=== PATIENT | female | born 1945 | race Caucasian/White ===

== ENCOUNTER 2016-07-16 15:38 | Inpatient (IN) | payer MEDICARE, BC ==
[~2016-07-16] VITALS: Ht 157.5 cm; Wt 54.1 kg
--- NOTE | ~2016-07-16 | HEMODYNAMI ---
PATIENT:ROD MAK MEDICAL RECORD: [id number] : [birth year] [id number] ADMISSION DATE: 07/16/16 Generatedon:08/11/201614:59 Patient name: ROD MAK Patient #: [id number] SSN: DO B: 1945 Date of study: 08/11/2016 Page: Of Hemodynamic Procedure Report Patient Data Patient Demographics Procedure consent was obtained First Name: ROD Gender: Female Last Name: OBDULIO : 1945 Middle Initial: B Age: 71 year(s) Patient #: [id number] Race: Additional ID: [id number] Contact details Address: [facility] [address] State: [place] City: [place] Zip code: [address] Past Medical History Allergies Allergen Reaction Date Comments Reported Other allergy 05/19/2015 HYDROCODONE Admission Admission Data Admission Date: 07/16/2016 Admission Time: 18:55 Room #: D.[id number] Weight (lbs.): 118 Weight (kg.): 53.52 Procedure Procedure Types Cath Procedure Peripheral Cath Diagnostic Procedure Cath Peripheral PICC PICC Line Placement Procedure Description Procedure Date Procedure Date: 08/11/2016 Procedure Start Time: 14:52 Procedure Staff Name Function Elmo Walton MD Performing Physician Kris Banegas RT Scrub Nohemi Salinas RT Medical Biller Coder Procedure Data Cath Procedure Fluoroscopy Diagnostic fluoroscopy Total fluoroscopy Time: 0.1 time: 0.1 min min Diagnostic fluoroscopy Total fluoroscopy dose: dose: 0.55 mGy 0.55 mGy Hemodynamics Rest Pre Cath Intra NCS Post Cath Procedure Log Time Note 14:22:48 Patient Weight : 118 lbs 14:23:22 Use device set PICC 14:23:24 SorbaView Shield opened to sterile field. 14:23:25 Sterile Angiographic Pack opened to sterile field. 14:23:26 Bag Decanter opened to sterile field. 14:23:34 PowerPICC 5Fr double lumen catheter opened to sterile field. 14:23:41 PICC 14:32:16 Time tracking: Regular hours 14:44:30 Patient received from Med/Surg to IR Alert and oriented. Tansferred to table in Supine position. 14:44:33 Signed procedure consent form obtained from patient. 14:44:37 Pre-procedure instructions explained to patient. 14:44:47 Right Arm area was prepped with chlora-prep and draped in sterile fashion 14:44:52 --------ALL STOP TIME OUT------ 14:44:53 Final Timeout: patient, procedure, and site verified with staff and physician. All members of the team are in agreement. 14:45:10 Sharps counted by scrub and verified by R.N. 14:45:18 Procedure started. 14:45:18 Full Disclosure recording started 14:52:21 Local anesthetic to right arm with Lidocaine 1% by Elmo Walton MD.INITIAL ACCESS ONLY 14:52:24 Venous access obtained using ultrasound guidance. 14:56:11 PICC line was trimmed to 36cm and advanced to the superior vena cava.Position verified under fluoroscopy. 14:56:45 Procedure ended.(Physican Out) 14:57:06 Fluoroscopy time 00.10 minutes. 14:57:16 Fluoroscopy dose: 0.55 mGy 14:57:16 Flurop Dose total: 0.55 14:57:20 Sharps counted by scrub and verified by R.N. 14:57:23 Procedure and supply charges have been captured, reviewed, submitted and are correct. Device Usage Item Name Manufacture Quantity Catalog Hospital Part Current Minimal Lot# / Number Charge Number Stock Stock Serial# Code Vika Santiago 1 [id number] 5 Shield Sterile Cardinal 1 [id number] 5 Angiographic Health Pack Bag Decanter Microtek 1 [id number] 5 [employer] PowerPICC Bard 1 [id number] 5 5Fr double lumen catheter Signature Audit [place] Stage Time Signature Unsigned Intra-Procedure 08/11/2016 Nohemi Salinas 2:59:40 PM RT(R) [facility] [address] [facility] [place] [address]
[~2016-07-16 15:38] MED LIST: ASTELIN137 MCG NASAL; BIOTIN5 MG PO; CATAPRES0.1 MG PO; CETIRIZINE HCL5 MG PO; CLARITIN 10 MG10 MG PO; COZAAR50 MG PO; DEMEROL50 MG PO; DILAUDID2 MG PO; DOXYCYCLINE HY100 M2 PO; DULERA 100 MCG8.8 GM INH; FEOSOL LIQ300 MG/5 M PO; HUMALOG 30100 UNITS/ SC; HYDROCODON-ACE1 EAC6 PO; HYZAAR 50-12.51 TAB PO; INTRALIPID 20%250 ML IV; KLONOPIN0.5 MG PO; LASIX20 MG PO; LOVENOX40 MG/0.4 SC; MULTI-DAY VITAM1 TAB PO; NORVASC5 MG PO; NYSTATIN1 PWD TOPICAL; OMEPRAZOLE40 MG PO; PRILOSEC20 MG PO; PROTONIX40 MG PO; REMERON30 MG PO; RESTORIL15 MG PO; SANDOSTATI500 MCG/ML IV; SANDOSTATIN20 MG/KIT IV; TESSALON PERLE100 MG PO; XOPENEX 0.0.63 MG/3 UPD; ZOCOR40 MG PO; ZOFRAN4 MG PO; ZYZAL PO
[2016-07-16 16:26] LABS: BASOPHILS 0.2 % (0.0-2.0); EOSINOPHILS 0.4 % (0-7); HEMATOCRIT 47.5 % (36.0-48.0); HEMOGLOBIN 16.1 g/dL (12-16); IMMATURE GRANULOCYTES 0.2 % (0-5); LYMPHOCYTES 7.7 % (15-50); MCH 31.8 pg (26.0-34.0); MCHC 33.9 g/dL (31.0-37.0); MCV 93.7 fL (80.0-100.0); NEUTROPHILS 80.5 % (40-80); PLATELET COUNT 173 10x3/uL (130-400); RBC 5.07 10x6/uL (4.00-5.40); RDW 12.2 % (11.5-14.5); WBC 12.5 10x3/uL (4.8-10.8)
[2016-07-16 16:44] LABS: APPEARANCE CLEAR (CLEAR); BILIRUBIN NEGATIVE (NEGATIVE); COLOR YELLOW (YELLOW); GLUCOSE NEGATIVE (NEGATIVE); KETONE NEGATIVE (NEGATIVE); LEUKOCYTE ESTERASE TRACE (NEGATIVE); NITRITE NEGATIVE (NEGATIVE); PROTEIN TRACE mg/dL (NEGATIVE); SPECIFIC GRAVITY 1.015 (1.005-1.020); UROBILINOGEN NORMAL (NORMAL)
[2016-07-16 16:45] LABS: BACTERIA FEW /hpf (NONE SEEN); EPITHELIAL CELLS 0-5 /hpf (0-5); RED CELLS - URINE NONE SEEN /hpf (0-5); WHITE CELLS - URINE 0-5 /hpf (0-5)
[2016-07-16 16:47] LABS: ALBUMIN 4.2 g/dL (3.4-5.0); ANION GAP 9.6 mmol/L (8-16); BILIRUBIN - TOTAL 0.62 mg/dL (0.2-1.3); CALCIUM 9.5 mg/dL (8.5-10.1); CARBON DIOXIDE 33.6 mmol/L (21.0-32.0); CREATININE - SERUM 1.1 mg/dL (0.6-1.3); POTASSIUM - SERUM 4.2 mmol/L (3.5-5.1); PROTEIN - SERUM 7.1 g/dL (6.4-8.2)
--- NOTE | 2016-07-16 19:33 | NUR ---
Patient Name: ROD GARNER Admission Status: ER Accout number: [id number] Admission Date: 07-16-2016 : 1945 Admission Diagnosis: Attending: FARSHAD Current LOS: 2 Anticipated DC Date: 07/19/16 Planned Disposition: Home with Spouse Primary Insurance: MEDICARE A & B Discharge Planning Comments: Cm met with patient to complete initial discharge planning assessment. Patient gave consent to complete assessment. Patient lives in a one story home with her . She is independent in her care at home. She does not use assistive devices or have any community resources. She plans to return home with her at discharge and feels this is safe. She denied any dc needs at this time. CM will continue to follow and assist as needed with dc plans/needs. Block Paver: Avelian Carl RN, [facility] Is the patient Alert and Oriented? Yes * How many steps to enter\exit or inside your home? 1 * PCP Dr. Taylor * Pharmacy [facility] in [place] * Preadmission Environment Home with Family * ADLs Independent * Equipment None * List name and contact numbers for known caregivers / representatives who currently or will assist patient after discharge: Van Garner - spouse - [phone] * Community resources currently utilized None * Additional services required to return to the preadmission environment? No Can the patient safely return to the preadmission environment? Yes * Has this patient been hospitalized within the prior 30 days at any hospital? No
[2016-07-16 20:00] VITALS: BP 133/59
[2016-07-16] MEDS ORDERED: NORVASC5 MG PO (20:13)
[2016-07-16 20:38] VITALS: BP 133/59
[2016-07-16 23:25] VITALS: BP 133/59; BMI 22.0
[2016-07-17] VITALS: BP 152/57
[2016-07-17 04:00] VITALS: BP 105/36
--- NOTE | 2016-07-17 07:00 | NUR ---
PT REC'D FROM NIDHI FROST. RESTING IN BED WITH LIGHTS OFF. AAOX4. LUNG SOUNDS CLEAR AND EQUAL BILAT. ABD DISTENDED, BOWEL SOUNDS HYPERACTIVE X4 QUADRANTS, FIRM TO PALPATION, PAIN TO PALPATION WELL. PT STATES THAT THE PAIN "MOVES FROM MY BACK TO MY BELLY." IV TO L AC SL. 24 GUAGE IV PATENT AND INFUSING LR AND MORPHINE POKER IN. PT RATING CURRENT PAIN IN ABD 01/19. REMIND PT OF POKER IN AND HOW TO USE IT. BED LOW, CALL LIGHT IN REACH, WILL CPOC.
--- NOTE | 2016-07-17 07:46 | NUR ---
PATIENT ALERT IN HIGH HE POSITION RESTING QUIETLY. RESPIRATIONS EVEN AND UNLABORED. OSMAN CHAN AT BEDSIDE. SIDE RAILS UP X2. BED IN LOW POSITION. CALL LIGHT IN REACH.
--- NOTE | 2016-07-17 08:55 | NUR ---
MORNING IV ABX HUNG. NEW BAG OF NS HUNG AND TUBING CHANGED. BED LOW, CALL LIGHT IN REACH, DENIES NEEDS, WILL CPOC.
[2016-07-17 09:00] VITALS: BP 144/57
[2016-07-17 11:27] VITALS: Ht 157.5 cm; Wt 54.1 kg
[2016-07-17 12:45] VITALS: BP 127/58
--- NOTE | 2016-07-17 13:00 | NUR ---
MORPHINE FIRE FIGHTER DC'D AND CHANGED TUBING AND SYRINGE TO NEW DILAUDID FIRE FIGHTER PER ORDERS. PT STATES THAT WHEN SHE HAS HAD DILAUDID IN THE PAST IT HELPED MORE THAN MORPHINE DOES. CURRENT PAIN IN ABD 02/19. WILL REASSESS.
[2016-07-17 16:28] VITALS: BP 148/68
--- NOTE | 2016-07-17 18:33 | NUR ---
PT RESTING IN BED WITH CLD DINNER TRAY IN ROOM. STATED THE DILAUDID HAS HELPED MUCH MORE AND PAIN IS NOW A 7/10. BED LOW, CALL LIGHT IN REACH, WILL CPOC.
[2016-07-17 19:00] VITALS: BP 142/58
[2016-07-18] VITALS: BP 128/56
--- NOTE | 2016-07-18 02:55 | NUR ---
PT. IN BED WITH HOB UP FOR COMFORT WATCHING TV AND DRIFTING OFF TO SLEEP WHEN CHECKING IN ON HER. CALL LIGHT WITHIN REACH.
[2016-07-18 04:00] VITALS: BP 139/54
[2016-07-18 05:23] LABS: BASOPHILS 0.2 % (0.0-2.0); EOSINOPHILS 1.5 % (0-7); HEMATOCRIT 42.1 % (36.0-48.0); HEMOGLOBIN 14.1 g/dL (12-16); IMMATURE GRANULOCYTES 0.3 % (0-5); LYMPHOCYTES 9.5 % (15-50); MCH 31.5 pg (26.0-34.0); MCHC 33.5 g/dL (31.0-37.0); MEAN PLATELET VOLUME 12.5 fL (7.4-10.4); MONOCYTES 12.6 % (2-11); NEUTROPHILS 75.9 % (40-80); RBC 4.48 10x6/uL (4.00-5.40); RDW 12.2 % (11.5-14.5)
[2016-07-18 05:27] LABS: PLATELET COUNT 113 10x3/uL (130-400); WBC 9.1 10x3/uL (4.8-10.8)
--- NOTE | 2016-07-18 05:33 | NUR ---
PT. IN BED WITH HOB UP FOR COMFORT WITH EYES CLOSED AND RESP. EVEN. CALL LIGHT IS WITHIN REACH.
[2016-07-18 05:54] LABS: CALCIUM 8.5 mg/dL (8.5-10.1); CARBON DIOXIDE 26.7 mmol/L (21.0-32.0); CREATININE - SERUM 0.9 mg/dL (0.6-1.3); POTASSIUM - SERUM 3.7 mmol/L (3.5-5.1)
[2016-07-18 08:59] VITALS: BP 105/95
--- NOTE | 2016-07-18 09:00 | NUR ---
REPORT RECIEVED ASSUMED CARE. PATIENT IN BED WITH IV INTACT. NO COMPLAINTS. CALL LIGHT WITHIN REACH.
[2016-07-18 12:32] VITALS: BP 121/61
--- NOTE | 2016-07-18 12:45 | NUR ---
NUTRITION MONITORING & EVAL CHART REVIEWED, PT IN ISOLATION. CLEAR LIQUID DIET. IF UNABLE TO ADVANCE DIET, RECOMMEND DECREASING IV FLUIDS AND STARTING PROCALAMINE WITH LIPIDS. RD FOLLOWING
[2016-07-18 16:08] VITALS: BP 107/56
--- NOTE | 2016-07-18 18:50 | NUR ---
PATIENT IN BED WITH IV INTACT. NO COMPLAINTS AT THIS TIME. CALL LIGHT WITHIN REACH.
[2016-07-18 19:00] VITALS: BP 139/58
--- NOTE | 2016-07-19 03:46 | NUR ---
PT IN BED WITH NO DISTRESS NOTED. RESPIRATIONS UNLABORED. SIDE RAILS ARE UP X 2. BED IS IN LOWEST POSITION. CALL LIGHT IS WITHIN REACH.
[2016-07-19 04:00] VITALS: BP 144/54
--- NOTE | 2016-07-19 07:00 | NUR ---
REPORT RECIEVED ASSUMED CARE. PATIENT IN BED WITH IV INTACT. NO COMPLAINTS AT THIS TIME. CALL BENIW MEGHAN INTERIANO.
--- NOTE | 2016-07-19 09:00 | NUR ---
ABDOMEN CLEANED WITH WOUND SNAGGER AND DRESSING PLACED OVER TOP PART OF HEALED ABD. SCAR. SKIN OPENED AND DRAINING, PINK DRAINAGE THROUGH SMALL HOLE. NO COMPLAINTS AT THIS TIME. IV AND POLYSILICON PREPARATION WORKER INTACT. CALL LIGHT WITHIN REACH.
[2016-07-19 09:23] VITALS: BP 114/48
[2016-07-19 11:47] VITALS: BP 149/61
--- NOTE | 2016-07-19 15:28 | NUR ---
Patient Name: ROD GARNER Admission Status: ER Accout number: [id number] Admission Date: 07-16-2016 : 1945 Admission Diagnosis:SEPSIS, UNSPECIFIED ORGANISM Attending: FARSHAD Current LOS: 3 Anticipated DC Date: 07-22-2016 Planned Disposition: Home or Self Care Primary Insurance: MEDICARE A & B Discharge Planning Comments: CM MET WITH PATIENT REGARDING D/C NEEDS AND PLANS. PATIENT STATED SHE LIVES WITH HER SPOUSE (MADYSON) AND HE WILL PICK HER UP AT DISCHARGE. PATIENT STATED THERE IS ONE STEP W/O RAILS TO ENTER HOME AND NO STAIRS INSIDE. PATIENTS PCP IS DR. SORIA AND PHARMACY IS [facility] IN [place]. PATIENT IS INDEPENDENT WITH HER CARE AND HAS NO DME AT HOME. PATIENT STATED SHE HAD [facility] RECENTLY AND DOES NOT WANT HOME HEALTH AGAIN UNLESS ABSOLUTELY NECESSARY. CM WILL CONTINUE TO FOLLOW PATIENT WITH D/C NEEDS AND PLANS. PCP DR. [facility] IN [place] (PHARMACY) [phone] MADYSON (SPOUSE) [phone] Clinic Administrator: Nimo Berger Is the patient Alert and Oriented? Yes 0 * How many steps to enter\exit or inside your home? 1 0 * PCP Dr. Soria 0 * Pharmacy [facility] in [place] 0 * Preadmission Environment Home with Family 0 * ADLs Independent 0 * Equipment None 0 * List name and contact numbers for known caregivers / representatives who currently or will assist patient after discharge: Madyson Garner - spouse - [phone] 0 * Community resources currently utilized None 0 * Additional services required to return to the preadmission environment? No 0 * Can the patient safely return to the preadmission environment? Yes 0 * Has this patient been hospitalized within the prior 30 days at any hospital? No 0 Grand Total: 0
[2016-07-19 16:05] VITALS: BP 151/60
--- NOTE | 2016-07-19 18:35 | NUR ---
PATIENT SITTING UP IN BED EATING CLEAR LIQUID DIET. NO COMPLAINTS AT THIS TIME. CALL LIGHT WITHIN REACH.
[2016-07-19 19:00] VITALS: BP 141/61
--- NOTE | 2016-07-19 19:25 | NUR ---
RECIEVED SHIFT REPORT. PT IS LYING IN BED. ALERT AND ORIENTED AND ABLE TO VERBALIZE NEEDS. IV IS PATENT AND FLUIDS ARE RUNNING PER ORDER. PT IS AMBULATORY BUT WAS INSTRUCTED TO CALL FOR ANY ASSISTANCE NEEDED. DRESSING TO ABDOMEN C/D/I. JPT STATES PAIN IS 8/10. INSTRUCTED PT ON USE OF GLOBAL RISK MANAGEMENT DIRECTOR PUMP. VERBALIZED UNDERSTANDING. NO NEEDS ARE VERBALIZED AT THIS TIME. WILL CONTINUE TO MONITOR. SIDE RAILS ARE UP X 2. BED IS IN LOWEST POSITION. CALL LIGHT IS WITHIN REACH.
--- NOTE | 2016-07-19 20:41 | NUR ---
SHIFT ASSESSMENT COMPLETED. ANTIBIOTIC HUNG PER ORDER. NO NEEDS ARE VOICED. WILL MONITOR. SIDE RAILS X 2. BED LOW. CALL LIGHT IN REACH.
[2016-07-19 23:59] VITALS: BP 117/54
[2016-07-20] VITALS (9 sets, daily range): BP systolic 125–152; BP diastolic 55–77
--- NOTE | 2016-07-20 07:00 | NUR ---
REPORT RECEIVED FROM ENVIRONMENTAL ENGINEERING MANAGER NURSE. CALL LIGHT IN REACH.
--- NOTE | 2016-07-20 08:43 | NUR ---
CM REASSESSMENT NOTE: PATIENT HAS CHOSEN [facility] (ONLY IF NEEDED SHE STATED). THE SUSANA FORM WAS SIGNED BY HER SPOUSE MADYSON WITH HER PERMISSION. CM WILL CONTINUE TO FOLLOW PATIENT WITH D/C NEEDS AND PLANS.
--- NOTE | 2016-07-20 09:19 | NUR ---
ASSESSMENT COMPLETED. MERREM IVPB. CALL LIGHT IN REACH. FAMILY IN ROOM. WILL CONTINUE WITH PLAN OF CARE.
--- NOTE | 2016-07-20 10:22 | NUR ---
STATES HER PAIN IS A 10 NO MATTER WHAT. WANTS CALLED.
--- NOTE | 2016-07-20 10:23 | NUR ---
SPOKE WITH DR. JUSTICE. NEW ORDERS RECEIVED.
--- NOTE | 2016-07-20 10:41 | NUR ---
DILAUDID 1 MG AND ZOFRAN 4 MG SIVP. PEPCID SIVP. VANC IVPB.
--- NOTE | 2016-07-20 11:06 | NUR ---
PREOP MEDS ADMINISTERED. STATES PAIN HAS DECREASED TO A 4.
--- NOTE | 2016-07-20 11:45 | NUR ---
TO OR VIA BED.
--- NOTE | 2016-07-20 12:00 | NUR ---
OFF UNIT IN OR AT THIS TIME.
--- NOTE | 2016-07-20 13:54 | NUR ---
Nutrition Follow Up: Chart reviewed. Pt is s/p excisional debridement of abdominal wall. Wt stable. +BM 07/20/16 (noted pt with chronic diarrhea). Meds noted including Vanc, NS @ 100 ml/hr, Zofran, Reglan. No new labs to assess. Pt continues NPO. Rec advancing diet as soon as medically feasible. If diet unable to advance within the next 24 hours rec start nutrition support. RD will continue to monitor pt progress.
--- NOTE | 2016-07-20 18:43 | NUR ---
PATIENT ARRIVED TO THE FLOOR FROM RECOVERY ROOM VIA BED. SHE IS AWAKE AND ALERT. SETTLED INTO BED. VITALS TAKEN.
--- NOTE | 2016-07-20 19:15 | NUR ---
ASSESSMENT COMPLETE. S1S2. NSR SHOWING ON MONITOR. RR SHALLOW; CLEAR BILATERALLY IN UPPER LOBES; DIMINISHED BILATERALLY IN LOWER LOBES. PT ON PHONOGRAPH CARTRIDGE ASSEMBLER MORPHINE. PT C/O PAIN 10/10. ABD INCISION PRESENT; LIGHTLY SATURATED WITH BLOOD. MARKED SATURATION ON ABD DRESSING TO MONITOR BLEEDING. BUTTOCKS REDDENED; BLANCHABLE. PT HAD DIFFICULTY MOVING; C/O OF PAIN WITH MOVEMENT. SCD IN PLACE. PIV TO LEFT FOREARM; PATENT. SEE FLOW SHEET FOR DETAILS.
--- NOTE | 2016-07-20 21:10 | NUR ---
ORAL CARE PROVIDED. ASSISTED PT WITH CHANGE IN POSITION.
[2016-07-20 21:43] LABS: BASOPHILS 0.1 % (0.0-2.0); EOSINOPHILS 0 % (0-7); HEMATOCRIT 37.3 % (36.0-48.0); HEMOGLOBIN 12.9 g/dL (12-16); IMMATURE GRANULOCYTES 0.3 % (0-5); LYMPHOCYTES 7.3 % (15-50); MCH 31.7 pg (26.0-34.0); MCHC 34.6 g/dL (31.0-37.0); MCV 91.6 fL (80.0-100.0); MONOCYTES 9.5 % (2-11); NEUTROPHILS 82.8 % (40-80); RBC 4.07 10x6/uL (4.00-5.40); RDW 11.8 % (11.5-14.5); WBC 19.1 10x3/uL (4.8-10.8)
[2016-07-20 21:52] LABS: PLATELET COUNT 207 10x3/uL (130-400)
[2016-07-20 22:00] LABS: ALBUMIN 2.5 g/dL (3.4-5.0); ANION GAP 17.8 mmol/L (8-16); BILIRUBIN - TOTAL 0.54 mg/dL (0.2-1.3); CARBON DIOXIDE 23.3 mmol/L (21.0-32.0); CREATININE - SERUM 1.1 mg/dL (0.6-1.3); MAGNESIUM - SERUM 1.6 mg/dL (1.8-2.4); PHOSPHOROUS 4.7 mg/dL (2.5-4.9); POTASSIUM - SERUM 3.1 mmol/L (3.5-5.1); PRE-ALBUMIN 12.4 mg/dL (18.0-35.7); PROTEIN - SERUM 5.6 g/dL (6.4-8.2)
--- NOTE | 2016-07-20 23:07 | NUR ---
PT C/O NAUSEA. ZOFRAN GIVEN PER ORDERS. SEE EMAR FOR DETAILS.
--- NOTE | 2016-07-20 23:15 | NUR ---
REASSESSMENT COMPLETE. NO CHANGES FROM PREVIOUS ASSESSMENT. WILL CONTINUE TO MONITOR. SEE FLOW SHEET FOR DETAILS.
[2016-07-21] VITALS (12 sets, daily range): BP systolic 131–154; BP diastolic 52–79
--- NOTE | 2016-07-21 01:43 | NUR ---
PT RESTING; EYES CLOSED. VSS. NO DISTRESS NOTED. CALL LIGHT IN REACH. WILL CONTINUE TO MONITOR.
--- NOTE | 2016-07-21 03:00 | NUR ---
REASSESSMENT COMPLETE. NO CHANGES FROM PREVIOUS ASSESSMENT. CALL LIGHT IN REACH. WILL CONTINUE TO MONITOR.
--- NOTE | 2016-07-21 04:00 | NUR ---
I/O COLLECTED. LEWIS DRAINED. PUMPS CLEARED.
--- NOTE | 2016-07-21 05:20 | NUR ---
PT RESTING; EYES CLOSED. VSS. NO DISTRESS NOTED. CALL LIGHT IN REACH. PRESS ASSISTANT BUTTON IN REACH. WILL CONTINUE TO MONITOR.
--- NOTE | 2016-07-21 07:00 | NUR ---
Received report and assumed care of patient. Pt is currently awake, alert and oriented. Patient has Dilauid PAINT TRIMMER PIPE BOWLS in hand, states she is in pain. Midline incision with marked drainage. pennington cath draining green tinge urine. Left arm PIV in place, secured with tegaderm. See shift assessment flowsheet for all findings.
--- NOTE | 2016-07-21 09:00 | NUR ---
Patient requesting to eat and drink .Erich keating, OKAY for limited ice chips, okay to transfer to floor.
[2016-07-21 09:35] LABS: BASOPHILS 0.1 % (0.0-2.0); EOSINOPHILS 0 % (0-7); HEMOGLOBIN 12.3 g/dL (12-16); IMMATURE GRANULOCYTES 0.2 % (0-5); LYMPHOCYTES 3.8 % (15-50); MCH 31.1 pg (26.0-34.0); MCHC 34.2 g/dL (31.0-37.0); MCV 91.1 fL (80.0-100.0); MONOCYTES 15.8 % (2-11); NEUTROPHILS 80.1 % (40-80); PLATELET COUNT 210 10x3/uL (130-400); RBC 3.95 10x6/uL (4.00-5.40); RDW 12.1 % (11.5-14.5); WBC 16.3 10x3/uL (4.8-10.8)
--- NOTE | 2016-07-21 10:00 | NUR ---
through to see patient. No new orders at this time.
[2016-07-21 10:01] LABS: ALBUMIN 2.6 g/dL (3.4-5.0); ANION GAP 13.6 mmol/L (8-16); BILIRUBIN - TOTAL 0.4 mg/dL (0.2-1.3); CALCIUM 7.7 mg/dL (8.5-10.1); CARBON DIOXIDE 26.9 mmol/L (21.0-32.0); MAGNESIUM - SERUM 1.7 mg/dL (1.8-2.4); POTASSIUM - SERUM 3.5 mmol/L (3.5-5.1); PROTEIN - SERUM 5.2 g/dL (6.4-8.2)
--- NOTE | 2016-07-21 10:15 | NUR ---
New PIV started for Zofran gtt.
[2016-07-21 10:19] LABS: PHOSPHOROUS 3.4 mg/dL (2.5-4.9)
--- NOTE | 2016-07-21 10:22 | NUR ---
NUTRITION MONITORING & EVAL CHART REVIEWED. PT IN ICU S/P SURGERY. RECOMMEND NUTRITION SUPPORT IF UNABLE TO START CLEAR LIQUID DIET IN [address] FOLLOWING
--- NOTE | 2016-07-21 12:41 | NUR ---
Report called to NIDHI Vera.
--- NOTE | 2016-07-21 13:05 | NUR ---
PATIENT RECEIVED TO FLOOR FROM ICU VIA BED. PATIENT A/O X4. NO SIGNS OF DISTRESS NOTED. ORIENTED TO ROOM. AT BEDSIDE. DENIES NEEDS. SIDE RAILS UP X2. BED IN LOW POSITION. CALL LIGHT IN REACH.
--- NOTE | 2016-07-21 13:10 | NUR ---
Patient taken to room 2239. Pt self transferred to floor bed. Patients in room to meet us, he refuses to wear isolation gear. informed him it was hospital policy and he stated he would go to administration. NIDHI Vera in room to meet us. IVFs and PIV sites discussed.
--- NOTE | 2016-07-21 14:00 | NUR ---
PATIENT REFUSES SCDS
--- NOTE | 2016-07-21 17:25 | NUR ---
PATIENT IN MID HE POSITION RESTING QUIETLY. RESPIRATIONS EVEN AND UNLABORED. SCHEDULED MEDICATION ADMINISTERED. NGT CHECKED WITH AUSCULTATION, THEN FLUSHED PER ORDERS. WELL TOLERATED. DENIES NEEDS. SIDE RAILS UP X2. BED IN LOW POSITION. CALL LIGHT IN REACH. WELDING MACHINE OPERATOR HELPER GAS BUTTON IN REACH.
--- NOTE | 2016-07-22 07:27 | NUR ---
REFUSED LAB THIS AM WHEN IT WAS NOT OBTAINED ON THE FIRST STICK
--- NOTE | 2016-07-22 08:00 | NUR ---
PT ASSESSMENT COMPLETE NGT TO LIS NOTED PT WITH NO BOWEL SOUNDS IN 4 QUADS. PT HAS REFUSES TO HAVE LABS DRAWN. WILL CONTACT FOR ORDER FOR PICC LINE PER REQUEST DUE TO PIV TO RIGHT HAND INFILTRATED.
[2016-07-22 08:44] VITALS: BP 151/65
[2016-07-22 12:02] VITALS: BP 130/57
[2016-07-22 14:30] LABS: BASOPHILS 0.1 % (0.0-2.0); EOSINOPHILS 0.4 % (0-7); HEMATOCRIT 29.4 % (36.0-48.0); HEMOGLOBIN 9.9 g/dL (12-16); IMMATURE GRANULOCYTES 0.4 % (0-5); LYMPHOCYTES 5.5 % (15-50); MCHC 33.7 g/dL (31.0-37.0); MCV 92.2 fL (80.0-100.0); MEAN PLATELET VOLUME 10.7 fL (7.4-10.4); MONOCYTES 13.8 % (2-11); NEUTROPHILS 79.8 % (40-80); PLATELET COUNT 203 10x3/uL (130-400); RBC 3.19 10x6/uL (4.00-5.40); RDW 12.2 % (11.5-14.5); WBC 13.9 10x3/uL (4.8-10.8)
[2016-07-22 14:54] LABS: ALBUMIN 2.1 g/dL (3.4-5.0); ALKALINE PHOSPHATASE 69 U/L (46-116); BILIRUBIN - TOTAL 0.34 mg/dL (0.2-1.3); CALC OSMOLALITY 282 mosm/kg (275-300); CALCIUM 7.5 mg/dL (8.5-10.1); CHLORIDE - SERUM 104 mmol/L (98-107); GLUCOSE 133 mg/dL (74-106); MAGNESIUM - SERUM 1.9 mg/dL (1.8-2.4); POTASSIUM - SERUM 3.2 mmol/L (3.5-5.1); PROTEIN - SERUM 4.6 g/dL (6.4-8.2); SODIUM 141 mmol/L (136-145); TRIGLYCERIDE 152 mg/dL (30-200); UREA NITROGEN 12 mg/dL (7-18)
--- NOTE | 2016-07-22 15:00 | NUR ---
RESTING IN BED. NO C/O AT THIS TIME. DENIES NEEDS. NG TO LEFT NARE PATENT. NO C/O PAIN AT THIS TIME.
[2016-07-22 15:04] LABS: ALT (SGPT) 61 U/L (10-68); CARBON DIOXIDE 34.3 mmol/L (21.0-32.0); CREATININE - SERUM 0.7 mg/dL (0.6-1.3); eGFR NON AFRICAN AMERICAN 88 mL/min (90-120)
[2016-07-22 16:50] VITALS: BP 148/62
--- NOTE | 2016-07-22 18:57 | NUR ---
PICC LINE PLACED PER MIDLINE NURSE LABS DRAWN AFTER XRAY VERIFICATION.
[2016-07-22 21:00] VITALS: BP 132/57
[2016-07-23 01:00] VITALS: BP 140/52
[2016-07-23 05:00] VITALS: BP 123/69
[2016-07-23 06:15] LABS: BASOPHILS 0.2 % (0.0-2.0); HEMOGLOBIN 8.9 g/dL (12-16); IMMATURE GRANULOCYTES 0.2 % (0-5); LYMPHOCYTES 10.8 % (15-50); MCH 30.6 pg (26.0-34.0); MCV 92.8 fL (80.0-100.0); MONOCYTES 11.6 % (2-11); NEUTROPHILS 76.2 % (40-80); PLATELET COUNT 221 10x3/uL (130-400); RBC 2.91 10x6/uL (4.00-5.40); RDW 12.3 % (11.5-14.5); WBC 12.6 10x3/uL (4.8-10.8)
[2016-07-23 06:32] LABS: ALBUMIN 1.7 g/dL (3.4-5.0); ALKALINE PHOSPHATASE 69 U/L (46-116); ALT (SGPT) 47 U/L (10-68); CALC OSMOLALITY 282 mosm/kg (275-300); CALCIUM 7.5 mg/dL (8.5-10.1); CARBON DIOXIDE 33.5 mmol/L (21.0-32.0); CHLORIDE - SERUM 103 mmol/L (98-107); CREATININE - SERUM 0.7 mg/dL (0.6-1.3); GLUCOSE 188 mg/dL (74-106); MAGNESIUM - SERUM 1.9 mg/dL (1.8-2.4); PHOSPHOROUS 1.7 mg/dL (2.5-4.9); POTASSIUM - SERUM 3.1 mmol/L (3.5-5.1); PROTEIN - SERUM 4.9 g/dL (6.4-8.2); SODIUM 140 mmol/L (136-145); UREA NITROGEN 10 mg/dL (7-18); eGFR NON AFRICAN AMERICAN 88 mL/min (90-120)
--- NOTE | 2016-07-23 07:38 | NUR ---
PT SITTING UP IN BED ROYER NEEDS WILL CONT TO MONITOR
[2016-07-23 08:30] VITALS: BP 126/66
--- NOTE | 2016-07-23 08:54 | NUR ---
NUTRITION MONITORING & EVAL LABS REVIEWED. TPN ORDERED TO START. 20% INTRALIPIDS Q 48 HOURS. AM LABS ORDERED BY MD BRITO FOLLOWING
--- NOTE | 2016-07-23 10:15 | NUR ---
CALLED PHARM TO GET LIPIDS UP HERE
[2016-07-23 12:03] VITALS: BP 163/52
--- NOTE | 2016-07-23 12:17 | NUR ---
PT WALKED AROUND WITH THERAPY. PT DENIES NEEDS AT THIS TIME WILL CONT TO MONITOR.
[2016-07-23 16:13] VITALS: BP 151/66
--- NOTE | 2016-07-23 17:03 | NUR ---
PT SITTING UP IN BED DENIES NEEDS WILL CONT TO MONITOR.
--- NOTE | 2016-07-23 18:17 | NUR ---
PT SITTING UP IN BED RESTING QUIETLY. DENIES NEEDS.
--- NOTE | 2016-07-23 20:00 | NUR ---
REC'D IN BED AWAKE AND ALERT. RESP EVEN AND UNLABORED WITH NO DISTRESS NOTED. CAN EXPRESS NEEDS AND WANTS. NO C/O NOTED OR VOICED. NG-TUBE NOTED TO RIGHT NARE. ASSESSMENT COMPLETED. REMAIN ON CONTACT ISOLATION. NO C/O NOTED OR VOICED. WILL CONTINUE TO OBSERVE FOR NEEDS. C/L IN REACH AT BEDSIDE.
[2016-07-23 21:14] VITALS: BP 119/56
[2016-07-24 00:42] VITALS: BP 148/58
--- NOTE | 2016-07-24 01:15 | NUR ---
RESTING WITH EYES CLOSED, NO DISTRESS NOTED, CONTACT AND FALL PRECAUTIONS IN PLACE, CL IN REACH
[2016-07-24 06:08] VITALS: BP 133/61
--- NOTE | 2016-07-24 07:00 | NUR ---
REPORT RECEIVED FROM ADJUNCT PROFESSOR NURSE. CALL LIGHT IN REACH.
[2016-07-24 08:43] VITALS: BP 147/56
--- NOTE | 2016-07-24 09:19 | NUR ---
ASSESSMENT COMPLETED. AM MEDS ADMINISTERED. CALL LIGHT IN REACH. AT BEDSIDE. WILL CONTINUE WITH PLAN OF CARE.
--- NOTE | 2016-07-24 11:27 | NUR ---
VANC IVPB. ALL IV TUBING CHANGED PER HOSPITAL POLICY. NS AND ZOFRAN CHANGED OVER TO PICC LINE. LEFT FOREARM IV DC'D WITH TIP INTACT. WILL INFORM COLD ROLL PACKER SHEET IRON NURSE TO TURN OFF TPN AT LEAST 30 MINUTES TO AN HOUR BEFORE LAB IS DRAWN SO PATIENT DOESN'T HAVE TO GET STUCK WITH A NEEDLE. INCISION TO ABD CLEANED AND DRSG CHANGED.
[2016-07-24 12:30] VITALS: BP 104/45
--- NOTE | 2016-07-24 13:20 | NUR ---
DENIES NEEDS AT THIS TIME. CALL LIGHT IN REACH. IN ROOM.
--- NOTE | 2016-07-24 14:25 | NUR ---
AMBULATED 250 FEET IN HALLWAY TWICE FOR THE DAY. TOLERATED WELL.
--- NOTE | 2016-07-24 15:20 | NUR ---
PATIENT NGT PLACED TO LIWS BEFORE. PATIENT HAS NO COMPLAINTS AT THIS TIME. IV INTACT. CALL LIGHT WITHIN REACH.
[2016-07-24 16:43] VITALS: BP 116/50
--- NOTE | 2016-07-24 16:46 | NUR ---
EVENING MEDS ADMINISTERED. ALSO SPOKE WITH DR. PECK D/T PATIENT C/O PAIN OF 9 AT ALL TIMES. NEW ORDERS RECEIVED.
--- NOTE | 2016-07-24 17:00 | NUR ---
LUMENS TO NGT BOTH FLUSHED WITH 20 CC OF H20, WHICH WAS ALSO DONE @ 0800 AND 1200 TODAY PER MD ORDERS.
--- NOTE | 2016-07-24 18:08 | NUR ---
NO CHANGES IN INITIAL ASSESSMENT. CALL LIGHT IN REACH. WILL CONTINUE WITH PLAN OF CARE.
--- NOTE | 2016-07-24 19:45 | NUR ---
REC'D IN BED WITH NO DISTRESS NOTED. RESP EVEN AND UNLABORED WITH NO DISTRESS NOTED. CAN EXPRESS NEEDS AND WANTS. NO C/O NOTED OR VOICED. NG-TUBE INTACT TO LWIS. ASSESSMENT COMPLETED. C/L IN REACH AT BEDSIDE.
[2016-07-24 21:35] VITALS: BP 137/69
[2016-07-25 01:00] VITALS: BP 151/58
--- NOTE | 2016-07-25 02:00 | NUR ---
PT IN BED WITH NO NEEDS. RIGHT PICC PATENT AND FLUIDS RUNNING PER ORDER. RIGHT HAND IV PATENT AND SALINE LOC. MIDLINE INCISION C/D/I. STRAINER CLEANER IN PLACE FOR PAIN CONTROL. NGT TO LEFT NARE PATENT AND CONNECTED TO LIWS. ISOLATION PRECAUTIONS IN PLACE. SIDE RAILS ARE UP X 2. BED IS LOW. CALL LIGHT IN REACH.
[2016-07-25 04:00] VITALS: BP 143/49
--- NOTE | 2016-07-25 07:47 | NUR ---
QUIET IN ROOM ISOLATION CONT AT PRESENT DENIES ANY NEEDS RESP EVEN AND UNLABORED AT PRESENT.
--- NOTE | 2016-07-25 08:04 | NUR ---
ASSESSMENT COMPLETED. ABDOMINAL INCISION IS LEAKING BROWNISH YELLOW FLUID WHICH IS OOZING QUITE FAST. PRESSURE HELD ON INCISION AND DRSG CHANGED. LINENS ALSO CHANGED. LOVENOX SUBQ TO RLQ ABD. TPN TURNED OFF SO I CAN TRY TO DRAW AM LABS FROM PICC LINE. NEW VIAL OF DILAUDID INITIATED. DENIES OTHER NEEDS. CALL LIGHT IN REACH. WILL CONTINUE WITH PLAN OF CARE.
[2016-07-25 08:29] VITALS: BP 142/56
[2016-07-25 09:40] LABS: BASOPHILS 0.2 % (0.0-2.0); HEMATOCRIT 27.2 % (36.0-48.0); HEMOGLOBIN 8.9 g/dL (12-16); IMMATURE GRANULOCYTES 0.7 % (0-5); LYMPHOCYTES 10.3 % (15-50); MCH 30.5 pg (26.0-34.0); MCHC 32.7 g/dL (31.0-37.0); MCV 93.2 fL (80.0-100.0); MEAN PLATELET VOLUME 10.2 fL (7.4-10.4); MONOCYTES 13.4 % (2-11); NEUTROPHILS 74.4 % (40-80); PLATELET COUNT 255 10x3/uL (130-400); RBC 2.92 10x6/uL (4.00-5.40); RDW 12.2 % (11.5-14.5)
[2016-07-25 09:51] LABS: WBC 9.1 10x3/uL (4.8-10.8)
[2016-07-25 10:06] LABS: ALBUMIN 1.9 g/dL (3.4-5.0); ALKALINE PHOSPHATASE 105 U/L (46-116); ALT (SGPT) 35 U/L (10-68); CALC OSMOLALITY 283 mosm/kg (275-300); CALCIUM 8.1 mg/dL (8.5-10.1); CARBON DIOXIDE 34.5 mmol/L (21.0-32.0); CHLORIDE - SERUM 101 mmol/L (98-107); CREATININE - SERUM 0.7 mg/dL (0.6-1.3); GLUCOSE 145 mg/dL (74-106); MAGNESIUM - SERUM 1.9 mg/dL (1.8-2.4); PHOSPHOROUS 2.1 mg/dL (2.5-4.9); POTASSIUM - SERUM 3.2 mmol/L (3.5-5.1); PROTEIN - SERUM 5.9 g/dL (6.4-8.2); SODIUM 142 mmol/L (136-145); UREA NITROGEN 7 mg/dL (7-18); eGFR NON AFRICAN AMERICAN 88 mL/min (90-120)
--- NOTE | 2016-07-25 10:26 | NUR ---
NUTRITION MONITORING & EVAL CHART REVIEWED, SPOKE WITH PHARMACY, DR. JUSTICE, NURSING. PT ALLOWED LAB DRAW. ONE BAG TPN REMAINING IN FRIG. NURSING TO ADD RIDERS FOR LOW K+ AND PHOS. WILL RENEW TPN ORDERS IN AM. RD FOLLOWING
--- NOTE | 2016-07-25 10:41 | NUR ---
LIPIDS INITIATED PER ORDER. KCL 20 MEQ IV TO PICC LINE PER ELECTROLYTE PROTOCOL. WILL START IV PHOSPHORUS WHEN K+ IS COMPLETED. NS AND WORKERS' COMPENSATION CLAIMS EXAMINER NOW INFUSING TO RIGHT HAND PERIPERAL IV. VANC INITIATED. ZOFRAN 4 MG SIVP FOR BREAKTHROUGH NAUSEA. SANDOSTATIN SUBQ. CALL LIGHT IN REACH. WILL CONTINUE TO MONITOR.
[2016-07-25 12:29] VITALS: BP 130/61
--- NOTE | 2016-07-25 12:35 | NUR ---
NAYAN CHANGED PER NIDHI STEVENS. 2ND BAG OF KCL INITIATED PER HILDA.
--- NOTE | 2016-07-25 14:45 | NUR ---
TIAO4 INITIATED @ 63.75 CC/HR PER ORDER. CALL LIGHT IN REACH.
--- NOTE | 2016-07-25 16:53 | NUR ---
NGT LUMENS FLUSHED WITH H20 PER ORDER. PEPCID IVP AND SNADOSTATIN SUBQ. CALL LIGHT IN REACH.
[2016-07-25 16:57] VITALS: BP 153/61
--- NOTE | 2016-07-25 18:13 | NUR ---
NO CHANGES IN INITIAL ASSESSMENT. CALL LIGHT IN REACH. WILL CONTINUE WITH PLAN OF CARE.
[2016-07-26] VITALS: BP 146/45
[2016-07-26 04:00] VITALS: BP 166/63
[2016-07-26 07:21] LABS: BASOPHILS 0.3 % (0.0-2.0); EOSINOPHILS 2.2 % (0-7); GLUCOSE 200 mg/dL (74-106); HEMATOCRIT 29.4 % (36.0-48.0); HEMOGLOBIN 9.6 g/dL (12-16); IMMATURE GRANULOCYTES 0.9 % (0-5); LYMPHOCYTES 8.7 % (15-50); MAGNESIUM - SERUM 1.9 mg/dL (1.8-2.4); MCH 30.6 pg (26.0-34.0); MCHC 32.7 g/dL (31.0-37.0); MCV 93.6 fL (80.0-100.0); MEAN PLATELET VOLUME 10.8 fL (7.4-10.4); MONOCYTES 12.7 % (2-11); NEUTROPHILS 75.2 % (40-80); RBC 3.14 10x6/uL (4.00-5.40); RDW 12.4 % (11.5-14.5); UREA NITROGEN 7 mg/dL (7-18); WBC 9.5 10x3/uL (4.8-10.8)
[2016-07-26 07:22] LABS: BILIRUBIN - TOTAL 0.39 mg/dL (0.2-1.3); CALC OSMOLALITY 279 mosm/kg (275-300); CHLORIDE - SERUM 101 mmol/L (98-107); CREATININE - SERUM 0.8 mg/dL (0.6-1.3); POTASSIUM - SERUM 3.6 mmol/L (3.5-5.1); SODIUM 138 mmol/L (136-145); eGFR NON AFRICAN AMERICAN 75 mL/min (90-120)
[2016-07-26 07:30] LABS: PLATELET COUNT 178 10x3/uL (130-400)
[2016-07-26 07:33] LABS: ALKALINE PHOSPHATASE 108 U/L (46-116); ALT (SGPT) 36 U/L (10-68); PROTEIN - SERUM 6.2 g/dL (6.4-8.2)
[2016-07-26 08:05] VITALS: BP 160/69
--- NOTE | 2016-07-26 08:20 | NUR ---
CHANGED ABDOMINAL DRESSING X3 DURING THE NIGHT. GREEN DRAINAGE WITH SOME BROWN TINT NOTED TO BANDAGE WITH EACH CHANGE.
--- NOTE | 2016-07-26 09:00 | NUR ---
PT ASSESSMENT COMPLETE AWAKE AND ALERT ORIENTED X 3 LUNGS CLEAR DRESSING INTACT TO ABDOMEN NGT TO LIS WITH GREEN FLUID. PICC NOTED TO RIGHT AC WILL NOT DRAW REPORTED TO VASCULAR ACCESS NURSE.
--- NOTE | 2016-07-26 10:19 | NUR ---
NUTRITION MONITORING & EVAL CHART REVIEWED. PT OUT OF ISOLATION. ADJUSTED & RENEWED TPN ORDERS. ORDERED LABS X [address] FOLLOWING
--- NOTE | 2016-07-26 10:46 | NUR ---
PATIENT AWAKE, ALERT AND ORIENTED X'S 4. RESPIRATIONS ARE EVEN AND UNLABORED. NGT INTACT. PATIENT ASKING WHEN SHE IS GOING TO HAVE HER CT SCAN. CALLED RAKESH WITH CT. HE SAID "WITH HER PREVIOUS HISTORY SHE NEEDS TO HAVE THE CONTRAST IN LONGER SO PROBABLY BETWEEN [id number]. PATIENT STATED "OKAY THATS FINE."
--- NOTE | 2016-07-26 14:49 | NUR ---
Cathflo given per protocol at 220p. 250-unable to aspirate. Will reevaluate Joseline Knapp RN
[2016-07-26 15:43] VITALS: BP 153/56
--- NOTE | 2016-07-26 15:46 | NUR ---
WOUND CARE CONSULT: Pts skin is red and irritated along each side the midline abdominal incision. Recommended using Cavilon non-sting barrier film and stoma powder to the red areas. Then cover with non-adhesive gauze followed by 4x4s over incision and ABD pads - then secure with medipore tape. Due to the large amount of drainage would recommend changing dressing twice/shift and as needed if it becomes saturated. Wound care will continue to monitor.
--- NOTE | 2016-07-26 16:25 | NUR ---
Still without blood return in PICC line, flushes easily. Joseline Knapp RN
--- NOTE | 2016-07-26 19:13 | NUR ---
DRESSING WAS CHANGED AT 1500 PER THIS NURSE WOUND CARE NURSE AND SENIOR DESIGN ENGINEER DR JUSTICE ROUNDS AND PUT IN NEW ORDERS FOR TOMORROW TO INSERT PINROSE DRAIN AT BEDSIDE. MAKES ALL NEEDS KNOWN. CALL LIGHT IN REACH
--- NOTE | 2016-07-26 20:05 | NUR ---
PATIENT RESTING IN BED. PATIENT DENIES NEEDS AT THIS TIME. ABDOMINAL DRESSING IS INTACT AT THIS TIME. PATIENT BED IS IN LOWEST POSITION AND CALL LIGHT WITHIN REACH.
[2016-07-26 21:24] VITALS: BP 119/48
[2016-07-27] VITALS (7 sets, daily range): BP systolic 131–167; BP diastolic 57–66
[2016-07-27 06:12] LABS: BASOPHILS 0.4 % (0.0-2.0); EOSINOPHILS 3.2 % (0-7); HEMATOCRIT 27.5 % (36.0-48.0); HEMOGLOBIN 9.1 g/dL (12-16); LYMPHOCYTES 14.4 % (15-50); MCH 30.8 pg (26.0-34.0); MCHC 33.1 g/dL (31.0-37.0); MCV 93.2 fL (80.0-100.0); MEAN PLATELET VOLUME 10.1 fL (7.4-10.4); MONOCYTES 15.1 % (2-11); NEUTROPHILS 65.9 % (40-80); RBC 2.95 10x6/uL (4.00-5.40); RDW 12.5 % (11.5-14.5); WBC 8.1 10x3/uL (4.8-10.8)
[2016-07-27 06:15] LABS: PLATELET COUNT 324 10x3/uL (130-400)
[2016-07-27 06:37] LABS: ALBUMIN 1.9 g/dL (3.4-5.0); ALKALINE PHOSPHATASE 126 U/L (46-116); ALT (SGPT) 37 U/L (10-68); CALC OSMOLALITY 276 mosm/kg (275-300); CARBON DIOXIDE 32.2 mmol/L (21.0-32.0); CHLORIDE - SERUM 100 mmol/L (98-107); CREATININE - SERUM 0.7 mg/dL (0.6-1.3); MAGNESIUM - SERUM 1.9 mg/dL (1.8-2.4); PHOSPHOROUS 3.2 mg/dL (2.5-4.9); POTASSIUM - SERUM 3.1 mmol/L (3.5-5.1); PROTEIN - SERUM 6.3 g/dL (6.4-8.2); SODIUM 138 mmol/L (136-145); UREA NITROGEN 7 mg/dL (7-18); eGFR NON AFRICAN AMERICAN 88 mL/min (90-120)
[2016-07-27 06:38] LABS: GLUCOSE 144 mg/dL (74-106)
--- NOTE | 2016-07-27 07:00 | NUR ---
REPORT RECIEVED ASSUMED CARE. PATIENT IN BED WITH IV INTACT. NO COMPLAINTS AT THIS TIME. CALL LIGHT WITHIN REACH.
--- NOTE | 2016-07-27 18:45 | NUR ---
RAD PLACED BY DR. JUSTICE EARLIER THIS AM. COLOSTOMY BAG PLACED OVER DRAIN. INCISION TO ADMOMEN WITH SUTURES INTACT. DRAINING BROWN LIQUID. DRESSING CHANGED 4 TIMES TODAY. EMPTIED 300 OUT OF RAD. PATIENT SKIN TO ABDOMEN RED AND CHAPPED. USING PROTECTIVE BARRIER AND POWDER ORDERED/ PATIENT TOLERATED WITH SMALL AMOUNT OF PAIN. IV INTACT/ LEWIS , NGT LIUSAMA, INTACT. CALL LIGHT WITHIN REACH.
--- NOTE | 2016-07-27 20:39 | NUR ---
AWAKE,ALERT.DENIES DISCOMFORT AT PRESENT. PICC LINE TO RIGHT ARM INTACT WITHOUT REDNESS OR EDEMA. IVS INFUSING WITHOUT DIFFICULTY. ABD DRSG DRY INTACT WITHOUT DRAINAGE NOTED. PEN CATRACHO DRAIN PATENT AND DRAINING. COLOSTOMY BAG OVER DRAIN SITE INTACT. LEWIS PATENT AND DRAINING YELLOW URINE. CL IN REACH
--- NOTE | 2016-07-28 00:28 | NUR ---
RESTING WITH EYES CLOSED, RESP WITH EASE, FALL AND CONTACT PRECAUTIONS IN PLACE, CL IN REACH
[2016-07-28 01:30] VITALS: BP 133/65
--- NOTE | 2016-07-28 02:45 | NUR ---
DRSG SATURATED WITH LIGHT GREEN DRAINAGE. CHANGED. TOLERATED WELL. NO OTHER COMPLAINTS. CL IN REACH.
[2016-07-28 05:00] VITALS: BP 144/67
[2016-07-28 05:13] LABS: BASOPHILS 0.2 % (0.0-2.0); EOSINOPHILS 3.9 % (0-7); HEMATOCRIT 27.3 % (36.0-48.0); HEMOGLOBIN 8.7 g/dL (12-16); LYMPHOCYTES 9.7 % (15-50); MCH 29.9 pg (26.0-34.0); MCHC 31.9 g/dL (31.0-37.0); MCV 93.8 fL (80.0-100.0); MEAN PLATELET VOLUME 10.1 fL (7.4-10.4); NEUTROPHILS 69.2 % (40-80); PLATELET COUNT 348 10x3/uL (130-400); RBC 2.91 10x6/uL (4.00-5.40); RDW 12.5 % (11.5-14.5); WBC 8.4 10x3/uL (4.8-10.8)
[2016-07-28 05:37] LABS: ALKALINE PHOSPHATASE 162 U/L (46-116); ALT (SGPT) 41 U/L (10-68); CALCIUM 8.4 mg/dL (8.5-10.1); CARBON DIOXIDE 32.2 mmol/L (21.0-32.0); CHLORIDE - SERUM 101 mmol/L (98-107); CREATININE - SERUM 0.8 mg/dL (0.6-1.3); GLUCOSE 152 mg/dL (74-106); PHOSPHOROUS 3.7 mg/dL (2.5-4.9); PROTEIN - SERUM 6.1 g/dL (6.4-8.2); SODIUM 138 mmol/L (136-145); eGFR NON AFRICAN AMERICAN 75 mL/min (90-120)
[2016-07-28 05:38] LABS: CALC OSMOLALITY 277 mosm/kg (275-300); POTASSIUM - SERUM 3.8 mmol/L (3.5-5.1); UREA NITROGEN 9 mg/dL (7-18)
--- NOTE | 2016-07-28 06:33 | NUR ---
NO CHANGE IN ASSESSMENT
--- NOTE | 2016-07-28 07:00 | NUR ---
REPORT RECIEVED ASSUMED CARE. PATIENT IN BED WITH IV INTACT. NO COMPLAINTS. CALL LIGHT WITHIN REACH.
[2016-07-28 08:00] VITALS: BP 117/57
--- NOTE | 2016-07-28 09:03 | NUR ---
NUTRITION MONITORING & EVAL CHART, LABS REVIEWED. RENEWED TPN, ADDED AM LABS X [address] FOLLOWING
--- NOTE | 2016-07-28 10:15 | NUR ---
PATIENT DRESSING CHANGED DUE TO LEAKING AT THIS TIME. INCISION RED AND DRAIN BROWN LIQUID. DRESSING CHANGED ORDERED. COLOSTOMY REAPPLIED OVER RAD DRAIN. PATIENT TOLERATED WITH SMALL AMOUNTS OF PAIN. CALL LIGHTW ITHIN REACH.
[2016-07-28 11:35] VITALS: BP 141/81
--- NOTE | 2016-07-28 14:00 | NUR ---
PATIENT DRESSING CHANGED AGAIN. CHANGED ORDERED IN COMPUTER. NO COMPLAINTS AT THIS TIME. IV INTACT. CALL LIGHT WITHIN REACH.
[2016-07-28 15:24] VITALS: BP 125/55
--- NOTE | 2016-07-28 18:33 | NUR ---
PATIENT IN BED WITH IV INTACT. NO COMPLAINTS AT THIS TIME. FAMILY AT BEDSIDE. CALL LIGHT WITHIN REACH.
--- NOTE | 2016-07-28 18:52 | NUR ---
PATIENT SITTING UP IN BED. EMPTIED RAD DRAIN. DRESSING INTACT. FAMILY AT BEDSIDE. CALL LIGHT WITHIN REACH.
--- NOTE | 2016-07-28 20:45 | NUR ---
AWAKE WITHOUT COMPLAINTS. ABD DRESSING INTACT WITHOUT DRAINAGE AT THIS TIME. COLOSTOMY BAG OVER RAD DRAIN SITE INTACT, NG TO LOW SUCTION. IV INFUSING TO RIGHT MIDLINE WITHOUT REDNESS OR EDEMA. CL IN REACH.
[2016-07-28 21:25] VITALS: BP 144/58
[2016-07-29 01:14] VITALS: BP 144/60
--- NOTE | 2016-07-29 03:17 | NUR ---
RESTING WITH EYES CLOSED, RESP WITH EASE, FALL PRECAUTIONS IN PLACE, CL IN REACH
--- NOTE | 2016-07-29 05:21 | NUR ---
AWAKE WITH NO COMPLIANTS. CL IN REACH.
[2016-07-29 05:44] LABS: ALBUMIN 2.1 g/dL (3.4-5.0); ALKALINE PHOSPHATASE 174 U/L (46-116); ALT (SGPT) 46 U/L (10-68); BILIRUBIN - TOTAL 0.32 mg/dL (0.2-1.3); CALC OSMOLALITY 276 mosm/kg (275-300); CALCIUM 7.9 mg/dL (8.5-10.1); CARBON DIOXIDE 30.4 mmol/L (21.0-32.0); CHLORIDE - SERUM 101 mmol/L (98-107); CREATININE - SERUM 0.8 mg/dL (0.6-1.3); GLUCOSE 140 mg/dL (74-106); PHOSPHOROUS 3.6 mg/dL (2.5-4.9); PROTEIN - SERUM 5.5 g/dL (6.4-8.2); SODIUM 138 mmol/L (136-145); UREA NITROGEN 9 mg/dL (7-18); eGFR NON AFRICAN AMERICAN 75 mL/min (90-120)
[2016-07-29 06:50] VITALS: BP 136/62
--- NOTE | 2016-07-29 07:00 | NUR ---
REPORT RECIEVED ASSUMED CARE. PATIENT IN BED WITH IV INTACT. PICC LINE INTACT AND INFUSING TPN AT THIS TIME. DRESSING TO ABDOMEN REINFORCED. PATIENT LEWIS AND GROIN AREA CLEANED. BOUDREUXS APPLIED. SHEETS AND GOWN CHANGED. NO COMPLAINTS AT THIS TIME. CALL LIGHT WITHIN REACH.
[2016-07-29 08:20] VITALS: BP 141/62
--- NOTE | 2016-07-29 11:00 | NUR ---
PATIENT DRESSING TO ABDOMEN CHANGED AT THIS TIME. INCISION RED AND LEAKING BROWN DRAINAGE. CLEANED WITH WOUND APPLICATION DESIGNER, POWDER, AND CAVILON FOR SKIN PROTECTION AND NEW COLOSTOMY BAG PLACED OVER PEN CATRACHO DRAIN. DRAINAGE IS THICKER THAN YESTERDAY AND NOT DRAINING MUCH LIQUID. PATIENT TOLERATED WITH SMALL AMOUNT OF PAIN. BOUDREUXS PLACED IN GROIN AREA, AND LEWIS CARE COMPLETED AGAIN AT THIS TIME. CALL LIGHT WITHIN REACH. FAMILY AT BEDSIDE.
[2016-07-29 12:19] VITALS: BP 140/63
[2016-07-29 16:55] VITALS: BP 136/83
[2016-07-29 21:03] VITALS: BP 135/51
[2016-07-30 04:00] VITALS: BP 153/57
[2016-07-30 06:38] LABS: ALBUMIN 2.3 g/dL (3.4-5.0); ANION GAP 10.1 mmol/L (8-16); BILIRUBIN - TOTAL 0.4 mg/dL (0.2-1.3); CALCIUM 8.6 mg/dL (8.5-10.1); CARBON DIOXIDE 30.6 mmol/L (21.0-32.0); CREATININE - SERUM 0.9 mg/dL (0.6-1.3); MAGNESIUM - SERUM 1.9 mg/dL (1.8-2.4); PHOSPHOROUS 3.4 mg/dL (2.5-4.9); POTASSIUM - SERUM 3.7 mmol/L (3.5-5.1); PROTEIN - SERUM 6.6 g/dL (6.4-8.2)
--- NOTE | 2016-07-30 07:30 | NUR ---
RECIEVED PT DURING WALKING ROUNDS. PT RESTING IN BED WITH COMPLAINTS OF PAIN OF A 7 ON A SCALE OF 1-10. PT DISORIENTED AT THIS TIME, ATTEMPTED TO REORIENT. PAM ALARM ON AND FUNCTIONING PROPERLY. ASSESSMENT DONE PER FLOWSHEET. BED IN LOW POSITION AND CALL LIGHT WITHIN REACH. WILL CONTINUE TO MONITOR.
--- NOTE | 2016-07-30 08:00 | NUR ---
LYING IN BED,WITHOUT DISTRESS.CALL LIGHT IN REACH.ISOLATION MAINTAINED.
--- NOTE | 2016-07-30 10:02 | NUR ---
SPOKE WITH PTS ABOUT HER CONFUSION AND HE STATED THAT SHE WILL GET LIKE THIS WHEN SHE IS ON PAIN MEDICATION, I SPOKE WITH DR. PECK AT THIS TIME AND RECIEVED AN ORDER TO PUT A LOCKOUT ON HER TOURING PRODUCTION MANAGER SO IT COULD NOT BE USED FREQUENTLY. INFORMED PT AND OF THIS. WILL CONTINUE TO MONITOR.
[2016-07-30 12:08] VITALS: BP 131/65
--- NOTE | 2016-07-30 13:09 | NUR ---
SPOKE WITH PHARMACY AT 1235 AND AGAIN AT THIS TIME ABOUT RECIEVING MEDICATION FROM PHARM TO AFMINISTER, STILL WAITING ON MEDICATION TO ARRIVE TO THE FLOOR AT THIS TIME. WILL CONTINUE TO MAKI.
--- NOTE | 2016-07-30 16:10 | NUR ---
PT DRESSING TO ABDOMEN C/D/I. THERE IS NO LEAKING PRESENT. FLUIDS DRAINING INTO OSTOMY BAG. WILL CONTINUE TO MONTIOR.
[2016-07-30 16:23] VITALS: BP 137/66
--- NOTE | 2016-07-30 18:44 | NUR ---
PT STARTED LEAKING AROUND DRESSING, DRESSING TAKEN OFF AT THIS TIME. SKIN CLEANSED WITH WOUND CLOTH BEAMER. DRESSING APPLIED PER ORDER, USED BARRIER CREAM INSTEAD OF THE POWDER PER PREMISSION FROM DR. JUSTICE. PT WAS PULLING AT NG TUBE DURING THE DRESSING CHANGE. CHECKED NG TUBE PLACEMENT AT THIS TIME BY INSTILLING AIR. NG TUBE IN PLACE. LEFT PT IN BED WITH BED ALARM ON, CALL LIGHT WITHIN REACH. WILL CONTINUE TO MONITOR.
[2016-07-30 19:00] VITALS: BP 131/47
--- NOTE | 2016-07-30 20:45 | NUR ---
PATIENT RESTING IN BED. VERY CONFUSED TO TIME, PLACE, AND SITUATION. SON AT BEDSIDE. PULLING AT LEWIS TUBE. REDIRECTED. UNABLE TO REORIENT AT THIS TIME. SCHEDULED MEDICATION GIVEN. DRESSING TO ABD CLEAN DRY AND INTACT. NO SIGNS OF DISTRESS NOTED AT THIS TIME. BED LOW. CALL LIGHT IN REACH.
--- NOTE | 2016-07-30 22:36 | NUR ---
PT IS ASLEEP WITH EASY RESPIRATIONS AND NO DISTRESS NOTED. SHE REMAINS IN CONTACT ISLOLATION AND HAS A LEWIS CATH, NG TUBE TO LIS AND SCD'S IN PLACE. SHE HAS A PAM MAT UNDER HER, DUE TO THE CONFUSION NOTED LAST NIGHT. THE BED IS LOW, RAILS UP X'S 2 WITH THE CALL LIGHT AT HAND.
--- NOTE | 2016-07-31 01:32 | NUR ---
PATIENT CONFUSED PULLED NGT OUT. NEW NGT PUT IN PLACE. VERIFIED WITH AIR BOLUS AUSCULTATION. TOLERATED WITHOUT COMPLAINTS. ATTEMPTED TO REORIENTED AND UNSUCCESSFUL. BED ALARM ON. BED LOW. CALL LIGHT IN REACH.
[2016-07-31 04:00] VITALS: BP 151/42
[2016-07-31 07:53] LABS: ALBUMIN 2.3 g/dL (3.4-5.0); ALKALINE PHOSPHATASE 162 U/L (46-116); ALT (SGPT) 47 U/L (10-68); BILIRUBIN - TOTAL 0.35 mg/dL (0.2-1.3); CALC OSMOLALITY 276 mosm/kg (275-300); CALCIUM 8.4 mg/dL (8.5-10.1); CARBON DIOXIDE 29.8 mmol/L (21.0-32.0); CHLORIDE - SERUM 103 mmol/L (98-107); CREATININE - SERUM 0.8 mg/dL (0.6-1.3); GLUCOSE 156 mg/dL (74-106); MAGNESIUM - SERUM 2.1 mg/dL (1.8-2.4); POTASSIUM - SERUM 3.7 mmol/L (3.5-5.1); PROTEIN - SERUM 6.3 g/dL (6.4-8.2); SODIUM 138 mmol/L (136-145); UREA NITROGEN 8 mg/dL (7-18); eGFR NON AFRICAN AMERICAN 75 mL/min (90-120)
--- NOTE | 2016-07-31 08:00 | NUR ---
FAMILY AT BEDSIDE. ASSESSMENT PERFORMED PER FLOWSHEET. CALL LIGHT IN REACH, WILL CONTINUE WITH PLAN OF CARE.
[2016-07-31 08:04] VITALS: BP 143/83
[2016-07-31 12:28] VITALS: BP 152/56
--- NOTE | 2016-07-31 13:00 | NUR ---
SLEEPING AT THIS TIME. RESPIRATIONS EVEN AND NON LABORED. CALL LIGHT IN REACH, WILL CONTINUE WITH PLAN OF CARE.
[2016-07-31 16:14] VITALS: BP 147/60
--- NOTE | 2016-07-31 16:25 | NUR ---
CONSENT FORMS SIGNED AND WITNESSED AT THIS TIME. PT DENIES QUESTIONS OR CONCERNS THE SURGEON DESCRIBED THE PROCEDURE TO HER IN DETAIL ON 07/30/16.
--- NOTE | 2016-07-31 18:30 | NUR ---
FISTULA SITE DRAINING HEAVILY AND DRESSING TO ABDOMEN SATURATED. WOUND CARE PROVIDED AND FULL LINEN CHANGE. PT VOMITED 50ML OF DARK BROWN/GREEN EMESIS. NG TUBE PATENT TO RIGHT NARE AND PLACEMENT CHECKED WITH AIR BOLUS AND ASCULTATION. REGIONAL CLINICAL RESEARCH ASSOCIATE IN USE FOR PAIN. CALL LIGHT IN REACH, WILL CONTINUE WITH PLAN OF CARE.
--- NOTE | 2016-07-31 20:00 | NUR ---
ASSESSMENT PER FLOWSHEET. IV PATENT RT UPPER ARM PIC LINE OF NS AT 50CC'S/HR TPO AT 40CC'S/HR AND ZOFRAN GTT AT 4.7CC'S/HR. LEWIS TO BEDSIDE DRAINAGE WITH PAWAN COLORED URINE. NGT TO RT NARE CONNECTED TO LIWS.PALE GREEN DRAINAGE NOTED. ABDOMINAL INCISION WITH DRESSING INTACT AND OSTOMY BAG COVERING OPEN SITES. PT IS IN CONTACT ISOLATION. SCD'S OFF AT PRESENT.NEPHROLOGIST OF DILAUDID IN USE WITH SETTINGS AT 0.2MG Q10MIN W/4MG Q4H L/O.
[2016-07-31 22:00] VITALS: BP 138/69
--- NOTE | 2016-07-31 22:00 | NUR ---
IV BEEPING RT UPPER ARM PICC LINE PARTIALLY OUT ATTEMPT TO FLUSH LINES BOTH PORTS COMPLETELY OCCLUDED. WILL NOT DRAW. EFREN TERRELL TO HELP TRY TO UNSTOP IV. UNSUCCESSFULY. RESITED NEW IV X2 SITES RT FORE ARM AND RT UPPER ARM. RESUMED IV MEDS AND FLUIDS. PICC LINE WAS PULLED BY EFREN TERRELL.
[2016-08-01] VITALS (11 sets, daily range): BP systolic 122–158; BP diastolic 58–88
--- NOTE | 2016-08-01 02:19 | NUR ---
FOUND PATIENT UNDRESSED SELF AND PULLING AT IV. PT CONFUSED STATES TRYING TO FIND THE MILK. ATTEMPT TO ORIENT PATIENT TO PLACE AND SURROUNDINGS. SPONGE BATH WITH PARTIAL LINENS CHANGED. REPOSITIONED IN BED.
--- NOTE | 2016-08-01 04:45 | NUR ---
DRESSING TO ABDOMEN CHANGED PATIENT IS PICKING IN THE AIR. PT REMAINS CONFUSED.
--- NOTE | 2016-08-01 06:54 | NUR ---
NO CHANGES IN ASSESSMENT TPN CHANGED TO D10W AT 30CC'S/HR DUE TO PERIPHERAL IV UNABLE TO INFUSE TPN.
--- NOTE | 2016-08-01 08:30 | NUR ---
PATIENT IS RESTING QUIETLY WITH EYES CLOSED. ENTERED ROOM, CONTACT ISOLATION MAINTAINED. AT BEDSIDE. PATIENT AROUSED EASILY, ASKED PATIENT QUESTIONS TO ASSESS ORIENTATION STATUS, PATIENT ANSWERED ALL QUESTIONS APPROPRIATELY, PATIENT IS ORIENTED X'S 4. RESPRIATIONS ARE EVEN AND UNLABORED ON ROOM AIR. NGT TO RIGHT NARE, HOOKED TO LIWS. GREEN GASTRIC CONTENT IN CANESTER. PATIENT'S ASSESSMENT COMPLETED AT THIS TIME. FOUND PATIENT TO HAVE LEAKING IN FROM OSTOMY BAG. INFERIOR PORTION OF DRESSING HAS STOOL ON IT. AND THERE IS STOOL LEAKING FROM INFERIOR PORTION OF OSTOMY BAG, LEAKING INTO PATIENT'S VAGINAL AREA, ONTO LEWIS CATHETER TUBING AND DOWN TO RECTAL AREA, COVERING PATIENT'S PINK PAD THAT IS UNDER HER. OBTAINED SUPPLIES. CLEANED PATIENT UP. CHANGED OSTOMY BAG. CHANGED DRESSING. DID LEWIS CARE. CHANGED LINENS AND GOWN. APPLIED SCDS TO BILATERAL LEGS. PATIENT AND DENY FURTHER NEEDS. BED IN LOWEST POSITION, CALL LIGHT IN REACH. BED RAILS UP X'S 2.
--- NOTE | 2016-08-01 11:20 | NUR ---
PRE-OP MEDICATIONS GIVEN. PATIENT LEFT VIA BED WITH LEDY. CALLED CJ, ASKED HER TO NOTIFY AND THAT PATIENT DOES NOT HAVE A PICC LINE. SHE STATED "I WILL TELL THEM."
--- NOTE | 2016-08-01 13:12 | NUR ---
SEE XRAY NOTES RE: ENEMA SOLUTION USED
--- NOTE | 2016-08-01 14:20 | NUR ---
DR. PECK JOINS DR JUSTICE
--- NOTE | 2016-08-01 14:28 | NUR ---
WOUND VAC PLACED TO OPEN ABD WOUND
--- NOTE | 2016-08-01 15:28 | NUR ---
WOUND VAC IN PLACE
--- NOTE | 2016-08-01 15:45 | NUR ---
800CC OF CLEAR YELLOW URINE IN BAG ON ADMIT TO RR
--- NOTE | 2016-08-01 16:12 | NUR ---
PATIENT BACK FROM SURGERY. PATIENT IS AWAKE, ALERT AND ORIENTED X'S 4. RESPIRATIONS ARE EVEN AND UNLABORED ON ROOM AIR. PATIENT HAS NGT TO RIGHT NARE TO LIWS. GREEN GASTRIC CONTENT IN CANESTER. AT BEDSIDE. PATIENT DOES NOT APPEAR TO BE IN ANY DISTRESS AT THIS TIME. PATIENT HAS A WOUND VAC TO MIDLINE INCISION OF ABDOMEN. SCDS TO BILATERAL LEGS. CONTACT ISOLATION PRECAUTIONS MAINTAINED. PATIENT HAS A CVL TO LEFT INTERNAL JUGULAR. THERE IS AN ORDER TO OBTAIN AN X-RAY. CALLED MEDICAL IMAGING SPOKE WITH AN SHOVEL LOGGER, SHE STATED "THE X-RAY HAS BEEN DONE AND THE RADIOLOGIST SAID IT LOOKS GOOD."
--- NOTE | 2016-08-01 18:44 | NUR ---
PATIENT RESTING QUIETLY WITH EYES CLOSED. WOKE PATIENT UP TO MAKE SURE SHE IS ABLE TO AROUSE EASILY, PATIENT AROUSED ORIENTED X'S 4. PATIENT DENIES NEEDS.
--- NOTE | 2016-08-01 20:13 | NUR ---
PATIENT RESTING IN BED WITH EYES CLOSED. RESPIRATIONS EVEN AND UNLABORED. NO SIGNS OF DISTRESS NOTED. SCHEDULED MED GIVEN ORDERED. DENIES ANY NEEDS AT THIS TIME. BED LOW. CALL LIGHT IN REACH
--- NOTE | 2016-08-02 00:12 | NUR ---
PT IN BED WITH NO DISTRESS. RESPIRATIONS ARE EVEN AND UNLABORED. SIDE RAILS X 2. BED LOW. CALL LIGHT IN REACH.
[2016-08-02 01:00] VITALS: BP 142/66
[2016-08-02 04:56] LABS: BASOPHILS 0.2 % (0.0-2.0); EOSINOPHILS 0.3 % (0-7); HEMATOCRIT 24.9 % (36.0-48.0); HEMOGLOBIN 7.8 g/dL (12-16); IMMATURE GRANULOCYTES 0.3 % (0-5); LYMPHOCYTES 7.5 % (15-50); MCH 29.4 pg (26.0-34.0); MCHC 31.3 g/dL (31.0-37.0); NEUTROPHILS 77.7 % (40-80); RBC 2.65 10x6/uL (4.00-5.40); RDW 12.8 % (11.5-14.5); WBC 11.4 10x3/uL (4.8-10.8)
[2016-08-02 05:00] VITALS: BP 144/60
[2016-08-02 05:01] LABS: PLATELET COUNT 428 10x3/uL (130-400)
[2016-08-02 05:14] LABS: ALBUMIN 2.1 g/dL (3.4-5.0); ALKALINE PHOSPHATASE 132 U/L (46-116); ALT (SGPT) 41 U/L (10-68); BILIRUBIN - TOTAL 0.26 mg/dL (0.2-1.3); CALCIUM 7.8 mg/dL (8.5-10.1); CARBON DIOXIDE 30.9 mmol/L (21.0-32.0); CHLORIDE - SERUM 106 mmol/L (98-107); CREATININE - SERUM 0.8 mg/dL (0.6-1.3); GLUCOSE 167 mg/dL (74-106); MAGNESIUM - SERUM 1.9 mg/dL (1.8-2.4); POTASSIUM - SERUM 3.9 mmol/L (3.5-5.1); PROTEIN - SERUM 5.7 g/dL (6.4-8.2); SODIUM 141 mmol/L (136-145); eGFR NON AFRICAN AMERICAN 75 mL/min (90-120)
[2016-08-02 05:28] LABS: CALC OSMOLALITY 283 mosm/kg (275-300); UREA NITROGEN 11 mg/dL (7-18)
[2016-08-02 08:33] VITALS: BP 137/61
--- NOTE | 2016-08-02 11:05 | NUR ---
NUTRITION MONITORING & EVAL CHART REVIEWED. TPN ADJUSTED, RENEWED @ 50 CC/HR. AM LABS ORDERED X [address] FOLLOWING
[2016-08-02 12:08] VITALS: BP 131/62
--- NOTE | 2016-08-02 14:00 | NUR ---
D/C IV FROM RIGHT UPPER ARM WITH CATH INTACT.
[2016-08-02 15:17] VITALS: BP 166/63
--- NOTE | 2016-08-02 19:30 | NUR ---
ASSESSMENT COMPLETE. S1S2. RR SHALLOW CLEAR BILATERALLY IN UPPER LOBES; DIMINISHED BILATERALLY IN LOWER LOBES. ACCOUNT SOLUTIONS ANALYST IN PLACE FOR PAIN. AAO. SCDS IN PLACE. PT HAS MIDLINE INCISION; WOUND VAC IN PLACE; AREA REDDENED. PT C/O PAIN 2/10 IN INCISIONAL AREA. PT CALM AND APPROPRIATE BEHAVIOR. REDDENED AREA/RASH/HIVES LOCATED ON LOWER BACK/BUTTOCKS AREA. PT IN CONTACT ISOLATION; PT VERBALIZES AND UNDERSTANDING OF THE REASON BEHIND ISOLATION. NGT TO RIGHT NARE ON LOW INTERMEDIATE SUCTION. PT WEARING GLASSES; SITTING UP IN BED WATCHING TV. RADIAL AND PEDAL PULSES PALPATED +2. FULL ROM; WEAKNESS NOTED TO EXTREMITIES. NO DISTRESS NOTED. WILL CONTINUE TO MONITOR.
[2016-08-02 21:00] VITALS: BP 141/56
[2016-08-03 01:00] VITALS: BP 138/62
--- NOTE | 2016-08-03 03:19 | NUR ---
PT REFUSED ACETAMETAPHINE MEDICATION. PT STATES THAT IT MAKES SWEATY. SEE EMAR FOR DETAILS.
[2016-08-03 05:00] VITALS: BP 128/70
[2016-08-03 06:21] LABS: ALBUMIN 2.2 g/dL (3.4-5.0); ALKALINE PHOSPHATASE 133 U/L (46-116); ALT (SGPT) 44 U/L (10-68); BILIRUBIN - TOTAL 0.27 mg/dL (0.2-1.3); CALCIUM 7.7 mg/dL (8.5-10.1); CARBON DIOXIDE 30.2 mmol/L (21.0-32.0); CHLORIDE - SERUM 104 mmol/L (98-107); CREATININE - SERUM 0.8 mg/dL (0.6-1.3); MAGNESIUM - SERUM 1.8 mg/dL (1.8-2.4); PHOSPHOROUS 3.3 mg/dL (2.5-4.9); POTASSIUM - SERUM 3.7 mmol/L (3.5-5.1); PROTEIN - SERUM 5.8 g/dL (6.4-8.2); SODIUM 140 mmol/L (136-145); UREA NITROGEN 11 mg/dL (7-18); eGFR NON AFRICAN AMERICAN 75 mL/min (90-120)
[2016-08-03 06:24] LABS: CALC OSMOLALITY 278 mosm/kg (275-300); GLUCOSE 116 mg/dL (74-106)
[2016-08-03 08:09] VITALS: BP 136/68
[2016-08-03 11:56] VITALS: BP 143/57
--- NOTE | 2016-08-03 13:47 | NUR ---
PATIENT AMBULATING IN THE [facility] WITH PHYSICAL THERAPY.
--- NOTE | 2016-08-03 14:17 | NUR ---
08/03/2016 14:16 CM: Case Management 08/03 PN faxed [facility] for wound measurements. Waiting MD signature on wound vac order - once signed, will fax to [facility].
[2016-08-03 16:20] VITALS: BP 142/66
--- NOTE | 2016-08-03 18:17 | NUR ---
CHANGE DRESSING TO LEFT INTERNAL JUGARL CVL. STERILE TECHNIQUE MAINTAINED. PATIENT TOLERATED WELL. LEWIS CARE COMPLETED AT THIS TIME.
[2016-08-03 20:14] VITALS: BP 129/56
[2016-08-04 00:04] VITALS: BP 126/56
[2016-08-04 03:59] VITALS: BP 142/72
[2016-08-04 05:55] LABS: ALBUMIN 2.2 g/dL (3.4-5.0); ANION GAP 8.5 mmol/L (8-16); BILIRUBIN - TOTAL 0.3 mg/dL (0.2-1.3); CALCIUM 8.1 mg/dL (8.5-10.1); CARBON DIOXIDE 31.4 mmol/L (21.0-32.0); CREATININE - SERUM 0.9 mg/dL (0.6-1.3); MAGNESIUM - SERUM 1.9 mg/dL (1.8-2.4); PHOSPHOROUS 4.1 mg/dL (2.5-4.9); POTASSIUM - SERUM 3.9 mmol/L (3.5-5.1); PROTEIN - SERUM 5.8 g/dL (6.4-8.2)
[2016-08-04 07:33] LABS: BASOPHILS 0.7 % (0.0-2.0); EOSINOPHILS 5.4 % (0-7); HEMATOCRIT 26.3 % (36.0-48.0); HEMOGLOBIN 8.2 g/dL (12-16); IMMATURE GRANULOCYTES 0.3 % (0-5); LYMPHOCYTES 14.8 % (15-50); MCH 29.5 pg (26.0-34.0); MCHC 31.2 g/dL (31.0-37.0); MCV 94.6 fL (80.0-100.0); MEAN PLATELET VOLUME 11.6 fL (7.4-10.4); MONOCYTES 13.9 % (2-11); NEUTROPHILS 64.9 % (40-80); PLATELET COUNT 414 10x3/uL (130-400); RBC 2.78 10x6/uL (4.00-5.40); RDW 12.8 % (11.5-14.5); WBC 7.6 10x3/uL (4.8-10.8)
[2016-08-04 08:34] VITALS: BP 154/49
--- NOTE | 2016-08-04 10:14 | NUR ---
Nutrition Follow Up: Chart reviewed. Noted pt to OR tomorrow. +BM. Pt with wound vac. Labs noted. TPN renewed @ 50 ml/hr. RD will continue to monitor pt progress.
[2016-08-04 12:21] VITALS: BP 152/46
--- NOTE | 2016-08-04 14:50 | NUR ---
08/04/2016 14:48 DCP: Discharge Planning [facility] wound vac order signed by Dr. Jung and faxed to [facility]. Waiting approval. CM will follow.
[2016-08-04 15:10] VITALS: BP 150/62
--- NOTE | 2016-08-04 18:30 | NUR ---
LEWIS CARE COMPLETED AT THIS TIME
[2016-08-04 20:00] VITALS: BP 132/68
--- NOTE | 2016-08-04 23:46 | NUR ---
ASSESSED AT THE BEGINNING OF THE SHIFT. PT IS ALERT AND AND ORIENTED, ABLE TO VERBALIZE NEEDS. SHE HAS A LEFT IJ WHICH HAS TPN, NS. AMD ZPFRAM OMFISOMG/ SHE ALSO HAS A LEWIS CATH AND A RAILROAD CAR INSPECTOR FOR PAIN CONTROL. SHE DOZES OFF ALOT AND WHILE ASLEEP SHE DREAMS AND TALKS IN HER SLEEP. THE NG TUBE REMAINS INTACT WITH GREEN BILE DRAINING. WE CONTINUE TO HAVE HER IN CONTACT ISOLATION WITH AN NPO STATUS FOR SURGERY IN THE AM. THE BED IS LOW, RAILS UP X'S 2 WITH THE CALL LIGHT AT HAND.
[2016-08-05] VITALS: BP 130/60
[2016-08-05 04:00] VITALS: BP 148/68
[2016-08-05 05:59] LABS: ALBUMIN 2.3 g/dL (3.4-5.0); BILIRUBIN - TOTAL 0.3 mg/dL (0.2-1.3); CALCIUM 8.1 mg/dL (8.5-10.1); CARBON DIOXIDE 31.1 mmol/L (21.0-32.0); CREATININE - SERUM 0.9 mg/dL (0.6-1.3); MAGNESIUM - SERUM 1.7 mg/dL (1.8-2.4); POTASSIUM - SERUM 4.1 mmol/L (3.5-5.1); PROTEIN - SERUM 5.8 g/dL (6.4-8.2)
--- NOTE | 2016-08-05 07:15 | NUR ---
REPORT RECEIVED FROM BUSINESS AREA DIRECTOR NURSE. CALL LIGHT IN REACH.
[2016-08-05 08:43] VITALS: BP 145/51
--- NOTE | 2016-08-05 09:03 | NUR ---
ASSESSMENT COMPLETED. SCDs TO BLE. IN ROOM. WILL CONTINUE WITH PLAN OF CARE.
--- NOTE | 2016-08-05 10:12 | NUR ---
PREOP MEDS ADMINISTERED.
--- NOTE | 2016-08-05 11:30 | NUR ---
PATIENT OFF FLOOR TO SURGERY VIA BED
--- NOTE | 2016-08-05 11:30 | NUR ---
TO OR VIA BED.
--- NOTE | 2016-08-05 12:38 | NUR ---
STILL IN OR BUT ALL IV TUBING CHANGED PER HOSPITAL PROTOCOL. IN ROOM.
[2016-08-05 13:25] VITALS: BP 150/67
--- NOTE | 2016-08-05 13:25 | NUR ---
RECEIVED BACK TO ROOM VIA BED. VSS. BGT TO LIS. SCDs ON. WILL CONTINUE WITH PLAN OF CARE.
[2016-08-05 13:40] VITALS: BP 146/64
--- NOTE | 2016-08-05 13:41 | NUR ---
O2 DECREASED TO 89%. PLACED ON 2L PER NC. O2 SAT NOW TO 94%. WILL CONTINUE TO MONITOR.
--- NOTE | 2016-08-05 14:19 | NUR ---
ALL MEDS CAUGHT UP AT THIS TIME. MORPHINE 2 MG MASTIC MAN BOLUS PER C/O PAIN OF 10.
--- NOTE | 2016-08-05 16:20 | NUR ---
RESTING WITH EYES CLOSED. RESP EVEN AND UNLABORED. CALL LIGHT IN REACH.
--- NOTE | 2016-08-05 18:16 | NUR ---
PEPCID 40 MG SIVP. NO OTHER CHANGES IN INITIAL ASSESSMENT. REFUSING SCDs. CALL LIGHT IN REACH. WILL CONTINUE WITH PLAN OF CARE.
[2016-08-05 21:00] VITALS: BP 132/68
--- NOTE | 2016-08-06 01:58 | NUR ---
ASSESSED AT THE BEGINNING OF THE SHIFT. PT IS ALERT AND ORIENTED WITH SOME TIMES SHE GETS A LITTLE CONFUSED. THE WOUND VAC TO HER INCISION OF THE ABD IS WORKING WELL AND SHE HAS A LEWIS CATH IN PLACE. HER NG TUBE IS IN PLACE WITH GREEN BILE TO THE CONTAINER. THERE ARE STILL SHINGLES TO HER BACK BUT THEY ARE BETTER. THE WAREHOUSE HANDLER IS HELPIN WITH HER ABD INCION PAIN BUT HER RIGHT EAR IS PAINFUL. THE BED IS LOW, RAILS UP X'S 2 WITH THE CALL LIGHT AT HAND. ISOLATION IS IN PLACE FOR CONTACT.
[2016-08-06 02:15] VITALS: BP 115/66
[2016-08-06 04:00] VITALS: BP 130/65
--- NOTE | 2016-08-06 07:50 | NUR ---
PATIENT RESTING IN BED. PATIENT IS AWAKE, ALERT, AND ORIENTED X4. PATIENT DENIES PAIN AT PRESENT TIME. AUTO SERVICE DISPATCHER MORPHINE IN USE AT THE BEDSIDE. PATIENT IS ON CONTACT ISOLATION FOR SHINGLES. ASSESSMENT COMPLETED PER FLOWSHEET. LEFT IJ CENTRAL LINE IN PLACE AND PATENT WITH DRESSING C/D/I. NG TUBE IN PLACE TO RIGHT NARES AND CONNECTED TO LIS. LEWIS CATHETER PATENT AND DRAINING CLOUDY YELLOW COLORED URINE. WOUND VAC IN PLACE TO PATIENT'S MIDLINE ABDOMINAL INCISION. PATIENT IS NPO. PATIENT DENIES ANY NEEDS AT PRESENT TIME. CALL LIGHT IN PATIENT'S REACH. WILL MONITOR.
[2016-08-06 08:46] VITALS: BP 134/69
--- NOTE | 2016-08-06 10:43 | NUR ---
FAT EMULSIONS INFUSION STARTED. PATIENT RESTING IN BED. SHIPYARD LABORER MORPHINE IN USE AT THE BEDSIDE. NG TUBE PATENT TO RIGHT NARES. NG TUBE CONNECTED TO LIS. CONTACT ISOLATION FOR SHINGLES. PATIENT DENIES ANY NEEDS AT PRESENT TIME. CALL LIGHT IN REACH. WILL MONITOR.
[2016-08-06 11:53] VITALS: BP 111/54
--- NOTE | 2016-08-06 16:00 | NUR ---
PATIENT WATCHING T.V. MANAGER ELIGIBILITY MORPHINE IN USE AT BEDSIDE. PATIENT DENIES ANY NEEDS AT PRESENT TIME. CALL LIGHT IN PATIENT'S REACH. WILL MONITOR PATIENT.
[2016-08-06 16:25] VITALS: BP 138/69
[2016-08-06 20:00] VITALS: BP 133/64
[2016-08-07] VITALS: BP 120/61
--- NOTE | 2016-08-07 00:17 | NUR ---
REC'D. WALKING ROUNDS.ALERTORIENTED X3.NG IN LEFT NARE ON LOW INTERMITT SUCTION.CONTACT ISOLATION IN PROGRESS.WILL CONTINUE TO MONITOR ANY CHGES.AND FOLLOW CURRENT PLAN OF CARE.
--- NOTE | 2016-08-07 03:00 | NUR ---
PATIENT SLEEPING ON RIGHT SIDE. HOB 30 DEGREES. NG TUBE TO LIS. LEFT IJ PATENT WITH NO REDNESS OR SWELING. WOUND VAC TO ABD. LEWIS DRAINING TO GRAVITY. SRX2. BED LOW. CALL LIGHT WITHIN REACH.
[2016-08-07 04:00] VITALS: BP 126/76
--- NOTE | 2016-08-07 07:15 | NUR ---
REPORT RECEIVED FROM TACTICAL AIR CONTROL PARTY NURSE. CALL LIGHT IN REACH.
--- NOTE | 2016-08-07 08:08 | NUR ---
NG REINSERTED LEFT NARE TOLERATED WELL. LOW INTERMITT SUCTION CONTINUES
[2016-08-07 08:55] VITALS: BP 149/69
--- NOTE | 2016-08-07 09:49 | NUR ---
ASSESSMENT COMPLETED. DOES NOT WANT SCDs ON AT THIS TIME. NO NEEDS VOICED. IN ROOM. CALL LIGHT IN REACH. WILL CONTINUE WITH PLAN OF CARE.
--- NOTE | 2016-08-07 11:17 | NUR ---
NS IV TUBING IS LEAKING SO IV TUBING CHANGED.
--- NOTE | 2016-08-07 11:19 | NUR ---
NEWCOMER HOSTESS CALLED TO MOP FLOOR.
[2016-08-07 12:55] VITALS: BP 130/62
--- NOTE | 2016-08-07 13:26 | NUR ---
SANDOSTATIN IV PER ORDER. CALL LIGHT IN REACH.
--- NOTE | 2016-08-07 14:58 | NUR ---
BED BATH GIVEN PER Shelton CAMPBELL.
--- NOTE | 2016-08-07 15:32 | NUR ---
SLEEPING QUIETLY AT PRESENT RESP EVEN AND UNLABORED AT PRESENT ISOLATION CONT.
[2016-08-07 16:45] VITALS: BP 122/53
--- NOTE | 2016-08-07 17:36 | NUR ---
PEPCID IVP. NEW VIAL OF MORPHINE INITIATED. NO NEEDS VOICED. CALL LIGHT IN REACH.
--- NOTE | 2016-08-07 18:02 | NUR ---
NO CHANGES IN INITIAL ASSESSMENT. STILL REFUSES SCDs. CALL LIGHT IN REACH. ALARM ON. WILL CONTINUE WITH PLAN OF CARE.
--- NOTE | 2016-08-07 18:45 | NUR ---
DR JUSTICE ROUNDS. PATIENT REPORTS THAT SHE HAD A LIQUID BM AND THAT FLUID IS COLLECTING BENEATH WOUND VAC DRESSING. DISTAL PART OF DRESSING REVEALS "POOLING" OF FLUID BENEATH DRESSING. DR JSUTICE INSTRUCTED PATIENT THAT HE WOULD TAKE HER BACK TO THE OR MONDAY FOR NECESSARY INTERVENTION/PROCEDURE. ORDERS RECEIVED TO REMOVE WOUND VAC DRESSING AND REPLACE WITH WET TO DRY DRESSING. DRESSING GENTLY REMOVED AND SPONGES X 3 REMOVED. OPENING AT DISTAL END OF WOUND MEASURES APPROX 2" DEEP AND 3/4" IN DIAMETER. WOUND CLEANSED WELL AND PACKED WITH SALINE MOISTENED 6" KERLIX, 2 PACKS 4x4'S, AND ABD PADS x 2 AND SECURED WITH MEDIPORE TAPE. PATIENT TOLERATED WELL.
[2016-08-07 19:00] VITALS: BP 195/57
--- NOTE | 2016-08-07 21:26 | NUR ---
PATIENT RESTING IN BED. SCHEDULE MEDICATION GIVEN. ABDOMINAL DRESSING IS CLEAN DRY AND INTACT AT THIS TIME. NO SATURATION OR LEAKING NOTED. PATIENT IS ALERT SOME CONFUSION NOTED. REORIENTS EASILY. DENIES ANY NEEDS AT THIS TIME. BED LOW. CALL LIGHT IN REACH.
[2016-08-08] VITALS: BP 123/50
[2016-08-08 04:00] VITALS: BP 145/55
--- NOTE | 2016-08-08 04:00 | NUR ---
PATIENT SLEEPING WITH NO DISTRESS NOTED. RR EVEN AND UNLABORED. NG TUBE TO LIS. LEFT IJ INFUSING TPN. WET TO DRY DRESSING TO ABD. SCD'S ON. SRX2. BED LOW. CALL LIGHT WITHIN REACH.
--- NOTE | 2016-08-08 07:20 | NUR ---
PATIENT RECEIVED IN MID HE POSITION RESTING WITH EYES CLOSED. RESPIRATIONS EVEN AND UNLABORED. SIDE RAILS UP X2. BED IN LOW POSITION. CALL LIGHT IN REACH.
[2016-08-08 07:59] VITALS: BP 151/67
--- NOTE | 2016-08-08 08:12 | NUR ---
PATIENT ALERT IN BED. RESPIRATIONS EVEN AND UNLABORED. AT BEDSIDE. SCHEDULED MEDICATION ADMINISTERED. SIDE RAILS UP X2. BED IN LOW POSITION. CALL LIGHT IN REACH.
[2016-08-08 09:08] LABS: CALC OSMOLALITY 282 mosm/kg (275-300); CARBON DIOXIDE 32.3 mmol/L (21.0-32.0); CHLORIDE - SERUM 103 mmol/L (98-107); CREATININE - SERUM 0.8 mg/dL (0.6-1.3); GLUCOSE 165 mg/dL (74-106); MAGNESIUM - SERUM 1.9 mg/dL (1.8-2.4); PHOSPHOROUS 3.5 mg/dL (2.5-4.9); POTASSIUM - SERUM 4.3 mmol/L (3.5-5.1); SODIUM 139 mmol/L (136-145); UREA NITROGEN 14 mg/dL (7-18); eGFR NON AFRICAN AMERICAN 75 mL/min (90-120)
--- NOTE | 2016-08-08 11:10 | NUR ---
PATIENT ALERT IN BED. RESPIRATIONS EVEN AND UNLABORED. DRESSING TO ABD CHANGED PER ORDERS. OLD DRESSING REMOVED. WOUND BED BEEFY RED, NO ODOR NOTED. BILIOUS LOOKING DRAINAGE NOTED TO DISTAL END OF WOUND. WOUND CLEANSED WITH WOUND CLEANSER. PACK WITH SALINE MOISTENED 6 INCH KERLEX, COVERED WITH 4X4'S AND 2 ABD PADS THEN SECURED WITH MEDIPORE TAPE. WELL TOLERATED. MANDEEP RN AT BEDSIDE TO ASSIST WITH DRESSING CHANGE. SIDE RAILS UP X2. BED IN LOW POSITION. CALL LIGHT AND TAILOR HELPER BUTTON IN REACH.
--- NOTE | 2016-08-08 12:38 | NUR ---
NUTRITION MONITORING & EVAL CHART REVIEWED, ORDERED LABS, SPOKE WITH PHARMACY. WILL CONTINUE CURRENT TPN. RD FOLLOWING
[2016-08-08 12:45] VITALS: BP 119/58
--- NOTE | 2016-08-08 14:20 | NUR ---
PATIENT IN LOW POSITION RESTING WITH EYES CLOSED. RESPIRATIONS EVEN AND UNLABORED. SIDE RAILS UP X2. BED IN LOW POSITION. CALL LIGHT IN REACH.
[2016-08-08 15:57] VITALS: BP 113/70
--- NOTE | 2016-08-08 17:43 | NUR ---
ALERT IN BED. NO SIGNS OF DISTRESS NOTED. SCHEDULED MEDICATION ADMINISTERED. ACCU CHECK 128. DENIES NEEDS. SIDE RAILS UP X2. BED IN LOW POSITION. CALL LIGHT IN REACH. RISK CONTROL ANALYST BUTTON IN REACH.
[2016-08-08 19:00] VITALS: BP 153/52
[2016-08-09] VITALS (12 sets, daily range): BP systolic 105–128; BP diastolic 36–74
--- NOTE | 2016-08-09 06:25 | NUR ---
TURNED OFF THE LIGHTS PER THE PATIENT'S REQUEST. PATIENT DENIES OTHER NEEDS AT THIS TIME. BED IN LOWEST POSITION AND CALL LIGHT WITHIN REACH.
--- NOTE | 2016-08-09 07:20 | NUR ---
PATIENT RECEIVED ALERT IN HIGH HE POSITION WITH PRESENT. RESPIRATIONS EVEN AND UNLABORED. SIDE RAILS UP X2. BED IN LOW POSITION. CALL LIGHT IN REACH. DAYCARE TEACHER BUTTON IN REACH.
[2016-08-09 08:07] LABS: ALBUMIN 2.3 g/dL (3.4-5.0); ANION GAP 10.5 mmol/L (8-16); BILIRUBIN - TOTAL 0.4 mg/dL (0.2-1.3); CALCIUM 8.5 mg/dL (8.5-10.1); CARBON DIOXIDE 30.4 mmol/L (21.0-32.0); CREATININE - SERUM 0.9 mg/dL (0.6-1.3); MAGNESIUM - SERUM 1.6 mg/dL (1.8-2.4); PHOSPHOROUS 3.3 mg/dL (2.5-4.9); POTASSIUM - SERUM 4.9 mmol/L (3.5-5.1); PROTEIN - SERUM 6.1 g/dL (6.4-8.2)
--- NOTE | 2016-08-09 08:15 | NUR ---
CONSENT OBTAINED FOR SCHEDULED SURGERY. SCHEDULED MEDICATION ADMINISTERED. SIDE RAILS UP X2. BED IN LOW POSITION. CALL LIGHT IN REACH.
--- NOTE | 2016-08-09 08:30 | NUR ---
(LATE ENTRY 2319) ON ATTEMPTING TO HANG NEW DIRECTOR OF QUANTITATIVE RESEARCH MS CARTRIDGE DISCOVERED HAD NOT BEEN RENEWED AND HAD FALLEN OFF MED PROFILE AND PYXIS. CALLED HOUSESUPERVISOR LOUIS TERRELL.CALL PLACED TO ANSWERING SERVICE DR. PECK [employer] [place].144 2ND CALL PLACED TO ANSWERING SERVICE INFORMED NO RESPONSE FROM [employer] [place] [address] PECK AND INFORMED OF 72HR.PAIN MED AUTOMATIC DISCONTINUANCE.NEEDING RENEWAL OR DC ORDERS.STATES NOT AWARE OF MEDS DROPPING OFF MARS.NEW ORDERS REC'D.ENTERED PT. RM WITH PAIN MED STATES YOU COULD HAVE DONE THAT SOONER.INFORMED OF NEEDING DR'S ORDER BEFORE RESTARTING PAIN MED.PT. HOLDING NG TUBE IN HAND TOLD WE'LL HAVE TO PUT ANOTHER ONE DOWN.STATES DO YOU KNOW HOW UNCOMFORTABLE THAT IS? IF I GET ANOTHER ONE IT WILL BE IN SURGERY WHILE I'M ASLEEP.
--- NOTE | 2016-08-09 11:42 | NUR ---
ALERT IN BED WATCHING TV. RESPIRATIONS EVEN AND UNLABORED. SCHEDULED MEDICATION ADMINSITERED. SIDE RAILS UP X2. BED IN LOW POSITION. CALL LIGHT IN REACH. DENIES NEEDS.
--- NOTE | 2016-08-09 13:41 | NUR ---
PATIENT OFF FLOOR TO SURGERY VIA BED.
--- NOTE | 2016-08-09 16:15 | NUR ---
PATIENT BACK TO ROOM FROM PACU. ALERT AND RESTING QUIETLY. VITAL SIGNS STABLE. WOUND VAC TO ABD INTACT. RATES PAIN 9/10. BANKING CONSULTANT BUTTON IN HAND. AT BEDSIDE. SIDE RAILS UP X2. BED IN LOW POSITION. CALL LIGHT IN REACH.
--- NOTE | 2016-08-09 17:49 | NUR ---
PATIENT IN MID HE POSITION RESTING WITH EYES CLOSED. RESPIRATIONS EVEN AND UNLABORED. SIDE RAILS UP X2. BED IN LOW POSITION. CALL LIGHT IN REACH.
--- NOTE | 2016-08-09 19:40 | NUR ---
ASSESSMENT COMPLETED, NO ACUTE DISTRESS NOTED, DENIES NEEDS AT THIS TIME, FALL AND CONTACT PRECAUTIONS IN PLACE, CL IN REACH, WILL MONITOR
--- NOTE | 2016-08-09 21:38 | NUR ---
GEORGI GREGG PER MAR, VICKIE WELL, DENIES NEEDS AT THIS TIME,FALL PRECAUTIONS IN PLACE, CL IN REACH
--- NOTE | 2016-08-09 23:40 | NUR ---
RESTING WITH EYES CLOSED, RESP WITH EASE, NO DISTRESS NOTED, CONTACT AND FALL PRECAUTIONS IN PLACE, CL IN REACH
[2016-08-10 04:00] VITALS: BP 154/62
[2016-08-10 06:27] LABS: ALBUMIN 2.1 g/dL (3.4-5.0); ALKALINE PHOSPHATASE 151 U/L (46-116); ALT (SGPT) 48 U/L (10-68); CALC OSMOLALITY 279 mosm/kg (275-300); CALCIUM 8.1 mg/dL (8.5-10.1); CARBON DIOXIDE 31.2 mmol/L (21.0-32.0); CHLORIDE - SERUM 104 mmol/L (98-107); CREATININE - SERUM 0.8 mg/dL (0.6-1.3); GLUCOSE 123 mg/dL (74-106); PHOSPHOROUS 3.3 mg/dL (2.5-4.9); POTASSIUM - SERUM 4.4 mmol/L (3.5-5.1); PROTEIN - SERUM 5.7 g/dL (6.4-8.2); SODIUM 140 mmol/L (136-145); UREA NITROGEN 12 mg/dL (7-18); eGFR NON AFRICAN AMERICAN 75 mL/min (90-120)
--- NOTE | 2016-08-10 07:15 | NUR ---
PATIENT RECEIVED IN MID HE POSITION RESTING QUIETLY WITH EYES CLOSED. RESPIRATIONS EVEN AND UNLABORED. WAKES EASY. SIDE RAILS UP X2. BED IN LOW POSITION. CALL LIGHT AND OFFICE BOOKKEEPER BUTTON IN REACH.
[2016-08-10 08:30] VITALS: BP 148/72
--- NOTE | 2016-08-10 10:00 | NUR ---
ALERT IN BED WITH PRESENT. DENIES NEEDS. SCHEDULED MEDICATION ADMINSITERED. DRESSING TO LEFT IJ CHANGED PER PROTOCOL USING CENTRAL LINE DRESSING TRAY. NO REDNESS, INFLAMMATION OR DRAINAGED NOTED TO SITE. WELL TOLERATED. SIDE RAILS UP X2. BED IN LOW POSITION. CALL LIGHT IN REACH.
--- NOTE | 2016-08-10 12:00 | NUR ---
ALERT IN BED. ACCU CHECK 157. SIDE RAILS UP X2. BED IN LOW POSITION. CALL LIGHT IN REACH. DENIES NEEDS.
[2016-08-10 12:18] VITALS: BP 124/58
--- NOTE | 2016-08-10 13:30 | NUR ---
PATIENT UP AMBULATING IN HALLWAY WITH PT. NO SIGNS OF DISTRESS NOTED.
[2016-08-10 16:43] VITALS: BP 135/66
--- NOTE | 2016-08-10 17:00 | NUR ---
ALERT IN BED WATCHING TV. NO SIGNS OF DISTRESS NOTED. ACCU CHECK 157. DENIES NEEDS. SIDE RAILS UP X2. BED IN LOW POSITION. CALL LIGHT AND SENIOR ELECTRICAL CONTROLS ENGINEER BUTTON IN REACH.
--- NOTE | 2016-08-10 19:15 | NUR ---
BEDSIDE REPORT RECEIVED AND CARE OF PT ASSUMED. PT LYING IN SEMI HE'S POSITION WITH EYES CLOSED. LEFT IJ PATENT WITH TPN INFUSING AT 50 ML / HR, AND NS INFUSING AT 50 ML / HR. TRACER CLERK / MORPHINE IN USE FOR PAIN CONTROL. LEWIS CATHETER DRAINING TO GRAVITY WITH YELLOW URINE WITH SMALL AMOUNT OF SEDIMENT PRESENT IN COLLECTION BAG. WOUND VAC ON ABDOMINAL WOUND WELL COMPRESSED WITH NO LEAK ALARMS. OSTOMY BAG IN PLACE WITH SMALL AMOUNT OF BROWN LIQUID IN BAG. WILL MONITOR CLOSELY FOR NEEDS. CALL LIGHT WITHIN REACH.
[2016-08-10 20:00] VITALS: BP 132/68
--- NOTE | 2016-08-10 22:06 | NUR ---
REFILLED BRICK CARRIER AND GAVE 2 MG MORPHINE BOLUS VIA BRICK CARRIER PUMP FOR REPORTED PAIN AT LEVEL 10/10. WILL MONITOR FOR EFFECTIVENESS.
--- NOTE | 2016-08-10 23:00 | NUR ---
EMPTIED 40 ML OF BROWN LIQUID FROM COLOSTOMY.
[2016-08-11] VITALS: BP 141/71
[2016-08-11 04:00] VITALS: BP 123/58
--- NOTE | 2016-08-11 04:10 | NUR ---
SUSSY BLOOD FROM CENTRAL LINE FOR AM LABS. DELIVERED TUBES TO LAB.
[2016-08-11 06:04] LABS: ALBUMIN 2.1 g/dL (3.4-5.0); ALKALINE PHOSPHATASE 148 U/L (46-116); ALT (SGPT) 55 U/L (10-68); BILIRUBIN - TOTAL 0.29 mg/dL (0.2-1.3); CALC OSMOLALITY 279 mosm/kg (275-300); CALCIUM 8.2 mg/dL (8.5-10.1); CARBON DIOXIDE 32.6 mmol/L (21.0-32.0); CHLORIDE - SERUM 105 mmol/L (98-107); CREATININE - SERUM 0.8 mg/dL (0.6-1.3); GLUCOSE 87 mg/dL (74-106); MAGNESIUM - SERUM 1.8 mg/dL (1.8-2.4); PHOSPHOROUS 4.1 mg/dL (2.5-4.9); POTASSIUM - SERUM 4.4 mmol/L (3.5-5.1); PROTEIN - SERUM 5.8 g/dL (6.4-8.2); SODIUM 141 mmol/L (136-145); UREA NITROGEN 13 mg/dL (7-18); eGFR NON AFRICAN AMERICAN 75 mL/min (90-120)
--- NOTE | 2016-08-11 06:08 | NUR ---
ALL NEEDS MET DURING SHIFT. CONTINUE PLAN OF CARE.
[2016-08-11 08:30] VITALS: BP 151/51
--- NOTE | 2016-08-11 09:57 | NUR ---
NUTRITION MONITORING & EVAL CHART REVIEWED. LABS ORDERED X 3 DAYS. SPOKE WITH PHARMACY, WILL CONTINUE CURRENT TPN. RD FOLLOWING
[2016-08-11 12:28] VITALS: BP 146/48
--- NOTE | 2016-08-11 13:00 | NUR ---
REPLACED PATIENT'S LEWIS CATHERER. 16FR. STERILE TECHNIQUE MAINTAINED. NO URINE RETURN. WILL CONTINUE TO MONITOR.
--- NOTE | 2016-08-11 15:50 | NUR ---
ASKED BY PRIMARY NURSE TO ASSESS LEWIS CATHETER PATIENT HAS HAD 0 URINE OUTPUT SINCE LEWIS CATHETER BEING REPLACED TODAY. UPON INSPECTION URINARY CATHETER DOES NOT APPEAR TO BE IN THE URINARY MEATUS. 10 CC BULB DEFLATED AND CATHETER REMOVED. PERINEAL AREA CLEANED WITH H20 AND CASTILE SOAP. 16 GREEK LEWIS CATHETER WITH 10 CC BALLOON INSERTED VIA STERILE TECHNIQUE TO BLADDER WITH EASE. 350 CC CLEAR YELLOW URINE INSTANTLY RETURNED TO CATHETER BAG. PATIENT TOLERATED WITHOUT COMPLAINS. NYSTATIN POWDER THEN APPLIED TO PERINEAL AREA.
[2016-08-11 16:10] VITALS: BP 138/57
--- NOTE | 2016-08-11 16:30 | NUR ---
LEFT TLIJ DCD PER MD ORDER, CATH TIP INTACT. STERILE DRESSING APPLIED OVER PUNCTURE SITE. PATIENT TOLERATED WELL. NO BLEEDING NOTED. CHECKED WOUND VAC AND STOMA APPLIANCE BAG FOR LEAKS PER PATIENT REQUEST. NO LEAKS NOTED. STOMA APPLIANCE BAG WITH APPROX 100 CC GREEN DRAINAGE NOTED. WOUND VAC WITH GOOD SEAL AND SUCTION AT 125 MM/HG CONTINUOUS. PATIENT REPORTS THAT SHE HAS PASSED FLATUS AND HAD 2 LIQUID GREEN STOOLS PER RECTUM TODAY. DENIES FURTHER NEEDS AT PRESENT. BED LOW CL IN REACH OF PATIENT. WILL CONTINUE TO BE MONITORED BY PRIMARY NURSE KATE AHN RN. ALL ABOVE D/W KATE.
[2016-08-11 20:00] VITALS: BP 143/72
[2016-08-12] VITALS: BP 126/73
[2016-08-12 05:50] LABS: ALBUMIN 2.2 g/dL (3.4-5.0); ANION GAP 8.7 mmol/L (8-16); BILIRUBIN - TOTAL 0.3 mg/dL (0.2-1.3); CALCIUM 8.1 mg/dL (8.5-10.1); CARBON DIOXIDE 31.6 mmol/L (21.0-32.0); CREATININE - SERUM 0.9 mg/dL (0.6-1.3); MAGNESIUM - SERUM 1.6 mg/dL (1.8-2.4); PHOSPHOROUS 3.4 mg/dL (2.5-4.9); POTASSIUM - SERUM 4.3 mmol/L (3.5-5.1); PROTEIN - SERUM 5.9 g/dL (6.4-8.2)
--- NOTE | 2016-08-12 07:00 | NUR ---
REPORT RECIEVED, ASSUMED CARE. PATIENT IN BED WITHIV INTACT. NO COMPLAINTS AT THIS TIME. CALL BENIW MEGHAN INTERIANO.
[2016-08-12 08:15] VITALS: BP 161/52
[2016-08-12 12:57] VITALS: BP 143/56
[2016-08-12 16:15] VITALS: BP 128/46
--- NOTE | 2016-08-12 18:45 | NUR ---
PATIENT IN BED WITH IV INTACT. NO COMPLAINTS. BSCDS ON AND WORKING. CALL LIGHT WITHIN REACH.
[2016-08-12 20:00] VITALS: BP 136/69
--- NOTE | 2016-08-12 20:50 | NUR ---
ASSESSMENT COMPLETED, NO ACUTE DISTRESS NOTED, LEWIS DRAINING TO GRAVITY, WOUND VAC FUNCTIONING AT 125MM/HG, OSTOMY BAG IN PLACE ON LOWER ABD, DENIES NEEDS, FALL AND CONTACT PRECATIONS IN PLACE, CL IN REACH, WILL MONITOR
--- NOTE | 2016-08-12 21:48 | NUR ---
MEDS HUNG PER MAR, GOJUNIE AND FRIDA CHANGED PROVIDED, VICKIE WELL, DENIES NEEDS, CL IN REACH
--- NOTE | 2016-08-12 23:50 | NUR ---
RESTING WITH EYES CLOSED, RESP WITH EASE, NO DISTRESS NOTED, SAFETY MEASURES IN PLACE, CL IN REACH
[2016-08-13] VITALS: BP 144/71
--- NOTE | 2016-08-13 01:46 | NUR ---
RESTING WITH EYES CLOSED, RESP WITH EASE, NO ACUTE DISTRESS NOTED, FALL AND CONTACT PRECAUTIONS IN PLACE, CL IN REACH
[2016-08-13 04:00] VITALS: BP 126/64
--- NOTE | 2016-08-13 04:28 | NUR ---
AVIATION METALSMITH PUMP REFILLED PER MAR
[2016-08-13 05:42] LABS: ALBUMIN 2.1 g/dL (3.4-5.0); ANION GAP 9.8 mmol/L (8-16); BILIRUBIN - TOTAL 0.3 mg/dL (0.2-1.3); CALCIUM 8.2 mg/dL (8.5-10.1); CARBON DIOXIDE 31.4 mmol/L (21.0-32.0); CREATININE - SERUM 0.9 mg/dL (0.6-1.3); MAGNESIUM - SERUM 1.6 mg/dL (1.8-2.4); PHOSPHOROUS 3.5 mg/dL (2.5-4.9); POTASSIUM - SERUM 4.2 mmol/L (3.5-5.1); PROTEIN - SERUM 5.9 g/dL (6.4-8.2)
--- NOTE | 2016-08-13 07:20 | NUR ---
PATIENT RECEIVED IN MID HE POSITION RESTING QUIETLY WITH EYES CLOSED. RESPIRATIONS EVEN AND UNLABORED. SIDE RAILS UP X2. BED IN LOW POSITION. CALL LIGHT IN REACH.
[2016-08-13 08:50] VITALS: BP 133/65
--- NOTE | 2016-08-13 09:35 | NUR ---
ALERT IN HIGH HE POSITION VISITING WITH GUESTS. RESPIRATIONS EVEN AND UNLABORED. MAG RIDER INITIATED PER ELECTROLYTE PROTOCOL. DENIES NEEDS. SIDE RAILS UP X2. BED IN LOW POSITION. CALL LIGHT AND HAND SCREEN PRINTER BUTTON IN REACH.
--- NOTE | 2016-08-13 11:30 | NUR ---
ALERT IN BED WATCHING TV. RESPIRATIONS EVEN AND UNLABORED. SIDE RAILS UP X2. BED IN LOW POSITION. CALL LIGHT IN REACH. DENIES NEEDS.
[2016-08-13 12:48] VITALS: BP 109/65
--- NOTE | 2016-08-13 14:23 | NUR ---
ALERT IN BED WATCHING TV. NEW BAG TPN INITIATED. TUBING CHANGED PER PROTOCOL. DENIES NEEDS. SIDE RAILS UP X2. BED IN LOW POSITION. CALL LIGHT IN REACH.
[2016-08-13 16:49] VITALS: BP 102/59
--- NOTE | 2016-08-13 17:00 | NUR ---
ALERT IN BED. RESPIRATIONS EVEN AND UNLABORED. ACCU CHECK 136. SCHEDULED MEDICATION ADMINISTERED. SIDE RAILS UP X2. BED IN LOW POSITION. CALL LIGHT IN REACH.
--- NOTE | 2016-08-13 19:51 | NUR ---
PATIENT RESTING IN BED AND DENIES NEEDS AT THIS TIME. BED IN LOWEST POSITION AND CALL LIGHT WITHIN REACH.
[2016-08-13 20:59] VITALS: BP 120/61
[2016-08-14 00:28] VITALS: BP 115/47
--- NOTE | 2016-08-14 07:00 | NUR ---
PATIENT RECEIVED ALERT IN BED. NO SIGNS OF DISTRESS NOTED. NIDHI CORDOVA RETANNED LEATHER ROLLER REPORTS PURPLE LUMEN OF PICC WILL NOT FLUSH OR DRAW BACK AFTER ORDER LABWORK WAS OBTAINED. RED LUMEN FLUSHES EASY AND TPN INFUSING WITHOUT DIFFICULTY. 22 GAUGE SITED TO LEFT HAND X2 ATTEMPT. FLUSHES EASY WITH BRISK BLOOD RETURN PRESENT. IVF AND RIB MATCHER AND FITTER INFUSING WITHOUT DIFFICULTY TO LEFT HAND. DENIES NEEDS. SIDE RAILS UP X2. BED IN LOW POSITION. CALL LIGHT IN REACH.
[2016-08-14 07:48] VITALS: BP 132/60
[2016-08-14 08:15] LABS: ALBUMIN 2.2 g/dL (3.4-5.0); BILIRUBIN - TOTAL 0.25 mg/dL (0.2-1.3); CALCIUM 8.1 mg/dL (8.5-10.1); CARBON DIOXIDE 32.4 mmol/L (21.0-32.0); CREATININE - SERUM 0.9 mg/dL (0.6-1.3); MAGNESIUM - SERUM 1.8 mg/dL (1.8-2.4); PHOSPHOROUS 3.9 mg/dL (2.5-4.9); POTASSIUM - SERUM 4.4 mmol/L (3.5-5.1); PROTEIN - SERUM 5.9 g/dL (6.4-8.2)
--- NOTE | 2016-08-14 09:08 | NUR ---
PATIENT IN HIGH HE POSITION RESTING WITH EYES CLOSED. RESPIRATIONS EVEN AND UNLABORED. SCHEDULED MEDICATION ADMINISTERED. SIDE RAILS UP X2. BED IN LOW POSITION. CALL LIGHT AND OVERSEER KOSHER KITCHEN BUTTON IN REACH.
--- NOTE | 2016-08-14 11:50 | NUR ---
ALERT IN BED. ACCU CHECK 176. DENIES NEEDS. SIDE RAILS UP X2. BED IN LOW POSITION. CALL LIGHT IN REACH.
[2016-08-14 12:22] VITALS: BP 127/57
--- NOTE | 2016-08-14 14:45 | NUR ---
PATIENT IN HIGH HE POSITION RESTING WITH EYES CLOSED. RESPIRATIONS EVEN AND UNLABORED. SIDE RAILS UP X2. BED IN LOW POSITION. CALL LIGHT IN REACH.
[2016-08-14 15:42] VITALS: BP 143/67
--- NOTE | 2016-08-14 15:50 | NUR ---
ALERT IN BED WORKING ON LAPTOP. CONSENT OBTAINED FOR SCHEDULED PROCEDURE. DENIES NEEDS. SIDE RAILS UP X2. BED IN LOW POSITION. CALL LIGHT IN REACH.
--- NOTE | 2016-08-14 18:35 | NUR ---
ALERT IN HIGH HE POSITION WATCHING TV. RESPIRATIONS EVEN AND UNLABORED. DENIES NEEDS. SIDE RAILS UP X2. BED IN LOW POSITION. CALL LIGHT IN REACH.
[2016-08-14 21:00] VITALS: BP 135/53
[2016-08-15] VITALS (11 sets, daily range): BP systolic 101–144; BP diastolic 41–96
--- NOTE | 2016-08-15 07:05 | NUR ---
PATIENT RECEIVED ALERT IN HIGH HE POSITION RESTING QUIETLY. RESPIRATIONS EVEN AND UNLABORED. SIDE RAILS UP X2. BED IN LOW POSITION. CALL LIGHT IN REACH.
--- NOTE | 2016-08-15 09:40 | NUR ---
ALERT IN BED. PRESENT. SCHEDULED MEDICATION ADMINISTERED. SIDE RAILS UP X2. BED IN LOW POSITION. CALL LIGHT IN REACH.
--- NOTE | 2016-08-15 11:22 | NUR ---
ACCU CHECK 171. PATIENT ALERT IN BED. RESPIRATIONS EVEN AND UNLABORED. SIDE RAILS UP X2. BED IN LOW POSITION. CALL LIGHT IN REACH.
[2016-08-15 12:54] LABS: ANION GAP 11.6 mmol/L (8-16); CALCIUM 8.5 mg/dL (8.5-10.1); CREATININE - SERUM 0.9 mg/dL (0.6-1.3); MAGNESIUM - SERUM 1.7 mg/dL (1.8-2.4); PHOSPHOROUS 3.9 mg/dL (2.5-4.9); POTASSIUM - SERUM 4.6 mmol/L (3.5-5.1)
--- NOTE | 2016-08-15 13:45 | NUR ---
NUTRITION MONITORING & EVAL CHART REVIEWED. TPN ADJUSTED AND RENEWED. AM LABS ORDERED X [address] WITH PHARMACY. RD FOLLOWING
--- NOTE | 2016-08-15 14:55 | NUR ---
PATIENT OFF FLOOR TO SURGERY VIA BED
--- NOTE | 2016-08-15 17:04 | NUR ---
PATIENT BACK TO ROOM FROM PACU. ALERT IN BED. NO SIGNS OF DISTRESS NOTED. VITAL SIGN STABLE. AT BEDSIDE. SIDE RAILS UP X2. BED IN LOW POSITION. CALL LIGHT IN REACH.
--- NOTE | 2016-08-15 22:03 | NUR ---
PATIENT RESTING IN BED WATCHING TV. NO SIGNS OF DISTRESS NOTED. SCHEDULED MEDICATION GIVEN. ASSESSMENT COMPLETED. DENIES ANY NEEDS AT THIS TIME. BED LOW. CALL LIGHT IN REACH.
[2016-08-16 04:00] VITALS: BP 131/52
--- NOTE | 2016-08-16 06:06 | NUR ---
PATIENT RESTING WITH EYES CLOSED. NO VISIBLE SIGNS OF DISTRESS. BED IN LOWEST POSITION AND CALL LIGHT WITHIN REACH.
[2016-08-16 06:51] LABS: ALBUMIN 2.2 g/dL (3.4-5.0); ANION GAP 10.5 mmol/L (8-16); BILIRUBIN - TOTAL 0.3 mg/dL (0.2-1.3); CARBON DIOXIDE 28.9 mmol/L (21.0-32.0); PHOSPHOROUS 4.1 mg/dL (2.5-4.9); POTASSIUM - SERUM 4.4 mmol/L (3.5-5.1); PROTEIN - SERUM 5.8 g/dL (6.4-8.2)
[2016-08-16 06:53] LABS: CALCIUM 8.1 mg/dL (8.5-10.1)
--- NOTE | 2016-08-16 08:00 | NUR ---
AWAKE AND ALERT. ORIENTED X3. NO C/O AT THIS TIME. AT BEDSIDE. LUNGS ARE CLEAR BILATERALLY, NO COUGH NOTED. SKIN IS INTACT WITHOUT REDNESS EXCEPT WOUND TO ABDOMEN WHICH HAS A WOUND VAC AND OSTOMY APPLIANCE WITH SCANT BROWNISH DRAINAGE. RIGHT PICC PATENT WITHOUT REDNESS AT INSERTION SITE. IV TO LEFT HAND IS PATENT WITHOUT REDNESS. LEWIS PATENT WITH CLEAR YELLOW URINE. DENEIS NEEDS.
[2016-08-16 08:13] VITALS: BP 160/69
--- NOTE | 2016-08-16 08:22 | OP ---
PATIENT NAME: ROD MAK MEDICAL RECORD: [id number] :46 LOCATION:[facility] ADMISSION DATE:07/16/16 SURGEON: KHADIJAH PECK MD DATE OF OPERATION: 08/15/2016 SURGEON: Khadijah Peck MD PREOPERATIVE DIAGNOSIS: Enteroatmospheric fistula. POSTOPERATIVE DIAGNOSIS: Enteroatmospheric fistula. PROCEDURE PERFORMED: Wound VAC change, 16 cm x 4 cm x 2 cm. ANESTHESIA: Monitored anesthesia care. COMPLICATIONS: None. SPECIMENS: None. Case was contaminated. OPERATIVE COURSE: The patient was taken to the operating room, placed in a supine position on the operating table, ____ anesthesia was administered. A timeout was taken to confirm the correct patient, procedure. The previous VAC was removed. The abdomen was prepped and draped in typical sterile fashion. The wound bed had cleared, markedly improved. There was a significant amount of beefy red granulation tissue upon removing the VAC. The enteroatmospheric fistula remained visible and draining in the lower third of the incision. The wound bed was measured at 16 x 4 x 2, a white sponge was cut to size as well as a black sponge. A hole was created in the area where the enteroatmospheric fistula was present. The holes were lined up with the ostomy paste. Once hardened, the tape was applied as well as the ____ without complication. The fistula was isolated and holding, an ostomy bag was placed over the VAC at this time to allow egress of the fistula and succuss. The patient tolerated the procedure well. At the end of the procedure, she was extubated and transferred to the PACU in stable conditioncondition. At the end of procedure, all needle and instrument counts were correct. No complications occurred. TRANSINT:[id number] Voice Confirmation ID: [id number] DOCUMENT ID: [id number] KHADIJAH PECK MD at 0822 CC: [id number] DICTATION DATE: 08/15/16 1636 STOCK DRIVER: 08/16/16 0035 ADM IN [facility] [id number] [place] [address]
--- NOTE | 2016-08-16 10:49 | NUR ---
WOUND CARE: PER DR. PECK CHANGED OSTOMY APPLIANCE D/T SMALL AMOUNT OF DRAINAGE LEAKING AT LOWER PART OF WAFER. REINFORCED WITH STOMA PASTE AND DRAPE. PT TOLERATED WELL.
[2016-08-16 12:18] VITALS: BP 130/70
--- NOTE | 2016-08-16 15:28 | NUR ---
WOUND CARE: OSTOMY WAFER LEAKING. UPON REMOVAL FOUND IT NECESSARY TO REPLACE THE WOUND VAC DRESSING ALSO. AFTER CLEANING MIDLINE ABDOMINAL INCISION WELL, CUT WHITE FOAM TO FIT BASE OF WOUND, CUTTING AN OPENING FOR FISTULA. THEN CUT BLACK FOAM TO FIT ENTIRE INCISION AND CUT AN OPENING AT FISTULA SITE. COVERED THE BLACK FOAM WITH ADAPT PASTE AND LET IT CURE FOR SEVERAL MINUTES. COVERED ENTIRE AREA WITH DRAPE AND PLACED A SMALL OPENING AT UPPER END OF WOUND FOR TRAC PAD PLACEMENT. CUT A 1CM OPENING OVER FISTULA AND PLACED AN OSTOMY WAFER OVER IT AND ATTACHED DRAINAGE BAG. VAC WAS TURNED BACK ON AND NEG PRESSURE WAS ACHIEVED. PT TOLERATED WELL. WILL CONTINUE TO MONITOR.
[2016-08-16 15:52] VITALS: BP 135/65
--- NOTE | 2016-08-16 18:56 | NUR ---
RESTING QUIETLY IN BED. FIRST STEP OVERLAY IN PLACE. NO CHANGES NOTED. DENIES NEEDS.
[2016-08-16 19:00] VITALS: BP 132/47
--- NOTE | 2016-08-16 23:15 | NUR ---
REC'D. DURING WALKING ROUNDS.SITTING UP IN BED 40 DEGREES TALKING ON CELL PHONE DENIES ANY NEEDS OR DISCOMFORT AT PRESENT TIME.OSTOMY BAG WITH NO STOOL WOUNDVAC IN PLACE WITH GOOD SEAL. DENIES NAUSEA. WILL CONTINUE TO MONITOR FOR ANY CHGES AND FOLLOW CURRENT PLAN OF CARE.
[2016-08-17 04:00] VITALS: BP 120/15
[2016-08-17 07:05] LABS: ALBUMIN 2.3 g/dL (3.4-5.0); ANION GAP 7.6 mmol/L (8-16); BILIRUBIN - TOTAL 0.37 mg/dL (0.2-1.3); CALCIUM 8.4 mg/dL (8.5-10.1); CARBON DIOXIDE 31.8 mmol/L (21.0-32.0); MAGNESIUM - SERUM 1.7 mg/dL (1.8-2.4); PHOSPHOROUS 4.2 mg/dL (2.5-4.9); POTASSIUM - SERUM 4.4 mmol/L (3.5-5.1); PROTEIN - SERUM 6.2 g/dL (6.4-8.2)
--- NOTE | 2016-08-17 07:43 | NUR ---
REMAINS IN ISOLATION AT THIS TIME. AWAKE AND ALERT WITH RESPIRATIONS EVEN AND NON LABORED. RECREATION LEADER IN USE FOR PAIN. CALL LIGHT IN REACH, WILL CONTINUE WITH PLAN OF CARE.
[2016-08-17 08:50] VITALS: BP 145/77
--- NOTE | 2016-08-17 09:18 | NUR ---
COMPLAINING OF NAUSEA WITHOUT EMESIS AT THIS TIME. NIDHI MEDRANO WITH WOUND CARE IN THE ROOM LOOKING AT OSTOMY DEVICE OVER FISTULA. STUDENT NURSES PERFORMING LINEN CHANGE AND BED BATH. LEWIS CATHETER CARE PROVIDED WITH CATHETER CARE WIPES. ASSESSMENT PERFORMED PER FLOWSHEET. CALL LIGHT IN REACH, WILL CONTINUE WITH PLAN OF CARE.
--- NOTE | 2016-08-17 11:00 | NUR ---
OSTOMY APPLIANCE OVER FISTULA LEAKING AT THIS TIME. NOTIFIED NIDHI MEDRANO WITH WOUND CARE.
[2016-08-17 12:48] VITALS: BP 130/72
--- NOTE | 2016-08-17 12:52 | NUR ---
SCHEDULED MEDICATIONS ADMINISTERED AT THIS TIME. RIGHT UPPER ARM PICC LINE DRESSING CHANGED IN STERILE FASHION. PT TOLERATED WITHOUT COMPLAINTS. DENIES NEEDS AT THIS TIME. AT BEDSIDE. WILL CONTINUE WITH PLAN OF CARE.
--- NOTE | 2016-08-17 13:51 | NUR ---
PRN ZOFRAN ADMINSITERED AT THIS TIME FOR NAUSEA WITHOUT EMESIS. DENIES FURTHER NEEDS AT THIS TIME. CALL LIGHT IN REACH, WILL CONTINUE WITH PLAN OF CARE.
--- NOTE | 2016-08-17 13:54 | NUR ---
WOUND CARE: LEAKAGE FROM FISTULA WAS NOTED UNDER DRAPE DRESSING AND OSTOMY WAFER. REMOVED ALL DRAPE, FOAM DRESSING FOR VAC AND OSTOMY APPLIANCE AND GENTLY CLEANSED WOUND AND SURROUNDING SKIN WITH WOUND GREENS OR GROUNDS SUPERINTENDENT AND 4X4S. ALLOWED TO DRY AND APPLIED CAVILON SKIN BARRIER NON-STING WIPES ON SKIN SURROUNDING THE ABDOMINAL INCISION. CUT OUT WHITE FOAM TO FIT INSIDE WOUND (ON TOP OF WOUND BED) AND CUT OUT SMALL AREA THAT WAS OVER THE FISTULA. DID THE SAME WITH BLACK FOAM, BUT THE BLACK FOAM WAS THEN COVERED WITH ADAPT PASTE INSIDE OPENING FOR FISTULA, THE TOP AND BOTTOM OF THE OPENING AND SIDES OF FOAM. ALLOWED TO SIT UP FOR SEVERAL MINUTES. THEN A STERILE NIPPLE WAS OPENED AND THE BOTTOM (LIP) OF IT WAS CUT OFF TO THE SIZE OF THE FISTULA. I THEN INSERTED IT THROUGH THE WHITE FOAM AND BLACK FOAM OPENINGS AND APPLIED MORE PASTE TO SECURE IT. THE FOAM WAS THEN SECURED WITH DRAPE. AN OPENING WAS CUT FOR THE TRAC PAD OF WOUND VAC AND IT WAS PLACED (UPPER SECTION OF INCISION). THEN THE TIP WAS CLIPPED OFF THE NIPPLE AND AN OPENING PLACED IN DRAPE OVER IT. WOUND VAC WAS THEN TURNED ON. NEGATIVE PRESSURE WAS ACHIEVED AND THE NIPPLE REMAINED OPEN FOR DRAINAGE FROM FISTULA. OSTOMY APPLIANCE WAS THEN PLACED OVER IT. PT TOLERATED WELL. RECHECKED 2 HOURS LATER. THERE IS DRAINAGE IN OSTOMY BAG AND AT THIS TIME THERE IS NO LEAKAGE AROUND WAFER. WOUND CARE WILL CONTINUE TO MONITOR.
[2016-08-17 16:34] VITALS: BP 141/68
[2016-08-17 19:00] VITALS: BP 146/43
[2016-08-18] VITALS: BP 135/55
[2016-08-18 04:00] VITALS: BP 128/51
--- NOTE | 2016-08-18 08:00 | NUR ---
PATIENT IS AWAKE AND ALERT, SHE IS AWARE OF HER SURROUNDINGS, SHE SAYS HER PAIN IS ABOUT A 4/10, BUT SHE PUSHES HER CNC MANAGER BUTTON TO CONTROL HER PAIN. HER DRESSING IS INTACT ON HER ABDOMEN AND SHE DOES HAVE A RADHA TUB DRAINING, BUT IT IS SCANT SEROUS FLUID, HER OSTOMY BAG IS INTACT. SHE DENIES NEEDS.
[2016-08-18 08:16] LABS: ALBUMIN 2.3 g/dL (3.4-5.0); ANION GAP 8.7 mmol/L (8-16); BILIRUBIN - TOTAL 0.23 mg/dL (0.2-1.3); CALCIUM 8.3 mg/dL (8.5-10.1); CARBON DIOXIDE 30.6 mmol/L (21.0-32.0); CREATININE - SERUM 0.9 mg/dL (0.6-1.3); MAGNESIUM - SERUM 1.7 mg/dL (1.8-2.4); PHOSPHOROUS 3.6 mg/dL (2.5-4.9); POTASSIUM - SERUM 4.3 mmol/L (3.5-5.1)
[2016-08-18 08:47] VITALS: BP 135/65
--- NOTE | 2016-08-18 10:00 | NUR ---
SPOKE WITH PATIENT ABOUT HER REASON FOR BEING IN THE [facility], SHE HAS REMAINED UPBEAT AND POSITIVE, BUT SHE SAID SHE HAD A CRYING SPELL YESTERDAY, TOLD HER THAT "IT IS OK TO CRY SOMETIMES" PATIENT REMAINS ALERT.
--- NOTE | 2016-08-18 10:45 | NUR ---
REPLACED TRAC PAD ATTACHMENT D/T BLOCKAGE/LOW PRESSURE ALARM ON VAC MACHINE. AFTER REPLACEMENT VAC FUNCTION IS BACK TO NORMAL. PT TOLERATED WELL.
--- NOTE | 2016-08-18 10:50 | NUR ---
NUTRITION MONITORING & EVAL CHART REVIEWED. PT REMAINS IN ISOLATION. ORDERED AM LABS X 3 DAYS. SPOKE WITH PHARMACY, WILL CONTINUE CURRENT TPN REGIMEN. RD FOLLOWING
--- NOTE | 2016-08-18 12:33 | NUR ---
FSBS 175, NO COVERAGE ORDERED.
[2016-08-18 13:06] VITALS: BP 143/56
--- NOTE | 2016-08-18 13:35 | NUR ---
PATIENT C/O NAUSEA, 4 MG ZOFRAN IV GIVEN.
--- NOTE | 2016-08-18 14:05 | NUR ---
PATIENT SAID THE ZOFRAN DID HELP A LITTLE. NO MORE NAUSEA, PATIENT TRYING TO TAKE A NAP NOW.
--- NOTE | 2016-08-18 15:00 | NUR ---
PATIENT IS CALM AND DENIES NEEDS.
[2016-08-18 16:23] VITALS: BP 121/66
--- NOTE | 2016-08-18 18:00 | NUR ---
WHILE DRAINING LEWIS CATH PATIENT SAID IT FELT CLOGGED, WAS ABLE TO REPOSITION TUBING AND THE URINE DRAINED EASILY THEN, EMPTIED OSTOMY BAG AT THIS TIME AND CLEARED PUMPS. NO NEEDS AT THIS TIME.
[2016-08-18 20:00] VITALS: BP 144/72
[2016-08-19] VITALS (7 sets, daily range): BP systolic 126–144; BP diastolic 37–78
--- NOTE | 2016-08-19 00:26 | NUR ---
ASSESSED AT THE BEGINNING OF THE SHIFT. PT IS ALERT AND ORIENTED, ABLE TO VERBALIZE NEEDS. SHE IS RESTING ON A 1ST STEP BED AND HAS A LEWIS CATH BUT CAN MOVE ABOUT QUITE A BIT BY HERSELF BUT WE REMIND AND ASSIST HER WITH MOVING PER PROTOCOL. HER BLOOD SUGAR WAS 159 AT MIDNIGHT AND SHE REMAINS IN CONTACT ISOLATION. THE BED IS LOW, RAILS UP X'S 2 WITH THE CALL LIGHT AT HAND.
[2016-08-19 05:55] LABS: ALBUMIN 2.3 g/dL (3.4-5.0); ALKALINE PHOSPHATASE 151 U/L (46-116); ALT (SGPT) 56 U/L (10-68); BILIRUBIN - TOTAL 0.21 mg/dL (0.2-1.3); CALC OSMOLALITY 283 mosm/kg (275-300); CALCIUM 8.5 mg/dL (8.5-10.1); CARBON DIOXIDE 30.6 mmol/L (21.0-32.0); CHLORIDE - SERUM 105 mmol/L (98-107); CREATININE - SERUM 0.7 mg/dL (0.6-1.3); GLUCOSE 137 mg/dL (74-106); MAGNESIUM - SERUM 2.1 mg/dL (1.8-2.4); PHOSPHOROUS 4.4 mg/dL (2.5-4.9); POTASSIUM - SERUM 4.2 mmol/L (3.5-5.1); SODIUM 141 mmol/L (136-145); UREA NITROGEN 15 mg/dL (7-18); eGFR NON AFRICAN AMERICAN 88 mL/min (90-120)
--- NOTE | 2016-08-19 08:00 | NUR ---
C/O PAIN R/T LEWIS. WILL CHANGE OUT TODAY. AWAKE AND ALERT. ORIENTED X3. LUNGS ARE CLEAR BILATERALLY, NO COUGH NOTED. SKIN IS INTACT WITHOUT REDNESS EXCEPT TO ABDOMEN WHICH HAS A WOUND VAC TO IT WITH SCANT SEROURS SANGUINESS DRAINAGE. OSTOMEY BAG IS PATENT WITH DARK LIQUID OUTPUT. RIGHT PICC IS PATENT WITHOUT REDNESS AT INSERTION SITE. ON FIRST STEP OVERLAY.
--- NOTE | 2016-08-19 08:45 | NUR ---
LEWIS LEAKED AT THIS TIME. CONTINUES WITH C/O PAIN FROM LEWIS. LEWIS D/C WITH TIP INTACT WITHOUT DIFFICULTY. LUDMILA CARE PER STAFF. PATIENT REPORTS GOOD RELIEF OF PAIN WITH CARE. 16F LEWIS REPLACED AFTER 2 ATTEMPTS USING STERILE TECHNIQUE. ENTIRE CONTENTS KIT UTILIZED. AT BEDSIDE.
--- NOTE | 2016-08-19 11:07 | NUR ---
WOUND VAC DRESSING CHANGE. NO CHANGES IN MEASUREMENTS. WOUND BED IS RED AND BEEFY. FISTULA OF LOWER ASPECT OF WOUND BED. APPLIED NEW WOUND VAC DRESSING AND OSTOMY APPLIANCE FOR FISTULA. PT TOLERATED WELL. WILL CONTINUE TO MONITOR.
--- NOTE | 2016-08-19 18:50 | NUR ---
LEWIS D/C WITHOUT DIFFICULTY. BED TODD LEFT WITH PATIENT. ALL QUESTIONS ANSWERED. DISCUSSED CONCERNS WITH PATIENT WELL. FSBS 118. NO CHANGES NOTED.
[2016-08-20] VITALS: BP 122/64
[2016-08-20 04:00] VITALS: BP 139/60
[2016-08-20 06:42] LABS: ALBUMIN 2.2 g/dL (3.4-5.0); ALKALINE PHOSPHATASE 156 U/L (46-116); ALT (SGPT) 80 U/L (10-68); BILIRUBIN - TOTAL 0.24 mg/dL (0.2-1.3); CALC OSMOLALITY 285 mosm/kg (275-300); CALCIUM 8.4 mg/dL (8.5-10.1); CARBON DIOXIDE 31.8 mmol/L (21.0-32.0); CHLORIDE - SERUM 105 mmol/L (98-107); CREATININE - SERUM 0.8 mg/dL (0.6-1.3); GLUCOSE 129 mg/dL (74-106); PHOSPHOROUS 4.5 mg/dL (2.5-4.9); POTASSIUM - SERUM 4.4 mmol/L (3.5-5.1); PROTEIN - SERUM 5.8 g/dL (6.4-8.2); SODIUM 141 mmol/L (136-145); UREA NITROGEN 20 mg/dL (7-18); eGFR NON AFRICAN AMERICAN 75 mL/min (90-120)
--- NOTE | 2016-08-20 07:30 | NUR ---
RECIEVED PT DURING WALKING ROUNDS. PT RESTING IN BED WITH NO COMPLAINTS OF PAIN AT THIS TIME. ASSESSMENT DONE PER FLOWSHEET. BED IN LOW POSITION AND CALL LIGHT WITHIN REACH. WILL CONTINUE TO MONITOR.
[2016-08-20 09:32] VITALS: BP 129/62
--- NOTE | 2016-08-20 10:08 | NUR ---
PATIENT RESTING IN BED. AT HER BEDSIDE PLAYING THE [employer] Solutions[employer]. CONTACT ISLOATION PREACUTIONS IN PLACE. PATIENT IS AWAKE, ALERT, AND ORIENTED X4. PATIENT IS USING HER DIRECTOR INDUSTRIAL NURSING MORPHINE TO CONTROL HER PAIN LEVEL. PATIENT STATED SHE DID HAVE SOME NAUSEA AND VOMITING EARLIER THIS MORNING. PRN ZOFRAN GIVEN TO PATIENT AT 0937 BY OSMAN PAUL. PATIENT REQUESTS A BEDPAN. BEDPAN PROVIDED AND PATIENT VOIDED 100 ML OF CLOUDY PAWAN COLORED URINE. ODOR NOTED TO PATIENT'S URINE. PATIENT DENIES ANY FURTHER NEEDS AT THIS TIME. CALL LIGHT IN PATIENT'S REACH. WILL MONITOR PATIENT.
--- NOTE | 2016-08-20 11:40 | NUR ---
DRESSING CHANGED TO ILEOSTOMY SITE AND WOUND VAC DUE TO ILEOSTOMY LEAKING. SECURED AND WOUND VAC FUNCTIONING PROPERLY. BED RETURNED TO LOW POSITION AND CALL LIGHT WITHIN REACH. WILL CONTINUE TO MONITOR.
[2016-08-20 12:52] LABS: APPEARANCE CLOUDY (CLEAR); BILIRUBIN NEGATIVE (NEGATIVE); COLOR YELLOW (YELLOW); GLUCOSE NEGATIVE (NEGATIVE); KETONE NEGATIVE (NEGATIVE); LEUKOCYTE ESTERASE 2+ (NEGATIVE); NITRITE NEGATIVE (NEGATIVE); PROTEIN 1+ mg/dL (NEGATIVE); UROBILINOGEN NORMAL (NORMAL)
[2016-08-20 12:54] LABS: WHITE CELLS - URINE 25-50 /hpf (0-5)
[2016-08-20 12:55] LABS: BACTERIA MANY /hpf (NONE SEEN); EPITHELIAL CELLS 0-5 /hpf (0-5); RED CELLS - URINE 0-5 /hpf (0-5)
--- NOTE | 2016-08-20 13:00 | NUR ---
SPOKE WITH DR. SNAZ AT THIS TIME ABOUT PT UA. RECIEVED ORDERS FOR ANTIBIOTIC. WILL ADMINISTER PER ORDER. BED IN LOW POSITION AND CALL LIGHT WITHIN REACH. WILL CONTINUE TO MONITOR.
[2016-08-20 13:46] VITALS: BP 146/62
--- NOTE | 2016-08-20 18:50 | NUR ---
WOUND VAC DRESSING CHANGED AND ILEOSTOMY DRESSING CHANGED AT THIS TIME DUE TO LEAKING. WOUND VAC SEALED AND FUNCTIONING PROPERLY. PT TOLERATED WELL, SLIGHT DISCOMFORT DURING DRESSING CHANGE. BED IN LOW POSITION AND CALL LIGHT WITHIN REACH. WILL CONTINUE TO MONITOR.
[2016-08-20 19:18] VITALS: BP 136/70
[2016-08-20 20:00] VITALS: BP 138/61
--- NOTE | 2016-08-20 20:15 | NUR ---
WOUND VAC LEAKING AT THIS TIME. MANIPULATED WOUND VAC TO FIND LEAK, APPLIED OPSITE OVER LEAK. WOUND VAC SUCTIONING PROPERLY. ADMINISTERED PHENERGAN PER ORDER AT THIS TIME FOR NAUSEA. AFTER TURNING PT, PT HAD EPISODE X2 OF EMESIS CLEAR/GREEN IN COLOR. INFORMED NURSE RECIEVING PT AT THIS TIME. SHIFT REPORT GIVEN.
[2016-08-21] VITALS: BP 144/77
--- NOTE | 2016-08-21 00:09 | NUR ---
PT LAYING IN BED AND APPERS TO BE SLEEPING AT THIS TIME CALL LIGHT IN REACH SRX2 WOUND VAC SUCTION SEALED AND NO DISTRESS OBSERVED RESPERATIONS EVEN AND UNLBOARED WILL MONITOR
[2016-08-21 04:00] VITALS: BP 143/63
[2016-08-21 06:53] LABS: ALBUMIN 2.3 g/dL (3.4-5.0); ALKALINE PHOSPHATASE 166 U/L (46-116); ALT (SGPT) 71 U/L (10-68); BILIRUBIN - TOTAL 0.28 mg/dL (0.2-1.3); CALC OSMOLALITY 281 mosm/kg (275-300); CALCIUM 8.7 mg/dL (8.5-10.1); CARBON DIOXIDE 34.3 mmol/L (21.0-32.0); CHLORIDE - SERUM 103 mmol/L (98-107); CREATININE - SERUM 0.7 mg/dL (0.6-1.3); GLUCOSE 131 mg/dL (74-106); MAGNESIUM - SERUM 1.8 mg/dL (1.8-2.4); POTASSIUM - SERUM 4.5 mmol/L (3.5-5.1); PROTEIN - SERUM 6.2 g/dL (6.4-8.2); SODIUM 140 mmol/L (136-145); UREA NITROGEN 16 mg/dL (7-18); eGFR NON AFRICAN AMERICAN 88 mL/min (90-120)
--- NOTE | 2016-08-21 08:34 | NUR ---
PATIENT'S DRESSING IS LEAKING FROM THE INFERIOR PORTION, SMALL AMOUNT OF LIGHT BROWN DRAINAGE. CLEANED AND REINFORCED WITH A TEGADERM. PATIENT TOLERATED WELL. PATIENT STATED SHE IS NAUSEOUS AND COLD. BROUGHT PATIENT A WARM BLANKET.
[2016-08-21 09:00] VITALS: BP 145/68
[2016-08-21 16:34] VITALS: BP 122/66
--- NOTE | 2016-08-21 18:06 | NUR ---
([id number]) PATIENT'S WOUND VAC LEAKING. NIDHI CRUMP CHANGED WOUND VAC. SHE APPLIED WHITE FOAM TO THE WOUND BED. CUT THE STERILE NIPPLE TO FIT DIRECTLY OVER THE FISTULA. SHE THEN APPLIED DRAPE OVER IT. AND PUT BLACK FOAM ON THE SUPERIOR PORTION OF DRESSING AND APPLIED MORE DRAPE, THEN ATTACHED SUCTION. PATIENT NAUSEOUS, ADMINISTERED ZOFRAN. KARIN WALKER CHANGED LINENS.
--- NOTE | 2016-08-21 20:26 | NUR ---
PATIENT RESTING IN BED. ALERT AND ORIENTED. NO SIGNS OF DIDSTRESS NOTED. WOUND VAC INTACT WITH NO LEAK NOTED. SCHEDULED MEDS GIVEN. ASSESSMENT COMPLETED. DENIES ANY NEEDS AT THIS TIME. BED LOW. CALL LIGHT IN REACH.
[2016-08-21 23:13] VITALS: BP 115/48
--- NOTE | 2016-08-22 03:00 | NUR ---
PT IN BED WITH NO DISTRESS. RESPIRATIONS EVEN AND UNLABORED. SIDE RAILS X 2. BED LOW. CALL LIGHT IN REACH.
[2016-08-22 04:00] VITALS: BP 131/57
[2016-08-22 06:48] LABS: BASOPHILS 0.3 % (0.0-2.0); EOSINOPHILS 5.1 % (0-7); HEMATOCRIT 33.5 % (36.0-48.0); HEMOGLOBIN 10.3 g/dL (12-16); IMMATURE GRANULOCYTES 0.6 % (0-5); LYMPHOCYTES 17.8 % (15-50); MCH 28.3 pg (26.0-34.0); MCHC 30.7 g/dL (31.0-37.0); MEAN PLATELET VOLUME 12.9 fL (7.4-10.4); MONOCYTES 15.4 % (2-11); NEUTROPHILS 60.8 % (40-80); RBC 3.64 10x6/uL (4.00-5.40); RDW 13.1 % (11.5-14.5); WBC 7.1 10x3/uL (4.8-10.8)
[2016-08-22 06:49] LABS: PLATELET COUNT 219 10x3/uL (130-400)
[2016-08-22 07:02] LABS: CALC OSMOLALITY 278 mosm/kg (275-300); CALCIUM 8.7 mg/dL (8.5-10.1); CARBON DIOXIDE 31.1 mmol/L (21.0-32.0); CHLORIDE - SERUM 103 mmol/L (98-107); CREATININE - SERUM 0.8 mg/dL (0.6-1.3); GLUCOSE 87 mg/dL (74-106); MAGNESIUM - SERUM 1.7 mg/dL (1.8-2.4); PHOSPHOROUS 4.5 mg/dL (2.5-4.9); POTASSIUM - SERUM 4.5 mmol/L (3.5-5.1); SODIUM 139 mmol/L (136-145); UREA NITROGEN 19 mg/dL (7-18); eGFR NON AFRICAN AMERICAN 75 mL/min (90-120)
--- NOTE | 2016-08-22 07:57 | NUR ---
PT. AOX4 RESP EVEN AND NONLABORED LUNG SOUNDS CLEAR PICC TO RIGHT ARM PATENT AND INTACT SKIN PINK INTACT WITH ABDOMINAL WOUND VAC FUNCTIONING PROPERLY PT. DENIES NEEDS AT THIS TIME BED AT LOWEST SETTING CALL LIGHT WITHIN REACH
[2016-08-22 08:37] VITALS: BP 139/49
[2016-08-22 12:12] VITALS: BP 123/52
--- NOTE | 2016-08-22 12:26 | NUR ---
NUTRITION MONITORING & EVAL CHART REVIEWED. RENEWED TPN ORDERS TO INCLUDE INTRALIPIDS. ORDERED AM LABS X [address] FOLLOWING
[2016-08-22 16:58] VITALS: BP 128/64
--- NOTE | 2016-08-22 19:46 | NUR ---
PATIENT RESTING IN BED. ALERT AND ORIENTED. NO SIGNS OF DISTRESS NOTED. WOUND VAC IN PLACE. NO SIGNS OF LEAK NOTED. SCHEDULED MEDS GIVEN. ASSESSMENT COMPLETED. DENIES NEEDS AT THIS TIME. BED LOW. CALL LIGHT IN REACH.
[2016-08-22 20:00] VITALS: BP 131/41
[2016-08-23 04:00] VITALS: BP 127/445
[2016-08-23 07:05] LABS: BILIRUBIN - TOTAL 0.2 mg/dL (0.2-1.3); CALCIUM 8.4 mg/dL (8.5-10.1); CARBON DIOXIDE 30.2 mmol/L (21.0-32.0); CREATININE - SERUM 0.9 mg/dL (0.6-1.3); MAGNESIUM - SERUM 1.8 mg/dL (1.8-2.4); PHOSPHOROUS 4.5 mg/dL (2.5-4.9); POTASSIUM - SERUM 4.2 mmol/L (3.5-5.1); PROTEIN - SERUM 5.6 g/dL (6.4-8.2)
[2016-08-23 08:20] VITALS: BP 138/62
--- NOTE | 2016-08-23 08:20 | NUR ---
PT. AOX4 PT RESTLESS RESP EVEN AND NONLABORED SI TO ABD WITH WOUND VAC FUNCTIONING PROPERLY. PT. DENIES NEEDS AT THIS TIME BED AT LOWEST SETTING AND CALL LIGHT WITHIN REACH. RIGHT PICC PATENT AND FUNCTIONING PROPERLY
--- NOTE | 2016-08-23 10:37 | NUR ---
PATIENT IS AMBULATING IN THE [facility] WITH MANA FROM PHYSICAL THERAPY. ON ROOM AIR. NO SIGNS OF DISTRESS NOTED.
[2016-08-23 12:30] VITALS: BP 135/73
[2016-08-23 16:36] VITALS: BP 128/58
[2016-08-23 20:00] VITALS: BP 134/50
--- NOTE | 2016-08-23 20:35 | NUR ---
PATIENT SITTING UP IN BED. NO SIGNS OF DISTRESS NOTED. SCHEDULED MEDS GIVEN. ASSESSMENT COMPLETED. WOUND VAC IN PLACE. NO LEAK NOTED. MINIMUM ASSIST TO BSC. DENIES ANY NEEDS AT THIS TIME. BED LOW CALL LIGHT IN REACH
--- NOTE | 2016-08-24 02:00 | NUR ---
PT IN BED WITH NO DISTRESS. RESPIRATIONS EVEN AND UNLABORED. SIDE RAILS X 2. BED LOW. CALL LIGHT IN REACH.
[2016-08-24 04:00] VITALS: BP 137/57
[2016-08-24 06:32] LABS: ALBUMIN 2.1 g/dL (3.4-5.0); ALKALINE PHOSPHATASE 149 U/L (46-116); ALT (SGPT) 82 U/L (10-68); BILIRUBIN - TOTAL 0.35 mg/dL (0.2-1.3); CALC OSMOLALITY 280 mosm/kg (275-300); CALCIUM 8.3 mg/dL (8.5-10.1); CARBON DIOXIDE 31.6 mmol/L (21.0-32.0); CHLORIDE - SERUM 104 mmol/L (98-107); CREATININE - SERUM 0.8 mg/dL (0.6-1.3); GLUCOSE 114 mg/dL (74-106); MAGNESIUM - SERUM 1.9 mg/dL (1.8-2.4); POTASSIUM - SERUM 4.2 mmol/L (3.5-5.1); PROTEIN - SERUM 5.6 g/dL (6.4-8.2); SODIUM 139 mmol/L (136-145); UREA NITROGEN 17 mg/dL (7-18); eGFR NON AFRICAN AMERICAN 75 mL/min (90-120)
[2016-08-24 08:40] VITALS: BP 130/71
[2016-08-24 13:31] VITALS: BP 163/63
--- NOTE | 2016-08-24 15:20 | NUR ---
WOUND CARE / WOUND VAC DRESSING CHANGE / OSTOMY APPLIANCE CHANGE REMOVED WOUND VAC DRESSING AND OSTOMY APPLIANCE THAT WAS COVERING FISTULA AT LOWER REGION OF MIDLINE ABD INCISION. WOUND MEASURES 14CM X 2.8CM X 1.8CM WOUND BED IS RED/NO ODOR CLEANSED WOUND BED AND SURROUNDING TISSUE WITH WOUND ADJUNCT PSYCHOLOGY FACULTY MEMBER AND PATTED DRY. PREPPED SURROUNDING SKIN WITH CAVILON SKIN BARRIER/PROTECTANT. PLACED ADAPTIC TO COVER WOUND BED AND CUT BLACK SPONGE TO FIT WOUND, CUTTING OUT A 1CM AREA AT BOTTOM OF SPONGE FOR FISTULA. APPLIED ADAPT PASTE TO SPONGE ON AND AROUND OPENING FOR FISTULA AND INSERTED A NIPPLE IN THE OPENING. APPLIED PASTE TO SURROUND IT. PASTE WAS ALSO APPLIED AROUND WOUND EDGES. SPONGE WAS PLACED IN WOUND BED, FITTING THE NIPPLE OVER THE FISTULA. DRAPE APPLIED TO SECURE DRESSING. NEGATIVE PRESSURE WAS ACHIEVED TO VAC SPONGE AND NIPPLE REMAINED ISOLATED FROM PRESSURE. STOMA PASTE APPLIED AROUND NIPPLE AND OSTOMY APPLIANCE FITTED AROUND IT. PT TOLERATED WELL. WOUND CARE WILL CONTINUE MONITORING.
[2016-08-24 17:19] VITALS: BP 143/62
--- NOTE | 2016-08-24 19:00 | NUR ---
BEDSIDE REPORT RECEIVED AND CARE OF PT ASSUMED. PT LYING IN SEMI HE'S POSITION WATCHING TV. RIGHT PICC PATENT WITH NS INFUSING AT 20 ML / HR., TPN INFUSING AT 50 ML / HR., LIPIPS INFUSING, AND ROOFER APPLICATOR / MORPHINE IN USE FOR PAIN CONTROL. WOUND VAC ON ABDOMEN WELL CONPRESSED WITH NO LEAK ALARMS. OSTOMY APPLIANCE ON FISTULA IN PLACE WITH NO LEAKS, AND BROWN LIQUID IN COLLECTION BAG. 1ST STEP AIR MATTRESS OVERLAY IN USE. WILL MONITOR CLOSELY FOR NEEDS. CALL LIGHT WITHIN REACH.
--- NOTE | 2016-08-24 20:34 | NUR ---
REPORT GIVEN TO NIDHI CASTRO NOTIFIED HER THE PICC LINE DRESSING HAS NOT BEEN CHANGED THIS SHIFT.
--- NOTE | 2016-08-24 21:32 | NUR ---
HS MEDICATIONS GIVEN. WILL CONTINUE TO MONITOR FOR NEEDS.
[2016-08-24 21:35] VITALS: BP 140/51
--- NOTE | 2016-08-24 23:00 | NUR ---
WENT TO ROOM TO CHANGE DRESSING ON PICC LINE...PT DECLINES AT THIS TIME, AND WANTS TO WAIT UNTIL MORNING TO HAVE CHANGED.
--- NOTE | 2016-08-25 05:00 | NUR ---
SUSSY BLOOD FROM PICC LINE FOR AM LABS. DELIVERED TO LAB.
[2016-08-25 05:47] LABS: ALBUMIN 2.1 g/dL (3.4-5.0); ALKALINE PHOSPHATASE 156 U/L (46-116); ALT (SGPT) 99 U/L (10-68); BILIRUBIN - TOTAL 0.24 mg/dL (0.2-1.3); CALC OSMOLALITY 282 mosm/kg (275-300); CALCIUM 7.9 mg/dL (8.5-10.1); CARBON DIOXIDE 31.8 mmol/L (21.0-32.0); CHLORIDE - SERUM 104 mmol/L (98-107); CREATININE - SERUM 0.8 mg/dL (0.6-1.3); GLUCOSE 150 mg/dL (74-106); MAGNESIUM - SERUM 1.8 mg/dL (1.8-2.4); PHOSPHOROUS 4.7 mg/dL (2.5-4.9); POTASSIUM - SERUM 4.2 mmol/L (3.5-5.1); PROTEIN - SERUM 5.1 g/dL (6.4-8.2); SODIUM 140 mmol/L (136-145); UREA NITROGEN 16 mg/dL (7-18); eGFR NON AFRICAN AMERICAN 75 mL/min (90-120)
--- NOTE | 2016-08-25 07:55 | NUR ---
PATIENT IS AWAKE, ALERT AND ORIENTED X'S 4. RESPIRATIONS ARE EVEN AND UNLABORED ON ROOM AIR. PATIENT DENIES NEEDS AT THIS TIME. CONTACT PRECAUTIONS MAINTAINED.
[2016-08-25 08:41] VITALS: BP 131/72
--- NOTE | 2016-08-25 10:56 | NUR ---
NUTRITION MONITORING & EVAL CHART REVIEWED. RENEWED LAB ORDERS X 4 DAYS. WILL CHECK LABS IN AM AND RENEW TPN ORDERS PRIOR TO WEEKEND. RD FOLLOWING
[2016-08-25 11:42] VITALS: BP 121/59
[2016-08-25 15:34] VITALS: BP 126/57
[2016-08-25 21:54] VITALS: BP 118/46
--- NOTE | 2016-08-26 00:26 | NUR ---
ASSESSED AT THE BEGINNING OF THE SHIFT. PT IS ALERT AND ORIENTED, ABLE TO VERBALIZE NEEDS. SHE IS ABLE TO TURN AND REPOSITION BY HERSEFL AND NOW HAS A BEDSIDE COMMODE AT THE BEDSIDE. THERE IS TPN INFUSING ORDERED. AND SHE IS CONNECTED TO A WOUND VAC FOR HER ABD INCISION. THERE IS ALSO AN ILEOSTOMY IN PLCE WITH GREEN LIQUID STOOL. THE BED IS LOW, RAILS UP X'S 2 WITH THE CALL LIGHT AT HAND.
[2016-08-26 06:59] LABS: CALC OSMOLALITY 276 mosm/kg (275-300); CARBON DIOXIDE 29.9 mmol/L (21.0-32.0); CHLORIDE - SERUM 102 mmol/L (98-107); CREATININE - SERUM 0.8 mg/dL (0.6-1.3); GLUCOSE 136 mg/dL (74-106); MAGNESIUM - SERUM 1.6 mg/dL (1.8-2.4); PHOSPHOROUS 4.3 mg/dL (2.5-4.9); SODIUM 137 mmol/L (136-145); UREA NITROGEN 16 mg/dL (7-18); eGFR NON AFRICAN AMERICAN 75 mL/min (90-120)
[2016-08-26 08:44] VITALS: BP 123/41
--- NOTE | 2016-08-26 10:01 | NUR ---
AWAKE AND ALERT. ORIENTED X3. NO C/O AT THIS TIME. LUNGS ARE CLEAR BILATERALLY, NO COUGH NOTED. SKIN IS INTACT WITHOUT REDNESS EXCEPT WOUNDS TO ABDOMEN WHICH HAS A WOUND VAC IN PLACE WITH SCANT DRAINAGE. LOWER FISTULA DRESSING IS DRY AND INTACT. WITH DARK DRAINAGE. RIGHT PICC PATENT WITHOUT REDNESS AT INSERTION SITE. DENIES NEEDS.
--- NOTE | 2016-08-26 10:07 | NUR ---
NUTRITION MONITORING & EVAL LABS REVIEWED. SPOKE WITH PHARMACY. WILL CONTINUE CURRENT TPN REGIMEN THRU WEEKEND. RD FOLLOWING
[2016-08-26 11:49] VITALS: BP 124/52
--- NOTE | 2016-08-26 12:00 | NUR ---
FSBS 155. NO COVERAGE FOR SAME. WILL MONITOR.
--- NOTE | 2016-08-26 14:00 | NUR ---
RESTING QUIETLY IN BED. UP TO BSC PER SELF. DENIES NEEDS.
[2016-08-26 15:37] VITALS: BP 127/49
--- NOTE | 2016-08-26 18:34 | NUR ---
HAD BED BATH WITH STAFF AND LINEN CHANGE EARLIER. NO CHANGES NOTED AT THIS TIME. DENIES NEEDS.
[2016-08-26 21:45] VITALS: BP 137/45
[2016-08-26 23:00] VITALS: BP 124/42
--- NOTE | 2016-08-26 23:54 | NUR ---
ASSESSED AT THE BEGINNNING OF THE SHIFT. PT IS ALERT AND ORIENTED, ABLE TO VERBALIZE NEEDS. SHE IS NOW USING THE BSC TO VOID AND WE ARE ASSISTING HER WITH EMPTYING HER ILEOSTOMY WHEN IT NEEDS IT OR SHE REQUESTS IT. HER DRESSING TO THE MIDLINE INCISION IS CONNECTED TO A WOUND VAC AND IT IS DOING WELL. SHE HAS A LEAD ELECTRICIAN OF MORPHINE BUT SHE DOSENT USE IT MUCH. SHE IS NOT WEARING HER SCD'S AT HER DECISION. THE BED IS LOW, RAILS UP X'S 2 WITH THE CALL LIGHT AT HAND.
[2016-08-27 04:00] VITALS: BP 111/52
[2016-08-27 07:15] LABS: CALC OSMOLALITY 276 mosm/kg (275-300); CALCIUM 8.3 mg/dL (8.5-10.1); CARBON DIOXIDE 31.8 mmol/L (21.0-32.0); CHLORIDE - SERUM 103 mmol/L (98-107); CREATININE - SERUM 0.8 mg/dL (0.6-1.3); GLUCOSE 139 mg/dL (74-106); MAGNESIUM - SERUM 1.9 mg/dL (1.8-2.4); PHOSPHOROUS 4.7 mg/dL (2.5-4.9); POTASSIUM - SERUM 4.1 mmol/L (3.5-5.1); SODIUM 137 mmol/L (136-145); UREA NITROGEN 15 mg/dL (7-18); eGFR NON AFRICAN AMERICAN 75 mL/min (90-120)
--- NOTE | 2016-08-27 07:47 | NUR ---
AWAKE AND ALERT. ORIENTED X3. NO C/O AT THIS TIME. LUNGS ARE CLEAR BILATERALLY, NO COUGH NOTED. SKIN IS INTACT WITHOUT REDNESS EXCEPT INCISION TO MIDLINE WHICH HAS A WOUND VAC IN PLACE AND BAG TO FISTULA. RIGHT PICC PATENT WITHOUT REDNESS AT INSERTION SITE. DENIES NEEDS.
[2016-08-27 08:57] VITALS: BP 111/72
--- NOTE | 2016-08-27 09:30 | NUR ---
AMBULATED IN HALLWAY WITH PT. DENIES NEEDS.
--- NOTE | 2016-08-27 12:00 | NUR ---
FSBS 122. NO COVERAGE
[2016-08-27 12:24] VITALS: BP 110/68
--- NOTE | 2016-08-27 15:56 | NUR ---
RESTING QUIETLY WITH EYES CLOSED. NO NEEDS NOTED.
[2016-08-27 16:02] VITALS: BP 114/72
--- NOTE | 2016-08-27 18:43 | NUR ---
FSBS 121. RESTING QUIETLY. DENIES NEEDS. NO CHGANGES NOTED.
[2016-08-27 20:00] VITALS: BP 105/68
[2016-08-28] VITALS: BP 107/55
--- NOTE | 2016-08-28 01:25 | NUR ---
ASSESSED AT THE BEGINNING OF THE SHIFT. SHE IS ALERT AND ORIENTED, ABLE TO VERBALZIE NEEDS. 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 SHE HAS A WOUND VAC TO THE DRESSING ON HER MIDLINE INCISION AND HER ILEOSTOMY WAS EMPTIED OF 100 CC'S. HER MOOD IS A LITTLE MORE UPBEAT TONIGHT AND SEEMS TO HAVE MORE ENERGY. THE BED IS LOW, RAILS UP X'S 2 WITH THE CALL LIGHT AT HAND.
[2016-08-28 04:00] VITALS: BP 116/69
[2016-08-28 06:47] LABS: CALC OSMOLALITY 276 mosm/kg (275-300); CALCIUM 8.1 mg/dL (8.5-10.1); CARBON DIOXIDE 30.4 mmol/L (21.0-32.0); CHLORIDE - SERUM 103 mmol/L (98-107); CREATININE - SERUM 0.8 mg/dL (0.6-1.3); GLUCOSE 104 mg/dL (74-106); MAGNESIUM - SERUM 1.8 mg/dL (1.8-2.4); PHOSPHOROUS 4.7 mg/dL (2.5-4.9); POTASSIUM - SERUM 3.9 mmol/L (3.5-5.1); SODIUM 138 mmol/L (136-145); UREA NITROGEN 15 mg/dL (7-18); eGFR NON AFRICAN AMERICAN 75 mL/min (90-120)
[2016-08-28 07:53] VITALS: BP 137/48
--- NOTE | 2016-08-28 08:16 | NUR ---
RESTING QUIETLY WITH EYES CLOSED. LUNGS ARE CLEAR BILATATERLLY, NO COUGH NOTED. SKIN IS INTACT WITHOUT REDNESS EXCEPT WOUND TO MID ABDOMEN WHICH HAS A WOUND VAC IN PLACE AND DRESSING TO FISTULA WHICH HAS DARK GREENISH DISCHARGE. PICC TO RIGHT UPPER ARM INTACT WITHOUT REDNESS. DENIES NEEDS.
--- NOTE | 2016-08-28 10:00 | NUR ---
AT BEDSIDE. DENIES NEEDS. FISTULA BAG EMPTIED OF 80cc DARK GREENISH THICK FLUID.
[2016-08-28 11:10] VITALS: BP 122/64
--- NOTE | 2016-08-28 12:30 | NUR ---
FSBS 157. NO COVERAGE. 100 CC OF DARK GREEN VISCOUS FLUID REMOVED.
[2016-08-28 15:56] VITALS: BP 115/56
--- NOTE | 2016-08-28 18:51 | NUR ---
NO CHANGES NOTED AT THIS TIME. DENIES NEEDS.
[2016-08-28 19:00] VITALS: BP 134/50
[2016-08-29 04:00] VITALS: BP 107/41
--- NOTE | 2016-08-29 04:00 | NUR ---
PT HAS BEEN VERY RESTLESS THROUGH OUT THE NIGHT. NO DISTRESS NOTED OR C/O. WILL CONTINUE TO OBSERVE FOR NEEDS.C/L N REACH AT BEDSIDE.
--- NOTE | 2016-08-29 04:46 | NUR ---
PATIENT RESTING WITH EYES CLOSED IN SEMI-FOWLERS POSITION. BED IN LOWEST POSITION AND CALL LIGHT WITHIN REACH.
[2016-08-29 06:13] LABS: CALC OSMOLALITY 275 mosm/kg (275-300); CALCIUM 8.3 mg/dL (8.5-10.1); CARBON DIOXIDE 30.8 mmol/L (21.0-32.0); CHLORIDE - SERUM 103 mmol/L (98-107); CREATININE - SERUM 0.8 mg/dL (0.6-1.3); GLUCOSE 117 mg/dL (74-106); MAGNESIUM - SERUM 1.7 mg/dL (1.8-2.4); PHOSPHOROUS 4.6 mg/dL (2.5-4.9); POTASSIUM - SERUM 4.1 mmol/L (3.5-5.1); SODIUM 137 mmol/L (136-145); UREA NITROGEN 15 mg/dL (7-18); eGFR NON AFRICAN AMERICAN 75 mL/min (90-120)
--- NOTE | 2016-08-29 07:30 | NUR ---
AWAKE AND ALERT AT THIS TIME. REMAINS IN CONTACT ISOLATION. CALL LIGHT IN REACH, BED IN LOWEST POSITION WITH WHEELS LOCKED AND SRX2. RESPIRATIONS EVEN AND NON LABORED. DENIES NEEDS AT THIS TIME. CALL LIGHT IN REACH, WILL CONTINUE WITH PLAN OF CARE.
--- NOTE | 2016-08-29 07:40 | NUR ---
RESTING IN BED, DENIES NEEDS, ALERT AND ORIENTED, CALL LIGHT IN REACH, BED LOWEST POSITION, WILL CONTINUE TO MONITOR
[2016-08-29 08:14] VITALS: BP 124/33
[2016-08-29 12:07] VITALS: BP 158/61
--- NOTE | 2016-08-29 12:10 | NUR ---
NUTRITION MONITORING & EVAL CHART REVIEWED. AM LABS REORDERED X 3 DAYS. WILL CONTINUE CURRENT TPN REGIMEN. RD FOLLOWING
--- NOTE | 2016-08-29 13:10 | NUR ---
08/29/2016 13:09 DCP: Discharge Planning Patient Name: ROD MAK Encounter No: [id number] : 1945 Primary Insurance: MEDICARE A & B Anticipated DC Date: 07-22-2016 Planned Disposition: Home or Self Care External Planned Provider: [facility] DCP follow-up note: POC discussed with Dr. Jung. Anticipate dc 7-10 days. Patient and family in agreement with discharge plan. No changes to plan. Case management will follow and assist as needed. Raquel Lozano
--- NOTE | 2016-08-29 13:42 | NUR ---
WOUND CARE/WOUNDVAC DRESSING CHANGE/OSTOMY APPLIANCE CHANGE: MIDLINE ABDOMINAL WOUND HAS IMPROVED MEASURING 13.5CM X 2.5CM X 1.5CM. WOUND BED IS RED AND WITH OUT ODOR. VAC DRESSING CHANGED ALONG WITH OSTOMY APPLIANCE THAT IS ISOLATING THE FISTULA. PT TOLERATED WELL. WOUND CARE CONTINUES TO MONITOR.
[2016-08-29 15:29] VITALS: BP 146/50
--- NOTE | 2016-08-29 20:10 | NUR ---
ASSESSMENT COMPLETED, NO DISTRESS NOTED, WOUND VAC IN PLACE AND OPERATING PROPERLY, DENIES NEEDS AT THIS TIME, FALL AND ISOLATION PRECAUTIONS IN PLACE, WILL MONITOR
--- NOTE | 2016-08-29 21:29 | NUR ---
MEDS GIVEN PER MAR INCLUDING ZOFRAN FOR NAUSEA WITH EMESIS AND REFILLING MORPHING CORE COMPOSER FEEDER, VICKIE WELL, COLOSTOMY BAG EMPTIED OF 60 CC GREEN LIQUID, DENIES FURTHER NEEDS, CL IN REACH
--- NOTE | 2016-08-29 23:41 | NUR ---
RESTING WITH EYES CLOSED, RESP WITH EASE, NO DISTRESS NOTED, CL IN REACH
[2016-08-30] VITALS: BP 111/48
[2016-08-30 04:00] VITALS: BP 147/50
[2016-08-30 05:27] LABS: CALC OSMOLALITY 281 mosm/kg (275-300); CALCIUM 8.2 mg/dL (8.5-10.1); CARBON DIOXIDE 31.8 mmol/L (21.0-32.0); CHLORIDE - SERUM 104 mmol/L (98-107); CREATININE - SERUM 0.7 mg/dL (0.6-1.3); GLUCOSE 146 mg/dL (74-106); MAGNESIUM - SERUM 1.8 mg/dL (1.8-2.4); POTASSIUM - SERUM 4.1 mmol/L (3.5-5.1); SODIUM 139 mmol/L (136-145); UREA NITROGEN 16 mg/dL (7-18); eGFR NON AFRICAN AMERICAN 88 mL/min (90-120)
[2016-08-30 07:58] VITALS: BP 138/57
--- NOTE | 2016-08-30 08:05 | NUR ---
PT IS RESTING IN BED WITH EYES OPEN. ALERT AND ORIENTED X 3. DENIES ACUTE DISCOMFORT AT THIS TIME. PT IS NPO. RIGHT ARM PICC LINE IS INFUSING TPN WITHOUT DIFFICULTY. ILEOSTOM NOTED TO MID LOWER ABD. 150CC GREEN LIQUID EMPTIED AT THIS TIME. FLIGHT TEST SUPERVISOR MS IN USE FOR PAIN CONTROL. WOUND VAC TO ABD IS CDI. CONTACT PRECAUTIONS OBSERVED WITH PT. PT IS VERY FRIENDLY AND COOPERATIVE. SR'S ARE UP X 2 IN BED. CALL LIGHT AND BEDSIDE TABLE ARE WITHIN EASY REACH.
--- NOTE | 2016-08-30 10:50 | NUR ---
100 CC GREEN LIQUID EMPTIED FROM PTS ILEOSTOMY PER HER REQUEST. NO FURTHER NEEDS VOICED.
--- NOTE | 2016-08-30 11:00 | NUR ---
PATIENT UP IN HALLWAY AMBULATING AT THIS TIME. NO COMPLAINTS OR PROBLEMS. CALL LIGHT WITHIN REACH.
[2016-08-30 11:45] VITALS: BP 134/52
--- NOTE | 2016-08-30 13:20 | NUR ---
PT IS RESTING IN BED PLAYING ON HER TABLET. NO NEEDS VOICED. NO ACUTE DISTRESS NOTED.
[2016-08-30 15:16] VITALS: BP 127/78
--- NOTE | 2016-08-30 15:36 | NUR ---
PT IS RESTING IN BED WATCHING TV. NO NEEDS VOICED.
--- NOTE | 2016-08-30 18:23 | NUR ---
PT RESTING IN BED. NO NEEDS VOICED. SURGERY CONSENTS SIGNED.
[2016-08-30 20:00] VITALS: BP 137/55
--- NOTE | 2016-08-30 20:00 | NUR ---
ASSESSMENT COMPLETED, NO ACUTE DISTRESS NOTED, OSTOMY BAG AND WAFER INTACT, WOUND VAC IN PLACE AND FUNCTIONING PROPERLY, DENIES NEEDS AT THIS TIME, FALL AND ISOLATION PRECAUTIONS IN PLACE, CL IN REACH, WILL MONITOR
--- NOTE | 2016-08-30 21:21 | NUR ---
MEDS GIVEN PER MAR, VICKIE WELL, ILEOSTOMY BAG EMPTIED PER PT REQUEST, 100 CC, DENIES FURTHER NEEDS, CL IN REACH
--- NOTE | 2016-08-30 23:48 | NUR ---
RESTING WITH EYES CLOSED, RESP WITH EASE, NO DISTRESS NOTED, SR'S UP , ISOLATION PRECAUTIONS IN PLACE, CL IN REACH
--- NOTE | 2016-08-31 01:15 | NUR ---
RESTING WITH EYES CLOSED, RESP WITH EASE, NO DISTRESS NOTED, CL IN REACH
[2016-08-31 04:00] VITALS: BP 140/79
--- NOTE | 2016-08-31 07:51 | NUR ---
SITTING IN BED, DENIES NEEDS, AWAKE AND ALERT, BED LOWEST POSITION, CALL LIGHT IN REACH, BED LOWEST POSIITON, WILL CONTINUE TO MONITOR
[2016-08-31 08:17] LABS: CALC OSMOLALITY 280 mosm/kg (275-300); CALCIUM 8.3 mg/dL (8.5-10.1); CARBON DIOXIDE 32.5 mmol/L (21.0-32.0); CHLORIDE - SERUM 103 mmol/L (98-107); CREATININE - SERUM 0.8 mg/dL (0.6-1.3); GLUCOSE 135 mg/dL (74-106); POTASSIUM - SERUM 4.4 mmol/L (3.5-5.1); SODIUM 139 mmol/L (136-145); UREA NITROGEN 15 mg/dL (7-18); eGFR NON AFRICAN AMERICAN 75 mL/min (90-120)
[2016-08-31 08:18] LABS: MAGNESIUM - SERUM 2.4 mg/dL (1.8-2.4)
[2016-08-31 08:26] VITALS: BP 132/65
--- NOTE | 2016-08-31 09:00 | NUR ---
PT AOX4 RESP EVEN AND NONLABORED PICC TO RIGHT AC PATENT AND INTACT. WOUND VAC TO ABDOMEN INTACT AND FUNCTIONING PROPERLY PT DENIES NEEDS AT THIS TIME. ILEOSOMY BARRIER INTACT WORKING PROPERLY. PT. RECEIVING IV ANTIBIOTICS WILL CONTINUE TO MONITOR
[2016-08-31 12:18] VITALS: BP 119/72
--- NOTE | 2016-08-31 15:15 | NUR ---
NUTRITION MONITORING & EVAL CHART REVIEWED. PT AWAITING PROCEDURE. PHOS ADDED TO AM LAB. TPN TO CONTINUE AT CURRENT RATE. RD FOLLOWING
[2016-08-31 18:11] VITALS: BP 142/67
--- NOTE | 2016-09-01 01:56 | NUR ---
REC'D PATIENT LYING SEMI FOWLERS IN BED. ALERT AND ORIENTED X4. DENIES PAIN AT THIS TIME. IS IN ROOM WITH HER. MUCUS MEMBRANES PINK AND MOIST. HAS MIDLINE INSCION TO ADBOMEN WITH A WOUND VAC PRESENT. DRESSING IS INTACT. DENIES PAIN ON URINATION. ABDOMEN IS TENDER TO TOUCH. PERIPHERAL PULSES +2. CAP REFILL <3. FULL ROM IN UPPER AND LOWER EXTREMITIES. DENIES FURTHER NEEDS AT THIS TIME. INTRUCTED TO CALL IF NEEDED ANYTHING. VERBALIZED UNDERSTANDING. BED LOW, LOCKED, CALL LIGHT IN REACH.
[2016-09-01 04:00] VITALS: BP 127/79
--- NOTE | 2016-09-01 05:25 | NUR ---
PATIENT IS RESTING IN BED COMFORTABLY. DENIED NEEDS AT THIS TIME. RESP EVEN AND UNLABORED. INTRUCTED TO CALL IF NEEDED ANYTHING. VERBALIZED UNDERSTANDING. BED LOW, LOCKED, CALL LIGHT IN REACH.
[2016-09-01 06:09] LABS: CALC OSMOLALITY 280 mosm/kg (275-300); CALCIUM 7.8 mg/dL (8.5-10.1); CARBON DIOXIDE 30.8 mmol/L (21.0-32.0); CHLORIDE - SERUM 104 mmol/L (98-107); CREATININE - SERUM 0.6 mg/dL (0.6-1.3); GLUCOSE 136 mg/dL (74-106); PHOSPHOROUS 3.8 mg/dL (2.5-4.9); POTASSIUM - SERUM 4.3 mmol/L (3.5-5.1); SODIUM 139 mmol/L (136-145); UREA NITROGEN 14 mg/dL (7-18); eGFR NON AFRICAN AMERICAN > 90 mL/min (90-120)
[2016-09-01 06:15] LABS: MAGNESIUM - SERUM 1.6 mg/dL (1.8-2.4)
[2016-09-01 07:56] VITALS: BP 115/55
--- NOTE | 2016-09-01 10:48 | NUR ---
NUTRITION MONITORING & EVAL CHART REVIEWED. RENEWED AM LABS X 4 DAYS. ADJUSTED AND RENEWED TPN AT CURRENT RATE. RD FOLLOWING
[2016-09-01 12:14] VITALS: BP 151/58
[2016-09-01 15:42] VITALS: BP 155/63
[2016-09-01 17:12] LABS: ALP - ISO (ALP) 146 IU/L (39-117); ALP - ISO (BONE) FRACTION 36 % (14-68); ALP - ISO (LIVER) FRACTION 64 % (18-85); ALP - ISO(INTESTINAL) FRACTION 0 % (0-18)
--- NOTE | 2016-09-01 19:30 | NUR ---
PT RECEIVED RESTING IN BED WITH EYES CLOSED. PT ALERT AND ORIENTED X4. RESPIRATIONS EVEN AND UNLABORED. LUNG SOUNDS CLEAR BILATERALLY. WOUND VAC NOTED TO ABD, INTACT. BANDAGE TO RIGHT THIGH CLEAN, DRY, AND INTACT. PT STATES SHE HAS SOME PAIN, BUT SUPERVISOR PUTTY AND CALUKING IS EFFECTIVE. IV TO RIGHT PICC NOTED TO BE PATENT WITH TPN AND LIPIDS. PT CONTINUES WITH CONTACT ISOLATION. CALL LIGHT AND H2O IN PT REACH. BED IN LOW POSITION. SIDE RAILS UP X2.
[2016-09-01 20:00] VITALS: BP 137/60
--- NOTE | 2016-09-01 21:30 | NUR ---
PT RESTING IN BED WITH EYES CLOSED. NO S/S OF DISTRESS NOTED. RESP EVEN AND UNLABORED. CALL LIGHT AND H2O IN PT REACH. BED IN LOW POSITION. SIDE RAILS UP X2.
[2016-09-02] VITALS: BP 104/50
[2016-09-02 04:00] VITALS: BP 99/57
--- NOTE | 2016-09-02 04:00 | NUR ---
PATIENT SLEEPING WITH NO DISTRESS NOTED. AGREE WITH RETAIL SALES TEAMMATE ASSESSMENT.
[2016-09-02 05:30] LABS: CALC OSMOLALITY 282 mosm/kg (275-300); CALCIUM 8.1 mg/dL (8.5-10.1); CARBON DIOXIDE 32.7 mmol/L (21.0-32.0); CHLORIDE - SERUM 104 mmol/L (98-107); CREATININE - SERUM 0.7 mg/dL (0.6-1.3); GLUCOSE 112 mg/dL (74-106); MAGNESIUM - SERUM 1.9 mg/dL (1.8-2.4); POTASSIUM - SERUM 4.2 mmol/L (3.5-5.1); SODIUM 141 mmol/L (136-145); UREA NITROGEN 14 mg/dL (7-18); eGFR NON AFRICAN AMERICAN 88 mL/min (90-120)
[2016-09-02 05:38] LABS: PHOSPHOROUS 4.9 mg/dL (2.5-4.9)
[2016-09-02 07:40] VITALS: BP 114/42
--- NOTE | 2016-09-02 08:04 | NUR ---
DENIES NAUSEA AND PAIN, SLIGHT DISCOMFORT IN ABDOMEN BECAUSE OF WOUND VAC TOLERABLE, DENIES NEEDS, CALL LIGHT IN REACH, BED LOWEST POSITION, WILL CONTINUE TO MONITOR
--- NOTE | 2016-09-02 08:30 | NUR ---
SLEEPING AT THIS TIME. RESPIRATIONS EVEN AND NON LABORED. REMAINS IN ISOLATION. SR X2 WITH BED IN LOWEST POSITION AND WHEELS LOCKED. CALL LIGHT IN REACH. WILL CONTINUE WITH PLAN OF CARE.
[2016-09-02 12:12] VITALS: BP 116/48
[2016-09-02 15:22] LABS: ALP - ISO (ALP) 134 IU/L (39-117); ALP - ISO (BONE) FRACTION 36 % (14-68); ALP - ISO (LIVER) FRACTION 64 % (18-85); ALP - ISO(INTESTINAL) FRACTION 0 % (0-18)
[2016-09-02 15:23] VITALS: BP 107/42
--- NOTE | 2016-09-02 19:30 | NUR ---
PT RECEIVED SITTING UP IN BED WATCHING TELEVISION. PT IS ALERT AND ORIENTED X4. SEE SHIFT ASSESSMENT. PT DENIES PAIN AT THIS TIME, STATES THAT MORPHINE MARKETING RESEARCHER CONTROLS PAIN WELL. PT CONTINUES WITH NPO ORDER. WOUND VAC TO ABD, DRESSING INTACT. PICC TO RIGHT UPPER ARM NOTED TO BE PATENT, DRESSING CLEAN, DRY, AND INTACT, NO REDNESS OR EDEMA NOTED TO SITE. PT DENIES NEEDS AT THIS TIME. CALL LIGHT IN PT REACH. BED IN LOW POSITION. SIDE RAILS UP X2.
[2016-09-02 20:00] VITALS: BP 107/45
--- NOTE | 2016-09-02 21:30 | NUR ---
PT SITTING UP IN BED WATCHING TELEVISION. NO S/S OF DISTRESS NOTED. RESPIRATOINS EVEN AND UNLABORED. PT DENIES PAIN OR NEEDS AT THIS TIME. CALL LIGHT IN PT REACH. BED IN LOW POSITION. SIDE RAILS UP X2.
--- NOTE | 2016-09-02 23:30 | NUR ---
PT RESTING IN BED WITH EYES CLOSED. NO S/S OF DISTRESS NOTED. RESP EVEN AND UNLABORED. PT ABLE TO VOICE NEEDS, NO COMPLAINTS OR NEEDS VOICED AT THIS TIME. CALL LIGHT IN PT REACH. SIDE RAILS UPX2. BED IN LOW POSITION.
[2016-09-03] VITALS: BP 96/54
--- NOTE | 2016-09-03 01:30 | NUR ---
PT RESTING IN BED WITH EYES CLOSED. NO S/S OF DISTRESS NOTED. RESP EVEN AND UNLABORED. PT ABLE TO VOICE NEEDS, NO COMPLAINTS OR NEEDS VOICED AT THIS TIME. CALL LIGHT IN PT REACH. BED IN LOW POSITION. SIDE RAILS UP X2.
[2016-09-03 04:00] VITALS: BP 102/51
--- NOTE | 2016-09-03 04:00 | NUR ---
PATIENT SLEEPING WITH NO DISTRESS NOTED. CALL LIGHT WITHIN REACH.
--- NOTE | 2016-09-03 08:08 | NUR ---
CONTACT ISOLATION FOR MRSA IN WOUND CONTINUED. PICC R UPPER AIR WITH TPN AT 50CC/HR. MINERALOGY PROFESSOR MORPHINE. PATIENT DIENES ANY PAIN/DISC AT THIS TIME. WOUND VAC TO ABD. PATIENT IS ALERT/ORIENT X4. CALL LIGHT WITHIN REACH. VOICES NO NEEDS
[2016-09-03 08:38] VITALS: BP 114/42
--- NOTE | 2016-09-03 09:45 | NUR ---
PATIENT IN BED WITH IV AND WOUND VAC INTACT. PATIENT VAC LEAKING WHEN PATIENT GOT UP TO BR. NOTIFIED DR. JUSTICE. NEW ORDERS RECIEVED AND CARRIED OUT. NOTIFIED KATE TERRELL. PATIENT IN BED WITH IV INTACT. CALL LIGHT WITHIN REACH.
[2016-09-03 10:37] LABS: CALCIUM 8.1 mg/dL (8.5-10.1); CARBON DIOXIDE 31.6 mmol/L (21.0-32.0); CHLORIDE - SERUM 101 mmol/L (98-107); SODIUM 135 mmol/L (136-145); UREA NITROGEN 16 mg/dL (7-18)
[2016-09-03 10:39] LABS: CREATININE - SERUM 0.9 mg/dL (0.6-1.3); MAGNESIUM - SERUM 2.7 mg/dL (1.8-2.4); PHOSPHOROUS 8.3 mg/dL (2.5-4.9); POTASSIUM - SERUM 4.8 mmol/L (3.5-5.1); eGFR NON AFRICAN AMERICAN 66 mL/min (90-120)
[2016-09-03 13:04] VITALS: BP 112/68
[2016-09-03 13:52] LABS: CALC OSMOLALITY 278 mosm/kg (275-300); CALCIUM 8.3 mg/dL (8.5-10.1); CARBON DIOXIDE 34.5 mmol/L (21.0-32.0); CHLORIDE - SERUM 100 mmol/L (98-107); CREATININE - SERUM 0.7 mg/dL (0.6-1.3); GLUCOSE 116 mg/dL (74-106); POTASSIUM - SERUM 4.6 mmol/L (3.5-5.1); SODIUM 138 mmol/L (136-145); UREA NITROGEN 18 mg/dL (7-18); eGFR NON AFRICAN AMERICAN 88 mL/min (90-120)
[2016-09-03 13:54] LABS: MAGNESIUM - SERUM 1.9 mg/dL (1.8-2.4); PHOSPHOROUS 4.4 mg/dL (2.5-4.9)
[2016-09-03 16:43] VITALS: BP 112/46
[2016-09-03 20:00] VITALS: BP 134/66
[2016-09-04] VITALS: BP 121/71
--- NOTE | 2016-09-04 00:20 | NUR ---
REC'D PATIENT LYING IN BED. DENIED PAIN AT THIS TIME. TOLD ME THAT HER WOUND VAC WAS NOT WORKING PROPERLY. ALERT AND ORIENTED X4. DR. JUSTICE IS TO COME SEE HER AND FIX THE WOUND VAC. MUCUS MEMBRANES PINK AND MOIST. URINE CLEAR AND STRAW-COLORED. DENIED NEEDING ANYTHING AT THE MOMENT OTHER THAN THE WOUND VAC GETTING FIXED. INTRUCTED TO CALL IF NEEDED ANYTHING. VERBALIZED UNDERSTANDING. BED LOW, LOCKED, CALL LIGHT IN REACH.
--- NOTE | 2016-09-04 00:23 | NUR ---
NIDHI AU, AND I CHANGED THE DISK ON THE WOUND VAC DUE TO IT SAYING THAT IT WAS BLOCKED. IT STARTED TO WORK. 15 MIN LATER PATIENT CALLED ME BACK TO THE ROOM THE WOUND VAC STATES THAT IT IS BLOCKED AGAIN. ANGELY INTRUCTED THAT I PAGE DR. JUSTICE TO SEE WHAT HE WANTS ME TO DO ABOUT IT. WILL FOLLOW UP LATER.
[2016-09-04 04:00] VITALS: BP 143/58
--- NOTE | 2016-09-04 04:00 | NUR ---
PATIENT SLEEPING WITH NO DISTRESS NOTED. CALL LIGHT WITHIN REACH.
--- NOTE | 2016-09-04 05:58 | NUR ---
PATIENT IS ASLEEP HAD BEEN UP ALL NIGHT WITH THE WOUND VAC. DENIES NEEDS AT THIS TIME. INTRUCTED TO CALL IF NEEDED ANYTHING. VERBALIZED UNDERSTANDING. BE LOW, LOCKED, CALL LIGHT IN REACH.
[2016-09-04 07:02] LABS: CALC OSMOLALITY 281 mosm/kg (275-300); CALCIUM 7.8 mg/dL (8.5-10.1); CARBON DIOXIDE 30.5 mmol/L (21.0-32.0); CHLORIDE - SERUM 102 mmol/L (98-107); CREATININE - SERUM 0.7 mg/dL (0.6-1.3); GLUCOSE 151 mg/dL (74-106); MAGNESIUM - SERUM 1.6 mg/dL (1.8-2.4); PHOSPHOROUS 4.3 mg/dL (2.5-4.9); SODIUM 139 mmol/L (136-145); UREA NITROGEN 15 mg/dL (7-18); eGFR NON AFRICAN AMERICAN 88 mL/min (90-120)
--- NOTE | 2016-09-04 07:15 | NUR ---
REPORT RECEIVED FROM COMPENSATION ASSOCIATE NURSE. CALL LIGHT IN REACH.
--- NOTE | 2016-09-04 08:20 | NUR ---
ASSESSMENT COMPLETED. CALL LIGHT IN REACH. WILL CONTINUE WITH PLAN OF CARE.
[2016-09-04 08:35] VITALS: BP 119/54
--- NOTE | 2016-09-04 09:45 | NUR ---
PATIENT IN BED WITH IV AND WOUNDVAC INTACT. WOUND VAC LEAKING WHEN PATIENT GOT UP TO BR. NOTIFIED DR. JUSTICE AT THIS TIME. NEW ORDERS RECIEVED AND CARRIED OUT. NOTIFIED KATE TERRELL. PATIENT CALL LIGHT WITHIN REACH. FAMILY AT BEDSIDE.
--- NOTE | 2016-09-04 10:34 | NUR ---
FLORENTIN REFUSED BY PATIENT. CALL LIGHT IN REACH.
[2016-09-04 11:23] VITALS: BP 81/39
--- NOTE | 2016-09-04 14:30 | NUR ---
DENIES NEEDS AT THIS TIME. CALL LIGHT IN REACH.
[2016-09-04 15:50] VITALS: BP 116/64
--- NOTE | 2016-09-04 16:30 | NUR ---
RESTING WITH EYES CLOSED. RESP EVEN AND UNLABORED. CALL LIGHT IN REACH.
--- NOTE | 2016-09-04 18:03 | NUR ---
NO CHANGES IN INITIAL ASSESSMENT. CALL LIGHT IN REACH. WILL CONTINUE WITH PLAN OF CARE.
[2016-09-04 19:00] VITALS: BP 106/33
--- NOTE | 2016-09-05 03:55 | NUR ---
RESTING WITH EYES CLOSED, NO DISTRESS NOTED, WOUND VAC TO ABDOMEN FUNCTIONING PROPERLY, SR'S UP, CL IN REACH
[2016-09-05 04:00] VITALS: BP 127/31
[2016-09-05 07:45] LABS: CALC OSMOLALITY 281 mosm/kg (275-300); CARBON DIOXIDE 32.7 mmol/L (21.0-32.0); CHLORIDE - SERUM 104 mmol/L (98-107); CREATININE - SERUM 0.6 mg/dL (0.6-1.3); GLUCOSE 140 mg/dL (74-106); MAGNESIUM - SERUM 1.7 mg/dL (1.8-2.4); PHOSPHOROUS 4.2 mg/dL (2.5-4.9); POTASSIUM - SERUM 3.8 mmol/L (3.5-5.1); SODIUM 140 mmol/L (136-145); UREA NITROGEN 15 mg/dL (7-18); eGFR NON AFRICAN AMERICAN > 90 mL/min (90-120)
[2016-09-05 08:04] VITALS: BP 137/36
[2016-09-05 09:10] LABS: ALP - ISO (ALP) 124 IU/L (39-117); ALP - ISO (BONE) FRACTION 33 % (14-68); ALP - ISO (LIVER) FRACTION 67 % (18-85); ALP - ISO(INTESTINAL) FRACTION 0 % (0-18)
[2016-09-05 12:11] VITALS: BP 103/61
--- NOTE | 2016-09-05 12:24 | NUR ---
NUTRITION MONITORING & EVAL REORDERED AM LABS, CHART REVIEWED. WILL CONTINUE CURRENT TPN REGIMEN. RD FOLLOWING
--- NOTE | 2016-09-05 13:19 | NUR ---
RESTING QUIETLY IN BED. NO C/O AT THIS TIME. DENIES NEEDS. WOUND VAC IN PLACE TO ABDOMEN WITH SEROUS SANGUINESS DRAINAGE. AT BEDSIDE.
[2016-09-05 15:10] VITALS: BP 89/38
--- NOTE | 2016-09-05 16:00 | NUR ---
PT SITTING UP IN BED WITH NO ACUTE DISTRESS NOTED PT HAS TEAM GUIDE MORPHINE FOR PAIN CONTROL. ALL ADLS PER STFF ASSIST.
[2016-09-06] VITALS: BP 122/50
--- NOTE | 2016-09-06 01:49 | NUR ---
REC'D PATIENT LYING IN BED. NO DISTRESS NOTED. ALERT AND ORIENTED X4. DENIED NEEDS AT THIS TIME. INTRUCTED TO CALL IF NEEDED ANYTHING. VERBALIZED UNDERSTANDING. BED LOW, LOCKED, CALL LIGHT IN REACH.
--- NOTE | 2016-09-06 03:00 | NUR ---
PT IN BED WITH NO DISTRESS. RESPIRATIONS ARE EVEN AND UNLABORED. SIDE RAILS X 2. BED IS LOW. CALL LIGHT IN REACH.
[2016-09-06 04:00] VITALS: BP 130/50
[2016-09-06 07:35] LABS: CALC OSMOLALITY 284 mosm/kg (275-300); CALCIUM 8.2 mg/dL (8.5-10.1); CARBON DIOXIDE 30.5 mmol/L (21.0-32.0); CHLORIDE - SERUM 105 mmol/L (98-107); CREATININE - SERUM 0.7 mg/dL (0.6-1.3); GLUCOSE 150 mg/dL (74-106); MAGNESIUM - SERUM 1.8 mg/dL (1.8-2.4); PHOSPHOROUS 3.8 mg/dL (2.5-4.9); POTASSIUM - SERUM 3.8 mmol/L (3.5-5.1); SODIUM 141 mmol/L (136-145); UREA NITROGEN 14 mg/dL (7-18); eGFR NON AFRICAN AMERICAN 88 mL/min (90-120)
--- NOTE | 2016-09-06 08:00 | NUR ---
PT ASSESSMENT COMPLETE AWAKE AND ALERT ORINETED X 3 LUNGS CLAER BILATERAL WOUND VAC DRESSING NOTD TO MIDLINE ABDOMEN ALSO NOTED TO HAVE SKIN GRAFT SITE TO RIGHT UPPER LEG. DRESSING IN TACT.
[2016-09-06 08:39] VITALS: BP 138/62
[2016-09-06 11:43] VITALS: BP 135/54
[2016-09-06 17:04] VITALS: BP 133/54
--- NOTE | 2016-09-06 17:54 | NUR ---
PT HAS NEW WOUND VAC DRESSING IN PLACE PER DR JUSTICE SKIN GRAFT SITE OPEN TO AIR. NO ACUTE DISTRESS NOTED. VOICES ALL NEED TO STAFF NEW ORDER TN DR JUSTICE TO STOP SANDOSTATIN. WILL MONITOR REMAINS WITH REFRIGERATION HOUSEMAN MORPHINE USES NEEDED
[2016-09-06 19:00] VITALS: BP 145/50
--- NOTE | 2016-09-06 20:38 | NUR ---
PATIENT RESTING IN BED. NO SIGNS OF DISTRESS NOTED. SCHEDULED MEDS GIVEN. SHIFT ASSESSMENT COMPLETED. DENIES ANY NEEDS AT THIS TIME. BED LOW. CALL LIGHT IN REACH
[2016-09-07 04:00] VITALS: BP 136/30
--- NOTE | 2016-09-07 04:00 | NUR ---
PATIENT SLEEPING WITH NO DISTRESS NOTED. AGREE WITH LATHE WINDER ASSESSMENT.
[2016-09-07 05:33] LABS: CALCIUM 8.3 mg/dL (8.5-10.1); CARBON DIOXIDE 30.2 mmol/L (21.0-32.0); CREATININE - SERUM 0.7 mg/dL (0.6-1.3); GLUCOSE 103 mg/dL (74-106); PHOSPHOROUS 4.3 mg/dL (2.5-4.9); eGFR NON AFRICAN AMERICAN 88 mL/min (90-120)
[2016-09-07 05:42] LABS: UREA NITROGEN 19 mg/dL (7-18)
[2016-09-07 05:56] LABS: CALC OSMOLALITY 282 mosm/kg (275-300); CHLORIDE - SERUM 105 mmol/L (98-107); POTASSIUM - SERUM 4.2 mmol/L (3.5-5.1); SODIUM 141 mmol/L (136-145)
--- NOTE | 2016-09-07 07:40 | NUR ---
PT AOX4 RESP EVEN AND NONLABORED PT REQUESTS NO TRAY FOR BREAKFAST THIS AM. BED AT LOWEST SETTING SRX2 CALL LIGHT WITHIN REACH WILL CONTINUE TO MONITOR
[2016-09-07 08:33] VITALS: BP 137/45
[2016-09-07 12:00] VITALS: BP 121/54
--- NOTE | 2016-09-07 14:55 | NUR ---
NUTRITION MONITORING & EVAL PT REMAINS IN ISOLATION. REVIEWED CURRENT LABS. SPOKE WITH PHARMACY. WILL CONTINUE TO RUN CURRENT TPN REGIMEN. RD FOLLOWING
--- NOTE | 2016-09-07 18:39 | NUR ---
RIGHT CENTRAL LINE DRESSING CHANGED AT THIS TIME USING STERILE TECHNIQUE
[2016-09-07 20:00] VITALS: BP 148/68
--- NOTE | 2016-09-07 20:00 | NUR ---
AWAKE,WIHT NO COMPLIANTS VOICED. IV INFUSING TO RIGHT UPPER ARM PICC. NO REDNESS OR EDEMA NOTED.WOUND VAC INTACT TO ABD INCISION. LEWIS PATENT AND DRAININIG CL YELLOW URINE.CL IN REACH.
[2016-09-08] VITALS: BP 112/47
--- NOTE | 2016-09-08 01:26 | NUR ---
RESTING QUIETLY. NO DISTRESS NOTED.
--- NOTE | 2016-09-08 03:03 | NUR ---
PATIENT SLEEPING ON RIGHT SIDE ON 1ST STEP OVERLAY. 0 S/S OF DISTRESS. WOUNDVAC TO ABDOMEN. CALL LIGHT WITHIN REACH.
[2016-09-08 04:00] VITALS: BP 112/38; BP 118/63
--- NOTE | 2016-09-08 06:03 | NUR ---
MO CHANGE IN ASSESSSMENT.CCL IN REACH.
[2016-09-08 07:00] LABS: CALC OSMOLALITY 284 mosm/kg (275-300); CALCIUM 8.1 mg/dL (8.5-10.1); CARBON DIOXIDE 29.6 mmol/L (21.0-32.0); CHLORIDE - SERUM 105 mmol/L (98-107); CREATININE - SERUM 0.7 mg/dL (0.6-1.3); GLUCOSE 97 mg/dL (74-106); MAGNESIUM - SERUM 1.6 mg/dL (1.8-2.4); PHOSPHOROUS 5.2 mg/dL (2.5-4.9); POTASSIUM - SERUM 4.1 mmol/L (3.5-5.1); SODIUM 142 mmol/L (136-145); UREA NITROGEN 17 mg/dL (7-18); eGFR NON AFRICAN AMERICAN 88 mL/min (90-120)
[2016-09-08 08:20] VITALS: BP 107/34
--- NOTE | 2016-09-08 10:58 | NUR ---
Patient Name: ROD MAK Encounter No: [id number] : 1945 Primary Insurance: MEDICARE A & B Anticipated DC Date: 07-22-2016 Planned Disposition: Home or Self Care External Planned Provider: : DCP follow-up note: Patient and family in agreement with discharge plan. No changes to plan. Case management will follow and assist as needed. Nimo Berger
[2016-09-08 12:36] VITALS: BP 129/59
[2016-09-08 16:08] VITALS: BP 129/50
[2016-09-08 20:00] VITALS: BP 122/47
--- NOTE | 2016-09-08 23:30 | NUR ---
WOUND VAC AND DRAIN BAG LEAKING. TOOK WOUND VAC DOWN AND CHANGED COMPLETELY. SEAL IS GOOD AND SEEMS TO BE FUNCTIONING PROPERLY NOW. NO OTHER NEEDS. WILL CONTINUE TO MONITOR.
[2016-09-09 05:00] VITALS: BP 142/48
--- NOTE | 2016-09-09 07:30 | NUR ---
RECIEVED PT DURING WALKING ROUNDS. PT RESTING IN BED WITH COMPLAINTS OF PAIN OF A 4 ON A SCALE OF 1-10. GENETICIST IN USE. ASSESSMENT DONE PER FLOWSHEET. BED IN LOW POSITION AND CALL LIGHT WITHIN REACH. WILL CONTINUE TO MONITOR.
[2016-09-09 07:35] VITALS: BP 146/48
--- NOTE | 2016-09-09 08:45 | NUR ---
PATIENT IN BED WITH NO COMPLAINTS AT THIS TIME. IV INTACT. CALL LIGHT WITHIN REACH.
--- NOTE | 2016-09-09 09:15 | NUR ---
PT CALLED ME INTO ROOM AT THIS TIME WORRIED ABOUT THE WOUND VAC. ASSESSED WOULD VAC, FUNCTIONING PROPERLY. CALLED MITCHELL WITH WOUND CARE AND WAS INFORMED SHE WOULD COME CHECK IT. WILL CONTINUE TO MONITOR.
--- NOTE | 2016-09-09 09:40 | OP ---
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 Please see dimensions below. PROCEDURE: Split thickness skin graft to anterior abdominal wound with placement of a wound VAC. The square cm of the graft skin measured 32 cm. SURGEON: Troy Justice MD WAFER POLISHING LEAD WORKER: None. BLOOD LOSS: Minimal. ANESTHESIA: General. COMPLICATIONS: None. The risks, possible complications and alternatives to the procedure were explained to the patient. She elects to proceed. OPERATIVE COURSE: The patient was conveyed to the operating room electively on 08/31/2016. General anesthesia was induced by the anesthesia staff. The abdomen and right thigh were sterilely prepped and draped. The patient and I had spoken previously about utilizing the right thigh for a split-thickness skin graft. A split-thickness skin graft was of an inch thick was harvested from the right anterior thigh. It was meshed to 1 to 1-1/2 fashion. I then prepared the granulation bed by abrading it. Hemostasis was achieved with the electrocautery. I then placed a skin graft with the appropriate side down. I smoothed out the skin graft. A small incision was accomplished over the enterocutaneous fistula. I placed a nipple with some cuts in it down through the enterocutaneous fistula. I then placed an Adaptic over the split-thickness skin graft. A black wound VAC sponge was applied over the Adaptic. The cellophane-type dressings were applied over the black sponge. I then cut a hole in the black sponge. This allowed the nipple to be brought out through the black sponge. I then applied some stoma paste around inside of the hole and on to the nipple. I placed a wound VAC disc on top of the cut portion of the sponge which was over the nipple. I then applied to suction to the wound VAC and it held a good "raisin" indicating a good suction without a significant leak. The patient was then extubated and conveyed to post-anesthesia care unit where she was in stable condition. TRANSINT:[id number] Voice Confirmation ID: [id number] DOCUMENT ID: [id number] OPERATIVE REPORT [id number] ROD MAK, TROY RAMOS at 0940 CC: [id number] DICTATION DATE: 09/01/16901 OVEN TECHNICIAN: 09/01/16 0935 ADM IN [facility] [address] [place] [address]
--- NOTE | 2016-09-09 09:40 | OP ---
PATIENT NAME: ROD MAK MEDICAL RECORD: [id number] :46 LOCATION:[id number] ADMISSION DATE:07/16/16 SURGEON: TROY JUSTICE MD DATE OF OPERATION: 08/05/2016 PREOPERATIVE DIAGNOSIS: Enterocutaneous fistula with open abdomen. POSTOPERATIVE DIAGNOSIS: Apparent healing of enterocutaneous fistulas with no evidence of new fistula formation. PROCEDURE: 1. Exploratory laparotomy. 2. Wound VAC change. SURGEON: Troy Justice MD ASSISTANT CONSTRUCTION SUPERINTENDENT: None. BLOOD LOSS: Minimal. ANESTHESIA: General. During the patient's last laparotomy, she had an enterocutaneous fistula, which I attempted to repair. She was developing in the enterocutaneous fistula in the left lower quadrant. I attempted repair of this as well. It appears that the repairs are holding for now. OPERATIVE COURSE: The patient was conveyed to the operating room electively on 08/05/2016. General anesthesia was induced by the anesthesia staff. The abdomen was sterilely prepped and draped. The wound VACs were removed. I irrigated with normal saline. I noted no evidence of fistulization. No evidence of enteral drainage. I cut a white wound VAC sponge and placed it on the granulation. I cut a wound VAC sponge on top of this. The cellophane type dressings were applied. I cut one with cellophane type dressings, applied a wound VAC disc to it, which was attached to suction and held a good "raisin" indicating suction without a significant leakage. The patient was then extubated and conveyed to post-anesthesia care unit where she was in stable condition. While she was under general anesthesia, we changed out her nasogastric tube, which appeared to have been withdrawn. TRANSINT:[id number] Voice Confirmation ID: [id number] DOCUMENT ID: [id number] TROY JUSTICE MD at 0940 CC: [id number] DICTATION DATE: 08/05/16 1245 FACULTY I ON CALL MEDICAL ASSISTANT: 08/05/16 1803 [place] [address]
[2016-09-09 11:35] VITALS: BP 131/51
--- NOTE | 2016-09-09 13:01 | NUR ---
Nutrition Follow Up: Spoke with pt and informed her that TPN will continue to run at the same rate. Pt stated that she understood. Noted per chart pt is unable to tolerate clear liquids at this time. No new wt to assess. Meds and labs noted. Noted pt continues with wound vac. Will put order in to continue TPN @ 50 ml/hr. Rec obtaining current wt on pt if possible. RD will continue to monitor pt progress.
[2016-09-09 15:55] VITALS: BP 122/37
--- NOTE | 2016-09-09 19:30 | NUR ---
RECIEVED SHIFT REPORT. PT IS LYING IN BED. ALERT AND ORIENTED AND ABLE TO VERBALIZE NEEDS. IV IS PATENT AND FLUIDS ARE RUNNING PER ORDER. PT IS AMBULATORY BUT WAS INSTRUCTED TO CALL FOR ANY ASSISTANCE NEEDED. WOUND VAC TO ABDOMEN NOTED INTACT AND FUNCTIONING PROPERLY. DRESSING TO RIGHT THIGH C/D/I. PT STATES PAIN IS 5/10 WITH COSMETOLOGY TEACHER PUMP. NO NEEDS ARE VERBALIZED AT THIS TIME. WILL CONTINUE TO MONITOR. SIDE RAILS ARE UP X 2. BED IS IN LOWEST POSITION. CALL LIGHT IS WITHIN REACH.
[2016-09-09 20:00] VITALS: BP 119/62
--- NOTE | 2016-09-09 20:45 | NUR ---
SHIFT ASSESSMENT COMPLETED. NIGHT MEDS GIVEN PER ORDER. NO NEEDS ARE VOICED. WILL MONITOR. SIDE RAILS X 2. BED LOW. CALL LIGHT IN REACH.
[2016-09-10] VITALS: BP 109/39
[2016-09-10 04:00] VITALS: BP 129/44
[2016-09-10 07:19] LABS: CALC OSMOLALITY 276 mosm/kg (275-300); CALCIUM 8.6 mg/dL (8.5-10.1); CARBON DIOXIDE 32.2 mmol/L (21.0-32.0); CHLORIDE - SERUM 103 mmol/L (98-107); CREATININE - SERUM 0.8 mg/dL (0.6-1.3); GLUCOSE 114 mg/dL (74-106); MAGNESIUM - SERUM 1.8 mg/dL (1.8-2.4); PHOSPHOROUS 4.9 mg/dL (2.5-4.9); SODIUM 137 mmol/L (136-145); UREA NITROGEN 17 mg/dL (7-18); eGFR NON AFRICAN AMERICAN 75 mL/min (90-120)
--- NOTE | 2016-09-10 07:50 | NUR ---
AWAKE AND ALERT, DENIES NEEDS, SLIGHT PAIN IN WOUND ON ABDOMEN, BED LOWEST POSITION, CALL LIGHT IN REACH, WILL CONTINUE TO MONITOR
[2016-09-10 08:41] VITALS: BP 153/46
--- NOTE | 2016-09-10 10:49 | NUR ---
Nutrition follow-up: Labs reviewed. Recommend continuing current TPN orders. RDN following.
[2016-09-10 12:30] VITALS: BP 111/39
--- NOTE | 2016-09-10 13:00 | NUR ---
AMBULATING IN HALLWAY WITH PHYSICAL THERAPY AT THIS TIME. REMAINS IN ISOLATION. DENIES NEEDS AT PRESENT TIME. SHEETMETAL WORKER IN USE FOR PAIN CONTROL. WILL CONTINUE WITH PLAN OF CARE.
[2016-09-10 16:05] VITALS: BP 110/40
[2016-09-10 20:00] VITALS: BP 108/42
[2016-09-11] VITALS: BP 111/43
--- NOTE | 2016-09-11 00:40 | NUR ---
ASSESSED AT THE BEGINNING OF THE SHIFT. PT IS ALERT AND ORIENTED, ABLE TO VERBALIZE NEEDS. SHE IS NOW GETTING UP TO THE BEDSIDE COMMODE. TODAY SHE STATED THEY SPENT HOURS WORKING ON HER ABD INCISION TO THE WOUND VAC SHE HAS A DRY DRESSING BUT WAS TELLING US THAT SHE SHE HAD BEEN HAVING ALOT OF PAIN TO HER ABD WHERE THE WOUND VAC IN PLACED. THE BED IS LOW, RAILS UP X'S 2 WITH THE CALL LIGHT AT HAND.
--- NOTE | 2016-09-11 07:50 | NUR ---
CHILLS AND CLAMY, TEMP 100.4, BLOOD CULTURES, CXR, URINE CULTURE ORDERED, NASUEA AND VOMITING, PHENERGAN IM GIVEN, WOUND VAC CANISTER CHANGED BROWNISH GREEN OUTPUT, BED LOWEST POSITION, CALL LIGHT IN REACH, WILL CONTINUE TO MONITOR
[2016-09-11 08:19] VITALS: BP 138/74
[2016-09-11 11:53] VITALS: BP 104/43
--- NOTE | 2016-09-11 13:00 | NUR ---
REMAINS IN ISOLATION WITH AT BEDSIDE. RESPIRATIONS EVEN AND NON LABORED. CALL LIGHT IN REACH, DENIES NEEDS. MONUMENTAL STONEMASON IN USE FOR PAIN. WILL CONTINUE WITH PLAN OF CARE.
[2016-09-11 15:36] VITALS: BP 95/38
[2016-09-11 18:05] LABS: ALBUMIN 2.2 g/dL (3.4-5.0); ANION GAP 11.9 mmol/L (8-16); BILIRUBIN - TOTAL 0.5 mg/dL (0.2-1.3); CALCIUM 8.2 mg/dL (8.5-10.1); CARBON DIOXIDE 28.3 mmol/L (21.0-32.0); POTASSIUM - SERUM 4.2 mmol/L (3.5-5.1); PROTEIN - SERUM 5.4 g/dL (6.4-8.2)
[2016-09-11 18:16] LABS: CREATININE - SERUM 1.1 mg/dL (0.6-1.3)
[2016-09-11 18:23] VITALS: BP 110/50
[2016-09-11 20:00] VITALS: BP 96/38
--- NOTE | 2016-09-11 20:00 | NUR ---
ASSESSMENT PER MAR. IV PATENT RT UPPER ARM PICC LINE TPN AT 50CC'S/HR. LIPIDS AT 42CC'S/HR NS AT 20CC'S/HR. STAFF RADIATION THERAPIST OF MORPHINE WITH SETTINGS AT 1MG Q10MIN W/10MG Q4H L/O. PT ON FIRST STEP AIR BED.
--- NOTE | 2016-09-11 21:21 | NUR ---
C/O NAUSEA PHNERGAN 25MG IM GIVEN PER MAR FOR RELIEF OF NAUSEA.
--- NOTE | 2016-09-11 22:00 | NUR ---
MEDS PER MAR.
--- NOTE | 2016-09-11 22:58 | NUR ---
TEMP ELEVATED TO 102.2. TYLENBOL 650MG PO GIVEN FOR TEMP MEASURES.
[2016-09-12] VITALS: BP 96/46
--- NOTE | 2016-09-12 | NUR ---
EMQE=[id number].
--- NOTE | 2016-09-12 00:04 | NUR ---
TEMP DOWN TO 99.3. PT SWEATING LINENS AND GOWN CHANGED.
--- NOTE | 2016-09-12 02:00 | NUR ---
RESTING AT THIS TIME DENIES NEEDS.
[2016-09-12 07:25] LABS: CARBON DIOXIDE 28.3 mmol/L (21.0-32.0); CHLORIDE - SERUM 101 mmol/L (98-107); PHOSPHOROUS 3.8 mg/dL (2.5-4.9); POTASSIUM - SERUM 3.8 mmol/L (3.5-5.1); SODIUM 136 mmol/L (136-145); UREA NITROGEN 24 mg/dL (7-18); eGFR NON AFRICAN AMERICAN 75 mL/min (90-120)
[2016-09-12 07:26] LABS: CALC OSMOLALITY 279 mosm/kg (275-300); CREATININE - SERUM 0.8 mg/dL (0.6-1.3); GLUCOSE 162 mg/dL (74-106)
[2016-09-12 08:06] VITALS: BP 134/58
--- NOTE | 2016-09-12 08:42 | NUR ---
PT ASSESSMENT COMPLETE PT AROUSES TO VERBAL STIMULI. NO ACUTE DISTRESS NOTED. WOUND VAC INPLACE PATENT TO SUCTION PER ORDER. ALL ADLS PER STAFF ASSIST. CALL LIGHT IN REACH.
[2016-09-12 11:01] LABS: BASOPHILS 0.1 % (0.0-2.0); EOSINOPHILS 0.1 % (0-7); HEMATOCRIT 37.5 % (36.0-48.0); HEMOGLOBIN 11.9 g/dL (12-16); IMMATURE GRANULOCYTES 0.1 % (0-5); LYMPHOCYTES 5.1 % (15-50); MCH 28.3 pg (26.0-34.0); MCHC 31.7 g/dL (31.0-37.0); MCV 89.1 fL (80.0-100.0); MEAN PLATELET VOLUME 13.6 fL (7.4-10.4); NEUTROPHILS 87.6 % (40-80); RBC 4.21 10x6/uL (4.00-5.40); RDW 13.7 % (11.5-14.5); WBC 7.4 10x3/uL (4.8-10.8)
--- NOTE | 2016-09-12 11:04 | NUR ---
PT RESTING IN ROOM NO ACUTE DISTRESS NOTED DR PACE CONSULTED PER DR JUSTICE FOR NEW ONSET FEVER AND POSITIVE BLOOD CULTURES.
[2016-09-12 11:09] LABS: PLATELET COUNT 117 10x3/uL (130-400)
[2016-09-12 11:21] VITALS: BP 128/64
--- NOTE | 2016-09-12 13:36 | NUR ---
NUTRITION MONITORING & EVAL CHART REVIEWED, PT REMAINS IN ISOLATION. RENEWED AM LABS X 4 DAYS. WILL CONTINUE TPN. PT REFUSED CLEAR LIQUIDS THIS AM. RD FOLLOWING
--- NOTE | 2016-09-12 14:09 | NUR ---
PT AOX4 PT DENIES NEEDS AT THIS TIME. PT IV IN RIGHT AC, RECEIVING ANTIBIOTICS AND TPN ALONG WITH WOUND CARE FOR ABDOMINAL. BED AT LOWEST SETTING. SRX2 CALL LIGHT WITHIN REACH
[2016-09-12 15:20] VITALS: BP 124/68
[2016-09-12 19:00] VITALS: BP 96/31
--- NOTE | 2016-09-12 19:00 | NUR ---
PATIENT RESTING WITH EYES CLOSED ON RIGHT SIDE. AROUSES TO VOICE. ORIENTED X4. RR EVEN AND UNLABORED. 0 S/S OF DISTRESS. STATES PAIN IS A 7/10. RIGHT PICC PATENT WITH NO REDNESS OR SWELLING. WOUNDVAC AND OSTOMY BAG TO ABD. DRESSING TO RIGHT THING CDI. SRX2. BED LOW. CALL LIGHT WITHIN REACH.
--- NOTE | 2016-09-12 21:50 | NUR ---
ASSESSMENT COMPLETE. ZOFRAN GIVEN WITH REGLAN TO PREVENT NAUSEA. NO OTHER NEEDS AT THIS TIME.
--- NOTE | 2016-09-13 | NUR ---
ASSISTED PATIENT TO BSC AND BACK TO BED. LINENS AND GOWN CHANGED BECAUSE PATIENT WAS SWEATING. NO OTHER NEEDS AT THIS TIME.
[2016-09-13 01:32] VITALS: BP 103/82
--- NOTE | 2016-09-13 02:50 | NUR ---
ZOFRAN GIVEN WITH REGLAN.
[2016-09-13 04:00] VITALS: BP 109/37
--- NOTE | 2016-09-13 04:13 | NUR ---
PATIENT SLEEPING WITH NO DISTRESS NOTED. CALL LIGHT WITHIN REACH.
[2016-09-13 06:53] LABS: CALC OSMOLALITY 284 mosm/kg (275-300); CALCIUM 7.6 mg/dL (8.5-10.1); CARBON DIOXIDE 28.1 mmol/L (21.0-32.0); CHLORIDE - SERUM 106 mmol/L (98-107); CREATININE - SERUM 0.8 mg/dL (0.6-1.3); GLUCOSE 152 mg/dL (74-106); MAGNESIUM - SERUM 1.8 mg/dL (1.8-2.4); PHOSPHOROUS 3.5 mg/dL (2.5-4.9); POTASSIUM - SERUM 3.9 mmol/L (3.5-5.1); SODIUM 140 mmol/L (136-145); UREA NITROGEN 20 mg/dL (7-18); eGFR NON AFRICAN AMERICAN 75 mL/min (90-120)
--- NOTE | 2016-09-13 07:30 | NUR ---
PT ASSESSMENT COMPLETE NO ACUTE DISTRESS NOTED VOICES ALL NEEDS TO STAFF IN CONTACT ISOLATION FOR MRSA TO ABDOMINAL WOUND HAS WOUND VAC COMPLAINING OF PAIN WITH WOUND VAC THIS AM WELL LACK OF DRAINAGE NOTED TO STOMA GROM GASTROSTOMY. WILL CALL WOUND NURSE
[2016-09-13 08:22] VITALS: BP 124/41
--- NOTE | 2016-09-13 10:00 | NUR ---
WOUND CARE: CHANGED OUT WOUND VAC AND OSTOMY APPLIANCE. USING FISTULA FUNNEL OVER FISTULA, APPLIED BLACK FOAM TO OPEN INCISION, SEALED WITH DRAPE. NEGATIVE PRESURE ACHIEVED. WILL CONTINUE TO MONITOR.
[2016-09-13 10:03] LABS: MCH 27.5 pg (26.0-34.0); MCHC 30.2 g/dL (31.0-37.0); MCV 90.8 fL (80.0-100.0); MEAN PLATELET VOLUME 13.5 fL (7.4-10.4); PLATELET COUNT 114 10x3/uL (130-400); RDW 13.4 % (11.5-14.5)
[2016-09-13 10:11] LABS: HEMATOCRIT 27.8 % (36.0-48.0); HEMOGLOBIN 8.4 g/dL (12-16); RBC 3.06 10x6/uL (4.00-5.40); WBC 5.2 10x3/uL (4.8-10.8)
--- NOTE | 2016-09-13 10:45 | NUR ---
PT AOX4 RESP EVEN AND NONLABORED PT DENIES PAIN AT THIS TIME. IV IN RIGHT AC PATENT AND INTACT FOR ANTIBIOTICS AND TPN. SRX2 CALL LIGHT IN REACH WILL CONTINUE TO MONITOR
[2016-09-13 11:14] VITALS: BP 122/64
[2016-09-13 12:03] LABS: EOSINOPHILS 4 % (0-7); LYMPHOCYTES 20 % (15-50); MONOCYTES 19 % (2-11); NEUTROPHILS 52 % (40-80); PLATELET ESTIMATE DECREASED
[2016-09-13 15:11] VITALS: BP 120/68
--- NOTE | 2016-09-13 18:58 | NUR ---
PT HAS HAD WOUND VAC CHANGED PER WOUND NURSE TODAY HAS HAD 100 ML OUT IN GASTROSTOMY POUCH. WILL MONITOR.
[2016-09-13 19:00] VITALS: BP 132/58
--- NOTE | 2016-09-13 19:00 | NUR ---
PATIENT SLEEPING ON FIRST STEP OVERLAY. HOB 40 DEGREES. RR EVEN AND UNLABORED. 0 S/S OF DISTRESS. LEFT PICC PATENT WITH DRESSING CDI. WOUNDVAC TO ABD. DRESSING TO RIGHT THIGH CDI. SRX2. BED LOW. CALL LIGHT WITHIN REACH.
--- NOTE | 2016-09-13 21:00 | NUR ---
ASSISTED PATIENT TO BSC AND BACK TO BED. ASSESSMENT COMPLETE. NIGHTTIME MED GIVEN. NO OTHER NEEDS AT THIS TIME.
--- NOTE | 2016-09-14 03:00 | NUR ---
PATIENT SLEEPING WITH NO DISTRESS NOTED. CALL LIGHT WITHIN REACH.
[2016-09-14 04:00] VITALS: BP 136/55
[2016-09-14 06:02] LABS: CALC OSMOLALITY 280 mosm/kg (275-300); CALCIUM 7.6 mg/dL (8.5-10.1); CARBON DIOXIDE 27.8 mmol/L (21.0-32.0); CHLORIDE - SERUM 106 mmol/L (98-107); CREATININE - SERUM 0.7 mg/dL (0.6-1.3); GLUCOSE 137 mg/dL (74-106); MAGNESIUM - SERUM 1.8 mg/dL (1.8-2.4); PHOSPHOROUS 4.3 mg/dL (2.5-4.9); SODIUM 139 mmol/L (136-145); UREA NITROGEN 16 mg/dL (7-18); VANCOMYCIN - TROUGH 13.3 ug/mL (10.0-20.0); eGFR NON AFRICAN AMERICAN 88 mL/min (90-120)
[2016-09-14 08:59] VITALS: BP 142/55
--- NOTE | 2016-09-14 09:20 | NUR ---
AWAKE AND ALERT. ORIENTED X3. NO C/O AT THIS TIME. LUNGS ARE CLEAR BILATERALLY, OCCASSIONAL DRY COUGH NOTED. SKIN IS INTACT WITHOUT REDNESS EXCEPT SOME REDNESS NOTED TO COCCYX AREA. ON FIRST STEP OVERLAY, WILL MONITOR. WOUND VAC TO ABDOMEN IS PATENT WITH SEROUS SANGUINESS. PICC TO LEFT UPPER ARM IS PATENT WITHOUT REDNESS AT INSERTION SITE.
--- NOTE | 2016-09-14 11:01 | NUR ---
DRAINAGE BAG EMPTIED OF 200cc THICK STICKY YELLOWISH BROWN FLUIDS.
--- NOTE | 2016-09-14 12:30 | NUR ---
DRESSING CHANGED TO WOUND VAC AND FISTULA PER DEBORAH SPENCE RN WOUND CARE. DENIES NEEDS.
--- NOTE | 2016-09-14 13:38 | NUR ---
WOUND CARE: CHANGED WOUND VAC DRESSING AND OSTOMY APPLIANCE OVER FISTULA. WILL CONTINUE TO MONITOR.
[2016-09-14 17:30] VITALS: BP 125/44
--- NOTE | 2016-09-14 18:40 | NUR ---
FSBS 105. NO COVERAGE. DRANK OVER HALF OF AN ENSURE. NO C/O AT THIS TIME. DENIES NEEDS.
[2016-09-14 19:00] VITALS: BP 132/45
[2016-09-15 04:00] VITALS: BP 147/59
[2016-09-15 06:57] LABS: CALC OSMOLALITY 280 mosm/kg (275-300); CALCIUM 7.6 mg/dL (8.5-10.1); CARBON DIOXIDE 28.7 mmol/L (21.0-32.0); CHLORIDE - SERUM 107 mmol/L (98-107); CREATININE - SERUM 0.7 mg/dL (0.6-1.3); GLUCOSE 121 mg/dL (74-106); MAGNESIUM - SERUM 1.8 mg/dL (1.8-2.4); PHOSPHOROUS 4.5 mg/dL (2.5-4.9); SODIUM 140 mmol/L (136-145); UREA NITROGEN 15 mg/dL (7-18); eGFR NON AFRICAN AMERICAN 88 mL/min (90-120)
[2016-09-15 08:00] VITALS: BP 145/42
--- NOTE | 2016-09-15 09:05 | NUR ---
AWAKE AND ALERT. ORIENTED X3. NO C/O AT THIS TIME. LUNGS ARE CLEAR BILATERALLY, NO COUGH NOTED. WOUND VAC PATENT WITH SEROUS SANGUINESS DRAINAGE. DRESSING TO FISTULA SITE IS INTACT WITH GOLDISH DISCHARGE. PICC TO LEFT UPPER ARM IS PATENT WITHOUT REDNESS AT INSERTION SITE. DENIES NEEDS.
--- NOTE | 2016-09-15 11:00 | NUR ---
ASSISTED WITH BED BATH PER STAFF. LINENS CHANGED. DENIES NEEDS.
[2016-09-15 12:00] VITALS: BP 135/55
--- NOTE | 2016-09-15 12:00 | NUR ---
DIDN'T WANT FS AT THIS TIME.
--- NOTE | 2016-09-15 13:17 | NUR ---
WOUND CARE: CHANGED WOUND VAC DRESSING AND DRAINAGE APPLIANCE D/T LEAKAGE FROM FISTULA EFFECTING THE SEAL. WOUND CARE CONTINUES TO MONITOR.
--- NOTE | 2016-09-15 15:03 | NUR ---
RESTING QUIETLY WITH EYES CLOSED. WOUND VAC CHANGED PER WOUND CARE NURSE. NO NEEDS. NOTED.
[2016-09-15 16:00] VITALS: BP 127/43
[2016-09-15 19:00] VITALS: BP 151/51
--- NOTE | 2016-09-15 19:28 | NUR ---
RESTING QUIETLY IN BED. NO CHANGES NOTED. FSBS AT 1800 WAS 105.
--- NOTE | 2016-09-15 20:53 | NUR ---
PATIENT RESTING IN BED. NO SIGNS OF DISTRESS NOTED. RESPIRATIONS EVEN AND UNLABORED. DENIES ANY NEEDS AT THIS TIME. SHIFT ASSESSMENT COMPLETED. BED LOW. CALL LIGHT IN REACH
[2016-09-16] VITALS: BP 142/44
[2016-09-16 04:00] VITALS: BP 155/61
[2016-09-16 04:46] LABS: BASOPHILS 0.2 % (0.0-2.0); EOSINOPHILS 6.1 % (0-7); HEMOGLOBIN 8.6 g/dL (12-16); IMMATURE GRANULOCYTES 0.6 % (0-5); LYMPHOCYTES 19.5 % (15-50); MCH 27.3 pg (26.0-34.0); MCHC 30.7 g/dL (31.0-37.0); MCV 88.9 fL (80.0-100.0); MEAN PLATELET VOLUME 13.3 fL (7.4-10.4); MONOCYTES 17.4 % (2-11); NEUTROPHILS 56.2 % (40-80); RBC 3.15 10x6/uL (4.00-5.40); RDW 13.4 % (11.5-14.5); WBC 4.8 10x3/uL (4.8-10.8)
[2016-09-16 04:50] LABS: PLATELET COUNT 153 10x3/uL (130-400)
[2016-09-16 04:57] LABS: CALC OSMOLALITY 276 mosm/kg (275-300); CALCIUM 8.1 mg/dL (8.5-10.1); CARBON DIOXIDE 29.5 mmol/L (21.0-32.0); CHLORIDE - SERUM 106 mmol/L (98-107); CREATININE - SERUM 0.7 mg/dL (0.6-1.3); GLUCOSE 88 mg/dL (74-106); MAGNESIUM - SERUM 1.9 mg/dL (1.8-2.4); PHOSPHOROUS 4.4 mg/dL (2.5-4.9); SODIUM 139 mmol/L (136-145); UREA NITROGEN 12 mg/dL (7-18); eGFR NON AFRICAN AMERICAN 88 mL/min (90-120)
[2016-09-16 08:20] VITALS: BP 157/62
--- NOTE | 2016-09-16 08:36 | NUR ---
AWAKE AND ALERT. ORIENTED X3. NO C/O AT THIS TIME. LUNGS ARE CLEAR BILATERALLY, NO COUGH NOTED. SKIN IS INTACT WITHOUT REDNESS EXCEPT WOUND VAC TO MID ABDOMEN WITH SEROUS SANGUINESS DRAINAGE AND FISTULA SITE WHICH HAS SOME THICK STICKY DRAINAGE. PICC TO LEFT UPPER ARM IS PATENT WITHOUT REDNESS AT INSERTION SITE. DENIES NEEDS.
--- NOTE | 2016-09-16 10:57 | NUR ---
WOUND CARE: CHANGED WOUND VAC DRESSING AND UROSTOMY APPLIANCE BEING USED FOR FISTULA DRAINAGE. CAVILON SKIN PROTECTANT APPLIED TO SURROUNDING SKIN. BLACK FOAM PLACED AT UPPER AND LOWER OPEN WOUND. ISOLATED FISTULA (BETWEEN UPPER/LOWER WOUND) WITH NIPPLE AND IRINA RING AND COVERED EDGES WITH STOMA PASTE. COVERED ALL WITH DRAPE. RAN PIGTAILS FROM UPPER WOUND AND LOWER WOUND ACROSS LEFT SIDE AND PLACED TRAC PAD. NEGATIVE PRESSURE WAS ACHIEVED. CUT OPEN DRAPE OVER FISTULA AND APPLIED AN UROSTOMY POUCH OVER OPENING. PT TOLERATED WELL. WOUND CARE CONTINUES TO MONITOR.
--- NOTE | 2016-09-16 11:00 | NUR ---
WOUND VAC AND FISTULA DRESSINGS CHANGED PER DEBORAH IN WOUND CARE.
--- NOTE | 2016-09-16 12:12 | NUR ---
NUTRITION MONITORING & EVAL CHART REVIEWED. PT REMAINS IN ISOLATION. RENEWED AM LABS X 3 DAYS. WILL MAKE NO CHANGES TO CURRENT TPN REGIMEN. RD FOLLOWING
[2016-09-16 12:14] VITALS: BP 160/56
[2016-09-16 15:26] VITALS: BP 152/62
--- NOTE | 2016-09-16 19:10 | NUR ---
DAY SHIFT NURSE IN ROOM ATTEMPTING TO REPLACE DSG TO ABD DUE TO LEAKAGE, ASSESSMENT COMPLETED, NO ACUTE PHYSICAL DISTRESS NOTED, IV INFUSING WITH EASE, CL IN REACH, WILL MONITOR
[2016-09-16 20:00] VITALS: BP 140/53
--- NOTE | 2016-09-16 20:10 | NUR ---
DSG TO ABD CONTINUES TO LEAK, ABSORBANT MATERIAL GIVEN TO PT, WILL ATTEMPT TO REPAIR, SR'S UP, CL IN REACH
[2016-09-17] VITALS: BP 157/64
--- NOTE | 2016-09-17 01:08 | NUR ---
WOUND DSG LEAKING, WILL ATTEMPT TO REDRESS
--- NOTE | 2016-09-17 03:25 | NUR ---
RESTING WITH EYES CLOSED, RESP WITH EASE, NO DISTRESS NOTED, ISOLATION PRECAUTIONS IN PLACE, CL IN REACH
[2016-09-17 04:00] VITALS: BP 153/52
[2016-09-17 06:35] LABS: CALC OSMOLALITY 276 mosm/kg (275-300); CALCIUM 8.1 mg/dL (8.5-10.1); CARBON DIOXIDE 27.6 mmol/L (21.0-32.0); CHLORIDE - SERUM 104 mmol/L (98-107); CREATININE - SERUM 0.7 mg/dL (0.6-1.3); GLUCOSE 92 mg/dL (74-106); MAGNESIUM - SERUM 1.8 mg/dL (1.8-2.4); PHOSPHOROUS 4.3 mg/dL (2.5-4.9); SODIUM 139 mmol/L (136-145); UREA NITROGEN 11 mg/dL (7-18); eGFR NON AFRICAN AMERICAN 88 mL/min (90-120)
[2016-09-17 12:32] VITALS: BP 154/70
[2016-09-17 17:31] VITALS: BP 152/70
[2016-09-17 19:01] VITALS: BP 155/67
--- NOTE | 2016-09-17 20:23 | NUR ---
HUNG A NEW BAG OF FLUIDS. PATIENT DENIES OTHER NEEDS AT THIS TIME. BED IN LOWEST POSITION AND CALL LIGHT WITHIN REACH. ENCOURAGED PATIENT TO CALL IF SHE HAS OTHER NEEDS.
[2016-09-18] VITALS: BP 174/50
[2016-09-18 04:00] VITALS: BP 138/73
[2016-09-18 05:52] LABS: CALC OSMOLALITY 278 mosm/kg (275-300); CALCIUM 7.8 mg/dL (8.5-10.1); CARBON DIOXIDE 27.8 mmol/L (21.0-32.0); CHLORIDE - SERUM 105 mmol/L (98-107); CREATININE - SERUM 0.7 mg/dL (0.6-1.3); GLUCOSE 108 mg/dL (74-106); MAGNESIUM - SERUM 1.7 mg/dL (1.8-2.4); PHOSPHOROUS 4.4 mg/dL (2.5-4.9); SODIUM 139 mmol/L (136-145); UREA NITROGEN 12 mg/dL (7-18); eGFR NON AFRICAN AMERICAN 88 mL/min (90-120)
[2016-09-18 12:02] VITALS: BP 138/66
[2016-09-18 16:36] VITALS: BP 136/58
--- NOTE | 2016-09-18 17:56 | NUR ---
PT VANCOMYCIN TROUGH 32.5 HOLDING 1800 VANCOMYCIN DOSE AT THIS TIME
[2016-09-18 20:00] VITALS: BP 150/64
--- NOTE | 2016-09-18 20:23 | NUR ---
HUNG A NEW BAG OF FLUIDS. PATIENT DENIES OTHER NEEDS AT THIS TIME. BED IN LOWEST POSITION AND CALL LIGHT WITHIN REACH. ENCOURAGED PATIENT TO CALL IF SHE HAS FURTHER NEEDS.
[2016-09-19 00:30] VITALS: BP 139/46
[2016-09-19 04:39] VITALS: BP 145/59
[2016-09-19 05:56] LABS: CALC OSMOLALITY 277 mosm/kg (275-300); CARBON DIOXIDE 27.3 mmol/L (21.0-32.0); CHLORIDE - SERUM 106 mmol/L (98-107); CREATININE - SERUM 0.8 mg/dL (0.6-1.3); GLUCOSE 94 mg/dL (74-106); MAGNESIUM - SERUM 1.6 mg/dL (1.8-2.4); PHOSPHOROUS 4.6 mg/dL (2.5-4.9); SODIUM 140 mmol/L (136-145); UREA NITROGEN 11 mg/dL (7-18); eGFR NON AFRICAN AMERICAN 75 mL/min (90-120)
--- NOTE | 2016-09-19 06:34 | NUR ---
SPOKE WITH MARY ALICE IN PHARMACY ABOUT PATIENT'S VANC TROUGH LAB RESULTS OF 32.4 AND HER 0600 VANC DOSE TODAY. I ASKED MARY ALICE IF I SHOULD CONTACT THE DOCTOR AND HE TOLD ME THAT PHARMACY WOULD TAKE CARE OF IT.
--- NOTE | 2016-09-19 08:00 | NUR ---
AWAKE AND ALERT. ORIENTED X3. NO C/O AT THIS TIME. LUNGS ARE CLEAR BILATERALLY, NO COUGH NOTED. SKIN IS INTACT WITHOUT REDNESS EXCEPT WOUND TO LOWER ABDOMEN WHICH HAS A WOUND VAC IN PLACE. NO DRAINAGE NOTED. LEFT PICC PATENT WITHOUT REDNESS AT INSERTION SITE. HAD SMALL AMOUNT OF SOFT FORMED STOOL THIS AM. C/O SOME NAUSEA. GIVEN 4MG ZOFRAN SLOW IVP FOR SAME. WILL MONITOR. AT BEDSIDE.
[2016-09-19 08:58] VITALS: BP 145/75
[2016-09-19 11:36] VITALS: BP 142/75
--- NOTE | 2016-09-19 12:15 | NUR ---
REFUSED CLEAR LIQUID LUNCH TRAY.
--- NOTE | 2016-09-19 12:52 | NUR ---
NUTRITION MONITORING & EVAL CHART REVIEWED. PT VISIT. SPOKE WITH PHARMACY, CONTINUE CURRENT TPN. ORDERED AM LABS X [address] FOLLOWING
[2016-09-19 15:51] VITALS: BP 166/56
[2016-09-19 19:00] VITALS: BP 169/48
--- NOTE | 2016-09-19 19:16 | NUR ---
RESTIGN QUIETLY IN BED. NO CHANGES NOTED. DENIES NEEDS.
--- NOTE | 2016-09-19 22:56 | NUR ---
PATIENT IS RESTING IN BED AND DENIES NEEDS AT THIS TIME. BED IS IN THE LOWEST POSITION AND CALL LIGHT IS WITHIN REACH. ENCOURAGED THE PATIENT TO CALL IF SHE HAS NEEDS.
[2016-09-20] VITALS (10 sets, daily range): BP systolic 106–165; BP diastolic 26–77
--- NOTE | 2016-09-20 03:20 | NUR ---
ASSISTED THE PATIENT TO THE BEDSIDE COMMODE. PATIENT DENIES OTHER NEEDS AT THIS TIME. BED IS IN LOWEST POSITION AND CALL LIGHT WITHIN REACH. ENCOURAGED THE PATIENT TO CALL IF SHE HAS FURTHER NEEDS.
[2016-09-20 05:32] LABS: CALC OSMOLALITY 278 mosm/kg (275-300); CARBON DIOXIDE 29.5 mmol/L (21.0-32.0); CHLORIDE - SERUM 106 mmol/L (98-107); CREATININE - SERUM 0.8 mg/dL (0.6-1.3); GLUCOSE 86 mg/dL (74-106); MAGNESIUM - SERUM 1.6 mg/dL (1.8-2.4); PHOSPHOROUS 4.9 mg/dL (2.5-4.9); POTASSIUM - SERUM 3.9 mmol/L (3.5-5.1); SODIUM 141 mmol/L (136-145); UREA NITROGEN 11 mg/dL (7-18); eGFR NON AFRICAN AMERICAN 75 mL/min (90-120)
--- NOTE | 2016-09-20 07:30 | NUR ---
AWAKE AND ALERT. ORIENTED X3. NO C/O AT THIS TIME. LUNGS ARE CLEAR BILATERALLY OCCASSIONAL DRY COUGH NOTED. SKIN IS INTACT WITHOUT REDNESS EXCEPT MID ABDOMENAL INCISION LINE WHICH HAS A WOUND VAC IN PLACE. VERY SCANT AMOUNT OF DRAINAGE NOTED TO SAME. LEFT UPPER ARM PICC IS PATENT WITHOUT REDNESS AT INSERTION SITE. DENIES NEEDS.
--- NOTE | 2016-09-20 12:53 | NUR ---
OFF UNIT VIA BED TO SURGERY. AT BEDSIDE.
--- NOTE | 2016-09-20 14:46 | NUR ---
THE PATIENT HAD SOME DIFFICULTY ABREATHING UPON ARRIVAL TO RECOVERY. ANESTHESIA ADMIN SUGAMADEX IN RECOVERY WITH A POSITIVE RESPONSE.
--- NOTE | 2016-09-20 15:15 | NUR ---
RETURNED FROM SURGERY. FAMILY IN ROOM. NO C/O AT THIS TIME. DENIES NEEDS.
--- NOTE | 2016-09-20 18:54 | NUR ---
REFUSED SUPPER TRAY. NO CHANGES NOTED. VSS. DENIES NEEDS.
[2016-09-21] VITALS: BP 115/64
--- NOTE | 2016-09-21 | NUR ---
PATIENT SLEEPING WITH NO DISTRESS NOTED. CALL LIGHT WITHIN REACH.
[2016-09-21 04:00] VITALS: BP 123/53
--- NOTE | 2016-09-21 07:30 | NUR ---
PT AOX4 RESP EVEN AND NONLABORED PT DENIES NEEDS AT THIS TIME PICC TO LEFT UPPER ARM PATENT AND INTACT. SRX2 BED ON LOWEST SETTING CALL LIGHT WITHIN REACH WILL CONTINUE TO MONITOR
[2016-09-21 08:41] VITALS: BP 150/54
[2016-09-21 13:58] VITALS: BP 157/53
--- NOTE | 2016-09-21 14:08 | NUR ---
1200-Unable to draw blood via PICC line. Dr. Jung notified, order for cathflo received. Cathflo 2 mg given in red port per protocol. Waited 30 minutes and attempted to draw blood, unsuccessful. 1405-Attempted again to withdraw blood, unsuccessful. Joseline Knapp RN
--- NOTE | 2016-09-21 14:27 | NUR ---
WOUND CARE: PT STATES THAT BOTTOM OF WOUND VAC DRESSING IS LEAKING. NOTED THE BOTTOM HALF OF THE DRAPE WAS LOOSENED OVER LOWER SECTION OF INCISION. THE DRAPE WAS ALSO LOOSENED. CUT AWAY DRAPE, APPLIED SKIN BARRIER/PROTECTANT, PLACED A SMALL PIECE OF BLACK FOAM ON LOWEST SECTION OF INCISION (WHERE IT TENDS TO LEAK) AND RESEALED WITH DRAPE. NEGATIVE PRESSURE WAS IMMEDIATELY ACHIEVED. REINFORCED LOWER SECTION AGAIN. THERE IS A VERY SMALL AMOUNT OF DRAINAGE IN VAC CANISTER. PT TOLERATED WELL. -75MMHG HIGH CONTINUOUS WILL CONTINUE TO MONITOR.
[2016-09-21 16:38] LABS: CALC OSMOLALITY 275 mosm/kg (275-300); CALCIUM 8.2 mg/dL (8.5-10.1); CARBON DIOXIDE 29.3 mmol/L (21.0-32.0); CHLORIDE - SERUM 103 mmol/L (98-107); CREATININE - SERUM 0.7 mg/dL (0.6-1.3); MAGNESIUM - SERUM 1.8 mg/dL (1.8-2.4); PHOSPHOROUS 3.7 mg/dL (2.5-4.9); POTASSIUM - SERUM 4.1 mmol/L (3.5-5.1); SODIUM 137 mmol/L (136-145); UREA NITROGEN 13 mg/dL (7-18); eGFR NON AFRICAN AMERICAN 88 mL/min (90-120)
[2016-09-21 16:39] LABS: GLUCOSE 138 mg/dL (74-106)
[2016-09-21 17:09] VITALS: BP 130/60
--- NOTE | 2016-09-21 19:00 | NUR ---
PATIENT IN BED WTCHING TV. HOB 30 DEGREES. AAOX4. PATIENT'S MOOD IS SOMEWHAT DEPRESSED. RR EVEN AND UNLABORED. 0 S/S OF DISTRESS. STATES PAIN IS A 7/10. LEFT PICC PATENT WITH DRESSING CDI. WOUNDVAC TO ABD. SRX2. BED LOW. CALL LIGHT WITHIN REACH.
[2016-09-21 20:00] VITALS: BP 158/63
[2016-09-22] VITALS: BP 138/55
[2016-09-22 04:00] VITALS: BP 153/69
--- NOTE | 2016-09-22 05:00 | NUR ---
PATIENT STATES THAT HER WOUNDVAC IS LEAKING. REINFORCED WITH WOUNDVAC DRAPE. SEAL MAINTAINED.
[2016-09-22 05:41] LABS: BASOPHILS 0.4 % (0.0-2.0); EOSINOPHILS 6.7 % (0-7); HEMATOCRIT 30.8 % (36.0-48.0); HEMOGLOBIN 9.5 g/dL (12-16); IMMATURE GRANULOCYTES 0.2 % (0-5); LYMPHOCYTES 20.1 % (15-50); MCH 27.5 pg (26.0-34.0); MCHC 30.8 g/dL (31.0-37.0); MEAN PLATELET VOLUME 12.7 fL (7.4-10.4); MONOCYTES 18.9 % (2-11); NEUTROPHILS 53.7 % (40-80); RBC 3.46 10x6/uL (4.00-5.40); RDW 14.3 % (11.5-14.5); WBC 5.1 10x3/uL (4.8-10.8)
[2016-09-22 05:59] LABS: PLATELET COUNT 239 10x3/uL (130-400)
[2016-09-22 06:17] LABS: CALC OSMOLALITY 281 mosm/kg (275-300); CALCIUM 8.2 mg/dL (8.5-10.1); CARBON DIOXIDE 29.3 mmol/L (21.0-32.0); CHLORIDE - SERUM 103 mmol/L (98-107); CREATININE - SERUM 0.7 mg/dL (0.6-1.3); GLUCOSE 148 mg/dL (74-106); MAGNESIUM - SERUM 1.8 mg/dL (1.8-2.4); PHOSPHOROUS 4.5 mg/dL (2.5-4.9); POTASSIUM - SERUM 4.1 mmol/L (3.5-5.1); SODIUM 140 mmol/L (136-145); UREA NITROGEN 12 mg/dL (7-18); VANCOMYCIN - TROUGH 5.6 ug/mL (10.0-20.0); eGFR NON AFRICAN AMERICAN 88 mL/min (90-120)
--- NOTE | 2016-09-22 07:58 | NUR ---
PT AOX4 RESP EVEN AND NONLABORED PT DENIES NEEDS AT THIS TIME LEFT PICC LINE PATENT AND INTACT WOUND VAC DRESSING INTACT AND FUNCTIONING PROPERLY AT THIS TIME BED AT LOWEST SETTING CALL LIGHT WITHIN REACH AT THIS TIME WILL CONTINUE TO MONITOR
[2016-09-22 08:01] VITALS: BP 156/67
--- NOTE | 2016-09-22 09:37 | NUR ---
Both PICC lumens checked for blood return, good blood return in each lumen. Joseline Knapp RN
--- NOTE | 2016-09-22 10:47 | NUR ---
NUTRITION MONITORING & EVAL CHART REVIEWED. PT REMAINS IN ISOLATION. TPN CONTINUES. CLEAR LIQUIDS. LABS NOTED AND RENEWED X [address] FOLLOWING
--- NOTE | 2016-09-22 11:14 | NUR ---
WOUND CARE: PT C/O DRAINAGE "POOLING AGAIN". THE WOUND VAC HAS SUCTION - IT IS MAINTAINING ITS SETTINGS AT -75MMHG HIGH CONTINUOUS. NO ALARMS. THE PT STATES IT IS POOLING AT THE TOP NOW. NO DRAINAGE NOTED EXCEPT ON VAC SPONGE, BUT I CUT AWAY THE DRAPE ON THE UPPER AREA, CLEANSED THE SKIN, APPLIED SKIN BARRIER, PLACED A SMALL STRIP OF BLACK SPONGE ON TOP OF WHITE SPONGE AND APPLIED A NEW DRAPE. IMMEDIATE NEGATIVE PRESSURE WAS ACHIEVED. SETTINGS REMAIN AT -75MMHG HIGH CONTINUOUS. WOUND CARE CONTINUES TO MONITOR.
[2016-09-22 12:11] VITALS: BP 155/62
--- NOTE | 2016-09-22 15:04 | NUR ---
WOUND CARE: RECEIVED CALL FROM PRIMARY NURSE STATING THAT PT SAYS THE DRAINAGE IS "POOLING AGAIN UNDER THE DRAPE". NO ALARMS FROM WOUND VAC/SEAL IS HOLDING/SPONGE IS COMPRESSED LIKE A RAISIN. REMOVED ENTIRE DRESSING (1 WHITE SPONGE, 1 BLACK PIGTAIL, 2 SMALL PIECES BLACK SPONGE THAT I HAD ADDED TO DRESSING). CLEANSED SURROUNDING SKIN, APPLIED SKIN BARRIER/PROTECTANT, REPLACED WHITE SPONGE ON TOP OF WOUND BED, BLACK SPONGE ON TOP OF WHITE, PIGTAIL OFF TO THE LEFT ABDOMEN, SECURED WITH DRAPE, ATTACHED TRAC PAD AND ACHIEVED IMMEDIATE NEGATIVE PRESSURE. -75MMHG HIGH CONTINUOUS CHANGED OUT WOUND VAC MACHINE TO ANOTHER ONE, CHANGED OUT ALL TUBING.
[2016-09-22 15:44] VITALS: BP 158/59
--- NOTE | 2016-09-22 19:00 | NUR ---
PATIENT IN BED WATCHING TV. HOB 45 DEGREES. AAOX4. RR EVEN AND UNLABORED. 0 S/S OF DISTRESS. STATES PAIN IS AN 8/10. LEFT PICC PATENT WITH DRESSING CDI. WOUND VAC TO ABD. SRX2. BED LOW. CALL LIGHT WITHIN REACH.
[2016-09-22 20:00] VITALS: BP 155/65
[2016-09-23] VITALS: BP 136/58
[2016-09-23 04:00] VITALS: BP 159/69
[2016-09-23 06:28] LABS: CALC OSMOLALITY 273 mosm/kg (275-300); CALCIUM 8.4 mg/dL (8.5-10.1); CARBON DIOXIDE 29.2 mmol/L (21.0-32.0); CHLORIDE - SERUM 103 mmol/L (98-107); CREATININE - SERUM 0.6 mg/dL (0.6-1.3); GLUCOSE 127 mg/dL (74-106); MAGNESIUM - SERUM 1.7 mg/dL (1.8-2.4); PHOSPHOROUS 4.4 mg/dL (2.5-4.9); POTASSIUM - SERUM 3.8 mmol/L (3.5-5.1); SODIUM 136 mmol/L (136-145); UREA NITROGEN 12 mg/dL (7-18); eGFR NON AFRICAN AMERICAN > 90 mL/min (90-120)
--- NOTE | 2016-09-23 08:29 | NUR ---
AWAKE AND ALERT. OIRENTED X3. C/O NAUSEA THIS AM. GIVEN 25MG PHENERGAN IM FOR SAME. WILL MONITOR. LUNGS ARE CLEAR BILATERALLY, NO COUGH NOTED. SKIN IS INTACT WITHOUT REDNESS. LEFT PICC PATENT WITHOUT REDNESS AT INSERTION SITE. WOUND VAC TO ABDOMEN APPEARS TO BE PATENT WILL MONITOR.
--- NOTE | 2016-09-23 08:30 | NUR ---
C/O NAUSEA AT THIS TIME. GIVEN 25MG PHENERGAN IN LEFT HIP FOR SAME. WILL MONITOR.
[2016-09-23 08:50] VITALS: BP 153/63
--- NOTE | 2016-09-23 10:00 | NUR ---
DEBORAH WITH WOUND CARE NOTIFIED OF WOUND VAC LEAKING.
--- NOTE | 2016-09-23 12:15 | NUR ---
REFUSED LUNCH TRAY AT THIS TIME.
[2016-09-23 12:59] VITALS: BP 149/60
--- NOTE | 2016-09-23 14:36 | NUR ---
WOUND CARE: PT C/O DRAINAGE "POOLING" UNDER DRESSING. CHANGED ENTIRE SPONGE DRESSING (LEAVING PLUG THAT WAS PLACED IN OR IN PLACE) PT TOLERATED WELL.
--- NOTE | 2016-09-23 14:43 | NUR ---
RESTING QUIETLY IN ROOM. NO C/O AT THIS TIME.
--- NOTE | 2016-09-23 15:01 | NUR ---
NUTRITION MONITORING & EVAL. SPOKE WITH TAMMIE IN PHARMACY. INTRALIPID ORDERS RENEWED. WILL CONTINUE CURRENT TPN REGIMEN. RD FOLLOWING
[2016-09-23 16:33] VITALS: BP 122/52
[2016-09-23 19:00] VITALS: BP 126/54
--- NOTE | 2016-09-23 19:41 | NUR ---
NO CHANGES NOTED. WOUND VAC IS PATENT DENIES NEEDS.
[2016-09-24 00:37] VITALS: BP 128/50
--- NOTE | 2016-09-24 02:02 | NUR ---
ASSESSED AT THE BEGINNING OF THE SHIFT. PT REMAINS IN ISOLATION. SHE IS ALERT AND ORIENTED, ABLE TO VERBALIZE NEEDS. THE DRESSING TO HER MIDLINE INCISION IS CONNECTED TO A WOUND VAC. SHE IS WORRIED THAT IS IS NOT GOING TO HOLD. THERE IS STILL A FIRST STEP MATTRESS IN PLACE AND SHE IS ABLE TO GET UP TO THE BEDSIDE COMMODE. TPN IS INFUSING AND SHE HAS A NEMATOLOGY TEACHER FOR PAIN CONTROL. THE BED IS LOW, RAILS UP X'S 2 WITH THE CALL LIGHT AT HAND.
[2016-09-24 04:00] VITALS: BP 134/49
[2016-09-24 07:09] LABS: CALC OSMOLALITY 279 mosm/kg (275-300); CALCIUM 7.9 mg/dL (8.5-10.1); CARBON DIOXIDE 29.1 mmol/L (21.0-32.0); CHLORIDE - SERUM 104 mmol/L (98-107); GLUCOSE 129 mg/dL (74-106); MAGNESIUM - SERUM 1.6 mg/dL (1.8-2.4); PHOSPHOROUS 4.6 mg/dL (2.5-4.9); SODIUM 139 mmol/L (136-145); UREA NITROGEN 12 mg/dL (7-18); eGFR NON AFRICAN AMERICAN 75 mL/min (90-120)
[2016-09-24 07:11] LABS: CREATININE - SERUM 0.8 mg/dL (0.6-1.3)
--- NOTE | 2016-09-24 07:30 | NUR ---
AWAKE AND ALERT. ORIENTED X3. NO C/O AT THIS TIME. LUNGS ARE CLEAR BILATERALLY, NO COUGH NOTED. SKIN IS INTACT WITHOUT REDNESS EXCEPT WOUND TO ABDOMEN WHICH HAS A WOUND VAC IN PLACE THAT IS PATENT. LEFT PICC IS PATENT WITHOUT REDNESS AT INSERTION SITE. DENIES NEEDS AT THIS TIME.
[2016-09-24 08:20] VITALS: BP 138/61
--- NOTE | 2016-09-24 10:01 | NUR ---
WOUND VAC IS NOW LEAKING. FAMILY AT BEDSIDE.
[2016-09-24 12:55] VITALS: BP 148/48
[2016-09-24 16:37] VITALS: BP 138/62
--- NOTE | 2016-09-24 18:50 | NUR ---
REFUSED SUPPER TRAY. NO CHANGES NOTED AT THIS TIME. DENIES NEEDS.
[2016-09-24 20:00] VITALS: BP 147/51
--- NOTE | 2016-09-25 00:43 | NUR ---
Recieved patient and report at 1900, patient alert and oriented X 4, contact isolation for MRSA, left PICC line with TPN at 50 ml/H, protonics at 10ml/H, and NS at 30 ml/H, patent dressing CDI, wound vac to ABD dressing CDI, PRODUCTION FINISHER morphine 1:10:10, CPOC.
[2016-09-25 04:00] VITALS: BP 143/56
[2016-09-25 05:57] LABS: CALC OSMOLALITY 277 mosm/kg (275-300); CALCIUM 7.6 mg/dL (8.5-10.1); CARBON DIOXIDE 28.6 mmol/L (21.0-32.0); CHLORIDE - SERUM 107 mmol/L (98-107); CREATININE - SERUM 0.6 mg/dL (0.6-1.3); GLUCOSE 93 mg/dL (74-106); MAGNESIUM - SERUM 1.5 mg/dL (1.8-2.4); POTASSIUM - SERUM 3.9 mmol/L (3.5-5.1); SODIUM 140 mmol/L (136-145); UREA NITROGEN 11 mg/dL (7-18); eGFR NON AFRICAN AMERICAN > 90 mL/min (90-120)
--- NOTE | 2016-09-25 07:30 | NUR ---
AWAKE AND ALERT. ORIENTED X3. NO C/O THIS AM. LUNGS ARE CLEAR BILATERALLY, NO COUGH NOTED. SKIN IS INTACT WITHOUT REDNESS EXCEPT WOUND VAS TO LOWER ABDOMEN WHICH IS PATENT WITH SEROUS DRAINAGE NOTED. PICC TO LEFT UPPER ARM IS PATENT WITHOUT REDNESS AT INSERTION SITE. DENIES NEEDS.
[2016-09-25 10:07] VITALS: BP 165/67
--- NOTE | 2016-09-25 11:00 | NUR ---
UP TO BR PER SELF HAD SMALL SOFT STOOL. DENIES NEEDS.
[2016-09-25 12:50] VITALS: BP 150/68
[2016-09-25 17:17] VITALS: BP 146/67
--- NOTE | 2016-09-25 18:23 | NUR ---
RESTING QUIETLY IN BED. NO NEEDS EXPRESSED. NO CHANGES NOTED.
[2016-09-25 19:00] VITALS: BP 144/61
--- NOTE | 2016-09-25 21:50 | NUR ---
RECEIVED PT LYING IN BED, WATCHING TV, NO COMPLAINTS. PT STATES SHE HAS A PAIN LEVEL OF 7 OUT OF 10. PT ON CONTACT ISOLATION. DENIES FURTHER NEEDS AT THIS TIME. BED IN LOWEST POSITION AND CALL LIGHT WITHIN REACH.
--- NOTE | 2016-09-26 02:00 | NUR ---
PT IN BED RESTING WITH NO DISTRESS. RESPIRATIONS ARE EVEN AND UNLABORED. SIDE RAILS X 2. BED LOW. CALL LIGHT IN REACH. ISOLATION PRECAUTIONS IN PLACE.
[2016-09-26 04:00] VITALS: BP 144/55
--- NOTE | 2016-09-26 05:22 | NUR ---
RESTING WELL AT THIS TIME NO C/O NOTED OR VOICED. C/L IN REACH AT BEDSIDE.
--- NOTE | 2016-09-26 07:55 | NUR ---
PT AOX4 RESP EVEN AND NONLABORED PICC TO LEFT UPPER ARM PATENT AND INTACT PT DENIES NEEDS AT THIS TIME WILL CONTINUE TO MONITOR SRX2 BED AT LOWEST SETTING CALL LIGHT WITHIN REACH
[2016-09-26 08:39] VITALS: BP 118/64
[2016-09-26 10:11] LABS: CALC OSMOLALITY 279 mosm/kg (275-300); CALCIUM 8.2 mg/dL (8.5-10.1); CHLORIDE - SERUM 106 mmol/L (98-107); CREATININE - SERUM 0.6 mg/dL (0.6-1.3); GLUCOSE 140 mg/dL (74-106); MAGNESIUM - SERUM 1.5 mg/dL (1.8-2.4); POTASSIUM - SERUM 3.8 mmol/L (3.5-5.1); SODIUM 140 mmol/L (136-145); UREA NITROGEN 9 mg/dL (7-18); eGFR NON AFRICAN AMERICAN > 90 mL/min (90-120)
[2016-09-26 11:30] VITALS: BP 171/43
--- NOTE | 2016-09-26 13:04 | NUR ---
NUTRITION MONITORING & EVAL LABS ORDERED. SPOKE WITH NURSING RE: MAG OF 1.5 WILL CONTINUE TO MONITOR PT PROGRESS. RD FOLLOWING
[2016-09-26 15:23] VITALS: BP 168/54
--- NOTE | 2016-09-26 16:29 | NUR ---
WOUND CARE: DRAINAGE "POOLING" AGAIN AND NOT BEING REMOVED VIA VAC. DR. PECK AND MYSELF REMOVED THE VAC DRESSINGS AND PLACED NEW DRESSING TO UPPER AND LOWER INCISION X 2 ATTEMPTS ISOLATING THE FISTULA WITH FISTULA FUNNEL. ALSO 6 MARIKA WERE REMOVED FROM RIGHT UPPER THIGH DONOR SITE. GENTLY CLEANSED AREA - COVERED WITH ADAPTIC AND BORDERED GAUZE. WILL CONTINUE TO MONITOR.
[2016-09-26 20:00] VITALS: BP 99/62
--- NOTE | 2016-09-26 20:07 | NUR ---
PATIENT RESTING IN BED AND DENIES NEEDS AT THIS TIME. BED IN LOWEST POSITION AND CALL LIGHT WITHIN REACH. ENCOURAGED PATIENT TO CALL IF SHE HAS FURTHER NEEDS.
[2016-09-27 04:00] VITALS: BP 157/63
[2016-09-27 06:52] LABS: CALC OSMOLALITY 279 mosm/kg (275-300); CARBON DIOXIDE 30.8 mmol/L (21.0-32.0); CHLORIDE - SERUM 105 mmol/L (98-107); CREATININE - SERUM 0.7 mg/dL (0.6-1.3); GLUCOSE 94 mg/dL (74-106); MAGNESIUM - SERUM 1.5 mg/dL (1.8-2.4); PHOSPHOROUS 4.2 mg/dL (2.5-4.9); POTASSIUM - SERUM 3.8 mmol/L (3.5-5.1); SODIUM 141 mmol/L (136-145); UREA NITROGEN 11 mg/dL (7-18); eGFR NON AFRICAN AMERICAN 88 mL/min (90-120)
--- NOTE | 2016-09-27 08:52 | NUR ---
PT AOX4 PT DENIES NEEDS AT THIS TIME RESP EVEN AND NONLABORED SRX2 BED AT LOWEST SETTING CALL LIGHT WITHIN REACH PICC LINE TO LEFT UPPER ARM PATENT AND INTACT CALL LIGHT WITHIN REACH WILL CONTINUE TO MONITOR
[2016-09-27 11:41] VITALS: BP 144/59
[2016-09-27 14:04] VITALS: BP 148/74
--- NOTE | 2016-09-27 16:33 | NUR ---
1000 PT STATES THERE IS A LEAK IN VAC DRESSING. REMOVED PART OF DRAPE, APPLIED STOMA PASTE AND DRESSING SEALED AGAIN @ -100MMHG. WOUND CARE CONTINUES TO MONITOR.
--- NOTE | 2016-09-27 16:34 | NUR ---
WOUND CARE: STATES THAT WOUND VAC IS ALARMING "LEAKAGE AND BLOCKAGE". SEAL IS INTACT BUT CAN HEAR HISSING. REMOVED TRAC PAD AND REPLACED IT WITH A NEW ONE. NEGATIVE PRESSURE ACHIEVED AT -100MMHG. CONTINUES TO MONITOR.
--- NOTE | 2016-09-27 19:00 | NUR ---
PATIENT IN BED WATCHING TV. HOB 30 DEGREES. AAOX4. RR EVEN AND UNLABORED. 0 S/S OF DISTRESS. STATES PAIN IS A 7/10. LEFT PICC PATENT WITH NO REDNESS OR SWELLING. WOUND VAC AND OSTOMY APPLIANCE TO ABD. DRESSING TO RIGHT THIGH OVER SKIN GRAFT SITE. SRX2. BED LOW. CALL LIGHT WITHIN REACH.
[2016-09-27 19:51] VITALS: BP 153/61
--- NOTE | 2016-09-27 22:30 | NUR ---
ASSESSMENT COMPLETE. LOVENOX GIVEN. NO NEEDS AT THIS TIME.
[2016-09-27 23:41] VITALS: BP 144/59
--- NOTE | 2016-09-28 03:33 | NUR ---
PATIENT SLEEPING WITH NO DISTRESS NOTED. CALL LIGHT WITHIN REACH.
[2016-09-28 04:01] VITALS: BP 131/60
[2016-09-28 05:43] LABS: CALC OSMOLALITY 278 mosm/kg (275-300); CALCIUM 8.3 mg/dL (8.5-10.1); CARBON DIOXIDE 29.5 mmol/L (21.0-32.0); CHLORIDE - SERUM 104 mmol/L (98-107); CREATININE - SERUM 0.7 mg/dL (0.6-1.3); GLUCOSE 108 mg/dL (74-106); MAGNESIUM - SERUM 1.7 mg/dL (1.8-2.4); PHOSPHOROUS 4.5 mg/dL (2.5-4.9); POTASSIUM - SERUM 4.2 mmol/L (3.5-5.1); SODIUM 140 mmol/L (136-145); UREA NITROGEN 11 mg/dL (7-18); eGFR NON AFRICAN AMERICAN 88 mL/min (90-120)
--- NOTE | 2016-09-28 06:13 | NUR ---
PATIENT STILL SLEEPING WITH NO DISTRESS NOTED. MAG 1.7. 2GM MAG SULFATE HUNG PER PROTOCOL.
--- NOTE | 2016-09-28 07:30 | NUR ---
AWAKE AND ALERT. ORIENTED X3. NO C/O THIS AM. WOUND VAC TO MID ABDOMEN PATENT. LUNGS ARE CLEAR BILATERALLY, NO COUGH NOTED. SKIN IS INTACT WITHOUT REDNESS EXCEPT WOUND TO MID ABDOMEN. LEFT UPPER ARM PICC IS PATNET WITHOUT REDNESS AT INSERTION SITE. DENIES NEEDS AT THIS TIME.
[2016-09-28 08:23] VITALS: BP 139/69
--- NOTE | 2016-09-28 09:30 | NUR ---
WOUND VAC CHANGED PER MITCHELL IN WOUND CARE. DENIES NEEDS. REPORTED USING TRANSPORT PILOT ALOT WITH WOUND VAC CHANGE.
--- NOTE | 2016-09-28 10:30 | NUR ---
0930 TO PT ROOM D/T DRAINAGE POOLING AT BOTTOM OF DRESSING. WOUND VAC CONTINUES TO ACHIEVE NEGATIVE PRESSURE @ -100MMHG. DRAINAGE FROM FISTULA IS NOTED IN THE DRAINAGE BAG AND THE IS DRAINAGE LEAKING AT BOTTOM OF DRESSING. REMOVED DRAINAGE POUCH/FISTULA FUNNEL AND SPONGE AND CLEANSED THE SKIN WITH NS AND 4X4S. APPLIED SKIN BARRIER/PREP AND CUT DUODERM TO FIT OVER PERIWOUND TO PROTECT SURROUNDING SKIN. APPLIED PASTE TO CREVICES, PASTE TO FISTULA FUNNEL. CUT SPONGE TO FIT BOTTOM HALF OF INCISION WITH OPENING FOR FUNNEL. SEALED WITH DRAPE. VAC IMMEDIATELY ACHIEVED -100MMHG. CUT HOLE IN TOP OF DRESSING OVER FUNNEL AND ATTACHED AN UROSTOMY APPLIANCE (ONE PIECE) OVER OPENING. PT TOLERATED WELL. CONTINUE TO MONITOR.
--- NOTE | 2016-09-28 12:15 | NUR ---
NO CHANGES AT THIS TIEM. DENIES NEEDS.
[2016-09-28 13:05] VITALS: BP 158/59
--- NOTE | 2016-09-28 15:49 | NUR ---
WOUND CARE CALLED TO PT ROOM BECAUSE DRESSING IS LEAKING AT BOTTOM. SHOWED PT HOW TO PLACE A 4X4 UNDER DRESSING WHERE SEAL HAS LOOSENED AND CLEAN THE SKIN. THEN SHOWED HER HOW TO PLACE STOMA PASTE INTO AREA. SHE VOICED UNDERSTANDING AND SAID SHE WOULD TRY IT NEXT TIME. REINFORCED ENTIRE BOTTOM OF DRESSING WITH DRAPE. PT TOLERATED WELL. WOUND CARE CONTINUES TO FOLLOW.
[2016-09-28 16:12] VITALS: BP 105/71
[2016-09-28 19:00] VITALS: BP 156/63
--- NOTE | 2016-09-28 19:00 | NUR ---
PATIENT ON 1ST STEP OVERLAY WATCHING TV. HOB 40 DEGREES. AAOX4. RR EVEN AND UNLABORED. 0 S/S OF DISTRESS. STATES PAIN IS A 7/10. LEFT PICC PATENT WITH DRESSING CDI. WOUND VAC TO ABD. OSTOMY APPLIANCE TO ABD. SRX2. BED LOW. CALL LIGHT WITHIN REACH.
--- NOTE | 2016-09-28 19:46 | NUR ---
ATE ABOUT HALF OF SUPPER. WOUND VAC IS LEAKING. DRESSING CHANGED PER STAFF. NO CHANGES NOTED.
--- NOTE | 2016-09-28 23:30 | NUR ---
LOVENOX GIVEN PER ORDER. OSTOMY APPLIANCE LEAKING. REMOVED BAG AND CLEANED SKIN. REAPPLIED OSTOMY BAG BEST POSSIBLE.
--- NOTE | 2016-09-29 02:30 | NUR ---
OSTOMY APPLIANCE LEAKING AGAIN. OFFERED TO TAKE IT DOWN AGAIN AND REATTACH IT, BUT PATIENT STATED "IT WONT DO ANY GOOD." AND SAID THAT SHE WANTED TO WAIT UNTIL THE WOUNDCARE NURSE ARRIVED. REINFORCED OUTSIDE WITH 4X4'S AND ABD PADS TO HELP ABSORB MOISTURE.
--- NOTE | 2016-09-29 05:44 | NUR ---
PATIENT SLEEPING WITH NO DISTRESS NOTED.
[2016-09-29 06:32] LABS: CALC OSMOLALITY 283 mosm/kg (275-300); CALCIUM 8.2 mg/dL (8.5-10.1); CARBON DIOXIDE 30.3 mmol/L (21.0-32.0); CHLORIDE - SERUM 107 mmol/L (98-107); CREATININE - SERUM 0.7 mg/dL (0.6-1.3); GLUCOSE 121 mg/dL (74-106); MAGNESIUM - SERUM 1.8 mg/dL (1.8-2.4); PHOSPHOROUS 4.2 mg/dL (2.5-4.9); POTASSIUM - SERUM 4.2 mmol/L (3.5-5.1); SODIUM 142 mmol/L (136-145); UREA NITROGEN 13 mg/dL (7-18); eGFR NON AFRICAN AMERICAN 88 mL/min (90-120)
--- NOTE | 2016-09-29 08:11 | NUR ---
AWAKE AND ALERT. ORIENTED X3. C/O BURNING PAIN AROUND FISTULA SITE. WOUND VAC TO LOWER ABDOMEN IS LEAKING. LUNGS ARE CLEAR BIALTERALLY, NO COUGH NOTED. SKIN IS INTACT EXCEPT TO LOWER ABDOMEN FISTULA. LEFT UPPER ARM PICC IS PATENT WITHOUT REDNESS AT INSERTION SITE. DENIES NEEDS.
[2016-09-29 09:29] VITALS: BP 156/74
--- NOTE | 2016-09-29 10:33 | NUR ---
NUTRITION MONITORING & EVAL CHART REVIEWED, NOTIFIED BY PHARMACY THAT POTASSIUM PHOSPHATE ON BACKORDER. ADJUSTED TPN, RENEWED AM LABS X [address] FOLLOWING
[2016-09-29 12:58] VITALS: BP 150/68
--- NOTE | 2016-09-29 14:03 | NUR ---
WOUND CARE: WOUND VAC TO MIDLINE ABDOMEN D/C'D PER DR. PECK'S ORDER. CLEANSED FISTULA SITE AND SKIN SURROUNDING WITH WOUND CLEANSER AND PATTED DRY. APPLIED SKIN BARRIER/PROTECTANT AND NYSTATIN POWDER TO SKIN. COVERED EDGES WITH DUODERM LITE. APPLIED STOMA PASTE TO EVEN OUT AREA AND APPLIED A ONE PIECE UROSTOMY APPLIANCE OVER FISTULA. INSTRUCTED PT TO GET OUT OF BED AND WALK WHICH WILL ALLOW THE DRAINAGE FROM FISTULA TO DRAIN INTO BAG INSTEAD OF STAYING IN BED AND NOT MOVING WHICH IS KEEPING THE DRAINAGE ON TOP OF THE OSTOMY APPLIANCE AND CAUSING LEAKAGE. SHE AND HER VOICED UNDERSTANDING. PT TOLERATED WELL.
--- NOTE | 2016-09-29 14:42 | NUR ---
Patient Name: ROD MAK Encounter No: [id number] : 1945 Primary Insurance: MEDICARE A & B Anticipated DC Date: 07-22-2016 Planned Disposition: Home or Self Care External Planned Provider: : DCP follow-up note: Patient and family in agreement with discharge plan. No changes to plan. Case management will follow and assist as needed. Nimo Berger
[2016-09-29 16:21] VITALS: BP 152/66
--- NOTE | 2016-09-29 19:00 | NUR ---
PATIENT IN BED WATCHING TV. HOB 40 DEGREES. AAOX4. RR EVEN AND UNLABORED. 0 S/S OF DISTRESS. STATES PAIN IS AN 8/10. LEFT PICC PATENT WITH DRESSING CDI. OSTOMY APPLIANCE TO ABD LEAKING. SRX2. BED LOW. CALL LIGHT WITHIN REACH.
--- NOTE | 2016-09-29 19:16 | NUR ---
ATE ABOUT HALF OF SUPPER. OSTOMY IS LEAKING AGAIN. NO CHANGES NOTED.
[2016-09-29 20:01] VITALS: BP 149/67
--- NOTE | 2016-09-29 22:35 | NUR ---
ASSESSMENT COMPLETE. LOVENOX GIVEN PER ORDER. SKIN AROUND OSTOMY APPLIANCE CLEANED AND SKIN PROTECTANT APPLIED. NO OTHER NEEDS AT THIS TIME.
[2016-09-30 04:00] VITALS: BP 142/57
--- NOTE | 2016-09-30 04:00 | NUR ---
PATIENT SLEEPING WITH NO DISTRESS NOTED.
[2016-09-30 06:38] LABS: CALC OSMOLALITY 283 mosm/kg (275-300); CALCIUM 8.5 mg/dL (8.5-10.1); CARBON DIOXIDE 28.9 mmol/L (21.0-32.0); CHLORIDE - SERUM 106 mmol/L (98-107); CREATININE - SERUM 0.7 mg/dL (0.6-1.3); GLUCOSE 120 mg/dL (74-106); MAGNESIUM - SERUM 1.7 mg/dL (1.8-2.4); PHOSPHOROUS 4.3 mg/dL (2.5-4.9); SODIUM 142 mmol/L (136-145); UREA NITROGEN 13 mg/dL (7-18); eGFR NON AFRICAN AMERICAN 88 mL/min (90-120)
--- NOTE | 2016-09-30 07:35 | NUR ---
PATIENT IS IN BED. OSTOMY BAG LEAKING FROM RIGHT SIDE, INFERIOR PORTION, AND SUPERIOR PORTION. PATIENT IS HOLDING WASH CLOTHS AROUND AREAS IT IS LEAKING. CLEANED SKIN AROUND AREAS THAT ARE LEAKING WITH WOUND CLEANED AND PATTED DRY WITH 4X4 GAUZE. WIPED WITH LOLIPOP NON-STING BARRIER. SPRAYED WITH BARRIER SPRAY.
[2016-09-30 07:57] VITALS: BP 170/70
--- NOTE | 2016-09-30 09:29 | NUR ---
TPN DECREASED TO 25ML/HR TO WEAN OFF OF TPN.
[2016-09-30 11:10] VITALS: BP 132/74
--- NOTE | 2016-09-30 11:19 | NUR ---
WOUND CARE: PT C/O OSTOMY BAG LEAKING ALL NIGHT AND CONTENTS BURNING SKIN. APPLIANCE WAS REMOVED, SKIN CLEANSED, SILVADENE CREAM APPLIED AND LEFT IN PLACE FOR OVER AN HOUR. REINSTRUCTED PT AND HER TO REMOVE APPLIANCE IF IT STARTS LEAKING AND BURNING SKIN. CLEAN SKIN WITH WOUND CLEANSER AND PAT DRY. PLACE A FOLDED 4X4 OVER FISTULA AND ALLOW THE SKIN SURROUNDING TO AIR. PT DEMONSTRATED HER ABILITY TO DO THIS AND UNDERSTANDING OF THIS YESTERDAY. SKIN WAS PREPPED WITH CAVILON AND STOMA POWDER X 2. DUODERM WAS CUT AND PLACED AROUND ENTIRE AREA SURROUNDING FISTULA. STOMA PASTE WAS USED TO MAKE AN EVEN SURFACE. ONE PIECE (FLEXIBLE) APPLIANCE WAS APPLIED. PRIOR TO LEAVING ROOM APPLIANCE WAS HOLDING AND THERE WAS NO LEAKAGE. WILL RECHECK IN ONE HOUR.
--- NOTE | 2016-09-30 11:57 | NUR ---
FSBS 110. TURNED OFF TPN.
--- NOTE | 2016-09-30 12:32 | NUR ---
WOUND CARE : CHECKED ON PT TO SEE HOW OSTOMY APPLIANCE IS HOLDING. AT THIS TIME IT IS NOT LEAKING. WILL CONTINUE TO MONITOR.
--- NOTE | 2016-09-30 15:03 | NUR ---
WOUND CARE: APPLIANCE DID NOT HOLD. PT STATES DRAINAGE CAME OUT FROM UNDER DRESSING FROM ALL SIDES. DR. PECK IN ROOM. NEW PLAN: KEEP APPLIANCES OFF FOR NOW AND LET SURROUNDING SKIN DRY/HEAL. WILL CONTINUE MONITORING
[2016-09-30 15:27] VITALS: BP 127/51
--- NOTE | 2016-09-30 19:00 | NUR ---
PATIENT IN BED WATCHING TV. HOB 40 DEGREES. AAOX4. RR EVEN AND UNLABORED. 0 S/S OF DISTRESS. STATES PAIN IS A 7/10. LEFT PICC PATENT WITH DRESSING CDI. PATIENT HOLDING GAUZE OVER FISTULA TO ABD. SRX2. BED LOW. CALL LIGHT WITHIN REACH.
[2016-09-30 20:00] VITALS: BP 133/52
[2016-10-01] VITALS: BP 130/56
[2016-10-01 04:00] VITALS: BP 126/57
[2016-10-01 05:20] LABS: CALC OSMOLALITY 276 mosm/kg (275-300); CALCIUM 8.6 mg/dL (8.5-10.1); CARBON DIOXIDE 31.4 mmol/L (21.0-32.0); CHLORIDE - SERUM 103 mmol/L (98-107); CREATININE - SERUM 0.7 mg/dL (0.6-1.3); GLUCOSE 101 mg/dL (74-106); MAGNESIUM - SERUM 1.8 mg/dL (1.8-2.4); PHOSPHOROUS 4.4 mg/dL (2.5-4.9); POTASSIUM - SERUM 4.1 mmol/L (3.5-5.1); SODIUM 139 mmol/L (136-145); UREA NITROGEN 11 mg/dL (7-18); eGFR NON AFRICAN AMERICAN 88 mL/min (90-120)
--- NOTE | 2016-10-01 07:00 | NUR ---
PT REC'D FROM NIDHI VILLARREAL. RESTING IN BED. AAOX4. REGULAR HEART RATE AND RHYTHM. LUNG SOUNDS CLEAR AND EQUAL BILAT. ABD FLAT WITH FISTULA AT SURFACE OF SKIN. SKIN SURROUNDING FISTULA RED AND EXCORIATED. 4X4'S CHANGED AT THIS TIME. RATING CURRENT PAIN 6/10. MORPHINE TWISTING FRAME OPERATOR INFUSING. L UPPER ARM PICC DRESSING CDI. DRESSING TO R GROIN CDI ALSO. BED LOW, CALL LIGHT IN REACH, DENIES NEEDS. CPOC.
[2016-10-01 08:48] VITALS: BP 141/51
--- NOTE | 2016-10-01 09:30 | NUR ---
ALERTED BY PT THAT THE PROTONIX PILL SHE TOOK THIS MORNING, "POPPED OUT" OF HER FISTULA. DR. SANZ PAGED.
--- NOTE | 2016-10-01 10:00 | NUR ---
DR. SANZ ON PHONE. NEW ORDER REC'D. PT RESTING IN BED REPLACING 4X4'S ON FISTULA. NO COMPLAINTS, BED LOW, CALL LIGHT IN REACH, DENIES NEEDS. CPOC.
--- NOTE | 2016-10-01 10:52 | NUR ---
MORNING MEDS PASSED AT THIS TIME. TOLERATED WELL. BED LOW, CALL LIGHT IN REACH, DENIES NEEDS. CPOC.
[2016-10-01 12:15] VITALS: BP 146/57
--- NOTE | 2016-10-01 15:20 | NUR ---
PATIENT RESTING IN BED. PATIENT IS AWAKE, ALERT, AND ORIENTED X4. PATIENT RATES HER PAIN LEVEL A "7" ON A 0-10 SCALE. PATIENT COMPLAINS OF PAIN IN HER ABDOMEN. SOURCING SPECIALIST MORPHINE IN USE AT BEDSIDE. PATIENT IS ON CONTACT ISOLATION PRECAUTIONS. PATIENT DENIES ANY NEEDS AT PRESENT TIME. CALL LIGHT IN PATIENT'S REACH. WILL MONITOR.
--- NOTE | 2016-10-01 15:44 | NUR ---
DRESSING TO FISTULA ADJUSTED. SILVADENE CREAM APPLIED TO REDDENED SKIN AROUND FISTULA. BED LOW, CALL LIGHT IN REACH, DENIES NEEDS. CPOC.
[2016-10-01 16:14] VITALS: BP 139/56
--- NOTE | 2016-10-01 19:35 | NUR ---
AWAKE AND ALERT, DENIES NEEDS AT THIS TIME. CALL LIGHT IN REACH. WILL CONTINUE WITH PLAN OF CARE.
[2016-10-01 20:00] VITALS: BP 134/84
--- NOTE | 2016-10-01 21:28 | NUR ---
AWAKE AND ALERT AT THIS TIME. SCHEDULED MEDICATIONS ADMINISTERED. PT SELF MANAGING FISTULA DRAINAGE WITH 4X4'S AND ABD PADS. ASSESSMENT PERFORMED PER FLOWSHEET. PT REMAINS IN CONTACT ISOLATION. WAREHOUSE INVENTORY CLERK IN USE FOR PAIN CONTROL. SELF POSITIONS AND AMBUALTES INDEPENDENTLY. DENIES NEEDS AT PRESENT TIME. WILL CONTINUE WITH PLAN OF CARE.
[2016-10-02 05:16] LABS: CALC OSMOLALITY 281 mosm/kg (275-300); CALCIUM 8.5 mg/dL (8.5-10.1); CARBON DIOXIDE 30.9 mmol/L (21.0-32.0); CHLORIDE - SERUM 105 mmol/L (98-107); CREATININE - SERUM 0.7 mg/dL (0.6-1.3); MAGNESIUM - SERUM 1.5 mg/dL (1.8-2.4); SODIUM 140 mmol/L (136-145); UREA NITROGEN 12 mg/dL (7-18); eGFR NON AFRICAN AMERICAN 88 mL/min (90-120)
[2016-10-02 05:17] LABS: GLUCOSE 152 mg/dL (74-106)
[2016-10-02 09:45] VITALS: BP 154/60
[2016-10-02 13:40] VITALS: BP 149/78
[2016-10-02 16:55] VITALS: BP 150/69
--- NOTE | 2016-10-02 19:15 | NUR ---
PATIENT IS AWAKE, ALERT AND ORIENTED X'S 4. RESPIRATIONS ARE EVEN AND UNLABORED ON ROOM AIR. PATIENT DENIES NEEDS AT THIS TIME.
--- NOTE | 2016-10-02 19:35 | NUR ---
RECIEVED SHIFT REPORT. PT IS LYING IN BED. ALERT AND ORIENTED AND ABLE TO VERBALIZE NEEDS. IV IS PATENT AND FLUIDS ARE RUNNING PER ORDER. PT REFUSES SCD'S AT THIS TIME. PT IS AMBULATORY BUT WAS INSTRUCTED TO CALL FOR ANY ASSISTANCE NEEDED. PT STATES PAIN IS 9/10 WITH STAFFING SPECIALIST PUMP. ISOLATION PRECAUTIONS IN PLACE. NO NEEDS ARE VERBALIZED AT THIS TIME. WILL CONTINUE TO MONITOR. SIDE RAILS ARE UP X 2. BED IS IN LOWEST POSITION. CALL LIGHT IS WITHIN REACH.
[2016-10-02 20:00] VITALS: BP 137/61
--- NOTE | 2016-10-02 20:19 | NUR ---
SHIFT ASSESSMENT COMPLETED. NIGHT MEDS GIVEN WITH NO PROBLEMS. NO NEEDS ARE VOICED. WILL MONITOR. SIDE RAILS X 2. BED LOW. CALL LIGHT IN REACH.
[2016-10-03] VITALS: BP 165/75
[2016-10-03 04:00] VITALS: BP 153/66
[2016-10-03 06:35] LABS: CALC OSMOLALITY 279 mosm/kg (275-300); CALCIUM 8.8 mg/dL (8.5-10.1); CARBON DIOXIDE 27.6 mmol/L (21.0-32.0); CHLORIDE - SERUM 104 mmol/L (98-107); CREATININE - SERUM 0.6 mg/dL (0.6-1.3); GLUCOSE 133 mg/dL (74-106); MAGNESIUM - SERUM 1.2 mg/dL (1.8-2.4); PHOSPHOROUS 4.2 mg/dL (2.5-4.9); POTASSIUM - SERUM 3.6 mmol/L (3.5-5.1); SODIUM 140 mmol/L (136-145); UREA NITROGEN 10 mg/dL (7-18); eGFR NON AFRICAN AMERICAN > 90 mL/min (90-120)
[2016-10-03 08:31] VITALS: BP 148/54
--- NOTE | 2016-10-03 09:14 | NUR ---
PT SEEN AND ASSESSED. NO COMPLAINTS AT PRESENT EXCEPT FOR DRAINAGE TO LOWER INCISION. INCISION LOOKS GOOD-VERY SMALL AMOUNT OF REDDNESS NOTED. PT WORKING WITH 4X4S AND DABBING AT INCISION. STATES PEARCE MORE THAN ANYTHING. PICC LINE NOTED LEFT FOREARM. DRESSING INTACT. REMAINS ON CONTACT ISOLATION. CALL LIGHT IN REACH
[2016-10-03 11:39] VITALS: BP 134/62
--- NOTE | 2016-10-03 13:30 | NUR ---
NUTRITION MONITORING & EVAL CHART REVIEWED. MAG NAVA. RN ADMINISTERING RIDER. PT NPO. RENEWED AM LABS X4 DAYS. RD FOLLOWING
[2016-10-03 15:25] VITALS: BP 128/68
--- NOTE | 2016-10-03 19:25 | NUR ---
RECIEVED SHIFT REPORT. PT IS LYING IN BED. ALERT AND ORIENTED AND ABLE TO VERBALIZE NEEDS. IV IS PATENT AND FLUIDS ARE RUNNING PER ORDER. PT IS AMBULATORY BUT WAS INSTRUCTED TO CALL FOR ANY ASSISTANCE NEEDED. PT REFUSES SCD'S AT THIS TIME. PT STATES PAIN IS 8/10 WITH MECHANICAL STRIPER PUMP. ISOLATION PRECAUTIONS IN PLACE. NO NEEDS ARE VERBALIZED AT THIS TIME. WILL CONTINUE TO MONITOR. SIDE RAILS ARE UP X 2. BED IS IN LOWEST POSITION. CALL LIGHT IS WITHIN REACH.
[2016-10-03 20:26] VITALS: BP 161/59
--- NOTE | 2016-10-03 21:14 | NUR ---
SHIFT ASSESSMENT COMPLETED. NIGHT MEDS GIVEN WITH NO PROBLEMS. NO NEEDS ARE VOICED. WILL MONITOR. SIDE RAILS X 2. BED LOW. CALL LIGHT IN REACH.
[2016-10-04] VITALS (7 sets, daily range): BP systolic 132–191; BP diastolic 58–80
[2016-10-04 06:17] LABS: CALC OSMOLALITY 283 mosm/kg (275-300); CALCIUM 8.4 mg/dL (8.5-10.1); CARBON DIOXIDE 28.3 mmol/L (21.0-32.0); CHLORIDE - SERUM 105 mmol/L (98-107); CREATININE - SERUM 0.7 mg/dL (0.6-1.3); GLUCOSE 145 mg/dL (74-106); PHOSPHOROUS 3.7 mg/dL (2.5-4.9); POTASSIUM - SERUM 3.3 mmol/L (3.5-5.1); SODIUM 141 mmol/L (136-145); UREA NITROGEN 12 mg/dL (7-18); eGFR NON AFRICAN AMERICAN 88 mL/min (90-120)
[2016-10-04 06:18] LABS: MAGNESIUM - SERUM 1.8 mg/dL (1.8-2.4)
--- NOTE | 2016-10-04 08:15 | NUR ---
PT RESTING IN BED WITH EYES OPEN CALL LIGHT IN REACH WILL MONITER
--- NOTE | 2016-10-04 11:00 | NUR ---
PT TAKING TO OR FOR ABDOMINAL DRAIN PLACEMENT
--- NOTE | 2016-10-04 12:15 | NUR ---
PT RESTING IN BED WITH EYES OPEN CALL LIGHT IN REACH WILL MONITER
--- NOTE | 2016-10-04 14:05 | NUR ---
RESTING QUIETLY IN BED. AT BEDSIDE. NO NEEDS NOTED. PICC LINE FLUSHED WITH GOOD BLOOD RETURN. DENIES NEEDS. DRESSING TO OSTOMY BAG DRY AND INTACT
--- NOTE | 2016-10-04 17:45 | NUR ---
PT RESTING IN BED WITH EYES OPEN CALL LIGHT IN REACH WILL MONITER
--- NOTE | 2016-10-04 19:35 | NUR ---
RECIEVED SHIFT REPORT. PT IS LYING IN BED. ALERT AND ORIENTED AND ABLE TO VERBALIZE NEEDS. IV IS PATENT AND FLUIDS ARE RUNNING PER ORDER. PT IS AMBULATORY BUT WAS INSTRUCTED TO CALL FOR ANY ASSISTANCE NEEDED. PT REFUSES SCD'S. PT STATES PAIN IS 8/10 WITH TAPER PRINTED CIRCUIT LAYOUT PUMP. COLOSTOMY BAG NOTED OVER T-DRAIN IN FISTULA ON ABDOMEN. NO NEEDS ARE VERBALIZED AT THIS TIME. WILL CONTINUE TO MONITOR. SIDE RAILS ARE UP X 2. BED IS IN LOWEST POSITION. CALL LIGHT IS WITHIN REACH.
--- NOTE | 2016-10-04 20:15 | NUR ---
SHIFT ASSESSMENT COMPLETED. NIGHT MEDS GIVEN WITH NO PROBLEMS. PT C/O NAUSEA. ADMINISTERED PRESCRIBED PRN ZOFRAN PER ORDER. DENIES FURTHER NEEDS. WILL MONITOR. SIDE RAILS X 2. BED LOW. CALL LIGHT IN REACH.
[2016-10-05 04:00] VITALS: BP 133/61
[2016-10-05 06:17] LABS: CALC OSMOLALITY 277 mosm/kg (275-300); CALCIUM 8.7 mg/dL (8.5-10.1); CARBON DIOXIDE 27.8 mmol/L (21.0-32.0); CHLORIDE - SERUM 105 mmol/L (98-107); CREATININE - SERUM 0.7 mg/dL (0.6-1.3); GLUCOSE 107 mg/dL (74-106); MAGNESIUM - SERUM 1.4 mg/dL (1.8-2.4); PHOSPHOROUS 3.6 mg/dL (2.5-4.9); POTASSIUM - SERUM 3.4 mmol/L (3.5-5.1); SODIUM 140 mmol/L (136-145); UREA NITROGEN 11 mg/dL (7-18); eGFR NON AFRICAN AMERICAN 88 mL/min (90-120)
[2016-10-05 08:01] VITALS: BP 165/77
--- NOTE | 2016-10-05 11:32 | NUR ---
picc line dressing changed along with stat lock per practical nursing faculty
[2016-10-05 11:41] VITALS: BP 142/68
[2016-10-05 16:52] VITALS: BP 142/64
--- NOTE | 2016-10-05 18:25 | NUR ---
NO COMPLAINTS AT PRESENT. ABDOMEN WOUND HAS BEEN FAIRLY DRY WITH PT EXCHANGING 4X4S NEEDED. T-TUBE DRAIN IS PLACED INSIDE A OSTOMY BAG. PICC LINE DRESSING HAS BEENN CHANGED AND LABELED. CALL LIGHT IN REACH.
[2016-10-05 20:00] VITALS: BP 149/64
--- NOTE | 2016-10-05 21:03 | NUR ---
AWAKE,ALERT,NO COMPLAINTS VOICED. DRAIN TO ABDMONEN INTACT WIHT DRAINAGE BAG OVER SITED. 4X4 TO SITE WIHTOUT DRAINAGE AT THIS TIME. IV INFUSING TO LEFT PICC WIHTOUT REDNESS OR EDEMA NOTED. CL IN REACH.
[2016-10-06] VITALS: BP 139/66
--- NOTE | 2016-10-06 05:07 | NUR ---
PT SITTING UP IN BED, SUPERVISOR ASSEMBLY DEPARTMENT IN ROOM DRAWING LAB FROM PICC, NO DISTRESS NOTED, PT DENIES NEEDS, FALL AND ISOLATION PRECAUTIONS IN PLACE, CL IN REACH
[2016-10-06 06:11] LABS: CALC OSMOLALITY 279 mosm/kg (275-300); CARBON DIOXIDE 29.4 mmol/L (21.0-32.0); CHLORIDE - SERUM 106 mmol/L (98-107); CREATININE - SERUM 0.7 mg/dL (0.6-1.3); GLUCOSE 123 mg/dL (74-106); MAGNESIUM - SERUM 1.3 mg/dL (1.8-2.4); PHOSPHOROUS 3.7 mg/dL (2.5-4.9); POTASSIUM - SERUM 3.1 mmol/L (3.5-5.1); SODIUM 140 mmol/L (136-145); UREA NITROGEN 12 mg/dL (7-18); eGFR NON AFRICAN AMERICAN 88 mL/min (90-120)
[2016-10-06 08:21] VITALS: BP 144/66
--- NOTE | 2016-10-06 08:41 | NUR ---
PT ASSESSMENT COMPLETE PT ON ELECTROLYTE PROTOCOL WAS GIVEN KCL PER PROTOCOL. WILL RECHECK LAB AT 11 AM. T TUBE TO OSTOMY POUCH NOTED. GREEN BILE FLUID NOTED. ALL ADLS PER STAFF ASSSIT. CALL LIGHT IN REACH SIDE RAILS UP X 2
--- NOTE | 2016-10-06 09:50 | NUR ---
PATIENT AWAKE, ALERT AND ORIENTED X'S 4. RESPIRATIONS ARE EVEN AND UNLABORED ON ROOM AIR. PATIENT DENIES NEEDS, VERBALIZING FEELINGS OF SADNESS R/T WOUND.
[2016-10-06 11:35] VITALS: BP 140/62
--- NOTE | 2016-10-06 12:51 | NUR ---
Nutrition Follow Up: Chart reviewed. Pt with abdominal drain placement 10/04/16. Labs reviewed. Meds noted. No new wt to assess. Pt is receiving TPN of D25 AA 4.25% @ 40 ml/hr. Rec continue current TPN regimen. Rec obtaining a current wt on pt. RD following.
--- NOTE | 2016-10-06 12:53 | NUR ---
PT WITH NO ACUTE DISTRESS NTOED CALL LIGHT INREACH SIDE RAILS UP X 2 FAMILY AT SIDE
--- NOTE | 2016-10-06 16:52 | NUR ---
PT RESTING WELL IN BED NO DISTRES SNTOED VOICES NEEDS CALL LIGHT IN REACH SIDE RAILS UP X2
[2016-10-06 20:00] VITALS: BP 151/60
--- NOTE | 2016-10-06 20:45 | NUR ---
AWAKE,WATCHING TV QUIETLY. NO COMPLAINTS VOICED. IV INFUSING TO LEFT PICCC WITHOUT REDNESS OR EDEMA. CL IN REACH.
[2016-10-07] VITALS: BP 151/55
[2016-10-07 04:00] VITALS: BP 166/64
--- NOTE | 2016-10-07 04:21 | NUR ---
CONTACT ISOLATION. PT RESTING QUIETLY, EYES CLOSED. RESP EVEN, UNLABORED. NO DISTRESS NOTED. CONTINUE AUTO MACHINIST'S PLAN OF CARE.
--- NOTE | 2016-10-07 06:04 | NUR ---
AWAKE WIHT NO COMPLAINTS VOICED. NO CHANGE IN ASSENSSMENT. CL IN READCH.
[2016-10-07 07:25] LABS: CALC OSMOLALITY 278 mosm/kg (275-300); CALCIUM 8.7 mg/dL (8.5-10.1); CARBON DIOXIDE 29.5 mmol/L (21.0-32.0); CHLORIDE - SERUM 105 mmol/L (98-107); CREATININE - SERUM 0.8 mg/dL (0.6-1.3); GLUCOSE 146 mg/dL (74-106); MAGNESIUM - SERUM 1.1 mg/dL (1.8-2.4); SODIUM 138 mmol/L (136-145); UREA NITROGEN 12 mg/dL (7-18); eGFR NON AFRICAN AMERICAN 75 mL/min (90-120)
--- NOTE | 2016-10-07 08:44 | NUR ---
PT AWAKE AND ALERT ORINETED X 3 LUNGS CLAER BILATERALLY BSA X 4 QUADS. T TUBE TO ABDOMEN NOTED PT COMPLAINS THIS AM OF PAIN AT SITE NOTED CUFF APPEARS TO BE COMING OUT. PAGED DR JUSTICE TO INFORM OF CHANGE OF PLACEMENT
[2016-10-07 10:09] VITALS: BP 183/72
--- NOTE | 2016-10-07 11:05 | NUR ---
NUTRITION MONITORING & EVAL CHART REVIEWED. SPOKE WITH NURSING RE:REPLACE MAG, PHOS. TPN RENEWED, AM LABS ORDERED. RD FOLLOWING
--- NOTE | 2016-10-07 11:10 | NUR ---
pt seen and assessed. complaints of burning from drainage to lower abdomen. keeps 4x4s in place to try to stop the flow of drainage. t tube is partially out draining little into ostomy bag. picc line left arm with current dressing in place. states did not sleep much last night. call light in place.
[2016-10-07 11:47] VITALS: BP 178/70
--- NOTE | 2016-10-07 13:40 | NUR ---
DR PECK HERE EARLIER T TUBE REMOVED AND NEW DRESSING APPLIED PER DR PECK AND WOUND CARE NURSE. NO DRAINAGE NOTED AT THIS TIME. WILL CONTINUE TO MONITOR
--- NOTE | 2016-10-07 14:55 | NUR ---
REPORT RECEIVED FROM OSMAN VAZQUEZ.
--- NOTE | 2016-10-07 16:33 | NUR ---
POTASSIUM RIDER INITIATED PER ELECTROLYTE PROTOCOL.
[2016-10-07 16:38] VITALS: BP 152/66
--- NOTE | 2016-10-07 18:16 | NUR ---
NAYAN APPLIED TO WOUND PER NIDHI KAUFMAN. NO CHANGES IN INITIAL ASSESSMENT. CALL LIGHT IN REACH. WILL CONTINUE WITH PLAN OF CARE.
[2016-10-07 19:00] VITALS: BP 116/62
[2016-10-08] VITALS: BP 124/58
--- NOTE | 2016-10-08 01:07 | NUR ---
REMAINS IN CONTACT ISOLATION.PT IS ASLEEP WITH EASY RESPIRATIONS AND NO O2 NOTED. SHE DREMAINS ON A 1ST STEP AIR MATTRESS AND IS GETTING UP FOR THE BATHROOM. THE BED IS LOW, RAILS UP X'S 2 WITH THE CALL LIGHT AT HAND.
[2016-10-08 04:00] VITALS: BP 166/64
--- NOTE | 2016-10-08 05:21 | NUR ---
0130) DRSG. CHGED.EARLIER BY NURSE UNABLE TO MAINTAIN GOOD SEAL CONTINUES TO LEAK.STATES BURNING MY SKIN JUST LIKE BEFORE.FROM THE DRAINAGE DO SOMETHING.BATHED SKIN CARE GIVEN. LINENS CHGED.DRSG. CHGED X2 BY LATOSHA BARROS RN CONTINUES TO LEAK DRSG. REINFORCED,LINENS CHGED EXPLAINED HAVE DONE EVERY POSSIBLE ALL DAY TO OBTAIN GOOD SEAL WITH NO SUCCESS.WILL HAVE TO WAIT ON DR TO ADDRESS THIS PROBLEM.LOUIS SHERIDAN HOUSESUPERVISOR NOTIFIED OF SITUATION
[2016-10-08 07:55] LABS: CALC OSMOLALITY 280 mosm/kg (275-300); CALCIUM 8.5 mg/dL (8.5-10.1); CARBON DIOXIDE 29.6 mmol/L (21.0-32.0); CHLORIDE - SERUM 106 mmol/L (98-107); CREATININE - SERUM 0.7 mg/dL (0.6-1.3); GLUCOSE 132 mg/dL (74-106); PHOSPHOROUS 4.4 mg/dL (2.5-4.9); POTASSIUM - SERUM 3.4 mmol/L (3.5-5.1); SODIUM 140 mmol/L (136-145); UREA NITROGEN 12 mg/dL (7-18); eGFR NON AFRICAN AMERICAN 88 mL/min (90-120)
[2016-10-08 07:56] LABS: MAGNESIUM - SERUM 1.8 mg/dL (1.8-2.4)
--- NOTE | 2016-10-08 08:00 | NUR ---
ALERT IN HIGH HE POSITION. RESPIRATIONS EVEN AND UNLABORED. SIDE RAILS UP X2. BED IN LOW POSITION. CALL LIGHT IN REACH.
[2016-10-08 09:00] VITALS: BP 161/79
[2016-10-08 16:17] VITALS: BP 167/66
[2016-10-08 20:00] VITALS: BP 172/56
--- NOTE | 2016-10-08 20:49 | NUR ---
ADMINISTERED NIGHT TIME MEDS AND BROUGHT PATIENT 4X4 GAUZE. PATIENT DENIES OTHER NEEDS AT THIS TIME. BED IN LOWEST POSITION AND CALL LIGHT WITHIN REACH. ENCOURAGED PATIENT TO CALL IF SHE HAS FURTHER NEEDS.
--- NOTE | 2016-10-08 21:43 | NUR ---
PATIENT RESTING IN BED. NO SIGNS OF DISTRESS NOTED. ALERT AND ORIENTED. SHIFT ASSESSMENT COMPLETED. DENIES ANY NEEDS AT THIS TIME. BED LOW. CALL LIGHT IN REACH
[2016-10-09] VITALS: BP 172/65
[2016-10-09 04:00] VITALS: BP 180/69
[2016-10-09 06:48] LABS: CALC OSMOLALITY 280 mosm/kg (275-300); CALCIUM 8.7 mg/dL (8.5-10.1); CARBON DIOXIDE 26.5 mmol/L (21.0-32.0); CHLORIDE - SERUM 105 mmol/L (98-107); CREATININE - SERUM 0.7 mg/dL (0.6-1.3); GLUCOSE 141 mg/dL (74-106); MAGNESIUM - SERUM 1.8 mg/dL (1.8-2.4); PHOSPHOROUS 4.9 mg/dL (2.5-4.9); POTASSIUM - SERUM 3.6 mmol/L (3.5-5.1); SODIUM 140 mmol/L (136-145); UREA NITROGEN 12 mg/dL (7-18); eGFR NON AFRICAN AMERICAN 88 mL/min (90-120)
--- NOTE | 2016-10-09 08:45 | NUR ---
PATIENT ALERT IN HIGH HE POSITION. RESPIRATIONS EVEN AND UNLABORED. SIDE RAILS UP X2. BED IN LOW POSITION. CALL LIGHT IN REACH.
[2016-10-09 09:17] VITALS: BP 157/59
[2016-10-09 11:53] VITALS: BP 166/66
[2016-10-09 15:33] VITALS: BP 142/68
[2016-10-09 20:00] VITALS: BP 147/63
--- NOTE | 2016-10-09 21:08 | NUR ---
PATIENT RESTING IN BED. NO SIGNS OF DISTRESS NOTED. ALERT AND ORIENTED. SCHEDULED MED GIVEN. SHIFT ASSESSMENT COMPLETED. DENIES ANY NEEDS AT THIS TIME. BED LOW. CALL LIGHT IN REACH
--- NOTE | 2016-10-09 22:09 | NUR ---
BED BATH GIVEN AND LINENS CHANGED. NO OTHER NEEDS VOICED. CALL LIGHT IN REACH
[2016-10-10] VITALS: BP 179/65
--- NOTE | 2016-10-10 01:30 | NUR ---
RESTING WITH EYES CLOSED, RESP WITH EASE, DRY GAUZE BANDAGE COVERING ABD, FALL AND ISOLATION PRECAUTIONS IN PLACE, CL IN REACH
[2016-10-10 04:00] VITALS: BP 169/68
[2016-10-10 08:22] VITALS: BP 151/64
--- NOTE | 2016-10-10 08:30 | NUR ---
PT AOX4 RESP EVEN AND NONLABORED IV PICC TO LEFT AC PATENT AND INTACT SRX2 BED AT LOWEST SETTING CALL LIGHT WITHIN REACH WILL CONTINUE TO MONITOR
[2016-10-10 11:50] VITALS: BP 172/64
[2016-10-10 15:46] VITALS: BP 149/59
[2016-10-10 20:00] VITALS: BP 150/61
--- NOTE | 2016-10-10 21:50 | NUR ---
PATIENT SITTING UP IN BED WATCHING TV. NO SIGNS OF DISTRESS NOTED. CONTINUES TO CHANGE DRESSING TO ABD BY HERSELF NEEDED. SCHEDULED MED GIVEN. SHIFT ASSESSMENT COMPLETED. NO NEEDS VOICED AT THIS TIME. BED LOW. CALL LIGHT IN REACH
--- NOTE | 2016-10-11 01:56 | NUR ---
PATIENT RESTING IN BED WITH EYES CLOSED. NO VISIBLE SIGNS OF DISTRESS. BED IN LOWEST POSITION AND CALL LIGHT WITHIN REACH.
[2016-10-11 04:00] VITALS: BP 149/59
[2016-10-11 06:36] LABS: CALCIUM 8.9 mg/dL (8.5-10.1); CARBON DIOXIDE 31.5 mmol/L (21.0-32.0); CHLORIDE - SERUM 104 mmol/L (98-107); CREATININE - SERUM 0.7 mg/dL (0.6-1.3); GLUCOSE 127 mg/dL (74-106); PHOSPHOROUS 5.7 mg/dL (2.5-4.9); SODIUM 140 mmol/L (136-145); eGFR NON AFRICAN AMERICAN 88 mL/min (90-120)
[2016-10-11 06:41] LABS: CALC OSMOLALITY 281 mosm/kg (275-300); POTASSIUM - SERUM 4.4 mmol/L (3.5-5.1); UREA NITROGEN 16 mg/dL (7-18)
--- NOTE | 2016-10-11 08:02 | NUR ---
RECIEVED REPORT FROM NIDHI HARVEY. PATIENT IS AWAKE, AND ALERT. PATIENT DENIES NEEDS AT THIS TIME.
[2016-10-11 08:17] VITALS: BP 166/62
--- NOTE | 2016-10-11 09:22 | NUR ---
CHANGED THE BLUE LUMENS(NEEDLE CONNECTORS) ON THE PICC LINE. CLEANED WITH ALCOHOL SWAB CAPS AND ALCOHOL WIPES IN BETWEEN REMOVING OLD AND APPLYING NEW. FLUSHED EACH LUMEN WITH 10ML SALINE FLUSH, ONE AT A TIME, ASPIRATED BLOOD RETURN, FROM BOTH LUMENS. AFTER ASPIRATING FLUSHED WITH 10ML SALINE FLUSH TO BILATERAL LINES. CLAMPED. APPLIED SWAB CAPS.
--- NOTE | 2016-10-11 09:55 | NUR ---
CHANGED TUBING TO NORMAL SALINE AND NIPPLE MACHINE OPERATOR TUBING. CONNECTED TPN. CONNECTED NORMAL SALINE. NORMAL SALINE LINE SAYING 'PATIENT SIDE OCCLUDED' REMOVED NEEDLESS CONNECTOR..HARD TO REMOVED USED HEMASTATS.. TRIED TO FLUSH, WOULD FLUSH OR ASPIRATE. THE PURPLE LUMEN INFUSING TPN WORKING FINE. THE PICC LINE IS VISIBLE UNDER THE DRESSING, THE CATHETER IS VISIBLE AT THE TOP OF THE DRESSING WITH A BIOPATCH INTACT. THE STAT LOCK IS SECURED TO THE AREA THAT THE LUMENS SPLIT AND IS VISIBLE AT THE OPPOSITE END OF THE DRESSING. CALLED YOVANY SADLER RN VASCULAR ACCESS NURSE. SHE STATED "ASK TODAY WHEN HE ROUNDS IF WE CAN PUT THE PICC LINE BACK ON THE RIGHT SIDE."
--- NOTE | 2016-10-11 10:15 | NUR ---
CALLED PHARMACY SPOKE WITH ROBERT, PHARMACIST. ASKED HIM IF THE STEAM BLOCKER MORPHINE CAN BE Y-SITED INTO THE PATIENT'S TUBING. ROBERT SAID HE CHECKED ALL THE ADDITIVES IN THE TPN AND THEY ARE COMPATIBLE AT THE Y-SITE. CONNECTED STEAM BLOCKER Y-SITED INTO THE TPN. PATIENT DENIES NEEDS AT THIS TIME.
[2016-10-11 12:08] VITALS: BP 151/60
--- NOTE | 2016-10-11 12:47 | NUR ---
NUTRITION MONITORING & EVAL CHART REVIEWED, SPOKE WITH PHARMACY RE:RICHY PHOBenitez. ADJUSTED AND RENEWED TPN, ORDERED AM LABS. RD FOLLOWING
--- NOTE | 2016-10-11 13:02 | NUR ---
YOVANY SADLER IN ROOM.
--- NOTE | 2016-10-11 14:52 | OP ---
PATIENT NAME: ROD MAK MEDICAL RECORD: [id number] :47 LOCATION:[id number] ADMISSION DATE:07/16/16 SURGEON: TODD SANZ MD DATE OF OPERATION: 10/04/2016 PREOPERATIVE DIAGNOSIS: Enterocutaneous fistula. POSTOPERATIVE DIAGNOSIS: Enterocutaneous fistula. PROCEDURE: Intestinal T-tube placement. SURGEON: Todd Sanz MD. 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 I probed the area with my pinky finger and was able to feel both limbs of the small bowel extending down. I had a 20-[place] T-tube, which I cut the ends off of and on the T portion of it and over top of this, I placed a 24-[place]ot type of urethral catheter. Both sides of the T were approximately 4-5 cm in length. I was able to place both of these ends of the tube into the different limbs of the small bowel to hopefully bypass this opening. This appeared to lie in good position. The skin was then cleaned off and an ostomy bag was placed over the enterocutaneous fistula and the end of the T-tube was placed into the bag. COMPLICATIONS: None. CONDITION: Stable. ANESTHESIA: TIVA. BLOOD LOSS: Minimal. TRANSINT:[id number] Voice Confirmation ID: [id number] DOCUMENT ID: [id number] TODD SANZ MD at 1452 CC: [facility] JUSTICE MD [id number] DICTATION DATE: 10/04/16 1221 DOOR MANAGER: 10/04/16 1924 ADM IN [place] [id number] [place] [address]
[2016-10-11 16:28] VITALS: BP 137/40
[2016-10-11 19:00] VITALS: BP 156/63
--- NOTE | 2016-10-11 21:36 | NUR ---
AWAKE,ALERT. ORIENTED. RIGHT PICC LINE INTACT WIHT IV AND TPN INFUING WIHTOUT REDNESS OR EDEMA NOTED. G TUBE TO ABD INTACT. CONTINUES TO HAVE DRAINAGE AROUND TUBE. BASKET FILLER MORPHINE IN USE FOR PAIN CONTROL. CL IN REACH.
--- NOTE | 2016-10-12 01:36 | NUR ---
RESTING QUIETLY. NO DITRESS NOTED.
--- NOTE | 2016-10-12 02:00 | NUR ---
PT IN BED WITH NO DISTRESS. RESPIRATIONS EVEN AND UNLABORED. SIDE RAILS X 2. BED LOW. CALL LIGHT IN REACH.
[2016-10-12 04:00] VITALS: BP 159/62
--- NOTE | 2016-10-12 06:11 | NUR ---
NO CHANGE IN ASSESSMNET. CL IN REACH.
[2016-10-12 07:11] LABS: CALC OSMOLALITY 280 mosm/kg (275-300); CALCIUM 8.9 mg/dL (8.5-10.1); CARBON DIOXIDE 32.8 mmol/L (21.0-32.0); CHLORIDE - SERUM 104 mmol/L (98-107); CREATININE - SERUM 0.8 mg/dL (0.6-1.3); GLUCOSE 127 mg/dL (74-106); MAGNESIUM - SERUM 1.8 mg/dL (1.8-2.4); PHOSPHOROUS 4.4 mg/dL (2.5-4.9); POTASSIUM - SERUM 4.2 mmol/L (3.5-5.1); SODIUM 139 mmol/L (136-145); UREA NITROGEN 16 mg/dL (7-18); eGFR NON AFRICAN AMERICAN 75 mL/min (90-120)
[2016-10-12 08:25] VITALS: BP 169/67
[2016-10-12 10:59] VITALS: BP 140/68
--- NOTE | 2016-10-12 15:43 | NUR ---
PT PICC LINE DRESSING CHANGED VIA STERILE TECHNIQUE
[2016-10-12 16:01] VITALS: BP 132/64
[2016-10-12 20:49] VITALS: BP 143/52
--- NOTE | 2016-10-12 21:17 | NUR ---
SITTING UP IN BED. PATIENT HAS TAKEN OFF ABD DRSG. ATTEMPTING TO REPLACE. DRSG. INFORMED PATIENT SHE SHOULD NOT BE TAKING DRSG OFF AND REPLACING IT. STATES." I KNOW HOW IT IS TO BE DONE AND ITS BURNING.EXPLAINED IT WAS A PRESSURE DRESSING. STATES' I KNOW THAT'. CONTIUES TO REPLACE DRESSING.
--- NOTE | 2016-10-13 02:48 | NUR ---
RESTING QUIETLY. NO DISTRESS NOTED.
[2016-10-13 04:00] VITALS: BP 157/49
[2016-10-13 06:02] LABS: CALC OSMOLALITY 278 mosm/kg (275-300); CALCIUM 9.1 mg/dL (8.5-10.1); CHLORIDE - SERUM 104 mmol/L (98-107); CREATININE - SERUM 0.8 mg/dL (0.6-1.3); GLUCOSE 129 mg/dL (74-106); MAGNESIUM - SERUM 1.8 mg/dL (1.8-2.4); PHOSPHOROUS 5.3 mg/dL (2.5-4.9); SODIUM 138 mmol/L (136-145); UREA NITROGEN 16 mg/dL (7-18); eGFR NON AFRICAN AMERICAN 75 mL/min (90-120)
--- NOTE | 2016-10-13 06:41 | NUR ---
RESTING QUIETLY RESPIRATIONS WITH EASE AND UNLABORED.
[2016-10-13 08:12] VITALS: BP 134/68
[2016-10-13 11:17] VITALS: BP 130/64
--- NOTE | 2016-10-13 12:10 | NUR ---
NUTRITION MONITORING & EVAL. CHART REVIEWED. AM LABS ORDERED. RD FOLLOWING
--- NOTE | 2016-10-13 12:27 | NUR ---
WOUND CARE: CONTINUED LEAKAGE FROM FISTULA (ABDOMEN) IS IRRITATING SKIN. REMOVED DRESSING, CLEANSED SKIN, DRIED AND APPLIED STOMA POWDER TO SOOTHE. PLACED NEW DRESSING USING 4X4S AND MEDIPORE.
--- NOTE | 2016-10-13 13:48 | NUR ---
WOUND CARE: PT C/O PAIN TO HER BOTTOM. NOTED A 1.5CM X 1CM DARKENED AREA DIRECTLY OVER SACRUM. VERY TENDER TO TOUCH, NON-BLANCHABLE. STAGE 1 PRESSURE INJURY. COVERED WITH A DUODERM LITE DRESSING AND INSTRUCTED PT TO REPOSITION HERSELF AT LEAST EVERY 2 HOURS OFF HER BOTTOM WHILE SHE IS IN BED. SHE HAS BEEN ON AN AIR OVERLAY MATTRESS SINCE HER ADMISSION INTO HOSPITAL. SHE IS ABLE TO TURN AND REPOSITION HERSELF. SHE VOICED UNDERSTANDING.
[2016-10-13 15:25] VITALS: BP 133/56
[2016-10-13 20:00] VITALS: BP 148/83
--- NOTE | 2016-10-13 22:05 | NUR ---
PATIENT SITTING UP IN BED. ALERT AND ORIENTED. NO SIGNS OF DISTRESS NOTED. SCHEDULED MEDS GIVEN. SHIFT ASSESSMENT COMPLETED. DENIES ANY NEEDS AT THIS TIME. BED LOW. CALL LIGHT IN REACH
[2016-10-14 04:00] VITALS: BP 143/60
--- NOTE | 2016-10-14 04:40 | NUR ---
PATIENT RESTING IN BED WITH OSMAN ALEXANDER AT BEDSIDE. NO VISBLE SIGNS OF DISTRESS NOTED. BED IN LOWEST POSITION AND CALL LIGHT WITHIN REACH.
[2016-10-14 05:42] LABS: CALC OSMOLALITY 279 mosm/kg (275-300); CALCIUM 9.2 mg/dL (8.5-10.1); CHLORIDE - SERUM 103 mmol/L (98-107); CREATININE - SERUM 0.8 mg/dL (0.6-1.3); GLUCOSE 93 mg/dL (74-106); MAGNESIUM - SERUM 1.8 mg/dL (1.8-2.4); POTASSIUM - SERUM 4.3 mmol/L (3.5-5.1); SODIUM 140 mmol/L (136-145); UREA NITROGEN 16 mg/dL (7-18); eGFR NON AFRICAN AMERICAN 75 mL/min (90-120)
--- NOTE | 2016-10-14 08:33 | NUR ---
Patient Name: ROD MAK Encounter No: [id number] : 1945 Primary Insurance: MEDICARE A & B Anticipated DC Date: 07-22-2016 Planned Disposition: Home or Self Care External Planned Provider: : DCP follow-up note: Patient and family in agreement with discharge plan. [facility]. Case management will follow and assist as needed. Nimo Berger
[2016-10-14 11:35] VITALS: BP 133/75
[2016-10-14 16:00] VITALS: BP 132/68
[2016-10-14 20:00] VITALS: BP 145/58
--- NOTE | 2016-10-14 22:56 | NUR ---
REC'D PATIENT SITTING UP IN BED ON HER COMPUTER. ALERT AND ORIENTED X4. DENIES PAIN AT THIS TIME. DENIES FURTHER NEEDS AT THIS TIME. INSTRUCTED TO CALL IF NEEDED ANYTHING. BED LOW, LOCKED, CALL LIGHT IN REACH.
--- NOTE | 2016-10-14 22:56 | NUR ---
PATIENT RESTING IN BED AND DENIES NEEDS AT THIS TIME. BED IN LOWEST POSITION AND CALL LIGHT WITHIN REACH. ENCOURAGED THE PATIENT TO CALL IF SHE HAS NEEDS.
--- NOTE | 2016-10-15 03:22 | NUR ---
PATIENT ASLEEP. NO DISTRESS NOTED. WILL CONT TO MONITOR. BED LOW, LOCKED, CALL LIGHT IN REACH.
[2016-10-15 04:00] VITALS: BP 159/47
[2016-10-15 09:55] VITALS: BP 141/72
--- NOTE | 2016-10-15 09:59 | NUR ---
PT AOX4 RESP EVEN AND NONLABORED PT DENIES NEEDS AT THIS TIME RIGHT PICC PATENT AND INTACT SRX2 CALL LIGHT WITHIN REACH WILL CONTINUE TO MONITOR
[2016-10-15 12:31] VITALS: BP 138/57
[2016-10-15 16:50] VITALS: BP 124/46
[2016-10-15 19:00] VITALS: BP 132/61
--- NOTE | 2016-10-15 23:17 | NUR ---
REC'D PATIENT SITTING UP IN BED ON THE PHONE. ALERT AND ORIENTED X4. REPORTED PAIN 7/10. HAS A MOLD UNLOADER PUMP THAT SHE ADMINISTERS HERSELF. NO DISTRESS NOTED. IS STILL CHANGING HER DRESSING TO ABD HERSELF. INSTRUCTED TO CALL IF NEEDED ANYTHING. BED LOW, LOCKED, CALL LIGHT IN REACH.
--- NOTE | 2016-10-16 03:57 | NUR ---
PT. IN BED WITH HOB UP FOR COMFORT WITH EYES CLOSED AND RESP. EVEN. TPN AND FURNACE HAND INFUSING VIA PUMP WITHOUT ANY ALARMS. PT. IS ON A FIRST STEP AIR MATTRESS ALSO. CALL LIGHT WITHIN REACH.
[2016-10-16 04:00] VITALS: BP 148/61
[2016-10-16 05:05] LABS: CALC OSMOLALITY 283 mosm/kg (275-300); CALCIUM 8.8 mg/dL (8.5-10.1); CARBON DIOXIDE 33.8 mmol/L (21.0-32.0); CHLORIDE - SERUM 103 mmol/L (98-107); CREATININE - SERUM 0.8 mg/dL (0.6-1.3); GLUCOSE 113 mg/dL (74-106); MAGNESIUM - SERUM 1.9 mg/dL (1.8-2.4); PHOSPHOROUS 4.8 mg/dL (2.5-4.9); SODIUM 141 mmol/L (136-145); UREA NITROGEN 19 mg/dL (7-18); eGFR NON AFRICAN AMERICAN 75 mL/min (90-120)
[2016-10-16 05:07] LABS: POTASSIUM - SERUM 3.6 mmol/L (3.5-5.1)
--- NOTE | 2016-10-16 06:57 | NUR ---
PATIENT IS SLEEPING IN BED. NO DISTRESS NOTED. INSTRUCTED TO CALL IF NEED ANYTHING. BED LOW LOCKED CALL LIGHT IN REACH.
--- NOTE | 2016-10-16 07:45 | NUR ---
PT AOX4 RESP EVEN AND NONLABORED PT DENIES NEEDS AT THIS TIME PICC IV TO RIGHT AC PATENT AND INTACT. ABDOMINAL DRESSING CLEAN DRY INTACT. SRX2 BED AT LOWEST SETTING CALL LIGHT WITHIN REACH WILL CONTINUE TO MONITOR
[2016-10-16 08:22] VITALS: BP 143/53
[2016-10-16 14:04] VITALS: BP 138/54
[2016-10-16 16:45] VITALS: BP 131/54
[2016-10-16 20:22] VITALS: BP 124/59
--- NOTE | 2016-10-16 22:35 | NUR ---
BROUGHT PATIENT 4X4 PADS PER HER REQUEST. PATIENT DENIES OTHER NEEDS AT THIS TIME. BED IN LOWEST POSITION AND CALL LIGHT WITHIN REACH. ENCOURAGED THE PATIENT TO CALL IF SHE HAS FURTHER NEEDS.
[2016-10-17] VITALS: BP 133/60
--- NOTE | 2016-10-17 01:24 | NUR ---
REC'D PATIENT SITTING UP IN BED. ALERT AND ORIENTED X4. REPORTED PAIN 7/10. NO DISTRESS NOTED. INSTRUCTED TO CALL IF NEED ANYTHING. VERBALIZED UNDERSTANDING. WILL CONT TO MONITOR. BED LOW, LOCKED CALL LIGHT IN REACH.
[2016-10-17 04:00] VITALS: BP 137/76
[2016-10-17 08:44] VITALS: BP 134/74
--- NOTE | 2016-10-17 09:06 | NUR ---
PT SEEN. COMPLAINTS OF DRAINAGE TO MID ABD WOUND-RED AND WET. CLEANED AND SILVEDENE WITH 4X4S APPLIED. STATES HAS BURNED ALL NIGHT. STAGE 1 TO BUTT[place] WITH DRESSING IN PLACE. ENCOURAGED TO TURN OFTEN. CALL LIGHT IN PLACE.
[2016-10-17 12:00] VITALS: BP 129/58
--- NOTE | 2016-10-17 13:17 | NUR ---
NUTRITION MONITORING & EVAL CHART REVIEWED. AM LABS RENEWED. RD FOLLOWING
[2016-10-17 16:56] VITALS: BP 128/72
[2016-10-17 18:00] VITALS: BP 145/57
--- NOTE | 2016-10-17 20:00 | NUR ---
REC'D PATIENT SITTING UP IN BED ON THE PHONE. ALERT AND ORIENTED X4. REPORTED PAIN 7/10. HAS HEAD START ASSISTANT TEACHER PUMP TO CONTROL PAIN. DENIES FURTHER NEEDS AT THIS TIME. NO DISTRESS NOTED. WILL CONT TO MONITOR. BED LOW, LOCKED, CALL LIGHT IN REACH.
[2016-10-18 06:19] LABS: CALC OSMOLALITY 285 mosm/kg (275-300); CALCIUM 7.8 mg/dL (8.5-10.1); CARBON DIOXIDE 30.8 mmol/L (21.0-32.0); CHLORIDE - SERUM 108 mmol/L (98-107); CREATININE - SERUM 0.6 mg/dL (0.6-1.3); GLUCOSE 104 mg/dL (74-106); MAGNESIUM - SERUM 1.6 mg/dL (1.8-2.4); PHOSPHOROUS 3.8 mg/dL (2.5-4.9); POTASSIUM - SERUM 3.2 mmol/L (3.5-5.1); SODIUM 143 mmol/L (136-145); UREA NITROGEN 16 mg/dL (7-18); eGFR NON AFRICAN AMERICAN > 90 mL/min (90-120)
--- NOTE | 2016-10-18 08:10 | NUR ---
AWAKE AND ALERT. ORIENTED X3. NO C/O AT THIS TIME. LUNGS ARE CLEAR BILATERALLY, NO COUGH NOTED. SKIN IS INTACT WITHOUT REDNESS EXCEPT SOME REDNESS TO COCCYX. DENIES NEEDS. PICC TO RIGHT UPPER ARM IS PATENT WITHOUT REDNESS. UP TO BR PER SELF. VOIDED WITHOUT DIFFICULTY.
[2016-10-18 08:52] VITALS: BP 149/66
--- NOTE | 2016-10-18 09:00 | NUR ---
RIGHT ARM NOTED TO BE SWELLING. C/O SOME PAIN TO ARM. DR. JUSTICE NOTIFIED OF SAME. NEW ORDERS FOR DOPPLER.
--- NOTE | 2016-10-18 09:33 | NUR ---
Called by nursing staff to "look at right arm." Patient with some swelling of right arm, entire arm. Dr. Jung contacted, order placed for ultrasound of right arm. Joseline Knapp RN
--- NOTE | 2016-10-18 11:30 | NUR ---
DOPPLER IN PROGRESS.
--- NOTE | 2016-10-18 13:14 | NUR ---
NUTRITION MONITORING & EVAL CHART REVIEWED. AM LABS RENEWED. RD FOLLOWING
[2016-10-18 13:45] VITALS: BP 157/70
--- NOTE | 2016-10-18 15:04 | NUR ---
US OF RIGHT ARM NEGATIVE PER REPORT. UP TO BR PER SELF. ARM IS LESS SWOLLEN AT THIS TIME. WILL CONTINUE TO MONITOR.
[2016-10-18 16:55] VITALS: BP 118/45
--- NOTE | 2016-10-18 18:47 | NUR ---
RESTING QUIETLY IN BED. DENIES NEEDS. NO CHANGES NOTED.
--- NOTE | 2016-10-18 20:00 | NUR ---
ASSESSMENT COMPLETED, NO ACUTE DISTRESS NOTED, IV INFUSING TO R PICC WITH EASE, ABD FISTULA COVERED WITH 4X4'S, PT CHANGING NEEDED, DENIES NEEDS AT THIS TIME, FALL AND ISOLATION PRECAUTIONS IN PLACE, SR'S UP, CL IN REACH, WILL MONITOR
--- NOTE | 2016-10-18 21:57 | NUR ---
MEDS GIVEN PER MAR, VICKIE WELL, DENIES NEEDS AT THIS TIME, FALL PRECAUTIONS IN PLACE, CL IN REACH
--- NOTE | 2016-10-18 23:33 | NUR ---
RESTING WITH EYES CLOSED, RESP WITH EASE, NO DISTRESS NOTED, FALL/ISOLATION PRECAUTIONS IN PLACE, CL IN REACH
[2016-10-19] VITALS: BP 123/56
[2016-10-19 04:00] VITALS: BP 130/57
[2016-10-19 05:16] LABS: CALC OSMOLALITY 279 mosm/kg (275-300); CALCIUM 9.1 mg/dL (8.5-10.1); CARBON DIOXIDE 31.2 mmol/L (21.0-32.0); CHLORIDE - SERUM 103 mmol/L (98-107); GLUCOSE 94 mg/dL (74-106); MAGNESIUM - SERUM 1.9 mg/dL (1.8-2.4); SODIUM 139 mmol/L (136-145); UREA NITROGEN 18 mg/dL (7-18)
[2016-10-19 05:26] LABS: CREATININE - SERUM 0.8 mg/dL (0.6-1.3); PHOSPHOROUS 5.1 mg/dL (2.5-4.9); POTASSIUM - SERUM 4.2 mmol/L (3.5-5.1); eGFR NON AFRICAN AMERICAN 75 mL/min (90-120)
--- NOTE | 2016-10-19 08:13 | NUR ---
AWAKE AND ALERT. ORIENTED X3. NO C/O AT THIS TIME. LUNGS ARE CLEAR BILATERALLY, NO COUGH NOTED. SKIN IS INTACT WITHOUT REDNESS EXCEPT AROUND FISTULA SITE WHICH IS VERY EXCORIATED. RIGHT ARM WITH 1-2 PLUS EDEMA THIS AM. PULSES PALPABLE. WILL MONITOR. PICC TO RIGHT UPPER ARM IS PATENT WITHOUT REDNESS AT INSERTION SITE. REPORTS NO BM IN SEVERAL DAYS. DENIES NEEDS.
[2016-10-19 09:01] VITALS: BP 137/50
--- NOTE | 2016-10-19 09:43 | OP ---
PATIENT NAME: ROD MAK MEDICAL RECORD: [id number] :47 LOCATION:D.[id number] ADMISSION DATE:07/16/16 SURGEON: TROY JUSTICE MD DATE OF OPERATION: 10/12/2016 PREOPERATIVE DIAGNOSES: 1. Enterocutaneous fistula. 2. Drainage around the patient's current indwelling jejunal feeding tube. POSTOPERATIVE DIAGNOSES: 1. Enterocutaneous fistula. 2. Drainage around the patient's current indwelling jejunal feeding tube. PROCEDURE: Placement of a flange type 20-Pakistani jejunal tube, which is actually a PEG tube. SURGEON: Troy Justice MD PAN PUSHER: None. BLOOD LOSS: Zero. OPERATIVE COURSE: The procedure was performed in the presence of a female nurse. I removed the balloon type gastrostomy tube after deflating it. I then advanced a flange type of gastrostomy tube through this enterocutaneous fistula, which is a jejunal-cutaneous fistula. Once the button was within the fistula, I pushed the flange down against the anterior abdominal wall and against the enterocutaneous fistula opening. We then attached the hub device. I left the room. I was called back almost immediately and told that it was leaking. We made some adjustments to the flange and hooked up to a drainage bag to the tube and placed some gauze around the tube. TRANSINT:[id number] Voice Confirmation ID: [id number] DOCUMENT ID: [id number] TROY JUSTICE MD at 0943 CC: [id number] DICTATION DATE: 10/12/16 181 JAVASCRIPT ENGINEER: 10/13/16 1022 ADM IN [facility] [address] [place] [address]
--- NOTE | 2016-10-19 09:43 | PN ---
PATIENT:ROD MAK MEDICAL RECORD: [id number] LOCATION:D.MS [facility] ADMISSION DATE: 07/16/16 PROGRESS NOTE DATE OF SERVICE: 09/10/2016 The wound drainage is being controlled by the wound VAC device. She is having more pain today. I am uncertain why she is having more pain. In the next few days, we will plan to change the wound dressing. She had a bowel movement and passing flatus. TRANSINT:[id number] Voice Confirmation ID: [id number] DOCUMENT ID: [id number] EPHRAIM JUSTICE MD at 0943 CC: [id number] DICTATION DATE: 09/11/161927 QUARRY BOSS: 09/11/16[address] [facility] [address] [place] [address]
--- NOTE | 2016-10-19 09:43 | OP ---
PATIENT NAME: ROD MAK MEDICAL RECORD: [id number] :47 LOCATION:D.[id number] ADMISSION DATE:07/16/16 SURGEON: TROY JUSTICE MD DATE OF OPERATION: 09/20/2016 PREOPERATIVE DIAGNOSIS: Recurrent enterocutaneous fistula. POSTOPERATIVE DIAGNOSIS: Recurrent enterocutaneous fistula. OPERATIVE PROCEDURE: Complex closure of enterocutaneous fistula, placement of wound VAC. SURGEON: Troy Justice MD. WIRELESS ENGINEER: None. BLOOD LOSS: Minimal. ANESTHESIA: General. COMPLICATIONS: None. The risks, possible complications and alternatives to procedure were explained to the patient. She elects to proceed. The discussion specifically included, but was not limited to, bleeding requiring an emergency reoperation, infection, breakdown of the fistula, the possibility of the fistula could worsen, the possibility that the fistula may be permanent. OPERATIVE COURSE: The patient was conveyed to the operating room electively on 09/20/2016. The abdomen was sterilely prepped and draped. I identified the fistula. It was about 1.5 cm in length and was not very wide. I attempted to close the fistula with multiple interrupted horizontal mattress of 3-0 Vicryls. This was to keep the BioGlue from getting inside of the lumen. I then dried the outside of the fistula and the area around the fistula. I then applied several layers of BioGlue. Once the bowel with headset, I placed a small white wound VAC sponge. Cellophane-type dressings were applied over the wound VAC sponge. I then cut away a portion of the cellophane-type dressing over the white wound VAC sponge and bridged a black sponge out on to the left upper quadrant of the abdomen. A wound VAC, this was applied to suction. It held a good "raisin" indicating a good suction without leakage. The patient was then extubated and conveyed to post-anesthesia care unit where she was in stable condition. I have contacted her by phone. TRANSINT:[id number] Voice Confirmation ID: [id number] DOCUMENT ID: [id number] TROY JUSTICE MD at 0943 CC: [id number] DICTATION DATE: 09/20/16 1541 PRODUCT INSPECTION COORDINATOR: 09/20/162001 ADM IN [facility] [id number] [place] [address]
--- NOTE | 2016-10-19 09:43 | OP ---
PATIENT NAME: ROD MAK MEDICAL RECORD: [id number] :47 LOCATION:D.MS [facility] ADMISSION DATE:07/16/16 SURGEON: TROY JUSTICE MD DATE OF OPERATION: 10/11/2016 PREOPERATIVE DIAGNOSIS: Leaking enterocutaneous fistula, large. POSTOPERATIVE DIAGNOSIS: Leaking enterocutaneous fistula, large. PROCEDURE: Insertion of a 20-Comoran balloon type of jejunostomy tube through the enterocutaneous stoma. SURGEON: Troy Justice MD. ANESTHESIOLOGIST ATTENDING: None. BLOOD LOSS: None. ANESTHESIA: None. Our hope is that we can control the patient's fistula. She has lot of excoriations as well as a caustic burn and very tender skin around this leaking enterocutaneous fistula, which is now larger. My hope is that we can insert this jejunal tube, which is actually a replacement gastrostomy tube down through the enterocutaneous stoma and inflate the balloon, and push the flange down and perhaps control the patient's drainage. The entire procedure was performed at the patient's bedside. It was performed in the presence of a female nurse. We removed the dressings. I checked the balloon on the 20-Comoran jejunal tube. I advanced down through the enterocutaneous fistula. I inflated the balloon. The patient has some pain with inflation, so I removed some of the fluid from the balloon port. I then pushed the flange down against the anterior abdominal wall. It seemed to be controlling any drainage at this time. We will put a drain sponge around the tube underneath the flange. TRANSINT:[id number] Voice Confirmation ID: [id number] DOCUMENT ID: [id number] TROY JUSTICE MD at 0943 CC: [id number] DICTATION DATE: 10/12/16 1814 CASING TRIMMER: 10/13/16 0019 ADM IN [facility] [address] [place] [address]
--- NOTE | 2016-10-19 10:00 | NUR ---
DOESNT WANT THE LIDOCAINE PATCH SINCE IT DOESN'T WORK.
[2016-10-19 12:00] VITALS: BP 152/53
--- NOTE | 2016-10-19 15:40 | NUR ---
NUTRITION MONITORING & EVAL CHART REVIEWED. AM LABS ORDERED. WILL ATTEMPT TO GET NEW WT. MAY REQUIRE SLIGHT INCREASE IN TPN. RD FOLLOWING
--- NOTE | 2016-10-19 15:56 | NUR ---
RIGHT UPPERARM PICC LINE CHANGED USING STERILE TECHNIQUE PER HOSPITAL POLICY.
[2016-10-19 17:56] VITALS: BP 123/78
--- NOTE | 2016-10-19 18:56 | NUR ---
WEIGHED ON STANDING SCALE. NO CHANGES NOTED. DENIES NEEDS.
[2016-10-19 19:00] VITALS: BP 134/54
--- NOTE | 2016-10-19 20:46 | NUR ---
AWAKE,ALERT,NO COMPLAINTS VOICED. IV INFUSING TO RIGHT PICC WITHOUT REDNESS OR EDEMA NOTED. TPN INFUSING AT 40 CC/HR TO PICC LINE. ABD DRSG INTACT .PATIENT CHANGES DRESSING PER SELF WHEN SOILED. PEG TUBE INTACT.MORPHINE MOTION GRAPHICS ARTIST IN USE FOR PAIN CONTROL. CL IN REACH.
--- NOTE | 2016-10-20 02:56 | NUR ---
RESTING QUIETLY. NO DISTRESS NOTED.
--- NOTE | 2016-10-20 03:15 | NUR ---
RN NOTE: PT LYING IN HIGH HE'S POSITION WITH EYES CLOSED. RIGHT PICC LINE PATENT WITH TPN INFUSING AT 40 ML / HR AND NS INFUSING AT 30 ML / HR. WILL CONTINUE TO MONITOR FOR NEEDS. CALL LIGHT WITHIN REACH.
[2016-10-20 04:00] VITALS: BP 164/45
[2016-10-20 05:56] LABS: CALC OSMOLALITY 283 mosm/kg (275-300); CALCIUM 8.5 mg/dL (8.5-10.1); CARBON DIOXIDE 30.9 mmol/L (21.0-32.0); CHLORIDE - SERUM 104 mmol/L (98-107); CREATININE - SERUM 0.7 mg/dL (0.6-1.3); GLUCOSE 113 mg/dL (74-106); MAGNESIUM - SERUM 1.8 mg/dL (1.8-2.4); PHOSPHOROUS 4.9 mg/dL (2.5-4.9); SODIUM 141 mmol/L (136-145); UREA NITROGEN 18 mg/dL (7-18); eGFR NON AFRICAN AMERICAN 88 mL/min (90-120)
[2016-10-20 08:44] VITALS: BP 154/60
--- NOTE | 2016-10-20 09:39 | NUR ---
PT AOX4 RESP EVEN AND NONLABORED PT DENIES NEEDS AT THIS TIME SRX2 CALL LIGHT WITHIN REACH WILL CONTINUE TO MONITOR. IV TO RIGHT PICC PATENT AND INTACT
--- NOTE | 2016-10-20 11:07 | NUR ---
NUTRITION MONITORING & EVAL CHART REVIEWED. PT STANDING SCALE WT PAST TWO DAYS, 119# AND 121#. WILL CONTINUE TO RUN TPN AND LIPIDS AT CURRENT RATE. LABS REVIEWED AND RENEWED X 3 DAYS. SPOKE WITH ALMA IN PHARMACY RE:NO CHANGE IN CURRENT TPN REGIMEN. RD FOLLOWING
[2016-10-20 12:57] VITALS: BP 144/44
[2016-10-20 17:00] VITALS: BP 136/70
[2016-10-20 20:00] VITALS: BP 131/48
--- NOTE | 2016-10-21 01:38 | NUR ---
RESTING QUIETLY. NO DISTRESS NOTED. CL IN REACH.
--- NOTE | 2016-10-21 01:39 | NUR ---
POSITIONED FOR COMFORT. NO DISTRESS NOTED..CL IN REACH
[2016-10-21 04:00] VITALS: BP 142/53
--- NOTE | 2016-10-21 06:19 | NUR ---
no change in assessment. cl in reach.
[2016-10-21 06:20] LABS: CALC OSMOLALITY 280 mosm/kg (275-300); CALCIUM 8.6 mg/dL (8.5-10.1); CHLORIDE - SERUM 104 mmol/L (98-107); CREATININE - SERUM 0.7 mg/dL (0.6-1.3); GLUCOSE 114 mg/dL (74-106); MAGNESIUM - SERUM 1.8 mg/dL (1.8-2.4); PHOSPHOROUS 4.6 mg/dL (2.5-4.9); POTASSIUM - SERUM 3.7 mmol/L (3.5-5.1); SODIUM 140 mmol/L (136-145); UREA NITROGEN 15 mg/dL (7-18); eGFR NON AFRICAN AMERICAN 88 mL/min (90-120)
--- NOTE | 2016-10-21 08:26 | NUR ---
PT AOX4 RESP EVEN AND NONLABORED PICC TO RIGHT AC PATENT AND INTACT AT THIS TIME PT DENIES NEEDS AT THIS TIME. SRX2 BED AT LOWEST SETTING CALL LIGHT WITHIN REACH WILL CONTINUE TO MONITOR
[2016-10-21 08:58] VITALS: BP 141/59
[2016-10-21 11:43] VITALS: BP 136/64
--- NOTE | 2016-10-21 14:33 | NUR ---
WOUND CARE #2 ATTEMPT TODAY TO APPLY A POUCH THAT WILL STAY ON PTS SKIN AND WILL NOT LEAK EFFLUENT ON TO SURROUNDING SKIN. THE SKIN WAS CLEANSED AND PREPPED WITH STOMA POWDER AND CAVILON BARRIER. WALL SUCTION WAS TURNED ON AND A YANKAUER WAS USED TO KEEP THE SURROUNDING SKIN FREE OF DRAINAGE. SKIN BARRIER RING (4") WAS CUT INTO WEDGES AND PLACED ON DISTAL ASPECT OF FISTULA (TO EVEN OUT THE SURFACE SKIN) AND A 2" BARRIER RING WAS CUT IN HALF AND SECURED AT THE TOP . THE WEDGES WERE MOLDED TOGETHER USING A TONGUE BLADE. AFTER THE SURROUNDING SKIN WAS BUILT UP AND EVENED OUT A CONVEX UROSTOMY APPLIANCE WAS APPLIED. BARRIER EXTENDERS WERE THEN PLACED AROUND THE WAFER FOR ADDITIONAL SECURITY AND AN OSTOMY BELT WAS ATTACHED. THEN A WARM COMPRESS WAS APPLIED TO THE ENTIRE AREA IN ORDER TO ACTIVATE THE ADHESIVES. THE PT WAS INSTRUCTED TO LIE STILL AND NOT TO TOUCH THE APPLIANCE OR THE BAG FOR 15-20 MINUTES. 20 MINUTES LATER I ASSESSED THE DRAINAGE BAG AND THE WAFER . THE WAFER HAD NO EFFLUENT STAINING AND THE BAG HAD DRAINAGE IN IT. WOUND CARE WILL CONTINUE TO MONITOR.
[2016-10-21 15:09] VITALS: BP 135/67
--- NOTE | 2016-10-21 20:17 | NUR ---
ASSESSMENT COMPLETED, NO ACUTE DISTRESS NOTED, DSG TO ABD INTACT, IV INFUSING, DENIES NEEDS, FALL AND ISOLATION PRECAUTIONS IN PLACE, CL IN REACH, WILL MONITOR
[2016-10-21 20:29] VITALS: BP 123/76
--- NOTE | 2016-10-21 22:06 | NUR ---
MEDS GIVEN PER MAR, VICKIE WELL, DENIES NEEDS, CL IN REACH
[2016-10-21 23:40] VITALS: BP 126/72
--- NOTE | 2016-10-22 00:35 | NUR ---
RESTING WITH EYES CLOSED, RESP WITH EASE, NO DISTRESS NOTED, WILL CONTINUE TO MONITOR
[2016-10-22 03:55] VITALS: BP 130/70
[2016-10-22 06:16] LABS: CALC OSMOLALITY 278 mosm/kg (275-300); CALCIUM 8.4 mg/dL (8.5-10.1); CHLORIDE - SERUM 106 mmol/L (98-107); CREATININE - SERUM 0.7 mg/dL (0.6-1.3); GLUCOSE 92 mg/dL (74-106); MAGNESIUM - SERUM 1.7 mg/dL (1.8-2.4); PHOSPHOROUS 4.4 mg/dL (2.5-4.9); POTASSIUM - SERUM 3.8 mmol/L (3.5-5.1); SODIUM 139 mmol/L (136-145); UREA NITROGEN 16 mg/dL (7-18); eGFR NON AFRICAN AMERICAN 88 mL/min (90-120)
--- NOTE | 2016-10-22 08:00 | NUR ---
PATIENT IN HIGH HE POSITION RESTING WITH EYES CLOSED. RESPIRATIONS EVEN AND UNLABORED. SIDE RAILS UP X2. BED IN LOW POSITION. CALL LIGHT IN REACH.
[2016-10-22 08:53] VITALS: BP 137/75
[2016-10-22 11:04] VITALS: BP 159/77
--- NOTE | 2016-10-22 19:50 | NUR ---
PT SITTING UP IN BED, ASSESSMENT COMPLETED, ABD DSG WITH BAG INTACT, IV INFUSING TO R PICC, NO DISTRESS NOTED, DENIES NEEDS AT THIS TIME, FALL AND ISOLATION PRECAUTIONS IN PLACE, CL IN REACH, WILL MONITOR
[2016-10-22 20:00] VITALS: BP 133/50
--- NOTE | 2016-10-22 21:20 | NUR ---
MEDS GIVEN PER MAR, VICKIE WELL, DENIES NEEDS AT THIS TIME, CL IN REACH, WILL MONITOR
--- NOTE | 2016-10-23 02:22 | NUR ---
TPN HUNG PER MAR, PT UP TO RESTROOM, NO DISTRESS NOTED, DENIES NEEDS, SR'S UP, CL IN REACH
--- NOTE | 2016-10-23 02:29 | NUR ---
MORPHINE STORE WAREHOUSE ASSOCIATE FILLED PER ORDERS
[2016-10-23 07:00] LABS: CALC OSMOLALITY 283 mosm/kg (275-300); CALCIUM 8.4 mg/dL (8.5-10.1); CARBON DIOXIDE 32.3 mmol/L (21.0-32.0); CHLORIDE - SERUM 106 mmol/L (98-107); CREATININE - SERUM 0.8 mg/dL (0.6-1.3); GLUCOSE 92 mg/dL (74-106); MAGNESIUM - SERUM 1.7 mg/dL (1.8-2.4); PHOSPHOROUS 4.3 mg/dL (2.5-4.9); POTASSIUM - SERUM 4.1 mmol/L (3.5-5.1); SODIUM 142 mmol/L (136-145); UREA NITROGEN 15 mg/dL (7-18); eGFR NON AFRICAN AMERICAN 75 mL/min (90-120)
[2016-10-23 09:21] VITALS: BP 142/68
--- NOTE | 2016-10-23 10:50 | NUR ---
RESTING QUIETLY WITH EYES CLOSED. OSTOMY CONTINUES TO HOLD FOR NOW. RIGHT PICC PATENT WITHOUT REDNESS AT INSERTION SITE. NO NEEDS. NOTED.
[2016-10-23 12:12] VITALS: BP 146/72
--- NOTE | 2016-10-23 18:05 | NUR ---
SLLEPING, NO DISTRESS NOTED, WILL CONTINUE TO MONITOR
[2016-10-23 19:00] VITALS: BP 137/59
--- NOTE | 2016-10-23 19:53 | NUR ---
ASSESSMENT COMPLETED, NO ACUTE DISTRESS NOTED, DENIES NEEDS AT THIS TIME, FALL AND ISOLATION PRECAUTIONS IN PLACE, CL IN REACH, WILL MONITOR
--- NOTE | 2016-10-23 21:20 | NUR ---
MEDS GIVEN PER MAR, VICKIE WELL, DENIES NEEDS, CL IN REACH
--- NOTE | 2016-10-23 23:43 | NUR ---
RESTING WITH EYES CLOSED, RESP WTIH EASE, NO DISTRESS NOTED, CL IN REACH
[2016-10-24 04:00] VITALS: BP 152/66
--- NOTE | 2016-10-24 06:09 | NUR ---
IV PROTONIX GIVEN, ALL PICC LUMENS FLUSHED, VICKIE WELL, FALL AND ISOLATION PRECAUTIONS IN PLACE, CL IN REACH
--- NOTE | 2016-10-24 07:35 | NUR ---
PT AOX4 RESP EVEN AND NONLABORED RIGHT PICC LINE PATENT AND INTACT PT DENIES NEEDS AT THIS TIME. SRX2 BED AT LOWEST SETTING CALL LIGHT WITHIN REACH WILL CONTINUE TO MONITOR
[2016-10-24 07:59] VITALS: BP 138/64
[2016-10-24 11:46] VITALS: BP 136/54
--- NOTE | 2016-10-24 12:55 | NUR ---
Nutrition Follow Up: Chart reviewed. TPN continues @ 50 ml/hr. Labs reviewed and renewed x 3 days. Meds noted. No new wt to assess. Noted pt with new ostomy appliance. Will continue current TPN/Lipid regimen. RD will continue to monitor pt progress.
--- NOTE | 2016-10-24 13:55 | NUR ---
Wound Care: Checked on pt to see if urostomy appliance was still in place and functioning properly without leaks. The appliance has held for 3 days as of today. Pt is happy and has been able to rest. Discussed pts fears of going home ie; leaking from around bag, home health not being able to apply the appliance properly. I explained that I have printouts of step by step instructions for home health and they will have a copy of my notes. If the appliance does start leaking, she is to remove it and clean her skin just as she has been doing. Then home health can come out and apply new one. She has also been registered with [employer] [employer] program so she will have extra support for fistula management. The program offers wound care nurses to talk with about difficulties the pt is experiencing with managing the fistula. They also send samples of products and help find her local suppliers of the the specific products/appliances/urostomy pouches she needs. Wound care will continue to monitor.
[2016-10-24 15:37] VITALS: BP 135/61
[2016-10-24 19:00] VITALS: BP 153/55
--- NOTE | 2016-10-24 19:25 | NUR ---
PT SITTING UP IN BED TALKING ON PHONE, ASSESSMENT COMPLETED, NO ACUTE DISTRESS NOTED, DENIES NEEDS, IV FLUIDS INFUSING, ABD DSG INTACT, FALL AND ISOLATION PRECAUTIONS IN PLACE, CL IN REACH, WILL MONITOR
--- NOTE | 2016-10-24 20:49 | NUR ---
MEDS GIVEN PER MAR, ALL LINES ON PICC FLUSHED WITH 10CC NS, VICKIE WELL, CL IN REACH
--- NOTE | 2016-10-24 21:50 | NUR ---
SITTING UP IN BED WATCHING TV, DENIES NEEDS, CL IN REACH
--- NOTE | 2016-10-24 23:28 | NUR ---
LIPID INFUSION COMPLETE, LINE FLUSHED, DENIES NEEDS, CL IN REACH
[2016-10-25 04:00] VITALS: BP 176/68
--- NOTE | 2016-10-25 04:38 | NUR ---
IV FLUIDS HUNG PER MAR, BLOOD DRAWN FROM PICC FOR ORDERED LABS, ALL LINES FLUSHED WITH EASE, CL IN REACH
[2016-10-25 06:00] LABS: CALC OSMOLALITY 280 mosm/kg (275-300); CALCIUM 8.6 mg/dL (8.5-10.1); CARBON DIOXIDE 31.3 mmol/L (21.0-32.0); CHLORIDE - SERUM 106 mmol/L (98-107); CREATININE - SERUM 0.8 mg/dL (0.6-1.3); GLUCOSE 83 mg/dL (74-106); MAGNESIUM - SERUM 1.7 mg/dL (1.8-2.4); PHOSPHOROUS 4.8 mg/dL (2.5-4.9); POTASSIUM - SERUM 4.1 mmol/L (3.5-5.1); SODIUM 141 mmol/L (136-145); UREA NITROGEN 15 mg/dL (7-18); eGFR NON AFRICAN AMERICAN 75 mL/min (90-120)
--- NOTE | 2016-10-25 07:30 | NUR ---
SLEEPING AT THIS TIME WITH RESPIRATIONS EVEN AND NON LABORED. DOOR REMAINS MCC OPEN. CALL LIGHT IN REACH, WILL CONTINUE WITH PLAN OF CARE. BED IN LOWEST POSITION WITH SRX2 AND WHEELS LOCKED.
[2016-10-25 08:30] VITALS: BP 145/55
--- NOTE | 2016-10-25 09:12 | NUR ---
SCHEDULED MEDICATIONS ADMINISTERED AT THIS TIME WITHOUT DIFFICULTY. ASSESSMENT PERFORMED PER FLOWSHEET. REMAINS IN CONTACT ISOLATION. AWAKE AND ALERT WITH RESPIRATIONS EVEN AND NO LABORED. GOLF COURSE SUPERINTENDENT IN USE FOR PAIN CONTROL. CALL LIGHT IN REACH, WILL CONTINUE WITH PLAN OF CARE.
--- NOTE | 2016-10-25 10:25 | NUR ---
DRESSING TO RIGHT UPPER THIGH REMOVED AND SITE CLEANSED WITH SAF WOUND CLEANSER, ADAPTIC APPLIED TO SITE AND 4X4'S TO COVER. SECURE WITH METIPORE TAPE. PT TOLERATED WITH MODERATE AMOUNT OF PAIN. REMAINS IN CONTACT ISOLATION WITH AT BEDSIDE. APPLIANCE TO ABDOMINAL FISTULA REMAINS PATENT WITH NO S/S OF LEAKAGE. DENIES NEEDS AT PRESENT. RESTORATION OFFICER IN USE FOR PAIN CONTROL. CALL LIGHT IN REACH. WILL CONTINUE WITH PLAN OF CARE.
[2016-10-25 12:18] VITALS: BP 135/61
--- NOTE | 2016-10-25 13:10 | NUR ---
RIGHT UPPER ARM PICC LINE WITH DOUBLE LUMEN FLUSHED PER ORDER. BLOOD RETURN PRESENT TO RED AND PURPLE LUMENS. MAX NEEDLESS ADAPTER REPLACED TO BOTH LUMENS. PT DENIES FURTHER NEEDS AT THIS TIME. CALL LIGHT IN REACH AND DOOR HALF WAY OPEN. WILL CONTINUE WITH PLAN OF CARE.
[2016-10-25 15:58] VITALS: BP 126/48; BP 128/68
[2016-10-25 19:00] VITALS: BP 134/52
--- NOTE | 2016-10-25 20:09 | NUR ---
AWAKE WIHT NO COMPLIAINTS. IV INFUSING TO RIGHT PICC IWHTOUT REDNESS OR EDEMA NOTED.OSTOMY BAG TO ABD INTACT. CL IN REACH.
[2016-10-26 04:00] VITALS: BP 157/63
--- NOTE | 2016-10-26 05:14 | NUR ---
AROUSES EASILY TO VERBAL STIMULI. NO COMPLIANTS VOICED. CL IN REACH.
[2016-10-26 05:50] LABS: CALC OSMOLALITY 287 mosm/kg (275-300); CALCIUM 8.4 mg/dL (8.5-10.1); CARBON DIOXIDE 31.1 mmol/L (21.0-32.0); CHLORIDE - SERUM 107 mmol/L (98-107); CREATININE - SERUM 0.7 mg/dL (0.6-1.3); GLUCOSE 102 mg/dL (74-106); MAGNESIUM - SERUM 1.9 mg/dL (1.8-2.4); PHOSPHOROUS 4.8 mg/dL (2.5-4.9); POTASSIUM - SERUM 3.9 mmol/L (3.5-5.1); SODIUM 144 mmol/L (136-145); UREA NITROGEN 15 mg/dL (7-18); eGFR NON AFRICAN AMERICAN 88 mL/min (90-120)
[2016-10-26 08:14] VITALS: BP 153/62
--- NOTE | 2016-10-26 09:36 | NUR ---
SCHEDULED MEDICATIONS ADMINISTERED AT THIS TIME. PT REMAINS IN CONTACT ISOLATION. ASSESSMENT PERFORMED PER FLOWSHEET. CALL LIGHT IN REACH AND MARKET STALL VENDOR IN USE FOR PAIN CONTROL. WILL CONTINUE WITH PLAN OF CARE.
[2016-10-26 11:50] VITALS: BP 154/59
[2016-10-26 15:43] VITALS: BP 169/61
--- NOTE | 2016-10-26 17:12 | NUR ---
WOUND CARE APPLIANCE CHANGE FOR FISTULA MANAGEMENT: REMOVED APPLIANCE THAT WAS APPLIED ON 10/21/16. IT WAS STILL INTACT AND WAS NOT LEAKING. THE PTS SKIN SURROUNDING THE FISTULA HAS HEALED AND IS NO LONGER RED AND INFLAMED. CLEANSED AND PREPPED SKIN WITH STOMA POWDER AND CAVILON BARRIER WIPES. USED WALL SUCTION TO KEEP SKIN FREE OF EFFLUENT. CUT THE CENTER OF A 4X4 FLEXTEND SKIN BARRIER OUT TO 1-1/4" AND SPRAYED IT WITH MEDICAL ADHESIVE. PLACED IT AROUND THE FISTULA - MOLDING IT TO PT SKIN. CUT 4" BARRIER RING INTO WEDGES AND PLACED THEM ON THE DISTAL END OF SKIN AND A 2" BARRIER RING CUT IN HALF ON THE TOP SECTION. MOLDED ALL EDGES TOGETHER WITH TONGUE BLADE. CUT A CONVEX UROSTOMY APPLIANCE TO 1-1/4" AND APPLIED IT OVER FISTULA THEN PLACED BARRIER EXTENDERS AROUND THE WAFER FOR ADDITIONAL SECURITY. ATTACHED THE OSTOMY BELT. A WARM COMPRESS WAS APPLIED TO ENTIRE AREA IN ORDER THE ACTIVATE THE ADHESIVES AND MOLD TO PTS SKIN. IT WAS KEPT IN PLACE FOR 20 MINUTES AND REMOVED. ON REASSESSMENT THERE WAS EFFLUENT IN THE DRAINAGE BAG AND NO LEAKAGE ON WAFER. WOUND CARE WILL CONTINUE TO MONITOR.
--- NOTE | 2016-10-26 17:20 | NUR ---
PHONE CALL TO [facility] ABOUT D/C OF MRS. MAK. AN APPT WAS SET UP TO MEET WITH ALL THE HOME HEALTH RN'S 10/27/16 @ 0900 TO UPDATE THEM ON THE STEPS WE ARE TAKING TO ISOLATE THE FISTULA AND PROTECT PTS SKIN. I WILL TAKE THE PRODUCTS I HAVE USED AND WILL INSERVICE THEM TO ENSURE THAT PT CAN BE MAINTAINED AT HOME.
--- NOTE | 2016-10-26 19:00 | NUR ---
DRESSING TO RIGHT UPPER ARM PICC CHANGED IN STERILE FASHION. BIOPATCH APPLIED AND STATLOCK CHANGED.
[2016-10-26 20:00] VITALS: BP 126/68
--- NOTE | 2016-10-26 20:49 | NUR ---
AWAKE,ALERT,ORIENTED. IV INFUSING TO RIGHT PICC WIHTOUT REDNESS OR EDEMA. OSTONY BAG INTACT TO ABD. INCISION WITHOUT DRAINAGE NOTED. NO COMPLIANTS VOICED. CAD DETAILER MORPHINE IN USE FOR PAIN CONTROL.
[2016-10-27] VITALS (7 sets, daily range): BP systolic 113–155; BP diastolic 54–78
--- NOTE | 2016-10-27 00:52 | NUR ---
EYES CLOSED RESP EVEN AND UNLAOBED. NO DISTRESS NOTED. CALL LIGHT IN REACH
--- NOTE | 2016-10-27 04:50 | NUR ---
PT RESTING QUIETLY, EYES CLOSED. RESP EVEN, UNLABORED. NO DISTRESS NOTED. CONTINUE DBAS'S PLAN OF CARE.
--- NOTE | 2016-10-27 05:50 | NUR ---
NO CHANGE IN ASSESSEMENT. CL IN REACH.
[2016-10-27 06:39] LABS: CALC OSMOLALITY 282 mosm/kg (275-300); CALCIUM 8.6 mg/dL (8.5-10.1); CARBON DIOXIDE 29.4 mmol/L (21.0-32.0); CHLORIDE - SERUM 105 mmol/L (98-107); CREATININE - SERUM 0.7 mg/dL (0.6-1.3); GLUCOSE 110 mg/dL (74-106); MAGNESIUM - SERUM 1.8 mg/dL (1.8-2.4); PHOSPHOROUS 4.8 mg/dL (2.5-4.9); SODIUM 141 mmol/L (136-145); UREA NITROGEN 15 mg/dL (7-18); eGFR NON AFRICAN AMERICAN 88 mL/min (90-120)
--- NOTE | 2016-10-27 07:45 | NUR ---
AWAKE AND ALERT AT THIS TIME. PT DENIES NEEDS, CALL LIGHT IN REACH. DOOR OPEN. WILL CONTINUE WITH PLAN OF CARE.
--- NOTE | 2016-10-27 09:52 | NUR ---
SCHEDULED MEDICATIONS ADMINISTERED AT THIS TIME. ASSESSMENT PERFORMED PER FLOWSHEET. GENETICIST IN USE FOR PAIN CONTROL. RIGHT PICC LINE PATENT WITH BLOOD RETURN PRESENT TO RED AND PURPLE LUMEN. CALL LIGHT IN REACH. PT TO D/C HOME TODAY.
--- NOTE | 2016-10-27 14:06 | NUR ---
Nutrition Follow Up: Chart reviewed. Pt is to d/c today. TPN @ 50 ml/hr, 20% Lipids every 48 hours which is adequate to meet pt's est nutritional needs. RD following.
[2016-10-27] MEDS ORDERED: ZOFRAN ODT4 MG/UDTAB PO (14:59)
--- NOTE | 2016-10-27 17:35 | NUR ---
CM REASSESSMENT NOTE: PATIENT WILL D/C HOME TOMORROW W/[facility]. PATIENTS TPN BEING PROVIDED BY [facility]. PATIENT AWARE OF DISCHARGE TOMORROW.
--- NOTE | 2016-10-27 18:15 | NUR ---
DRESSING TO FISTULA NOT INTACT. SUCTION APPLIED AND SKIN CLEANSED. SKIN BARRIER AND STOMA POWDER APPLIED TO LUDMILA FISTULA AREA. PRESSURE DRESSING APPLIED OVER FISTULA.
--- NOTE | 2016-10-27 21:14 | NUR ---
PATIENT RESTING IN BED. NO SIGNS OF DISTRESS NOTED. SCHEDULED MEDS GIVEN. SHIFT ASSESSMENT COMPLETED. FISTULA OPEN TO AIR. PATIENT CONTROLLING LEAKAGE WITH GAUZE AND SUCTION. NO NEEDS VOICED AT THIS TIME. BED LOW. CALL LIGHT IN REACH
--- NOTE | 2016-10-28 01:52 | NUR ---
PATIENT RESTING WITH EYES CLOSED AND NO VISIBLE SIGNS OF DISTRESS. BED IN LOWEST POSITION AND CALL LIGHT WITHIN REACH.
[2016-10-28 04:00] VITALS: BP 154/73
--- NOTE | 2016-10-28 07:30 | NUR ---
SITTING IN BED, DENIES NEEDS, WOUND CARE NURSE PREPARING TO CHANGE BANDAGE ON ABDOMEN, BED LOWEST POSIITON, CALL LIGHT IN REACH, WILL CONTINUE TO MONITOR
[2016-10-28 08:16] VITALS: BP 151/60
--- NOTE | 2016-10-28 09:04 | NUR ---
LATE ENTRY: 10/27/16 0900 MET WITH [facility] AT THE TALMAGE OFFICE AND INSERVICED THEM ON APPLICATION OF UROSTOMY APPLIANCE THAT IS USED OVER THE FISTULA FOR DRAINAGE. ALL WERE VERY PERCEPTIVE AND APPRECIATIVE. 1245: CALLED WHEN ENROUTE BACK TO HOSPITAL AND TOLD THE WAFER WAS NOT HOLDING AND PT HAD NOTICED SOME DRAINAGE AT TOP OF APPLIANCE. 1305: REMOVED APPLIANCE AND APPLIED NEW ONE - CLEANSED SKIN WITH WOUND STRIKER OFF AND DRIED ADAPT POWDER TO SKIN SURROUNDING FISTULA - EXCESS POWDER REMOVED AND CAVILON SKIN BARRIER APPLIED CUT FLEXTEND TO FILL SHALLOW CREVICE AT LOWER MID ABDOMEN - SPRAYED WITH MEDICAL ADHESIVE FIRST CUT 4" BARRIER RINGS INTO WEDGES AND APPLIED AT BASE OF FISTULA TO BUILD UP AND MAKE A LEVEL AREA FOR THE APPLIANCE TO BE ATTACHED. CUT 2" BARRIER RING FOR SKIN ABOVE FISTULA CUT WAFER TO 1-1/4" AND PLACED IT OVER FISTULA AND ATTACHED. PLACED BARRIER EXTENDERS AROUND ENTIRE WAFER. PLACED A WARM COMPRESS OVER APPLIANCE AND INSTRUCTRED PT TO REMAIN STILL FOR 15-20 MIN TO ALLOW FOR PROPER ADHESION. 1345: WAFER SHOWS NO LEAKS 1510: LEAKAGE NOTED AT TOP OF WAFER - ATTEMPTED TO RESEAL BY CLEANSING, DRYING AND APPLYING EXTRA ADHESIVE 1835: RECEIVED CALL STATING THAT WHEN ASSESSED THE ENTIRE TOP OF THE WAFER HAD BEEN PEELED BACK. APPLIANCE REMOVED/PT INSTRUCTED TO KEEP EFFLUENT OFF SKIN WITH SUCTION AND 4X4S.
--- NOTE | 2016-10-28 09:18 | NUR ---
WOUND CARE: 10/28/16 0730: GATHERED SUPPLIES AND APPLIED NEW APPLIANCE USING THE SAME TECHNIQUE YESTERDAY, EXCEPT AFTER CLEANING/DRYING SKIN APPLIED NU-HOPE SKIN ADHESIVE (CEMEMT) AROUND THE FISTULA AND SURROUNDING SKIN. AFTER APPLICATION PLACED WARM COMPRESS OVER AREA AND PT. 0920: APPLIANCE REMAINS INTACT WITH NO LEAKAGE.
--- NOTE | 2016-10-28 09:50 | NUR ---
PATIENT IN MID HE POSITION RESTING WITH EYES CLOSED. RESPIRATIONS EVEN AND UNLABORED. SIDE RAILS UP X2. BED IN LOW POSITION. CALL LIGHT IN REACH.
--- NOTE | 2016-10-28 14:57 | NUR ---
DISCHARGE PAPERS AND INSTRUCTIONS GIVEN, QUESTIONS ANSWERED, AWAITING [facility] TO DELIVER SUPPLIES
--- NOTE | 2016-10-28 19:15 | NUR ---
HOME TPN DELIVERED. CONNECTED TPN TO RT. UPPER ARM PICC LINE AND PROGRAMMED PUMP. [facility] TO ASSUME CARE OF PATIENT AT HOME. PT. DCD VIA WC TO PRIVATE CAR.
== END 2016-10-28 19:22 | disposition home health service (06) | DRG 853 ==
LOC: D.ER 15:38 → D.ICU 18:55 → D.MS 18:55 → D.ICU 07-20 18:42 → D.MS 07-21 13:04
PROVIDERS: Emergency Medicine; Student in an Organized Health Care Education/Training Program; Surgery; ADMIT Surgery
PROC: 0D9670Z Drainage of Stomach with Drainage Device, Via Natural or Artificial Opening (ICD-10-PCS; 2016-07-20)
PROC: 02HV33Z Insertion of Infusion Device into Superior Vena Cava, Percutaneous Approach (ICD-10-PCS; 2016-07-22)
PROC: 0D9800Z Drainage of Small Intestine with Drainage Device, Open Approach (ICD-10-PCS; 2016-07-22)
PROC: 0DB80ZZ Excision of Small Intestine, Open Approach (ICD-10-PCS; principal; 2016-08-01 11:30)
PROC: 0DNW0ZZ Release Peritoneum, Open Approach (ICD-10-PCS; 2016-08-01 11:30)
PROC: 0HR7X74 Replacement of Abdomen Skin with Autologous Tissue Substitute, Partial Thickness, External Approach (ICD-10-PCS; 2016-08-05)
PROC: 2W03X6Z Change Pressure Dressing on Abdominal Wall (ICD-10-PCS; 2016-08-05)
PROC: 0D9800Z Drainage of Small Intestine with Drainage Device, Open Approach (ICD-10-PCS; 2016-08-06)
PROC: 0HBJXZZ Excision of Left Upper Leg Skin, External Approach (ICD-10-PCS; 2016-08-09)
PROC: 2W03X6Z Change Pressure Dressing on Abdominal Wall (ICD-10-PCS; 2016-08-09)
PROC: 0HR7X74 Replacement of Abdomen Skin with Autologous Tissue Substitute, Partial Thickness, External Approach (ICD-10-PCS; 2016-08-11)
PROC: B5181ZA Fluoroscopy of Superior Vena Cava using Low Osmolar Contrast, Guidance (ICD-10-PCS; 2016-08-11)
PROC: B548ZZA Ultrasonography of Superior Vena Cava, Guidance (ICD-10-PCS; 2016-08-11)
PROC: 0T9B70Z Drainage of Bladder with Drainage Device, Via Natural or Artificial Opening (ICD-10-PCS; 2016-08-11)
PROC: 02HV33Z Insertion of Infusion Device into Superior Vena Cava, Percutaneous Approach (ICD-10-PCS; 2016-08-11)
PROC: 0HBHXZZ Excision of Right Upper Leg Skin, External Approach (ICD-10-PCS; 2016-08-15)
PROC: 2W03X6Z Change Pressure Dressing on Abdominal Wall (ICD-10-PCS; 2016-08-15)
PROC: 2W03X6Z Change Pressure Dressing on Abdominal Wall (ICD-10-PCS; 2016-09-06)
PROC: 02PYX3Z Removal of Infusion Device from Great Vessel, External Approach (ICD-10-PCS; 2016-09-13)
PROC: 02HV33Z Insertion of Infusion Device into Superior Vena Cava, Percutaneous Approach (ICD-10-PCS; 2016-09-13)
PROC: 0JQ80ZZ Repair Abdomen Subcutaneous Tissue and Fascia, Open Approach (ICD-10-PCS; 2016-09-20)
PROC: 0DHA3UZ Insertion of Feeding Device into Jejunum, Percutaneous Approach (ICD-10-PCS; 2016-10-11)
PROC: 02PYX3Z Removal of Infusion Device from Great Vessel, External Approach (ICD-10-PCS; 2016-10-11)
PROC: 02HV33Z Insertion of Infusion Device into Superior Vena Cava, Percutaneous Approach (ICD-10-PCS; 2016-10-11)
PROC: B548ZZA Ultrasonography of Superior Vena Cava, Guidance (ICD-10-PCS; 2016-10-11)
DX: A41.01 Sepsis due to Methicillin susceptible Staphylococcus aureus (principal); K65.1 Peritoneal abscess; K63.2 Fistula of intestine; N39.0 Urinary tract infection, site not specified; T80.219A Unspecified infection due to central venous catheter, initial encounter; K66.0 Peritoneal adhesions (postprocedural) (postinfection); B95.62 Methicillin resistant Staphylococcus aureus infection as the cause of diseases classified elsewhere

== ENCOUNTER 2016-12-01 12:57 | Outpatient (CLI) | payer MEDICARE, BC ==
[~2016-12-01] VITALS: Ht 158.8 cm; Wt 53.2 kg
[~2016-12-01 12:57] MED LIST changes: +ZOFRAN ODT4 MG/UDTAB PO
[2016-12-01 14:14] VITALS: Ht 158.8 cm; Wt 53.2 kg
--- NOTE | 2016-12-01 14:21 | NUR ---
1400 ASSESMENT COMPLETED HAS FISTULA AND RECEIVING TPN VIA RT ARM PICC LINE. NEEDS REPLACEMENT. INFECTION NURSE CALLED AND OBTAINED CONSENT FOR PICC REPLACEMENT.
--- NOTE | 2016-12-01 14:53 | NUR ---
PICC INSERTED AND OLD ONE REMOVED BY YOVANY SADLER,XRAY HERE DOING CHEST XRAY.
--- NOTE | 2016-12-01 15:34 | NUR ---
1510 YOVANY SALDER R.N. PICC NURSE STATED PATIENT COULD GO HOME XRAY GOOD PLACEMENT FOR PICC LINE.
--- NOTE | 2016-12-01 15:34 | NUR ---
1515 TO HOME VIA W/C WITH . DRESSING RT ARM C/D/I FROM OLD PICC SITE. RT ARM DRESSING C/D/I AND PICC LINE PRESENT RECEIVING TPN VIA LT ARM WITHOUT PROBLEMS.
== END 2016-12-01 15:15 | disposition home or self-care (01) ==
LOC: D.OPS 12:57
DX: Z45.2 Encounter for adjustment and management of vascular access device (principal); Z01.812 Encounter for preprocedural laboratory examination; R94.31 Abnormal electrocardiogram [ECG] [EKG]

== ENCOUNTER 2017-01-03 06:13 | Day surgery (SDC) | payer MEDICARE, BC ==
--- NOTE | ~2017-01-03 | OP ---
PATIENT NAME: ROD MAK MEDICAL RECORD: [id number] :47 LOCATION:D.OPS ADMISSION DATE: SURGEON: TROY JUSTICE MD OPERATION DATE: 01/03/17 DATE OF OPERATION: 01/03/2017 PREOPERATIVE DIAGNOSES: 1. Enterocutaneous fistula. 2. History of rectovaginal fistula. POSTOPERATIVE DIAGNOSES: 1. Enterocutaneous fistula. 2. History of rectovaginal fistula. 3. One pedunculated polyp in the stomach 1.5 cm. 4. Unacceptable colonic prep as the patient could not be prepped due to the enterocutaneous fistula. 5. Hiatal hernia, moderate. 6. Paraesophageal hernia. PROCEDURES: 1. Esophagogastroduodenoscopy with antral biopsies. 2. Snare gastric polypectomy. 3. Sigmoidoscopy. SURGEON: Troy Justice M.D. [place]YWOOD LAYUP LINE BACK FEEDER: None. BLOOD LOSS: Minimal. ANESTHESIA: IV sedation. COMPLICATIONS: None. The risks, possible complications and alternatives to the procedure were explained to the patient. She elects to proceed. OPERATIVE COURSE: The patient was conveyed to the GI laboratory on 01/03/2017. IV sedation was induced by the anesthesia staff. A bite block was inserted. A gastroscope was inserted into the mouth. It was advanced easily into the hypopharynx. The esophagus was easily intubated as were the stomach and duodenum. Cold antral biopsies were obtained. With retroflexion, a pedunculated polyp was noted in the stomach. This was grasped with an endoscopic snare and the cautery mode was used to transect the polyp at its base. The polyp was then placed within an endoscopic retrieval net and brought out through the mouth. The patient was then turned 180 degrees and placed in the Bunn position. A digital rectal examination was performed. A colonoscope was inserted through the anus. It was advanced to the sigmoid colon. Due to the poor prep, I then terminated the procedure. The endoscope was withdrawn under direct vision. We will await the results of the biopsies and then I will plan for exploratory laparotomy and repair of the paraesophageal and hiatal hernias at the same time. OPERATIVE REPORT [id number] ROD MAK TRANSINT:[id number] Voice Confirmation ID: [id number] DOCUMENT ID: [id number] TROY JUSTICE MD CC: MEEK SORIA DO [id number] DICTATION DATE: 01/03/17 1045 TUBE BUILDING MACHINE OPERATOR: 01/03/17 1142 [facility] [address] [id number]
[2017-01-03 07:47] LABS: ANION GAP 12.2 mmol/L (8-16); CALCIUM 8.4 mg/dL (8.5-10.1); CREATININE - SERUM 0.9 mg/dL (0.6-1.3); POTASSIUM - SERUM 4.2 mmol/L (3.5-5.1)
[2017-01-03 07:54] VITALS: BP 145/54; Ht 158.8 cm
[2017-01-03 08:11] LABS: HEMATOCRIT 35.6 % (36.0-48.0); HEMOGLOBIN 11.7 g/dL (12-16); MCH 27.6 pg (26.0-34.0); MCHC 32.9 g/dL (31.0-37.0); RBC 4.24 10x6/uL (4.00-5.40); RDW 17.1 % (11.5-14.5); WBC 3.7 10x3/uL (4.8-10.8)
[2017-01-03 08:13] LABS: PLATELET COUNT 90 10x3/uL (130-400); PLATELET ESTIMATE DECREASED
== END 2017-01-03 12:25 | disposition home or self-care (01) ==
LOC: D.OPS 06:13
PROVIDERS: Anesthesiology
DX: K63.2 Fistula of intestine (principal); K31.7 Polyp of stomach and duodenum; K44.9 Diaphragmatic hernia without obstruction or gangrene; Z01.812 Encounter for preprocedural laboratory examination

== ENCOUNTER → 2017-01-12 10:55 | Outpatient (CLI) | payer MEDICARE, BC | END | disposition home or self-care (01) | LOC: D.OPS 10:55 | DX: L98.8 Other specified disorders of the skin and subcutaneous tissue (principal) ==

== ENCOUNTER → 2017-01-13 08:55 | Outpatient (CLI) | payer MEDICARE, BC ==
--- NOTE | ~2017-01-13 | HEMODYNAMI ---
PATIENT:ROD MAK MEDICAL RECORD: [id number] : 47 LOCATION:DBONNY ADMISSION DATE: 01/13/17 Generatedon:01/13/201711:30 Patient name: ORD MAK Patient #: [id number] SSN: DO B: 1945 Date of study: 01/13/2017 Page: Of Hemodynamic Procedure Report Patient Data Patient Demographics Procedure consent was obtained First Name: ROD Gender: Female Last Name: OBDULIO : 1945 [facility] Initial: B Age: 71 year(s) Patient #: [id number] Race: Additional ID: [id number] Contact details Address: [facility] [address] State: [place] City: [place] Zip code: [address] Past Medical History Allergies Allergen Reaction Date Comments Reported Other allergy 05/19/2015 HYDROCODONE Admission Admission Data Admission Date: 01/13/2017 Admission Time: 8:55 Procedure Procedure Types Cath Procedure Peripheral Cath Diagnostic Procedure Biliary Procedure Description Procedure Date Procedure Date: 01/13/2017 Procedure Start Time: 10:51 Procedure Staff Name Function Kris Banegas RT Scrub Kris Banegas RT Monitor Tl Hackett MD Performing Physician Susanna Triplett RN Nurse Procedure Data Cath Procedure Fluoroscopy Diagnostic fluoroscopy Total fluoroscopy Time: 1.6 time: 1.6 min min Diagnostic fluoroscopy Total fluoroscopy dose: 2 dose: 2 mGy mGy Hemodynamics Rest Pre Cath Intra NCS Post Cath Procedure Log Time Note 9:58:58 Kris Banegas RT (R) (CV) sent for patient. Start room use. 9:59:07 Time tracking: Regular hours 9:59:26 Patient received from Outpatients to IR Alert and oriented. Tansferred to table in Supine position. 9:59:30 Signed procedure consent form obtained from patient. 9:59:31 Pre-procedure instructions explained to patient. 9:59:36 Pre-op teaching completed and patient verbalized understanding. 9:59:40 Use device set IR Diagnostic 9:59:41 Sterile Angiographic Pack opened to sterile field. 9:59:42 Bag Decanter opened to sterile field. 9:59:57 PowerPICC 5Fr double lumen catheter opened to sterile field. 9:59:58 SorbaView Shield opened to sterile field. 10:00:14 Patient pain scale 0/10 no pain. 10:00:21 Right Arm area was prepped with chlora-prep and draped in sterile fashion 10:50:00 --------ALL STOP TIME OUT------ 10:50:01 Final Timeout: patient, procedure, and site verified with staff and physician. All members of the team are in agreement. 10:50:10 Sedation plan: Local Anesthetic Lidocaine 10:51:02 Procedure started. 10:51:03 Full Disclosure recording started 10:51:20 Local anesthetic to right arm with Lidocaine 1% by Tl Hackett MD.INITIAL ACCESS ONLY 11:10:51 lt.arm picc line removed and tip sent for culture 11:13:29 Picc line trimmed to 31 cm 11:13:31 Procedure ended.(Physican Out) 11:14:24 Fluoroscopy time 01.60 minutes. 11:14:28 Flurop Dose total: 2 11:14:28 Fluoroscopy dose: 2 mGy 11:14:30 Sharps counted by scrub and verified by R.N. 11:14:37 Post right arm:stable 11:14:42 Report given to Outpatients. 11:14:48 Patient transfered to Outpatients with Wheelchair. 11:16:20 Full Disclosure recording stopped Device Usage Item Name Manufacture Quantity Catalog Hospital Part Current Minimal Lot# / Number Charge Number Stock Stock Serial# Code Sterile Cardinal 1 [id number] 5 Angiographic Health Pack Bag Decanter Microtek 1 [id number] 5 [employer] PowerPICC Bard 1 [id number] 5 5Fr double lumen catheter SorbaView Centurion 1 [id number] 5 Shield Signature Audit [place] Stage Time Signature Unsigned Intra-Procedure 01/13/2017 Kris Banegas RT 11:16:12 AM Makenzie RT (R) (CV) 01/13/2017 (R) (CV) 11:29:32 AM Intra-Procedure 01/13/2017 Kris 11:30:20 AM Makenzie RT (R) (CV) Signatures Monitor : Kris Signature : Makenzie RT Date : Time : [address] [place] [address]
== END | disposition home or self-care (01) ==
LOC: D.OPS 08:55 → D.SP 09:00
DX: L98.8 Other specified disorders of the skin and subcutaneous tissue (principal)

== ENCOUNTER 2017-01-27 06:47 | Day surgery (SDC) | payer MEDICARE, BC ==
[~2017-01-27] VITALS: Ht 157.5 cm; Wt 54.0 kg
[2017-01-27 08:38] LABS: BASOPHILS 0.6 % (0-2); EOSINOPHILS 7.6 % (0-7); HEMATOCRIT 32.9 % (36.0-48.0); HEMOGLOBIN 10.8 g/dL (12-16); IMMATURE GRANULOCYTES 0.2 % (0-5); LYMPHOCYTES 18.7 % (15-50); MCH 28.3 pg (26.0-34.0); MCHC 32.8 g/dL (31.0-37.0); MCV 86.1 fL (80.0-100.0); MEAN PLATELET VOLUME 12.3 fL (7.4-10.4); MONOCYTES 10.7 % (2-11); NEUTROPHILS 62.2 % (40-80); RBC 3.82 10x6/uL (4.00-5.40); WBC 5.1 10x3/uL (4.8-10.8)
[2017-01-27 08:43] VITALS: BP 134/60; Ht 157.5 cm; Wt 54.0 kg
[2017-01-27 08:50] LABS: PLATELET COUNT 181 10x3/uL (130-400)
[2017-01-27 08:51] LABS: APTT 32.1 SECONDS (22.8-39.4); INR 1.04 (0.85-1.17); PROTIME 13.5 SECONDS (11.6-15.0)
[2017-01-27 08:57] LABS: CALC OSMOLALITY 278 mosm/kg (275-300); CALCIUM 8.4 mg/dL (8.5-10.1); CARBON DIOXIDE 30.3 mmol/L (21.0-32.0); CHLORIDE - SERUM 105 mmol/L (98-107); CREATININE - SERUM 0.8 mg/dL (0.6-1.3); GLUCOSE 85 mg/dL (74-106); POTASSIUM - SERUM 3.9 mmol/L (3.5-5.1); SODIUM 139 mmol/L (136-145); UREA NITROGEN 17 mg/dL (7-18); eGFR NON AFRICAN AMERICAN 75 mL/min (90-120)
--- NOTE | 2017-01-27 13:28 | NUR ---
1325 WOUND CARE/DRESSING PLACED BY WOUND NURSE MITCHELL. DISCHARGE INSTRUCTIONS COMPLETE. NO PRESCRIPTIONS OR FOLLOW UP APPOINTMENT GIVEN. PT HAS NO QUESTIONS OR CONCERNS AT THIS TIME. ESCORTED OUT BY SAGE TERRELL.
--- NOTE | 2017-01-30 15:04 | HP ---
PATIENT: ROD MAK MEDICAL RECORD: [id number] ACCOUNT: [id number] LOCATION:DBONNY : 47 ADMISSION DATE: 01/27/17 HISTORY AND PHYSICAL EXAMINATION ADDENDUM I saw the patient in my office recently. The patient has a large enterocutaneous fistula and it is really not getting any smaller with conservative treatment. It appears to be a double barrel enterocutaneous fistula. The patient had numerous abdominal operations. Her initial operation was for a rectovaginal fistula. Since then, she had a prolonged period of time in the ICU where abdomen was opened. The patient ultimately developed a coloenteric fistula. In an attempt to repair this, the patient developed an enterocutaneous fistula and despite conservative therapy, it is really not improving any. I want to bowel prep the patient's colon. The only way to do this really is to inject some GoLYTELY or something similar to it, down the efferent limb of the small bowel. I would like to get some images of the small bowel as well as the colon to make sure that there is no spillage of contrast into an abscess cavity and that her bowel is in continuity except for the enterocutaneous fistula. Plan is a small bowel follow through at the bedside without immediate surgeon interpretation. TRANSINT:[id number] Voice Confirmation ID: [id number] DOCUMENT ID: [id number] EPHRAIM JUSTICE MD at 1504 CC: [id number] DICTATION DATE: 01/27/17 1053 SHOPPER INSIGHTS MANAGER: 01/27/17 1129 [facility] 01/27/[address] [place] [address]
--- NOTE | 2017-01-30 15:04 | OP ---
PATIENT NAME: ROD MAK MEDICAL RECORD: [id number] :47 LOCATION:D.OPS ADMISSION DATE: SURGEON: TROY JUSTICE MD DATE OF OPERATION: 01/27/2017 PREOPERATIVE DIAGNOSIS: Persistent enterocutaneous fistula. POSTOPERATIVE DIAGNOSIS: Persistent enterocutaneous fistula. PROCEDURE: Small bowel follow-through without surgeon interpretation. SURGEON: Troy Justice MD RAISED PRINTER: None. BLOOD LOSS: Zero. ANESTHESIA: General. The patient has a complex abdominal history. I wanted to determine whether the bowel was in continuity with the exception of the enterocutaneous fistula. ENDOSCOPIC COURSE: The patient was conveyed to the operating room electively on 01/27/2017. General anesthesia was induced by anesthesia staff. A small Flores catheter was inserted through the left-sided portion of this double barrel enterocutaneous fistula. I injected a dye. It flowed retrograde up into the duodenal bulb. I then removed the Flores after deflating the balloon. I advanced the Flores catheter through the efferent limb, which was on the right. I inflated the balloon. I then injected dye, which was Gastrografin as well as GoLYTELY. It filled the small bowel as well as the colon and rectum. I saw no extravasation of contrast. A stoma appliance was applied. The patient was extubated and conveyed to the post-anesthesia care unit. TRANSINT:[id number] Voice Confirmation ID: [id number] DOCUMENT ID: [id number] TROY JUSTICE MD at 1504 CC: [id number] DICTATION DATE: 01/27/17 1056 PHYSICIAN RELATIONS MANAGER: 01/27/17 1501 [facility] 01/27/[address] [address]
== END 2017-01-27 13:25 | disposition home or self-care (01) ==
LOC: D.OPS 06:47 → D.PAN 13:00 → D.OPS 13:25 → D.PAN 14:00 → D.OPS 14:00 → D.PAN 14:20 → D.OPS 02-10 08:00
PROVIDERS: Anesthesiology
DX: K63.2 Fistula of intestine (principal); Z01.812 Encounter for preprocedural laboratory examination

== ENCOUNTER 2017-02-09 06:20 | Inpatient (IN) | payer MEDICARE, BC ==
[2017-02-09] VITALS (16 sets, daily range): BP systolic 90–157; BP diastolic 40–75; BMI 21.8
[~2017-02-09] VITALS: Ht 157.5 cm; Wt 66.5 kg
--- NOTE | ~2017-02-09 | OP ---
PATIENT NAME: ROD MAK MEDICAL RECORD: [id number] :47 LOCATION:D.MS [id number] ADMISSION DATE:02/09/17 SURGEON: TROY JUSTICE MD DATE OF OPERATION: 03/01/2017 PREOPERATIVE DIAGNOSIS: Subcutaneous hematoma, spontaneous. POSTOPERATIVE DIAGNOSES: Pressure necrosis of overlying eschar. Please see dimensions below. PROCEDURE: Excisional debridement of abdominal wall. Dimensions of debridement, including margins, measured 5.8 cm in cephalad caudad dimension and 4.3 cm in the lateral dimension, and depth is 3.2 cm. Also, evacuation of subcutaneous hematoma, also placed on a wound VAC. SURGEON: Troy Justice MD PERSONNEL CLERKS SUPERVISOR: None. BLOOD LOSS: Minimal. ANESTHESIA: General. COMPLICATIONS: None. The risks, possible complications and alternatives to procedure were explained to the patient. She elects to proceed. OPERATIVE COURSE: The patient was conveyed to the operating room electively on 03/01/2017. General anesthesia was induced by the anesthesia staff. The abdomen was sterilely prepped and draped. I excised the black eschar. I then manually evacuated the hematoma. Utilizing the pulsed irrigation device, I performed a pulsed irrigation of the subcutaneous space. I removed the sutures as the skin cephalad and caudad to the eschar appeared to be healed. I examined within the wound. It appeared that there were some fascial separation inferiorly. I saw no evidence of enteral contents. No evidence of colonic contents. A white wound VAC sponge was cut to the size of the defect. A black wound VAC sponge was applied on top of this. Cellophane-type dressings were applied. I then scored the cellophane type dressings. I attached a wound VAC disc. This was applied to suction. The patient was then extubated and conveyed to post-anesthesia care unit where she was in stable condition. We will resume her diet as well as her analgesia. TRANSINT:[id number] Voice Confirmation ID: [id number] DOCUMENT ID: [id number] 03/03/2017 Edited procedure to include depth of wound, per nessa Zacarias. OPERATIVE REPORT [id number] ROD MAK ROBERT MD CC: [id number] DICTATION DATE: 03/01/171817 CRATE OPENER: 03/01/172014 ADM IN [address] [address]
[2017-02-09 07:25] LABS: BASOPHILS 0.4 % (0-2); EOSINOPHILS 6.2 % (0-7); HEMATOCRIT 40.4 % (36.0-48.0); HEMOGLOBIN 13.2 g/dL (12-16); IMMATURE GRANULOCYTES 0.2 % (0-5); LYMPHOCYTES 12.3 % (15-50); MCHC 32.7 g/dL (31.0-37.0); MCV 88.8 fL (80.0-100.0); MEAN PLATELET VOLUME 13.4 fL (7.4-10.4); MONOCYTES 10.5 % (2-11); NEUTROPHILS 70.4 % (40-80); RBC 4.55 10x6/uL (4.00-5.40); RDW 15.5 % (11.5-14.5)
[2017-02-09 07:33] LABS: APTT 34.8 SECONDS (22.8-39.4); INR 0.95 (0.85-1.17); PROTIME 12.5 SECONDS (11.6-15.0)
[2017-02-09 07:40] LABS: PLATELET COUNT 218 10x3/uL (130-400)
[2017-02-09 07:44] LABS: ANION GAP 13.9 mmol/L (8-16); CALCIUM 9.4 mg/dL (8.5-10.1); CARBON DIOXIDE 25.9 mmol/L (21.0-32.0); CREATININE - SERUM 1.2 mg/dL (0.6-1.3); POTASSIUM - SERUM 4.8 mmol/L (3.5-5.1)
--- NOTE | 2017-02-09 10:55 | NUR ---
PATIENT WAS PLACED IN LITHOTOMY POSITION FOR CYSTO, THEN PLACED IN SUPINE FOR EXPLORATORY LAPAROTOMY, ALL AREAS CHECKED AND RECHECKED, FOR ANY IMPINGEMENTS, SAFETY MEASURES TAKEN PRESSURE POINTS PADDED AND SECURED, EVANGELIST.
--- NOTE | 2017-02-09 11:00 | NUR ---
CVL PLACEMENT BY ANESTHESIA, DR MITTAL, ADALID ALEXIS AND EVANGELIST LO.
[2017-02-09 11:46] LABS: BASOPHILS 0.2 % (0-2); EOSINOPHILS 4.4 % (0-7); HEMATOCRIT 33.4 % (36.0-48.0); HEMOGLOBIN 10.9 g/dL (12-16); IMMATURE GRANULOCYTES 0.2 % (0-5); LYMPHOCYTES 13.5 % (15-50); MCH 28.8 pg (26.0-34.0); MCHC 32.6 g/dL (31.0-37.0); MCV 88.1 fL (80.0-100.0); MONOCYTES 11.9 % (2-11); NEUTROPHILS 69.8 % (40-80); PLATELET COUNT 178 10x3/uL (130-400); RBC 3.79 10x6/uL (4.00-5.40); RDW 15.5 % (11.5-14.5)
[2017-02-09 11:52] LABS: WBC 5.7 10x3/uL (4.8-10.8)
[2017-02-09 11:57] LABS: INR 1.01 (0.85-1.17); PROTIME 13.1 SECONDS (11.6-15.0)
[2017-02-09 12:00] LABS: ANION GAP 12.7 mmol/L (8-16); CALCIUM 7.9 mg/dL (8.5-10.1); CARBON DIOXIDE 25.4 mmol/L (21.0-32.0); CREATININE - SERUM 1.2 mg/dL (0.6-1.3); POTASSIUM - SERUM 5.1 mmol/L (3.5-5.1)
[2017-02-09 12:02] LABS: APTT 26.7 SECONDS (22.8-39.4)
--- NOTE | 2017-02-09 13:33 | NUR ---
BILATERAL URETERAL STENTS D/C POST OP LEWIS LEFT IN PLACE, EVANGELIST.
--- NOTE | 2017-02-09 14:45 | NUR ---
NO DRIPS/INFUSIONS AT TIME OF ARRIVAL PER PENNY TERRELL.
--- NOTE | 2017-02-09 14:45 | NUR ---
REC'D TO ROOM 2303 AND HOOKED UP TO CM BY ROXY TERRELL. FLUID BOLUS GIVEN AND LABS DRAWN.
--- NOTE | 2017-02-09 14:50 | NUR ---
PT TO ICU FROM PACU. PT OPENS EYES AND ANSWERS QUESTIONS APPROPRIATLEY. PT ATTACHED TO MONITORS. HR SR, BP LOW. DR JUSTICE AWARE. NEW ORDERS RECD.
--- NOTE | 2017-02-09 15:13 | NUR ---
CONSULTED ANESTHESIA REGARDING LOW BLOOD PRESSURE. DR. LOWE AT BEDSIDE AND REVIEWED BLOOD PRESSURE. NO FURTHER ORDERS AT THIS TIME. GIVEN VERBAL ORDERS TO DISCHARGE FROM PACU AND TRANSFER TO ICU.
--- NOTE | 2017-02-09 15:16 | NUR ---
NO PAIN MEDICATION GIVEN IN PACU. PATIENT IS ON CONTINUOUS FENTANYL EPIDURAL.
[2017-02-09 15:19] LABS: BASOPHILS 0.2 % (0-2); EOSINOPHILS 1.1 % (0-7); HEMATOCRIT 31.2 % (36.0-48.0); IMMATURE GRANULOCYTES 0.3 % (0-5); LYMPHOCYTES 6.4 % (15-50); MCH 28.8 pg (26.0-34.0); MCHC 32.1 g/dL (31.0-37.0); MCV 89.9 fL (80.0-100.0); MEAN PLATELET VOLUME 13.2 fL (7.4-10.4); PLATELET COUNT 190 10x3/uL (130-400); RBC 3.47 10x6/uL (4.00-5.40); RDW 15.7 % (11.5-14.5)
[2017-02-09 15:20] LABS: WBC 11.1 10x3/uL (4.8-10.8)
--- NOTE | 2017-02-09 16:00 | NUR ---
REC'D CARE OF PT. SEDATED FROM SURGERY. HYPOTENSIVE ON CM. RATE OF 81, NS. CALLED ME. HE SAID THE CENTRAL LINE WAS GOOD TO USE AND THAT THE NGT WAS IS THE STOMACH AND NEEDED TO BE TO LIWS. AND RIGHT PICC LINE WAS GOOD TO USE.
--- NOTE | 2017-02-09 16:15 | NUR ---
INITIAL ASSESSMENT COMPLETED PER FLOW SHEET. A&0 X3. LEFT I CONNECTED THE LEFT NARE NGT TO LIWS. ON 2L VIA NC. SATTING 98%. RR 18 EVEN AND UNLABORED BUT SHALLOW. RIGHT SCTL. SEE IV FLOW SHEET FOR IV DRIPS AND INFUSIONS. RIGHT UPPER ARM PICC LINE. ALL DRSG CD&I. MID ABD DRSG CD&I. DEBBIE PATENT TO GRAVITY. SCD'S. CLWR. AT BEDSIDE. CPOC.
--- NOTE | 2017-02-09 16:25 | NUR ---
STEPHEN TERRELL AT BEDSIDE. HE ADMN EPHEDEDRINE 10 MG IV AND 40 MG IM FOR EPIDURAL GENERATED HYPOTENSION.
--- NOTE | 2017-02-09 17:10 | NUR ---
ZOFRAN GAVE FOR NAUSEA.
--- NOTE | 2017-02-09 17:45 | NUR ---
ONE OF TWO PRBC COMPLETED.
--- NOTE | 2017-02-09 17:50 | NUR ---
2 OF 2 PRBC INITIATED.
--- NOTE | 2017-02-09 18:30 | NUR ---
RESTINGN WITH EYES CLOSED. VSS.
--- NOTE | 2017-02-09 18:32 | NUR ---
2 OF 2 PRBC CONTINUES TO TRANSFUSE. NO S/S OF REACTION TO TRANSFUSION. NO BLEEDING AT SURGERY SITE.
--- NOTE | 2017-02-09 19:15 | NUR ---
REPORT REC'D, ASSUMED PATIENT'S CARE. ASSESSMENT COMPLETED. SEE FLOW SHEETS FOR ALL FINDINGS. PT AROUSES EASILY WITH VOICES, ALERT AND ORIENTED X3, C/O PAIN 6/10 SCALE, EXECUTIVE MEETING MANAGER PUSH USED PRN. ST ON CM WITH HR AT 108, LUNG SOUNDS DIMINISHED TO LLB, UNLABORED ON 2L O2 VIA NC. MID ABD INCISION DRESSING INTACT. DRESSING MARKED.LEWIS INTACT TO GRAVITY WITH LIGHT BLUE/ YELLOW DRAINAGE TO BAG. PPP. CALL LIGHT IN REACH. CONT TO MONITOR.
--- NOTE | 2017-02-09 21:00 | NUR ---
PT'S AT BEDSIDE. UPDATED AND QUESTIONS ANSWERED. CPOC.
--- NOTE | 2017-02-09 22:45 | NUR ---
DR JUSTICE CALLED FOR UPDATE ON PT'S STATUS. NO ORDERS REC'D AT THIS TIME. CONT TO MONITOR.
--- NOTE | 2017-02-09 23:00 | NUR ---
REASSESSMENT COMPLETED PER FLOW SHEETS. PT AROUSES EASILY WITH VOICES, DENIES SOB AT THIS TIME. CONT USING SATELLITE DISH TECHNICIAN PRN FOR PAIN. SR ON CM. VSS. MID ABD INCISION C,D,I. NO ACUTE SIGNS OF DISTRESS NOTED AT THIS TIME. CALL LIGHT IN REACH. CPOC.
[2017-02-10] VITALS (19 sets, daily range): BP systolic 88–127; BP diastolic 51–64; Ht 157.5 cm; Wt 66.5 kg
--- NOTE | 2017-02-10 01:00 | NUR ---
PT AROUSES EASILY WITH VOICES,VSS. NO NEEDS VOICES AT THIS TIME. USES DISEASE CASE MANAGER RN PRN FOR PAIN. CALL LIGHT IN REACH. CONT TO MONITOR.
--- NOTE | 2017-02-10 03:07 | NUR ---
ASSESSMENT COMPLETED. SEE FLOW SHEETS FOR ALL FINDINGS. PT AROUSES EASILY WITH VOICES. GEODETIC SURVEY DIRECTOR USED FOR PAIN PRN. VSS. NO ACUTE CHANGES IN PT'S CONDITION NOTED AT THIS TIME. REPOSITIONED FOR COMFORT. CALL LIGHT IN REACH. CONT TO MONITOR.
--- NOTE | 2017-02-10 04:20 | NUR ---
PT C/O NAUSEA.ZOFRAN 4MG IVP GIVEN PER ORDER. VSS. CPOC.
[2017-02-10 04:55] LABS: BASOPHILS 0.1 % (0-2); EOSINOPHILS 0.1 % (0-7); IMMATURE GRANULOCYTES 0.3 % (0-5); LYMPHOCYTES 4.3 % (15-50); MCH 27.7 pg (26.0-34.0); MCHC 33.2 g/dL (31.0-37.0); MEAN PLATELET VOLUME 12.2 fL (7.4-10.4); MONOCYTES 9.7 % (2-11); NEUTROPHILS 85.5 % (40-80); RDW 19.5 % (11.5-14.5)
--- NOTE | 2017-02-10 05:00 | NUR ---
PT RESTING QUIETLY WITHOUT DISTRESS. VSS. NO NEEDS VOICES AT THIS TIME. CONT TO MONITOR.
[2017-02-10 05:04] LABS: ANION GAP 11.5 mmol/L (8-16); CARBON DIOXIDE 23.7 mmol/L (21.0-32.0); CREATININE - SERUM 1.1 mg/dL (0.6-1.3)
[2017-02-10 05:05] LABS: BILIRUBIN - TOTAL 2.12 mg/dL (0.2-1.3); PROTEIN - SERUM 5.4 g/dL (6.4-8.2)
[2017-02-10 05:06] LABS: HEMATOCRIT 37.6 % (36.0-48.0); HEMOGLOBIN 12.5 g/dL (12-16); MCV 83.4 fL (80.0-100.0); PLATELET COUNT 151 10x3/uL (130-400); RBC 4.51 10x6/uL (4.00-5.40); WBC 14.4 10x3/uL (4.8-10.8)
[2017-02-10 05:11] LABS: POTASSIUM - SERUM 4.2 mmol/L (3.5-5.1)
[2017-02-10 10:36] LABS: MAGNESIUM - SERUM 1.3 mg/dL (1.8-2.4); PHOSPHOROUS 3.7 mg/dL (2.5-4.9)
--- NOTE | 2017-02-10 17:26 | NUR ---
NOTED PATIENT TO BE SHIVERING, TEMP 102.4 MD ADRIEL PAGED.
--- NOTE | 2017-02-10 17:50 | NUR ---
PATIENT C/O NAUSEA, ZOFRAN IV GIVEN, BLOOD CULTURES DRAWN X2 FOR NOTED TEMP.
--- NOTE | 2017-02-10 19:15 | NUR ---
PULLED UP IN BED AND TURNED TO LEFT SIDE WITH DAY SHIFT RN.
--- NOTE | 2017-02-10 19:50 | NUR ---
SHIFT ASSESSMENT COMPLETED. SEE ASSESSMENT FLOWSHEET FOR DETAILS.
--- NOTE | 2017-02-10 21:50 | NUR ---
EYES CLOSED. NO ACUTE DISTRESS NOTED. WILL MONITOR.
--- NOTE | 2017-02-10 22:55 | NUR ---
SPECIMEN OBTAINED VIA LEWIS CATHETER PORT AFTER CLEANSING WITH ALCOHOL TO PORT. SPECIMEN SENT TO LAB. A FEW ICE CHIPS GIVEN. WILL MONITOR.
--- NOTE | 2017-02-10 23:04 | NUR ---
2300: Order to remove PICC verified. All supplies gathered and PICC removed with cath length noted at 31cm. PICC was removed with no resistance felt. Pt with no c/o during removal. No bleeding, swelling, oozing noted after removal. Site cleaned with CHG and 2x2 with tegaderm dressing applied.
[2017-02-10 23:18] LABS: APPEARANCE CLOUDY (CLEAR); BILIRUBIN NEGATIVE (NEGATIVE); COLOR GREEN (YELLOW); GLUCOSE 1000 mg/dL (NEGATIVE); KETONE NEGATIVE (NEGATIVE); LEUKOCYTE ESTERASE TRACE (NEGATIVE); NITRITE NEGATIVE (NEGATIVE); PROTEIN TRACE mg/dL (NEGATIVE); UROBILINOGEN NORMAL (NORMAL)
[2017-02-10 23:31] LABS: BACTERIA MANY /hpf (NONE SEEN); EPITHELIAL CELLS 0-5 /hpf (0-5); MUCUS >1+ /lpf (NONE SEEN); RED CELLS - URINE >50 /hpf (0-5)
[2017-02-10 23:32] LABS: AMORPHOUS SEDIMENT >1+ /lpf (NONE SEEN); WAXY CAST OCC /lpf (NONE SEEN)
[2017-02-11] VITALS (12 sets, daily range): BP systolic 92–123; BP diastolic 44–63
--- NOTE | 2017-02-11 | NUR ---
EYES CLOSED. MOUTH OPEN. NO ACUTE DISTRESS NOTED. WILL MONITOR.
--- NOTE | 2017-02-11 01:15 | NUR ---
ORAL CARE PROVIDED. AWOKE TO GIVE SUBCUTANEOUS MEDS TO ARM. REPORTS WHEN AWAKENED PAIN AN 8/10 ON NUMBER SCALE TO ABDOMEN. ALLIANCE CONSULTANT EPIDURAL BUTTON WITHIN REACH. 279ML LEFT IN EPIDURAL MED BAG REMAINING. TURNED AND REPOSITIONED TO RT SIDE. A FEW ICE CHIPS GIVEN AND FLUSHED NG TUBE WITH 20ML OF WATER. DENIES LIGHT IN ROOM TO BE TURNED OFF. WILL MONITOR.
--- NOTE | 2017-02-11 04:25 | NUR ---
AM LABS DRAWN FROM RT IJ CVL. FEW ICE CHIPS GIVEN. NGT OUTPUT MORE LIGHT BROWN IN COLOR. TEMP REASSESSED/ COOL WASH CLOTH REAPPLIED TO FOREHEAD. WILL MONITOR.
[2017-02-11 05:04] LABS: BASOPHILS 0.1 % (0-2); EOSINOPHILS 0.3 % (0-7); HEMATOCRIT 33.9 % (36.0-48.0); HEMOGLOBIN 11.2 g/dL (12-16); IMMATURE GRANULOCYTES 0.4 % (0-5); MCH 28.1 pg (26.0-34.0); MEAN PLATELET VOLUME 12.6 fL (7.4-10.4); NEUTROPHILS 83.2 % (40-80); PLATELET COUNT 120 10x3/uL (130-400); RBC 3.99 10x6/uL (4.00-5.40); RDW 18.5 % (11.5-14.5); WBC 13.5 10x3/uL (4.8-10.8)
[2017-02-11 05:19] LABS: ALBUMIN 1.6 g/dL (3.4-5.0); ANION GAP 8.4 mmol/L (8-16); BILIRUBIN - TOTAL 1.04 mg/dL (0.2-1.3); CALCIUM 7.1 mg/dL (8.5-10.1); CARBON DIOXIDE 25.2 mmol/L (21.0-32.0); MAGNESIUM - SERUM 2.4 mg/dL (1.8-2.4); POTASSIUM - SERUM 3.6 mmol/L (3.5-5.1)
[2017-02-11 05:21] LABS: PHOSPHOROUS 1.8 mg/dL (2.5-4.9)
--- NOTE | 2017-02-11 06:30 | NUR ---
EYES CLOSED. NO ACUTE DISTRESS NOTED. EPIDURAL ASSESSED.
--- NOTE | 2017-02-11 23:15 | NUR ---
1914- REPORT RCVD/ CARE ASSUMED. INITIAL ASSMNT COMPLETED. SEE FLOWSHEET FOR ALL FINDINGS. AWAKE AND AOX4, RESP UNLLABORED. SPO2 98% ON O2 AT 2 LPM NC. PROFESSOR OF MATHEMATICS COUGH REPORTED. SR ON THE MONITOR. PULSES PALP. TEMP 99.9 PO. MIDLINE ABD INCISIONAL DRESSING CDI. BS HYPO X4. NGT TO LEFT NARE TO LIWS. F/C PATENT WITH GREEN UOP. SCDS ON. DENIES DISCOMFORT. EPIDURAL INTACT AND INFUSING. PROVIDING PAIN CONTROL. HOB UP. C/L AND PRODUCT SUPPORT ENGINEER IN REACH. CONT CURRENT POC. 1999- DR JUSTICE AT BEDSIDE. UPDATE GIVEN. INCENTIVE INSTRUCTED WITH PT. PULLS 750. 2129- NO VISITORS. ASSISTED TO REPOSITION FOR COMFORT AND SKIN INTEGRITY. VSS. SR ON THE MONITOR. 2314- RESTING WITH NO DISTRESS. REPOSITIONED. EOIDURAL INTACT AND INFUSING. 'VSS. DENIES NEEDS. NGT SECURED. CONT CURRENT POC.
[2017-02-12] VITALS (13 sets, daily range): BP systolic 105–166; BP diastolic 51–97
--- NOTE | 2017-02-12 01:20 | NUR ---
TURNED AND REPOSITIONED. DENIES NEEDS. VSS. SR ON THE MONITOR. HOB UP. CUSTOMER RELATIONS REPRESENTATIVE AND C/L IN REACH. CONT CURRENT POC.
--- NOTE | 2017-02-12 03:19 | NUR ---
RESTING WITH NO DISTRESS. PORTABLE CHEST XRAY DONE. INCENTIVE WITH FAIR EFFORT. VSS. EPIDURAL INTACT AND INFUSING. CONT CURRENT POC.
[2017-02-12 04:35] LABS: BASOPHILS 0.2 % (0-2); HEMATOCRIT 31.6 % (36.0-48.0); HEMOGLOBIN 10.3 g/dL (12-16); IMMATURE GRANULOCYTES 0.3 % (0-5); LYMPHOCYTES 7.6 % (15-50); MCH 27.8 pg (26.0-34.0); MCHC 32.6 g/dL (31.0-37.0); MCV 85.4 fL (80.0-100.0); MEAN PLATELET VOLUME 12.5 fL (7.4-10.4); MONOCYTES 11.6 % (2-11); NEUTROPHILS 77.3 % (40-80); PLATELET COUNT 121 10x3/uL (130-400); RDW 17.6 % (11.5-14.5)
[2017-02-12 04:39] LABS: CALC OSMOLALITY 288 mosm/kg (275-300); CALCIUM 7.2 mg/dL (8.5-10.1); CARBON DIOXIDE 28.4 mmol/L (21.0-32.0); CHLORIDE - SERUM 110 mmol/L (98-107); CREATININE - SERUM 0.8 mg/dL (0.6-1.3); GLUCOSE 144 mg/dL (74-106); MAGNESIUM - SERUM 2.2 mg/dL (1.8-2.4); PHOSPHOROUS 1.7 mg/dL (2.5-4.9); POTASSIUM - SERUM 3.5 mmol/L (3.5-5.1); SODIUM 143 mmol/L (136-145); UREA NITROGEN 14 mg/dL (7-18); eGFR NON AFRICAN AMERICAN 75 mL/min (90-120)
--- NOTE | 2017-02-12 05:15 | NUR ---
RESTING WITH NO DISTRESS. FAIR EFFORT WITH INCENTIVE. VSS.
--- NOTE | 2017-02-12 07:32 | NUR ---
NOTIFIED RX OF NEED FOR SODIUM PHOSPHATE
--- NOTE | 2017-02-12 08:35 | NUR ---
NUTRITION F/U LABS REVIEWED. TPN ADJUSTED AND RENEWED. WILL CONTINUE TO MONITOR LABS AND ADJUST TPN NEEDED. RD FOLLOWING
--- NOTE | 2017-02-12 19:30 | NUR ---
SHIFT ASSESSMENT COMPLETE. PT IN HIGH FOWLERS WATCHING TV IN GOOD SPIRITS. A&O X4, PERRLA, 3 MM, BRISK REACTION TO LIGHT. NGT RESTING IN L NARE, DRESSING ADHERED TO SKIN. HER SPEECH IS SOFT DUE TO A SORE THROAT. ICE CHIPS AT BEDSIDE. EDUCATED PT ON MAKING SURE SHE EATS THE ICE CHIPS SLOWLY AND SHE STATES THAT SHE UNDERSTANDS. ORAL MUCOSA IS PINK AND MOIST. R SUBCLAVIAN CVL, DRESSING CDI, SWAB CAPS IN PLACE, TUBING LABELED. S1S2 DISTANT, HR 81, NORMAL SINUS RHYTHM. RESP RATE IS SHALLOW, O2 SAT 98%, CLEAR LUNG SOUNDS THROUGHOUT ALL LOBES. ABD IS TIGHT, MIDLINE INCISION, DRESSING CDI. LEWIS CATH DRAINING GREEN URINE AT THIS TIME. SCDS REMOVED AND SKIN ASSESSED, WNL. RADIAL AND PEDAL PULSES PALP, WEAK. BILAT EQUAL HAND ELECTRIC LINEMAN AND FOOT PUMPS. BP 137/67, TEMP 100.0 AXILLARY. SHE DENIES ANY REQUESTS AT THIS TIME. WILL CONT WITH POC.
--- NOTE | 2017-02-12 20:59 | NUR ---
REPOSITIONED PT AND ASSISTED HER IN GETTING READY FOR BED. CHANGED PINK PAD UNDERNEATH PT. SMALL, LIGHT BROWN SMEAR NOTED ON PAD. EPIDURAL SITE CDI WITH NO S/S OF INFECTION NOTED. WILL CONT TO MONITOR.
--- NOTE | 2017-02-12 22:30 | NUR ---
PT ARRIVED ON UNIT VIA BED ESCORTED BY 2 ICU NURSES. DRESSING ON ABDOMEN CLEAN AND DRY WITH SLIGHT DRAINAGE STAINING SHOWING THROUGH. NG TUBE TO LEFT NARE CONNECTED TO LIS. RIGHT SC CENTRAL LINE PATENT WITH NS INFUSING AT 75 ML / HR; AND TPN INFUSING AT 50 ML / HR. LEWIS CATHETER DRAINING TO GRAVITY WITH GREENISH-YELLOW URINE IN COLLECTION BAG. DRESSING ON RIGHT UPPER ARM, S/P PICC LINE CLEAN AND DRY. SCD'S IN PLACE ON BLE. EPIDURAL W/ FENTANYL AT 6ML BASAL RATE W/ 3 ML BOLUS FOR PAIN CONTROL. O2 IN USE AT 2L VIA NC. GAVE ORAL CARE SUPPLIES AND ICE CHIPS. WILL MONITOR CLOSELY FOR NEEDS. CALL LIGHT WITHIN REACH.
[2017-02-13] VITALS (7 sets, daily range): BP systolic 127–141; BP diastolic 51–62
--- NOTE | 2017-02-13 00:01 | NUR ---
HUNG NEW BAG OF TPN WITH NEW TUBING PER SCHEDULE. CHANGED ALL OTHER PRIMARY AND SECONDARY TUBING PER CHANGE SCHEDULE, AND MARKED WITH NEXT CHANGE DATE.
--- NOTE | 2017-02-13 03:23 | NUR ---
PT RESTING QUIETLY AT THIS TIME. TURNED OFF TPN FOR NOW TO DRAW AM LABS IN 30 MINUTES.
[2017-02-13 04:20] LABS: BASOPHILS 0.1 % (0-2); EOSINOPHILS 3.6 % (0-7); HEMATOCRIT 29.2 % (36.0-48.0); HEMOGLOBIN 9.8 g/dL (12-16); IMMATURE GRANULOCYTES 0.3 % (0-5); LYMPHOCYTES 11.9 % (15-50); MCH 28.4 pg (26.0-34.0); MCHC 33.6 g/dL (31.0-37.0); MCV 84.6 fL (80.0-100.0); MEAN PLATELET VOLUME 12.9 fL (7.4-10.4); MONOCYTES 13.6 % (2-11); NEUTROPHILS 70.5 % (40-80); PLATELET COUNT 139 10x3/uL (130-400); RBC 3.45 10x6/uL (4.00-5.40); RDW 17.1 % (11.5-14.5)
[2017-02-13 04:43] LABS: CALC OSMOLALITY 280 mosm/kg (275-300); CARBON DIOXIDE 30.1 mmol/L (21.0-32.0); CHLORIDE - SERUM 108 mmol/L (98-107); CREATININE - SERUM 0.7 mg/dL (0.6-1.3); GLUCOSE 120 mg/dL (74-106); MAGNESIUM - SERUM 1.9 mg/dL (1.8-2.4); POTASSIUM - SERUM 3.4 mmol/L (3.5-5.1); SODIUM 141 mmol/L (136-145); UREA NITROGEN 11 mg/dL (7-18); eGFR NON AFRICAN AMERICAN 88 mL/min (90-120)
[2017-02-13 04:53] LABS: CALCIUM 6.5 mg/dL (8.5-10.1); PHOSPHOROUS 2.2 mg/dL (2.5-4.9)
--- NOTE | 2017-02-13 05:21 | NUR ---
CRITICAL CALCIUM OF 6.5 THIS AM. USING THE ALBUMIN CORRECTION CALCULATION: {0.8X(4-1.6) + 6.5 = 8.4 CORRECTED CALCIUM LEVEL, WHICH IS NOT CRITICAL. POTASSIUM LEVEL 3.4 REQUIRING COVERAGE WITH 20 MEQ K+ Q2 HR X2 DOSES. FIRST DOSE INFUSING NOW. PHOSPHORUS LEVEL 2.2 ...WAITING ON PHARMACY TO GET HERE TO MIX DOSE PER ELECTROLYTE PROTOCAL.
--- NOTE | 2017-02-13 07:55 | NUR ---
PT AOX4 RESP EVEN AND NONLABORED PT DENIES NEEDS AT THIS TIME IV TO RIGHT SUBCLAVIAN PATENT AND INTACT AT THIS TIME SRX2 BED AT LOWEST SETTING CALL LIGHT WITHIN REACH AT THIS TIME WILL CONTINUE TO MONITOR
--- NOTE | 2017-02-13 20:29 | NUR ---
REC'D ABD. DSG DRY AND INTACT OUTSIDE SALES INSPECTOR DILAUDID IN PLACE ORDERED FOR SELF PAIN CONTROL WILL CONTINUE TO MONITOR FOR ANY CHGES. AND FOLLOW CURRENT PLAN OF CARE.
[2017-02-14] VITALS: BP 127/55
--- NOTE | 2017-02-14 02:00 | NUR ---
PT IN BED WITH NO DISTRESS. RESPIRATIONS EVEN AND UNLABORED. SIDE RAILS X 2. BED IS LOW. CALL LIGHT IN REACH.
[2017-02-14 04:00] VITALS: BP 143/52
--- NOTE | 2017-02-14 07:58 | NUR ---
PT AOX1 RESP EVEN AND NONLABORED PT DENIES NEEDS AT THIS TIME CAREGIVER AT BEDSIDE. IV TO RIGHT FOREARM PATENT AND INTACT AT THIS TIME SRX2 BED AT LOWEST SETTING CALL LIGHT WITHIN REACH WILL CONTINUE TO MONITOR
[2017-02-14 08:08] LABS: ALKALINE PHOSPHATASE 142 U/L (46-116); ALT (SGPT) 67 U/L (10-68); CALC OSMOLALITY 279 mosm/kg (275-300); CALCIUM 7.4 mg/dL (8.5-10.1); CARBON DIOXIDE 32.6 mmol/L (21.0-32.0); CHLORIDE - SERUM 103 mmol/L (98-107); CREATININE - SERUM 0.8 mg/dL (0.6-1.3); GLUCOSE 112 mg/dL (74-106); MAGNESIUM - SERUM 1.8 mg/dL (1.8-2.4); PHOSPHOROUS 2.3 mg/dL (2.5-4.9); POTASSIUM - SERUM 3.4 mmol/L (3.5-5.1); PROTEIN - SERUM 5.5 g/dL (6.4-8.2); SODIUM 140 mmol/L (136-145); UREA NITROGEN 13 mg/dL (7-18); eGFR NON AFRICAN AMERICAN 75 mL/min (90-120)
[2017-02-14 08:14] LABS: ALBUMIN 2.1 g/dL (3.4-5.0)
[2017-02-14 08:18] VITALS: BP 174/72
--- NOTE | 2017-02-14 09:08 | NUR ---
NUTRITION F/U CHART REVIEWED. LABS NOTED. TPN ADJUSTED AND RENEWED. WILL CONTINUE TO MONITOR LABS AND ADJUST TPN NEEDED. RD FOLLOWING
[2017-02-14 12:44] VITALS: BP 135/47
[2017-02-14 16:28] VITALS: BP 118/49
[2017-02-14 20:00] VITALS: BP 140/51
[2017-02-15] VITALS: BP 143/48
--- NOTE | 2017-02-15 02:05 | NUR ---
REC'D, IN BED AWAKE ALERT ORIENTED X3. NG TO LEFT NARE AT LOW INTERMITT SUCTION. DENIES NAUSEA.MIDLINE DRSG, DRY AND INTACT WITH HYPOACTIVE BOWEL SOUNDS ALL QUAD.LEWIS PATENT AND DRAING CONCENTRATED URINE.SCD'S ON. SCHOOL OF NURSING DIRECTOR DILAUDID IN PLACE FOR SELF PAIN CONTROL. WILL CONTINUE TO MONITOR FOR ANY CHGES AND FOLLOW CURRENT PLAN OF CARE.
--- NOTE | 2017-02-15 05:00 | NUR ---
EYES CLOSED RESPIRATIONS WITH EASE AND UNLABORED.
[2017-02-15 06:44] LABS: CALC OSMOLALITY 278 mosm/kg (275-300); CALCIUM 7.8 mg/dL (8.5-10.1); CARBON DIOXIDE 35.5 mmol/L (21.0-32.0); CHLORIDE - SERUM 97 mmol/L (98-107); CREATININE - SERUM 0.7 mg/dL (0.6-1.3); GLUCOSE 127 mg/dL (74-106); POTASSIUM - SERUM 3.5 mmol/L (3.5-5.1); SODIUM 139 mmol/L (136-145); UREA NITROGEN 10 mg/dL (7-18); eGFR NON AFRICAN AMERICAN 88 mL/min (90-120)
[2017-02-15 06:48] LABS: PHOSPHOROUS 2.9 mg/dL (2.5-4.9)
[2017-02-15 08:19] VITALS: BP 146/53
--- NOTE | 2017-02-15 09:12 | NUR ---
PT AOX4 RESP EVEN AND NONLABORED IV TO RIGHT SUBCLAVIAN PATENT AND INTACT AT THIS TIME SRX2 BED AT LOWEST SETTING CALL LIGHT WITHIN REACH WILL CONTINUE TO MONITOR
--- NOTE | 2017-02-15 11:00 | NUR ---
NUTRITION F/U CHART REVIEWED. LABS NOTED. RENEWED AM LABS X [address] FOLLOWING
[2017-02-15 12:00] VITALS: BP 146/47
--- NOTE | 2017-02-15 13:06 | NUR ---
NGTUBE DISCONTINUED WITHOUT DIFFICULTY AT THIS TIME
[2017-02-15 16:17] VITALS: BP 128/48
--- NOTE | 2017-02-15 19:42 | NUR ---
CENTRAL LINE STERILE DRESSING CHANGE DONE AT THIS TIME WITHOUT DIFFICULTY AT THIS TIME
[2017-02-15 20:00] VITALS: BP 132/48
--- NOTE | 2017-02-15 22:30 | NUR ---
PATIENT IS AWAKE, ALERT AND ORIENTED X'S 4. NO SIGNS OF DISTRESS NOTED. BED IN LOWEST POSITION, CALL LIGHT IN REACH. BED RIALS UP X'S 2.
--- NOTE | 2017-02-15 22:45 | NUR ---
REC'D SITTING UP IN BED. ALERT AND ORIENTED X4. DENIED PAIN AT THIS TIME. DENIED FURTHER NEEDS AT THIS TIME. INSTRUCTED TO CALL IF NEEDED ANYTHING. VERBALIZED UNDERSTANDING. WILL ADMIN AM/PM MEDS PRESCRIBED. BED LOW, LOCKED, CALL LIGHT IN REACH.
[2017-02-16] VITALS: BP 122/56
[2017-02-16 06:03] LABS: CALC OSMOLALITY 280 mosm/kg (275-300); CALCIUM 7.8 mg/dL (8.5-10.1); CARBON DIOXIDE 36.9 mmol/L (21.0-32.0); CHLORIDE - SERUM 98 mmol/L (98-107); CREATININE - SERUM 0.7 mg/dL (0.6-1.3); GLUCOSE 122 mg/dL (74-106); MAGNESIUM - SERUM 2.2 mg/dL (1.8-2.4); PHOSPHOROUS 3.2 mg/dL (2.5-4.9); POTASSIUM - SERUM 3.7 mmol/L (3.5-5.1); SODIUM 141 mmol/L (136-145); UREA NITROGEN 10 mg/dL (7-18); eGFR NON AFRICAN AMERICAN 88 mL/min (90-120)
--- NOTE | 2017-02-16 07:30 | NUR ---
RECIEVED PT DURING WALKING ROUNDS. PT RESTING IN BED WITH NO COMPLAINTS OF PAIN OR DISCOMFORT AT THIS TIME. PORT DRESSING CHANGED AT THIS TIME PER PROTOCOL. ASSESSMENT DONE PER FLOWSHEET. BED IN LOW POSITION AND CALL LIGHT WITHIN REACH. WILL CONTINUE TO MONITOR.
--- NOTE | 2017-02-16 08:25 | OP ---
PATIENT NAME: ROD MAK MEDICAL RECORD: [id number] :46 LOCATION:D.MS [id number] ADMISSION DATE:02/09/17 SURGEON: TROY GILMORE MD DATE OF OPERATION: 02/09/2017 SURGEON: Troy Gilmore MD ANESTHESIA: General anesthesia by Dr. Carrasco. PREOPERATIVE DIAGNOSIS: Enterocutaneous fistula. POSTOPERATIVE DIAGNOSIS: Enterocutaneous fistula. PROCEDURES: Cystoscopy and bilateral ureteral stent insertion. FINDINGS: Single ureteral orifices bilaterally. Diffuse bladder inflammation seen, no bladder tumors, no fistula tract seen. ESTIMATED BLOOD LOSS: None. COMPLICATIONS: None. CLINICAL HISTORY: This is a 71-year-old female, who has an enterocutaneous fistula. Dr. Jung is to perform a laparoscopic surgery to remove the fistula tract and close the fistula. He has requested insertion of bilateral ureteral stents for his surgery. The patient has already asleep in the OR. She has been given her IV antibiotics. DESCRIPTION OF PROCEDURE: She was placed in the dorsal lithotomy position and prepped and draped. A 21-Italian cystoscope with 30-degree lens was used for visualization. Findings are as outlined above. The 5-Italian open-ended ureteral catheter was placed into each ureteral orifice up to the renal pelvis level. Once the [address], the scope was removed, leaving the stents in place. Then a 16-Italian Flores catheter was placed to bag drainage. The balloon was inflated with 10 cc of sterile water. ____ was used to allow the ureteral stents to drain into the Flores catheter drainage bag. At this point, Dr. Jung can start his procedure. TRANSINT:[id number] Voice Confirmation ID: [id number] DOCUMENT ID: [id number] TROY GILMORE MD at 0825 CC: [id number] DICTATION DATE: 02/09/17 1010 CLINICAL DOCUMENTATION IMPROVEMENT SPECIALIST: 02/09/17 1249 ADM IN [facility] [id number] [place] [id number]
[2017-02-16 09:39] VITALS: BP 148/63
--- NOTE | 2017-02-16 10:30 | NUR ---
DRESSING CHANGED TO PTS ABDOMEN PER VERBAL ORDER. PT TOLERATED WELL. BED IN LOW POSITION AND CALL LIGHT WITHIN REACH. WILL CONTINUE TO MONITOR.
[2017-02-16 12:57] VITALS: BP 148/62
[2017-02-16 16:30] VITALS: BP 143/58
[2017-02-16 20:00] VITALS: BP 145/58
[2017-02-17] VITALS: BP 143/53
[2017-02-17 04:00] VITALS: BP 143/58
[2017-02-17 06:54] LABS: CALC OSMOLALITY 284 mosm/kg (275-300); CALCIUM 8.7 mg/dL (8.5-10.1); CARBON DIOXIDE 35.6 mmol/L (21.0-32.0); CHLORIDE - SERUM 101 mmol/L (98-107); CREATININE - SERUM 0.8 mg/dL (0.6-1.3); GLUCOSE 152 mg/dL (74-106); MAGNESIUM - SERUM 2.4 mg/dL (1.8-2.4); POTASSIUM - SERUM 3.4 mmol/L (3.5-5.1); SODIUM 142 mmol/L (136-145); UREA NITROGEN 11 mg/dL (7-18); eGFR NON AFRICAN AMERICAN 75 mL/min (90-120)
[2017-02-17 06:55] LABS: PHOSPHOROUS 4.1 mg/dL (2.5-4.9)
--- NOTE | 2017-02-17 07:35 | NUR ---
A&O, DENIES NEEDS, BE DLOWEST POSITION, CALL LIGHT IN REACH, WILL CONTINUE TO MONITOR
--- NOTE | 2017-02-17 07:40 | NUR ---
PT SITTING UP IN BED ASLEEP WITH NO VISABLE SIGNS OF PAIN OR DISCOMFORT AT THIS TIME, BED IN LOW POSITION AND CALL LIGHT WITHIN REACH. WILL CONTINUE TO MONITOR.
[2017-02-17 08:08] VITALS: BP 145/64
--- NOTE | 2017-02-17 08:38 | NUR ---
Nutrition follow-up: Pt now on clear liquid diet TPN continues @ 50 ml/hr with 20% 250 ml intralipods Q 48 hours Labs reviewed Will continue current TPN regimen. RDN following.
--- NOTE | 2017-02-17 08:42 | OP ---
PATIENT NAME: ROD MAK MEDICAL RECORD: [id number] :46 LOCATION:D.MS [id number] ADMISSION DATE:02/09/17 SURGEON: EPHRAIM JUSTICE MD DATE OF OPERATION: 02/09/2017 PREOPERATIVE DIAGNOSIS: Large double layer enterocutaneous fistula. POSTOPERATIVE DIAGNOSES: Large double layer enterocutaneous fistula with extensive intraabdominal adhesions, also enterotomies times 2. PROCEDURES: 1. Exploratory laparotomy. 2. Resection of enterocutaneous fistula with a small bowel anastomosis. 3. Repair of enterotomies times 2. The adhesiolysis should be extensive adhesiolysis. The amount of time spent performing the adhesiolysis was 125 minutes. SURGEON: Ephraim Justice MD CONSERVATION ENGINEER: No assistants. ESTIMATED BLOOD LOSS: 500 cc. The risks, possible complications and alternatives to procedure were explained to the patient. She elects to proceed. The discussion specifically included, but was not limited to, bleeding requiring emergency reoperation, infection, need for colostomy, need for an ileostomy, need for packing, and a possible need for repeat exploratory laparotomy and the need for lavage. OPERATIVE COURSE: The patient was conveyed to the operating room electively on 02/09/2017. General anesthesia was induced by anesthesia staff. The abdomen was sterilely prepped and draped. I performed an incision cephalad. I entered the peritoneal cavity cephalad. I worked my way laterally on both sides as well as in a caudad direction. This was a tedious adhesiolysis. It took 125 minutes. The patient essentially had a "frozen abdomen." During the dissection, there were 2 very small enterotomies. One of these was repaired by lifting the enterotomy up with some silks and the stapling across the enterotomy, excluding it with a TA 30 stapler. The other enterotomy which was very small was closed with interrupted 3-0 silk sutures. I continued my adhesiolysis. I was able to free up enough small bowel around this double layer anastomosis. I was able to insert my finger down both lumens of the anastomosis. I brought the 2 loops of small bowel and apposition side by side to perform a [id number] anastomosis. I advanced anvils of the NAN-75 stapler. I then fired. The resulting enteric defect was closed with a single firing of a TA 60 stapler. I then oversewed a portion of the staple line with imbricating 3-0 Vicryl sutures. I irrigated with normal saline. There was no bleeding. Extra fascial flaps were created sharply. This was a fairly tight closure. The fascia was approximated in the midline with a running loop #1 PDS from the cephalad and caudad directions. I oversewed this fascial closure with a running OPERATIVE REPORT [id number] ROD MAK #1 Vicryls. The skin was closed with multiple interrupted horizontal mattress 2-0 nylons. A sterile dressing was applied. The patient was then extubated and conveyed to post-anesthesia care unit. She will then be conveyed to the intensive care unit. TRANSINT:[id number] Voice Confirmation ID: [id number] DOCUMENT ID: [id number] EPHRAIM JUSTICE MD at 0842 CC: MEEK SORIA DO and REMY SWANN MD [id number] DICTATION DATE: 02/09/17 1611 PLASTIC FRAME INSERTER: 02/09/17 2109 ADM IN [facility] [address] [place] [address]
--- NOTE | 2017-02-17 08:42 | HP ---
PATIENT: ROD MAK MEDICAL RECORD: [id number] ACCOUNT: [id number] LOCATION:D.MS [facility]8 : 46 ADMISSION DATE: 02/09/17 HISTORY AND PHYSICAL EXAMINATION CHIEF COMPLAINT: Fistula HISTORY OF PRESENT ILLNESS: The patient has a wide mouth double-barrel enterocutaneous fistula. She is here for exploratory laparotomy and repair of the fistula. The risks, possible complications and alternatives to procedure were explained to the patient. She elects to proceed. Discussed specifically included, but was not limited to, bleeding requiring emergency reoperation, infection, recurrent fistulization and the need for an ileostomy and the need for colostomy. ALLERGIES: HYDROCODONE AND NALTREXONE. HOME MEDICINES: Clonidine, Zyzal p.r.n. basis as well as Zofran. PAST MEDICAL AND SURGICAL HISTORY: Left lower lobectomy. She is on TPN, rectovaginal fistula, history of a mastectomy with reconstruction, history of multiple exploratory laparotomies with sepsis and an open abdomen requiring mechanical ventilation in the ICU, history of oophorectomy, and history of hysterectomy. REVIEW OF SYSTEMS: Negative for CVA or seizures. Negative for NM or coronary stents. PHYSICAL EXAMINATION: GENERAL: The patient does not appear acutely ill. She does appear chronically ill. VITAL SIGNS: Reviewed. HEAD: External ears appear normal. EYES: Extraocular movements are intact. NECK: Trachea is midline. CHEST: No intercostal retractions. PULMONARY: Nonlabored, no stridor. ABDOMEN: Tenderness around the midline enterocutaneous fistula, which is a large double barrel fistula. IMPRESSION: Enterocutaneous fistula does not resolve with conservative therapy PLAN: Exploratory laparotomy with repair of the enterocutaneous fistula present. TRANSINT:[id number] Voice Confirmation ID: [id number] DOCUMENT ID: [id number] HISTORY AND PHYSICAL [id number] OBDULIOROD ROBERT MD at 0842 CC: MEEK SORIA DO and REMY SWANN MD [id number] DICTATION DATE: 02/09/17 1517 SKY LINE YARDER: 02/09/17 1552 [place] [address]
[2017-02-17 12:40] VITALS: BP 134/65
[2017-02-17 16:00] VITALS: BP 135/65
[2017-02-17 20:00] VITALS: BP 145/60
[2017-02-18] VITALS: BP 154/65
--- NOTE | 2017-02-18 01:20 | NUR ---
ASSESSED AT THE BEGINNING OF THE SHIFT. PT IS ALERT AND ORIENTED, ABLE TO VERBALIZE NEEDS. DRESSING CHANGED TO INCISION DUE TO SOME DRAINAGE AND PT WANTING TO MAKE SURE IT WAS NOT STOOL LEAKAGE. INCISION LOOKS GOOD. CONT. TO HAVE GREEN URINE TO LEWIS AND REQUESTED PAIN MEDS ORDERED AT BEDTIME. THE BED IS LOW, RAILS UP X'S 2 WITH THE CALL LIGHT AT HAND.
[2017-02-18 04:00] VITALS: BP 134/73
[2017-02-18 07:14] LABS: ANION GAP 10.4 mmol/L (8-16); CALCIUM 8.8 mg/dL (8.5-10.1); CARBON DIOXIDE 33.5 mmol/L (21.0-32.0); CREATININE - SERUM 0.9 mg/dL (0.6-1.3); MAGNESIUM - SERUM 2.3 mg/dL (1.8-2.4); PHOSPHOROUS 3.8 mg/dL (2.5-4.9); POTASSIUM - SERUM 3.9 mmol/L (3.5-5.1)
[2017-02-18 08:00] VITALS: BP 150/72
--- NOTE | 2017-02-18 08:20 | NUR ---
AWAKE AND ALERT. ORIENTED X3. NO C/O AT THIS TIME. UP TO BR WITH SBA. HAD LOOSE WATERY STOOL. SKIN CARE PER SELF. LUNGS ARE CLEAR BILATERALLY, NO COUGH NOTED. SKIN IS INTACT WITHOUT REDNESS EXCEPT INCISION TO MID ABDOMEN WHICH HAS A DRY INTACT DRESSING IN PLACE. RIGHT SUBCLAVIAN PATENT WITHOUT REDNESS AT INSETION SITE. LEWIS PATENT WITH CLEAR YELLOW URINE. SOME NAUSEA WITH EMESIS AT THIS TIME. WILL GIVE ZOFRAN FOR SAME.
--- NOTE | 2017-02-18 10:00 | NUR ---
REPORTED GOOD RELIEF WITH USE OF ZOFRAN. ATE MOST OF [place] BREAKFAST. DR. SANZ HERE ADVANCED DIET TO REGULAR.
--- NOTE | 2017-02-18 10:27 | NUR ---
AMBULATED IN HALLWAY WITH PT. AT SIDE.
--- NOTE | 2017-02-18 11:17 | NUR ---
LEWIS D/C WITH TIP INTACT WITHOUT COMPLICATIONS. REQUESTED AND GIVEN 2MG DILAUDID PO FOR C/O ABDOMINAL PAIN LEVEL 7. WILL MONITOR.
--- NOTE | 2017-02-18 12:30 | NUR ---
ATE A SMALL AMOUNT OF REGULAR DIET. NO NAUSEA AFTER EATING. GIVEN LASIX IV PER ORDERS.
[2017-02-18 12:36] VITALS: BP 143/72
--- NOTE | 2017-02-18 13:30 | NUR ---
UP TO BR PER SELF. VOIDED WITHOUT DIFFICULTY. LUDMILA CARE PER SELF.
[2017-02-18 16:09] VITALS: BP 137/59
--- NOTE | 2017-02-18 18:30 | NUR ---
ATE ABOUT ONE QUARTER OF HER SUPPER. DIDN'T OVER STUFF. NO C/O NAUSEA OF PAIN WITH EATING. NO CHANGES NOTED. DENIES NEEDS.
--- NOTE | 2017-02-18 19:15 | NUR ---
RECIEVED PT FROM DAY SHIFT. PT SITTING UP IN BED. REPORTS NO NEEDS. CALL LIGHT AT SIDE. IV INFUSING TO RIGHT TLSC.
[2017-02-18 20:00] VITALS: BP 124/64
--- NOTE | 2017-02-18 23:00 | NUR ---
LYING IN BED WITH EYES CLOSED. CALL LIGHT AT SIDE. IV INFUSING TO RIGHT TLSC.
--- NOTE | 2017-02-19 03:40 | NUR ---
PT LYING IN BED WITH EYES CLOSED. RESP EVEN AND UNLABORED. CALL LIGHT AT SIDE. IV INFUSING TO RIGHT TLSC.
[2017-02-19 04:00] VITALS: BP 140/61
[2017-02-19 04:34] LABS: BASOPHILS 0.3 % (0-2); HEMATOCRIT 28.8 % (36.0-48.0); HEMOGLOBIN 9.5 g/dL (12-16); IMMATURE GRANULOCYTES 0.5 % (0-5); LYMPHOCYTES 11.7 % (15-50); MCH 28.5 pg (26.0-34.0); MCV 86.5 fL (80.0-100.0); MEAN PLATELET VOLUME 11.4 fL (7.4-10.4); MONOCYTES 12.8 % (2-11); NEUTROPHILS 69.7 % (40-80); PLATELET COUNT 245 10x3/uL (130-400); RBC 3.33 10x6/uL (4.00-5.40); RDW 16.3 % (11.5-14.5)
[2017-02-19 04:50] LABS: ANION GAP 9.9 mmol/L (8-16); CALCIUM 8.8 mg/dL (8.5-10.1); CARBON DIOXIDE 33.9 mmol/L (21.0-32.0); MAGNESIUM - SERUM 2.3 mg/dL (1.8-2.4); PHOSPHOROUS 4.1 mg/dL (2.5-4.9); POTASSIUM - SERUM 3.8 mmol/L (3.5-5.1)
--- NOTE | 2017-02-19 05:00 | NUR ---
RN NOTE: PT LYING IN SEMI HE'S POSITION WITH EYES CLOSED AND EASY RESPIRATIONS. TPN INFUSING PER ORDER. WILL CONTINUE TO MONITOR FOR NEEDS.
--- NOTE | 2017-02-19 07:30 | NUR ---
AWAKE AND ALERT. ORIENTED X3. NO C/O AT THIS TIME. LUNGS ARE CLEAR BILATERALLY, NO COUGH NOTED. SKIN IS INTACT WITHOUT REDNESS EXCEPT INCISION TO ABDOMEN WHICH IS CLEAN AND DRY WITH DRESSING IN PLACE. RIGHT SUBCLAVIAN IS PATENT WITHOUT REDNESS AT INSERTION SITE. DENIES NEEDS.
[2017-02-19 08:15] VITALS: BP 140/66
--- NOTE | 2017-02-19 08:35 | NUR ---
REQUESTED AND GIVEN 4MG ZOFRAN SLOW IVP FOR C/O NAUSEA WILL MONITOR.
--- NOTE | 2017-02-19 10:30 | NUR ---
RESTING QUIETLY IN BED. DENIES NEEDS. NO FURTHER C/O NAUSEA.
--- NOTE | 2017-02-19 12:15 | NUR ---
LUNCH SERVED IN ROOM. ATE ABOUT 25% OF MEAL. NO C/O PAIN OR NAUSEA AFTER EATING.
[2017-02-19 13:04] VITALS: BP 130/58
--- NOTE | 2017-02-19 15:30 | NUR ---
UP TO BR PER SELF. UPPER PORTION OF MID ABDOMINAL INCISION LEAKING BLOODY DRAINAGE. INCISION LINE APPEARS INTACT. JUST OOZING A GOOD AMOUNT FROM MID TO UPPER PORTION. PRESSURE DRESSING APPLIED TO AREA. SKIN CARE PER STAFF. WILL MONITOR.
--- NOTE | 2017-02-19 15:55 | NUR ---
REQUESTED AND GIVEN 2MG DILAUDID PO FOR C/O ABDOMINAL PAIN LEVEL 10. WILL MONITOR.
[2017-02-19 15:58] VITALS: BP 148/53
--- NOTE | 2017-02-19 18:06 | NUR ---
ATE ABOUT ONE QUARTER OF SUPPER. DENIES NEEDS. REPORTS VERY LITTLE RELIEF FROM DILAUDID. WILL MONITOR. NO CHANGES NOTED. DRESSING TO ABDOMEN DRY AND INTACT.
[2017-02-19 19:00] VITALS: BP 120/43
--- NOTE | 2017-02-19 19:15 | NUR ---
RECEIVED REPORT FROM DAY NURSE. PT SITTING IN BED. LIGHT AT SIDE. IV INFUSING TO RIGHT TLSC. PT SELF AMBULATES TO RESTROOM.
--- NOTE | 2017-02-19 19:45 | NUR ---
RECEIVED ORDER FROM DR. TROTTER TO RETURN PT DISPUTE RESOLUTION SPECIALIST OF DILAUDID 0.2/03/15. PER DAY SHIFT REPORT PT BLEEDING FROM INCISION SITE AND PRESSURE DRESSING APPLIED. PT C/O INCREASED PAIN AND SKIN SENSITIVITY. REPORTS FEELING LIKE HER STOMACH IS LARGER. ABDOMEN IS SLIGHTLY DISTENDED BUT NOT NOTICIBLY FROM PREVIOUS MEDICAL CHEMIST. ABDOMEN IS SOFT AND TENDER WITH ACTIVE BOWEL SOUNDS X4. DR. TROTTER WAS INFORMED OF THIS ALSO, ADVISED TO MONITOR.
--- NOTE | 2017-02-19 21:53 | NUR ---
OLD DRESSING LEAKING BRIGHT RED FLUID. DRESSING REMOVED. EDGES OF INCISION CLOSED WITH NO PURULANT DISCHARGE OR NOTICABLE REDNESS TO SKIN. NEW DRESSING APPLIED PREIOUSLY STATED.
--- NOTE | 2017-02-19 21:53 | NUR ---
DRESSING CHANGE TO ABDOMEN
[2017-02-20] VITALS: BP 132/54
--- NOTE | 2017-02-20 00:26 | NUR ---
DRESSING CHANGE TO ABDOMEN
--- NOTE | 2017-02-20 00:26 | NUR ---
DRESSING LEAKING BRIGHT RED FLUID. OLD DRESSING REMOVED. EDGES OF INCISION CLOSED WITH NO REDNESS TO SKIN NOTED OR PURULANT DISCHARGE. NEW DRESSING APPLIED.
--- NOTE | 2017-02-20 02:30 | NUR ---
RN NOTE: PT RESTING QUIETLY IN SEMI HE'S POSITION WITH EYES CLOSED AND UNLABORED BREATHING. RIGHT CENTRAL LINE PATENT WITH NS INFUSING AT 30 ML / HR, AND TPN INFUSING AT 25 ML / HR. WILL CONTINUE TO MONITOR FOR NEEDS. CALL LIGHT WITHIN REACH.
--- NOTE | 2017-02-20 03:12 | NUR ---
DRESSING CHANGE TO ABDOMEN
--- NOTE | 2017-02-20 03:12 | NUR ---
DRESSING LEAKING. OLD DRESSING REMOVED, NOTED THAT GAUZE IS MORE HEAVILY SATURATED WITH BRIGHT RED FLUID THEN WITH THE PREVIOUS CHANGES. GAUZE SATURATED ACROSS INTIRE LENGHT OF INCSION OPPOSED TO PREVIOUS CHANGES WHERE THE ONLY THE LOWER SECTION WAS WET. NEW DRESSING APPLIED.
[2017-02-20 04:00] VITALS: BP 141/60
--- NOTE | 2017-02-20 07:45 | NUR ---
BANDAGE TO ABDOMEN CHANGED AND CLEANED, DENIES NEEDS, BED LOWEST POSITION, CALL LIGHT IN REACH, WILL CONTINUE TO MONITOR
--- NOTE | 2017-02-20 07:57 | NUR ---
SCHEDULED SANDOSTATIN ADMINISTERED SLOW IV PUSH OVER THREE MINUTES. PT DENIES NEEDS AT THIS TIME. CALL LIGHT IN REACH AND RESPIRATIONS EVEN AND NON LABORED. WILL CONTINUE WITH PLAN OF CARE.
[2017-02-20 09:26] VITALS: BP 151/58
[2017-02-20 09:44] LABS: ALBUMIN 4.6 g/dL (3.4-5.0); ANION GAP 11.3 mmol/L (8-16); BILIRUBIN - TOTAL 0.97 mg/dL (0.2-1.3); CALCIUM 8.4 mg/dL (8.5-10.1); CARBON DIOXIDE 30.5 mmol/L (21.0-32.0); POTASSIUM - SERUM 3.8 mmol/L (3.5-5.1); PROTEIN - SERUM 7.5 g/dL (6.4-8.2)
[2017-02-20 10:03] LABS: BASOPHILS 0.2 % (0-2); EOSINOPHILS 3.5 % (0-7); HEMATOCRIT 24.7 % (36.0-48.0); HEMOGLOBIN 8.1 g/dL (12-16); IMMATURE GRANULOCYTES 0.2 % (0-5); MCH 28.7 pg (26.0-34.0); MCHC 32.8 g/dL (31.0-37.0); MCV 87.6 fL (80.0-100.0); MEAN PLATELET VOLUME 12.2 fL (7.4-10.4); MONOCYTES 12.8 % (2-11); NEUTROPHILS 76.3 % (40-80); PLATELET COUNT 247 10x3/uL (130-400); RBC 2.82 10x6/uL (4.00-5.40); RDW 16.5 % (11.5-14.5); WBC 8.3 10x3/uL (4.8-10.8)
[2017-02-20 12:47] VITALS: BP 153/62
--- NOTE | 2017-02-20 13:48 | NUR ---
NUTRITION F/U CHART REVIEWED. PT VISIT. 25 TO 50% INTAKE PAST TWO MEALS. CONTINUES TPN WITH LIPIDS. MAG AND PHOS ADDED TO AM LABS. RD FOLLOWING
[2017-02-20 16:55] VITALS: BP 165/61
--- NOTE | 2017-02-20 17:51 | NUR ---
DRESSING CHANGED TO ABDOMEN, INCISION HAS A CONTINUOUS SMALL FLOW OF BLOOD COMING OUT, ABDOMEN FIRM AND WARM TO TOUCH, PT HAS A 102.1 TEMP, DR PECK PAGED
[2017-02-20 19:00] VITALS: BP 155/57
--- NOTE | 2017-02-20 19:58 | NUR ---
PATIENT RESTING IN BED AND DENIES NEEDS AT THIS TIME. BED IN LOWEST POSITION AND CALL LIGHT WITHIN REACH. ENCOURAGED THE PATIENT TO CALL IF SHE HAS NEEDS.
[2017-02-21] VITALS (19 sets, daily range): BP systolic 108–161; BP diastolic 42–91
[2017-02-21 06:21] LABS: INR 1.23 (0.85-1.17); PROTIME 15.4 SECONDS (11.6-15.0)
[2017-02-21 06:22] LABS: APTT 33.7 SECONDS (22.8-39.4)
[2017-02-21 06:33] LABS: ALBUMIN 5.1 g/dL (3.4-5.0); ANION GAP 15.2 mmol/L (8-16); BILIRUBIN - TOTAL 0.9 mg/dL (0.2-1.3); CALCIUM 8.8 mg/dL (8.5-10.1); CARBON DIOXIDE 27.7 mmol/L (21.0-32.0); CREATININE - SERUM 0.9 mg/dL (0.6-1.3); MAGNESIUM - SERUM 2.2 mg/dL (1.8-2.4); PHOSPHOROUS 3.3 mg/dL (2.5-4.9); POTASSIUM - SERUM 3.9 mmol/L (3.5-5.1); PROTEIN - SERUM 7.4 g/dL (6.4-8.2)
--- NOTE | 2017-02-21 07:30 | NUR ---
ABDOMINAL BINDER APPLIED, DENIES NEEDS, BED HIGH FOWLERS, A&O, CALL LIGHT IN REACH, BED LOWEST POSITION, WILL CONTINUE TO MONITOR
[2017-02-21 07:51] LABS: BASOPHILS 0.3 % (0-2); EOSINOPHILS 1.3 % (0-7); HEMATOCRIT 20.7 % (36.0-48.0); IMMATURE GRANULOCYTES 0.3 % (0-5); LYMPHOCYTES 8.8 % (15-50); MCH 27.8 pg (26.0-34.0); MCHC 31.9 g/dL (31.0-37.0); MCV 87.3 fL (80.0-100.0); MEAN PLATELET VOLUME 12.8 fL (7.4-10.4); MONOCYTES 15.3 % (2-11); PLATELET COUNT 205 10x3/uL (130-400); RBC 2.37 10x6/uL (4.00-5.40); RDW 16.5 % (11.5-14.5); WBC 7.7 10x3/uL (4.8-10.8)
[2017-02-21 07:54] LABS: HEMOGLOBIN 6.6 g/dL (12-16)
[2017-02-21 14:12] LABS: HEMATOCRIT 24.6 % (36.0-48.0)
[2017-02-21 14:19] LABS: HEMOGLOBIN 8.1 g/dL (12-16)
--- NOTE | 2017-02-21 21:45 | NUR ---
NOTIFIED BY THE PATIENT THAT SHE IS HAVING BLOODY BOWEL MOVEMENTS. I DID NOT SEE THE BM, HOWEVER, THERE WERE SEVERAL RED DROPS ON THE FLOOR. I PLACED TWO HATS IN THE TOILET AND ASKED THE PATIENT TO GO IN THE HATS AND NOTIFY ME IF IT HAPPENS AGAIN
--- NOTE | 2017-02-21 21:51 | NUR ---
PAGED DR. SANZ IN REGARDS TO PATIENT STATING SHE IS HAVING BLOODY BOWEL MOVEMENTS
--- NOTE | 2017-02-21 22:43 | NUR ---
CHANGED PATIENT'S ABDOMINAL DRESSING. DRESSING WAS SATURATED WITH BLOOD AND THE INCISION WAS ACTIVELY BLEEDING WHILE THE DRESSING WAS BEING CHANGED. PATIENT HAS ABDOMINAL BINDER ON.
[2017-02-22] VITALS: BP 127/55
--- NOTE | 2017-02-22 03:09 | NUR ---
NOTIFIED DR. SANZ THAT THE PATIENT'S STOOL WAS POSITIVE FOR BLOOD
[2017-02-22 04:00] VITALS: BP 157/66
[2017-02-22 05:36] LABS: BASOPHILS 0.3 % (0-2); EOSINOPHILS 1.1 % (0-7); HEMATOCRIT 26.6 % (36.0-48.0); HEMOGLOBIN 8.9 g/dL (12-16); IMMATURE GRANULOCYTES 0.2 % (0-5); LYMPHOCYTES 11.8 % (15-50); MCH 29.7 pg (26.0-34.0); MCHC 33.5 g/dL (31.0-37.0); MCV 88.7 fL (80.0-100.0); MEAN PLATELET VOLUME 12.6 fL (7.4-10.4); MONOCYTES 5.8 % (2-11); NEUTROPHILS 80.8 % (40-80); PLATELET COUNT 222 10x3/uL (130-400); RDW 19.3 % (11.5-14.5)
[2017-02-22 05:37] LABS: WBC 10.2 10x3/uL (4.8-10.8)
[2017-02-22 05:56] LABS: ANION GAP 11.8 mmol/L (8-16); CARBON DIOXIDE 27.4 mmol/L (21.0-32.0); MAGNESIUM - SERUM 1.8 mg/dL (1.8-2.4); PHOSPHOROUS 2.5 mg/dL (2.5-4.9); POTASSIUM - SERUM 4.2 mmol/L (3.5-5.1)
--- NOTE | 2017-02-22 07:30 | NUR ---
ASSESSMENT COMPLETE. R [facility] PATENT. ORAL HYGIENIST DILAUDID 0.2-10-4 IN USE FOR PAIN CONTROL. ABD DRESSING C/D/I. ABDOMINAL BINDER IN USE. DENIES ANY NEEDS AT THIS TIME.
[2017-02-22 08:09] VITALS: BP 151/65
--- NOTE | 2017-02-22 09:00 | NUR ---
COMPLAINING OF NAUSEA AFTER TRYING TO TAKE PO MORNING MEDICATIONS. ZOFRAN GIVEN SLOW IVP.
--- NOTE | 2017-02-22 11:16 | NUR ---
RESTING QUIETLY IN BED. NAUSEA BETTER AT THIS TIME. DENIES ANY NEEDS AT THIS TIME.
--- NOTE | 2017-02-22 11:46 | NUR ---
PATIENT NOT WANTING CENTRAL LINE DC'D DUE TO FREQUENT LAB DRAWS. YOVANY NOTIFIED DR SANZ. OK TO LEAVE CENTRAL LINE FOR RIGHT NOW.
[2017-02-22 12:27] VITALS: BP 146/53
--- NOTE | 2017-02-22 12:46 | NUR ---
CLEAN CATCH UA KIT GIVEN TO PATIENT. INSTRUCTED TO NOTIFY STAFF WHEN NEEDING TO VOID.VOICED UNDERSTANDING.
[2017-02-22 13:28] LABS: HEMATOCRIT 25.8 % (36.0-48.0); HEMOGLOBIN 8.6 g/dL (12-16)
--- NOTE | 2017-02-22 16:00 | NUR ---
DRESSING TO R TLSC CHANGED USING STERILE TECHNIQUE. DENIES ANY NEEDS AT THIS TIME.
[2017-02-22 16:24] VITALS: BP 140/43
[2017-02-22 16:40] LABS: APPEARANCE CLEAR (CLEAR); BILIRUBIN NEGATIVE (NEGATIVE); COLOR DK YELLOW (YELLOW); GLUCOSE NEGATIVE (NEGATIVE); KETONE NEGATIVE (NEGATIVE); LEUKOCYTE ESTERASE TRACE (NEGATIVE); NITRITE NEGATIVE (NEGATIVE); PROTEIN 1+ mg/dL (NEGATIVE); UROBILINOGEN NORMAL (NORMAL)
[2017-02-22 16:41] LABS: BACTERIA MODERATE /hpf (NONE SEEN); EPITHELIAL CELLS 0-5 /hpf (0-5); RED CELLS - URINE 0-5 /hpf (0-5); WHITE CELLS - URINE 0-5 /hpf (0-5)
[2017-02-22 20:00] VITALS: BP 131/57
--- NOTE | 2017-02-22 23:13 | NUR ---
REC'D SITTING UP IN BED. ALERT AND ORIENTED X4. DENIED PAIN AT THIS TIME. DENIED FURTHER NEEDS AT THIS TIME. INSTRUCTED TO CALL IF NEEDED ANYTHING. VERBALIZED UNDERSTANDING. NO DISTRESS NOTED. CHANGED DRESSING TO ABDOMEN. WILL ADMIN PM/AM MEDS PRESCRIBED. BED LOW, LOCKED, CALL LIGHT IN REACH.
[2017-02-23] VITALS: BP 145/50
[2017-02-23 04:00] VITALS: BP 144/56
--- NOTE | 2017-02-23 04:00 | NUR ---
EYES CLOSED RESPIRATIONS WITH EASE AND UNLABORED.SR UP X2 CALL LIGHT WITHIN REACH.
[2017-02-23 05:00] LABS: BASOPHILS 0.7 % (0-2); EOSINOPHILS 6.7 % (0-7); HEMATOCRIT 24.5 % (36.0-48.0); HEMOGLOBIN 8.2 g/dL (12-16); IMMATURE GRANULOCYTES 0.2 % (0-5); LYMPHOCYTES 7.5 % (15-50); MCHC 33.5 g/dL (31.0-37.0); MCV 89.7 fL (80.0-100.0); MEAN PLATELET VOLUME 12.4 fL (7.4-10.4); MONOCYTES 16.4 % (2-11); NEUTROPHILS 68.5 % (40-80); PLATELET COUNT 217 10x3/uL (130-400); RBC 2.73 10x6/uL (4.00-5.40); RDW 19.4 % (11.5-14.5)
[2017-02-23 05:11] LABS: WBC 4.5 10x3/uL (4.8-10.8)
[2017-02-23 05:32] LABS: ANION GAP 14.3 mmol/L (8-16); CALCIUM 7.9 mg/dL (8.5-10.1); CARBON DIOXIDE 24.2 mmol/L (21.0-32.0); CREATININE - SERUM 0.9 mg/dL (0.6-1.3); POTASSIUM - SERUM 3.5 mmol/L (3.5-5.1)
--- NOTE | 2017-02-23 06:38 | NUR ---
PT REFUSED TX DUE TO NAUSEA. [id number]% PT DEMONSTRATES NO S/S OF RESPIRATORY DISTRESS
--- NOTE | 2017-02-23 07:40 | NUR ---
ASSESSMENT COMPLETE. R TLSC PATENT. NS INFUSING AT 30 CC/HR VIA PUMP. HYDRAULIC TECHNICIAN DILAUDID 0.2-10-4 IN USE FOR PAIN CONTROL. DRESSING INTACT TO ABDOMEN. ABDOMINAL BINDER IN USE. DENIES ANY COMPLAINTS AT THIS TIME.
[2017-02-23 08:02] VITALS: BP 148/64
--- NOTE | 2017-02-23 12:00 | NUR ---
NO CHANGES NOTED AT PRESENT.
[2017-02-23 12:21] VITALS: BP 130/61
--- NOTE | 2017-02-23 15:00 | NUR ---
DENIES ANY NEEDS AT THIS TIME.
[2017-02-23 16:01] VITALS: BP 112/55
--- NOTE | 2017-02-23 17:20 | NUR ---
DRESSING TO ABDOMINAL INCISION CHANGED. SUTURES INTACT TO INCISION. INCISION COVERED WITH 4X4'S, ABD PAIN AND MEDIPORE TAPE.
[2017-02-23 20:00] VITALS: BP 139/50
[2017-02-24] VITALS: BP 151/59
[2017-02-24 04:00] VITALS: BP 153/63
[2017-02-24 06:13] LABS: BASOPHILS 0.6 % (0-2); HEMATOCRIT 24.7 % (36.0-48.0); IMMATURE GRANULOCYTES 0.4 % (0-5); LYMPHOCYTES 8.6 % (15-50); MCH 29.4 pg (26.0-34.0); MCHC 32.4 g/dL (31.0-37.0); MCV 90.8 fL (80.0-100.0); MEAN PLATELET VOLUME 12.2 fL (7.4-10.4); MONOCYTES 15.5 % (2-11); NEUTROPHILS 63.9 % (40-80); PLATELET COUNT 241 10x3/uL (130-400); RBC 2.72 10x6/uL (4.00-5.40); RDW 19.6 % (11.5-14.5); WBC 4.6 10x3/uL (4.8-10.8)
[2017-02-24 07:08] LABS: CALC OSMOLALITY 273 mosm/kg (275-300); CALCIUM 7.9 mg/dL (8.5-10.1); CARBON DIOXIDE 23.9 mmol/L (21.0-32.0); CHLORIDE - SERUM 104 mmol/L (98-107); CREATININE - SERUM 0.7 mg/dL (0.6-1.3); GLUCOSE 96 mg/dL (74-106); POTASSIUM - SERUM 3.5 mmol/L (3.5-5.1); SODIUM 137 mmol/L (136-145); UREA NITROGEN 13 mg/dL (7-18); eGFR NON AFRICAN AMERICAN 87 mL/min (90-120)
--- NOTE | 2017-02-24 07:35 | NUR ---
PATIENT RECEIVED IN HIGH HE POSITION RESTING QUIETLY. NO SIGNS OF DISTRESS NOTED. DENIES NEEDS. SIDE RAILS UP X2. BED IN LOW POSITION. CALL LIGHT IN REACH.
[2017-02-24 07:58] VITALS: BP 141/50
--- NOTE | 2017-02-24 08:34 | NUR ---
DCP follow-up note: Patient and family in agreement with discharge plan. No changes to plan. Case management will follow and assist as needed. Nimo Berger RN
--- NOTE | 2017-02-24 09:15 | NUR ---
PATIENT ALERT IN BED. NO SIGNS OF DSITRESS NOTED. SCHEDULED MEDICATION ADMINISTERED. DRESSING TO ABD CHANGED. ABD BINDER IN PLACE. DENIES NEEDS. SIDE RAILS UP X2. BED IN LOW POSITION. CALL LIGHT AND HAND CLERICAL VERIFIER BUTTON IN REACH.
--- NOTE | 2017-02-24 10:30 | NUR ---
PATIENT UP AMBULATING IN HALLWAY WITH PT. NO SIGNS OF DISTRESS NOTED.
[2017-02-24 12:24] VITALS: BP 149/58
--- NOTE | 2017-02-24 12:34 | NUR ---
NUTRITION F/U CHART REVIEWED. PT VISIT. TOLERATING REG. WILL CONTINUE TO PROVIDE DIET, ENCOURAGE PO INTAKE, HONOR FOOD PREFERENCES. RD FOLLOWING
--- NOTE | 2017-02-24 14:20 | NUR ---
ALERT IN BED WATCHING TV. NO SIGNS OF DISTRESS NOTED. SCHEDULED MEDICATION ADMINISTERED. IV TUBING CHANGED PER PROTOCOL. DENIES NEEDS. SIDE RAILS UP X2. BED IN LOW POSITION. CALL LIGHT IN REACH.
[2017-02-24 15:27] VITALS: BP 150/59
--- NOTE | 2017-02-24 18:15 | NUR ---
PATIENT ALERT IN BED WATCHING TV. NO SIGNS OF DISTRESS NOTED. SIDE RAILS UP X2. BED IN LOW POSITION. CALL LIGHT IN REACH.
--- NOTE | 2017-02-24 19:33 | NUR ---
REC'D SITTING UP IN BED. ALERT AND ORIENTED X4. REPORTED PAIN 7/10 IN ABDOMEN. REPORTED HAS NOT HAD A BM TODAY AND IS CONCERNED ABOUT IT. WILL CONT TO MONITOR. INSTRUCTED TO CALL IF NEEDED ANYTHING. BED LOW, LOCKED, CALL LIGHT IN REACH. WILL ADMIN PM/AM MEDS PRESCRIBED.
[2017-02-24 20:00] VITALS: BP 159/60
[2017-02-25] VITALS (7 sets, daily range): BP systolic 143–171; BP diastolic 54–64
--- NOTE | 2017-02-25 01:30 | NUR ---
PT RESTING QUIETLY, EYES CLOSED. RESP EVEN, UNLABORED. NO DISTRESS NOTED. CONTINUE SLAT BASKET MAKER MACHINE'S PLAN OF CARE.
[2017-02-25 04:49] LABS: BASOPHILS 0.3 % (0-2); EOSINOPHILS 5.4 % (0-7); HEMATOCRIT 28.5 % (36.0-48.0); HEMOGLOBIN 9.3 g/dL (12-16); IMMATURE GRANULOCYTES 0.2 % (0-5); LYMPHOCYTES 10.9 % (15-50); MCH 29.6 pg (26.0-34.0); MCHC 32.6 g/dL (31.0-37.0); MCV 90.8 fL (80.0-100.0); MEAN PLATELET VOLUME 12.1 fL (7.4-10.4); MONOCYTES 12.3 % (2-11); NEUTROPHILS 70.9 % (40-80); RBC 3.14 10x6/uL (4.00-5.40); RDW 19.6 % (11.5-14.5)
[2017-02-25 04:56] LABS: PLATELET COUNT 320 10x3/uL (130-400); WBC 6.4 10x3/uL (4.8-10.8)
[2017-02-25 05:13] LABS: CALC OSMOLALITY 271 mosm/kg (275-300); CALCIUM 8.5 mg/dL (8.5-10.1); CARBON DIOXIDE 24.6 mmol/L (21.0-32.0); CHLORIDE - SERUM 103 mmol/L (98-107); CREATININE - SERUM 0.8 mg/dL (0.6-1.3); GLUCOSE 117 mg/dL (74-106); POTASSIUM - SERUM 3.7 mmol/L (3.5-5.1); SODIUM 136 mmol/L (136-145); UREA NITROGEN 10 mg/dL (7-18); eGFR NON AFRICAN AMERICAN 75 mL/min (90-120)
--- NOTE | 2017-02-25 07:58 | NUR ---
AWAKE AND ALERT. DENIES NEEDS AT THIS TIME. DELIVERY TABLE OPERATOR IN USE AND CALL LIGHT IN REACH, WILL CONTINUE WITH PLAN OF CARE.
--- NOTE | 2017-02-25 10:10 | NUR ---
SCHEDULED MEDICATIONS ADMINISTERED AT THIS TIME WELL PRN ZOFRAN FOR NAUSEA. DRESSING TO ABDOMEN CHANGED AND DR PECK OBSERVED WOUND TO ABDOMEN. DENIES FURTHER NEEDS, AT BEDSIDE. WILL CONTINUE WITH PLAN OF CARE.
--- NOTE | 2017-02-25 16:00 | NUR ---
DENIES NEEDS AT THIS TIME. CALL LIGHT IN REACH AND AT BEDSIDE. WILL CONTINUE WITH PLAN OF CARE.
--- NOTE | 2017-02-25 19:15 | NUR ---
RECEIVED CARE FROM DAY NURSE. PT SIITING UP IN BED. REPORTS NO NEEDS. CALL LIGHT AT SIDE. IV INFUSING TO RIGHT TLSC. UP AD CHARLES.
--- NOTE | 2017-02-25 23:48 | NUR ---
PT LYING IN BED WITH EYES CLOSED. RESP EVEN AND UNLABORED. CALL LIGHT AT SIDE. IV INFUSING TO PATENT RIGHT TLSC.
--- NOTE | 2017-02-26 03:24 | NUR ---
PATIENT RESTING WITH EYES CLOSED AND NO VISIBLE SIGNS OF DISTRESS. BED IN LOWEST POSITION AND CALL LIGHT WITHIN REACH.
[2017-02-26 04:06] VITALS: BP 161/61
--- NOTE | 2017-02-26 04:25 | NUR ---
PT LYING IN BED WITH EYES CLOSED. RESP EVEN AND UNLABORED. CALL LIGHT AT SIDE.
--- NOTE | 2017-02-26 07:30 | NUR ---
PATIENT RECEIVED SITTING UP ON SIDE OF BED ALERT. NO SIGNS OF DISTRESS NOTED. BED IN LOW POSITION. CALL LIGHT IN REACH. DENIES NEEDS.
--- NOTE | 2017-02-26 09:07 | NUR ---
PATIENT ALERT IN BED. NO SIGNS OF DISTRESS NOTED. SCHEDULED MEDICATION ADMINISTERED. DRESSING TO ABD CHANGED PER ORDER. WELL TOLERATED. ABD BINDER IN PLACE. DENIES NEEDS. BED IN LOW POSITION. CALL LIGHT IN REACH.
[2017-02-26 10:00] VITALS: BP 152/53
[2017-02-26 12:20] VITALS: BP 162/47
--- NOTE | 2017-02-26 12:20 | NUR ---
PATIENT ALERT IN HIGH HE POSITION VISITING WITH GUESTS. NO SIGNS OF DISTRESS NOTED. SIDE RAILS UP X2. BED IN LOW POSITION. CALL LIGHT IN REACH.
--- NOTE | 2017-02-26 15:50 | NUR ---
ALERT IN BED WORKING ON LAPTOP. DENIES NEEDS. SIDE RAILS UP X2. BED IN LOW POSITION. CALL LIGHT IN REACH.
[2017-02-26 16:06] VITALS: BP 152/64
--- NOTE | 2017-02-26 19:15 | NUR ---
RECEIVED CARE FROM DAY NURSE. PT SITTING UP IN BED. REPORTS NO NEEDS. CALL LIGHT AT SIDE. IV INFUSING PER ORDER.
[2017-02-26 20:00] VITALS: BP 151/64
[2017-02-27] VITALS: BP 154/54
--- NOTE | 2017-02-27 02:19 | NUR ---
PATIENT RESTING IN BED WITH EYES CLOSED AND NO VISIBLE SIGNS OF DISTRESS. BED IN LOWEST POSITION AND CALL LIGHT WITHIN REACH.
--- NOTE | 2017-02-27 03:24 | NUR ---
PT IN BED WITH EYES CLOSED. RESP EVEN AND UNLABORED. CALL LIGHT AT SIDE. RESP EVEN AND UNLABORED. IV INFUSING TO RIGHT TLSC PER ORDER.
--- NOTE | 2017-02-27 07:35 | NUR ---
PT AOX4 RESP EVEN AND NONLABORED PT DENIES NEEDS AT THIS TIME IV TO RIGHT SUBCLAVIAN PATENT AND INTACT AT THIS TIME SRX2 BED AT LOWEST SETTING CALL LIGHT WITHIN REACH WILL CONTINUE TO MONITOR
[2017-02-27 08:31] VITALS: BP 172/55
--- NOTE | 2017-02-27 09:15 | NUR ---
DRESSING CHANGE DONE WITHOUT DIFFICULTY AT THIS TIME
--- NOTE | 2017-02-27 10:00 | NUR ---
I SPOKE TO PT ABOUT NEEDING CVL REMOVED AND PT STATED "I REFUSE FOR IT TO BE REMOVED, IF IT IS REMOVED I WILL CALL MY AND GO HOME". I THEN SPOKE WITH DR. LORA WHO STATED "PT STILL NEEDS IV ANTIBIOTICS AND HAS THE RIGHT TO REFUSE THE REMOVAL OF THE CVL".
[2017-02-27 12:28] VITALS: BP 127/59
[2017-02-27 16:38] VITALS: BP 157/52
[2017-02-27 20:00] VITALS: BP 159/50
--- NOTE | 2017-02-27 22:23 | NUR ---
REC'D SITTING UP IN BED. ALERT AND ORIENTED X4. REPORTED PAIN 7/10 IN ABDOMEN. HAS DEFENSE TRAVEL ADMINISTRATOR TO CONTROL PAIN. DENIED FURTHER NEEDS AT THIS TIME. INSTRUCTED TO CALL IF NEEDED ANYTHING, VERBALIZED UNDERSTANDING. WILL ADMIN PM/AM MEDS PRESCRIBED. WILL CONT TO [facility]. BED LOW, LOCKED CALL LIGHT IN REACH.
--- NOTE | 2017-02-28 03:43 | NUR ---
PATIENT RESTING WITH EYES CLOSED AND NO VISIBLE SIGNS OF DISTRESS. BED IN LOWEST POSITION AND CALL LIGHT WITHIN REACH.
[2017-02-28 04:00] VITALS: BP 173/67
--- NOTE | 2017-02-28 07:35 | NUR ---
PT AOX4 RESP EVEN AND NONLABORED PT DENIES NEEDS AT THIS TIME IV TO RIGHT SUBCLAVIAN PATENT AND NONLABORED SRX2 BED AT LOWEST SETTINGS CALL LIGHT WITHIN REACH WILL CONTINUE TO MONITOR
[2017-02-28 08:26] VITALS: BP 167/65
--- NOTE | 2017-02-28 12:54 | NUR ---
NUTRITION F/U CHART REVIEWED. PT VISIT. TOLERATING REG DIET WITH 50% INTAKE BREAKFAST. LUNCH AT BEDSIDE. RD FOLLOWING
[2017-02-28 12:56] VITALS: BP 131/74
[2017-02-28 16:27] VITALS: BP 169/61
[2017-02-28 20:00] VITALS: BP 177/66
--- NOTE | 2017-03-01 02:54 | NUR ---
1930) REC'D.COMING FROM BATHROOM MIDLINE ABDOMINAL DRESING CHGED. NEOPORIN OINT. APPLIED ORDERED. REDRESSED WITH 4X4'S ABD ABDOMINALBINDER APPLIED.REINFORCED.NPO AT MIDNIGHT VOICES UNDERSTANDING. WILL CONTINUE TO MONITOR FOR ANY CHGES. AND FOLLOW CURRENT PLAN OF CARE
[2017-03-01 04:00] VITALS: BP 182/70
--- NOTE | 2017-03-01 04:56 | NUR ---
PATIENT RESTING WITH EYES CLOSED AND NO VISIBLE SIGNS OF DISTRESS. BED IN LOWEST POSITION AND CALL LIGHT WITHIN REACH.
[2017-03-01 08:02] VITALS: BP 173/72
--- NOTE | 2017-03-01 10:30 | NUR ---
PATIENT UP AMBULATING IN HALLWAY. NO SIGNS OF DISTRESS NOTED.
[2017-03-01 12:19] VITALS: BP 175/69
[2017-03-01 15:46] VITALS: BP 173/70
[2017-03-01 18:36] VITALS: BP 151/51
[2017-03-02] VITALS: BP 144/57
--- NOTE | 2017-03-02 07:26 | NUR ---
PATIENT RESTING QUIETLY WITH HER EYES CLOSED. PATIENT AWAKENS EASILY TO VERBAL STIMULI. PATIENT RATES HER PAIN LEVEL A "7" ON A 0-10 SCALE. SUPERVISOR GEAR REPAIR DILAUDID IN USE FOR PAIN CONTROL. PATIENT STATES THAT HER PAIN IS IN HER SHOULDER BLADES AND HER ABDOMEN. PATIENT DENIES ANY NEEDS AT PRESENT TIME. CALL LIGHT IN PATIENT'S REACH. WILL MONITOR PATIENT.
[2017-03-02 08:21] VITALS: BP 154/57
[2017-03-02 12:17] VITALS: BP 170/57
--- NOTE | 2017-03-02 13:34 | NUR ---
PATIENT RESTING IN THE BED. PATIENT PLAYING A GAME ON HER LAPTOP. T.V. ON. CALL LIGHT IN PATIENT'S REACH. PATIENT DENIES ANY NEEDS AT PRESENT TIME. WILL MONITOR PATIENT.
[2017-03-02 16:02] VITALS: BP 145/61
--- NOTE | 2017-03-02 19:00 | NUR ---
REPORT RECEIVED AND CARE OF PT ASSUMED. PT LYING IN HIGH HE'S POSITION WATCHING TV. RIGHT SC PATENT WITH NS INFUSING AT 30 ML / HR, AND DRAMATIC ARTS HISTORIAN W/ DILAUDID IN USE FOR PAIN CONTROL. WOUND VAC PATENT ON ABDOMEN WITH NO LEAKAGE ALARMS. WILL MONITOR CLOSELY FOR NEEDS.
[2017-03-02 20:00] VITALS: BP 144/57
--- NOTE | 2017-03-02 21:37 | NUR ---
HS MEDICAITONS GIVEN. WILL CONTINUE TO MONITOR FOR NEEDS.
[2017-03-03] VITALS: BP 150/53
--- NOTE | 2017-03-03 00:30 | NUR ---
PT RESTING QUIETLY IN HIGH HE'S POSITION WITH EYES CLOSED AND EASY RESPIRATIONS. WILL CONTINUE TO MONITOR FOR NEEDS.
[2017-03-03 04:00] VITALS: BP 123/60
--- NOTE | 2017-03-03 04:01 | NUR ---
PT RESTING QUIETLY IN HIGH HE'S POSITION WITH UNLABORED BREATING. WILL CONTINUE TO MONITOR FOR NEEDS.
[2017-03-03 08:32] VITALS: BP 161/62
[2017-03-03 12:12] VITALS: BP 162/60
--- NOTE | 2017-03-03 12:30 | NUR ---
STERILE DRESSING CHANGE TO CVL DONE AT THIS TIME
[2017-03-03 16:04] VITALS: BP 129/54
--- NOTE | 2017-03-03 19:00 | NUR ---
REPORT RECEIVED AND CARE OF PT ASSUMED. PT LYING IN HIGH HE'S POSITION WATCHING TV. RIGHT SC CENTRAL LINE PATENT WITH NS INFUSING AT 30 ML / HR. DRESS CUTTER / DILAUDID IN USE FOR PAIN CONTROL. WOUND VAC IN PLACE ON ABDOMEN WELL COMPRESSED WITH NO LEAKAGE ALARMS. WILL MONITOR FOR NEEDS.
[2017-03-03 20:00] VITALS: BP 175/61
--- NOTE | 2017-03-03 21:24 | NUR ---
HS MEDICATIONS GIVEN. WILL CONTINUE TO MONITOR FOR NEEDS.
[2017-03-04] VITALS: BP 178/59
--- NOTE | 2017-03-04 01:05 | NUR ---
PT RESTING QUIETLY IN SEMI HE'S POSITION WITH EYES CLOSED AND UNLABORED BREATHING. WILL CONTINUE TO MONITOR FOR NEEDS.
[2017-03-04 04:00] VITALS: BP 179/65
--- NOTE | 2017-03-04 07:25 | NUR ---
PT AOX4 RESP EVEN AND NONLABORED PT DENIES NEEDS AT THIS TIME IV TO RIGHT SUBCLAVIAN PATENT AND INTACT AT THIS TIME BED AT LOWEST SETTING CALL LIGHT WITHIN REACH WILL CONTINUE TO MONITOR
[2017-03-04 08:40] VITALS: BP 184/76
[2017-03-04 12:39] VITALS: BP 175/73
[2017-03-04 16:51] VITALS: BP 165/63
[2017-03-04 19:23] VITALS: BP 163/55
[2017-03-05] VITALS: BP 197/75
--- NOTE | 2017-03-05 02:56 | NUR ---
PT RESTING QUIETLY, EYES CLOSED. NO STOOLS SO FAR THIS SHIFT. PAIN WELL CONTROLLED WITH RESERVOIR CARETAKER. WILL CONTINUE TO MONITOR.
[2017-03-05 04:00] VITALS: BP 181/68
--- NOTE | 2017-03-05 07:15 | NUR ---
REPORT RECEIVED FROM COPPER PLATER NURSE. CALL LIGHT IN REACH.
--- NOTE | 2017-03-05 09:53 | NUR ---
ASSESSMENT COMPLETED. AM MEDS ADMINISTERED. CALL LIGHT IN REACH.
[2017-03-05 10:11] VITALS: BP 194/71
--- NOTE | 2017-03-05 11:31 | NUR ---
PORTER DODSON PER ORDER. AT BEDSIDE. CALL LIGHT IN REACH.
--- NOTE | 2017-03-05 12:40 | NUR ---
PLACED IN ENTERIC ISOLATION FOR CDT ANTIGEN. EXPLAINED TO PATIENT AND .
[2017-03-05 12:43] VITALS: BP 187/72
--- NOTE | 2017-03-05 14:05 | NUR ---
DENIES NEEDS AT THIS TIME. CALL LIGHT IN REACH.
--- NOTE | 2017-03-05 16:30 | NUR ---
MANAGER STYLIST STILL IN USE FOR PAIN CONTROL.
--- NOTE | 2017-03-05 18:27 | NUR ---
NO CHANGES IN INITIAL ASSESSMENT. CALL LIGHT IN REACH. WILL CONTINUE WITH PLAN OF CARE.
--- NOTE | 2017-03-05 19:00 | NUR ---
REPORT RECEIVED AND CARE OF PT ASSUMED. PT LYING IN HIGH HE'S POSITION WATCHING TV. RIGHT SC CENTRAL LINE PATENT WITH NS INFUSING AT 30 ML / HR. DILAUDID PRESIDENT IN USE FOR PAIN CONTROL. WOUND VAC ON ABDOMEN WELL COMPRESSED WITH NO LEAKAGE ALARMS. WILL MONITOR CLOSELY FOR NEEDS.
[2017-03-05 20:00] VITALS: BP 176/60
--- NOTE | 2017-03-05 20:59 | NUR ---
HS MEDICATIONS GIVEN. WILL CONTINUE TO MONITOR FOR NEEDS.
--- NOTE | 2017-03-05 21:15 | NUR ---
DR VINH GARCÍA ON PT. ORDER RECEIVED FOR FLAGYL 500 MG PO TID X10 DAYS. HE TOLD PT SHE WAS STILL A GO TO DISCHARGE TOMORROW.
--- NOTE | 2017-03-05 22:20 | NUR ---
GAVE FIRST DOSE OF FLAGYL PER ORDER.
[2017-03-06] VITALS: BP 176/74
[2017-03-06 04:00] VITALS: BP 164/70
--- NOTE | 2017-03-06 07:07 | NUR ---
AWAKE AND ALERT AT THIS TIME. RESPIRATIONS EVEN AND NON LABORED. REMAINS IN ENTERIC ISOLATION. CALL LIGHT IN REACH AND BED LOW WITH WHEELS LOCKED AND SRX2. WILL CONTINUE WITH PLAN OF CARE.
[2017-03-06 08:43] VITALS: BP 192/69
--- NOTE | 2017-03-06 09:22 | NUR ---
SCHEDULED MEDICATIONS ADMINISTERED AT THIS TIME. TAKEN WITHOUT DIFFICULTY. CALL LIGHT IN REACH, WILL CONTINUE WITH PLAN OF CARE.
--- NOTE | 2017-03-06 09:40 | NUR ---
ORDER OBTAINED FOR NORVASC 5MG FOR PT'S BLOOD PRESSURE, SEE FLOWSHEET. ADMINISTERED PER ORDER.
--- NOTE | 2017-03-06 12:49 | NUR ---
WOUND VAC DRESSING CHANGE WOUND TYPE: surgical WOUND LOCATION: midline abd WOUND AGE IN MONTHS:week DEBRIDEMENT ATTEMPTED IN LAST 10 DAYS? DATE/TYPE:03/01 (SQ hematoma) SERIAL DEBRIDEMENTS REQUIRED? no MEASUREMENT DATE: 03/06/17 9cm x 3cm x 2.5cm x 3,5cm from 5-2 oclock FULL THICKNESS? yes MUSCLE, TENDON OR BONE EXPOSED? no UNDERMINING? yes TUNNELING/SINUS? no APPEARANCE OF WOUND BED : red/brown EXUDATE (AMOUNT, COLOR, ODOR): moderate/bloody/no odor FOAM TYPE: white # OF PIECES USED: 2 pieces FOAM TYPE: black # OF PIECES USED: 1 piece EDUCATION:Wound vac function/home vac use/ Pt voiced understanding -125mmhg mod continuous Pt tolerated well
--- NOTE | 2017-03-06 15:52 | NUR ---
PT BEING DC VERY SOON REFUSED BREATHING TX
[2017-03-06 16:13] VITALS: BP 177/67
--- NOTE | 2017-03-06 16:44 | NUR ---
CM REASSESSMENT NOTE: PATIENT IS DISCHARGING HOME TODAY WITH [facility]. PATIENT HAD WOUND VAC CHANGED TODAY AND [facility] WAS NOTIFIED OF THIS. SPOUSE IS DRIVING PATIENT HOME AND PATIENT HAD NO OTHER NEEDS FOR DISCHARGE.
[2017-03-06] MEDS ORDERED: FLAGYL500 MG PO (17:03)
--- NOTE | 2017-03-06 17:06 | NUR ---
RIGHT SUBCLAVIAN CENTRAL LINE D/C WITH CATH TIP INTACT. PROVIDED WITH PRESCRIPTION FOR DILAUDID AND PT GIVEN PRN DOSE OF DILAUDID 2MG PO PER ORDER.
--- NOTE | 2017-03-06 18:39 | NUR ---
DISCHARGE PAPERWORK REVIEWED WITH PT AND SPOUSE. D/C HOME AT THIS TIME.
--- NOTE | 2017-03-06 18:50 | NUR ---
CALLED PT AND EXPLAINED THAT SHE HAD LEFT HER IPAD AND SOME CHARGERS IN THE ROOM. SHE VERBALIZED UNDERSTANDING AND SAID SHE DIDN'T KNOW WHEN SHE WOULD BE ABLE TO COME AND GET THEM.
== END 2017-03-06 18:40 | disposition home health service (06) | DRG 329 ==
LOC: D.SDCHOLD 06:20 → D.MS 06:20 → D.ICU 06:20 → D.SDCHOLD 09:00 → D.ICU 10:02 → D.MS 02-12 22:27
PROVIDERS: Anesthesiology; Internal Medicine Pulmonary Disease; Student in an Organized Health Care Education/Training Program; Surgery; Urology; ADMIT Surgery
PROC: 0DB80ZZ Excision of Small Intestine, Open Approach (ICD-10-PCS; principal; 2017-02-09 09:00)
PROC: 0DNW0ZZ Release Peritoneum, Open Approach (ICD-10-PCS; 2017-02-09 09:00)
PROC: 0T788DZ Dilation of Bilateral Ureters with Intraluminal Device, Via Natural or Artificial Opening Endoscopic (ICD-10-PCS; 2017-02-09 09:00)
PROC: 0HB7XZZ Excision of Abdomen Skin, External Approach (ICD-10-PCS; 2017-03-01)
PROC: 0JC80ZZ Extirpation of Matter from Abdomen Subcutaneous Tissue and Fascia, Open Approach (ICD-10-PCS; 2017-03-01)
DX: K63.2 Fistula of intestine (principal); J18.9 Pneumonia, unspecified organism; J44.1 Chronic obstructive pulmonary disease with (acute) exacerbation; J44.0 Chronic obstructive pulmonary disease with (acute) lower respiratory infection; E87.2 Acidosis; R78.81 Bacteremia; E44.0 Moderate protein-calorie malnutrition; N39.0 Urinary tract infection, site not specified; D62 Acute posthemorrhagic anemia; A04.7 Enterocolitis due to Clostridium difficile; K66.0 Peritoneal adhesions (postprocedural) (postinfection); E83.39 Other disorders of phosphorus metabolism; K21.9 Gastro-esophageal reflux disease without esophagitis; Z68.25 Body mass index [BMI] 25.0-25.9, adult; E78.5 Hyperlipidemia, unspecified; R53.81 Other malaise

== ENCOUNTER 2017-08-10 09:22 | Outpatient (CLI) | payer MEDICARE, BC ==
[2017-02-10 10:17] VITALS: BMI 25.9
[~2017-08-10 09:22] MED LIST changes: +FLAGYL500 MG PO
== END 2017-08-10 10:40 | disposition home or self-care (01) ==
LOC: D.OPS 09:22
DX: K65.1 Peritoneal abscess (principal)

== ENCOUNTER 2017-09-11 13:19 | Inpatient (IN) | payer MEDICARE, BC ==
[~2017-09-11] VITALS: Ht 157.5 cm; Wt 52.2 kg
--- NOTE | ~2017-09-11 | HEMODYNAMI ---
PATIENT:ROD MAK MEDICAL RECORD: [id number] : 47 [place] D.2226 ADMISSION DATE: 09/11/17 Generatedon:09/15/201711:17 Patient name: ROD MAK Patient #: [id number] SSN: DO B: 1945 Date of study: 09/15/2017 Page: Of Hemodynamic Procedure Report Patient Data Patient Demographics Procedure consent was obtained First Name: ROD Gender: Female Last Name: OBDULIO : 1945 Middle Initial: B Age: 72 year(s) Patient #: [id number] Race: Additional ID: [id number] Contact details Address: [facility] [address] State: [place] City: [place] Zip code: [address] Past Medical History Allergies Allergen Reaction Date Comments Reported Other allergy 05/19/2015 HYDROCODONE Admission Admission Data Admission Date: 09/11/2017 Admission Time: 17:37 Room #: D.2226 Weight (lbs.): 114 Weight (kg.): 51.71 Procedure Procedure Types Cath Procedure Peripheral Cath Diagnostic Procedure Cath Peripheral PICC PICC Line Placement Procedure Description Procedure Date Procedure Date: 09/15/2017 Procedure Start Time: 10:58 Procedure Staff Name Function Ángel Doty MD Performing Physician Nohemi Salinas RT Construction Specialist Nohemi Salinas RT Monitor Padmini Borja RN Nurse Kris Banegas RT Scrub Procedure Data Cath Procedure Fluoroscopy Diagnostic fluoroscopy Total fluoroscopy Time: 1.6 time: 1.6 min min Diagnostic fluoroscopy Total fluoroscopy dose: 6 dose: 6 mGy mGy Hemodynamics Rest Pre Cath Intra NCS Post Cath Procedure Log Time Note 10:08:08 Patient Weight : 114 lbs 10:09:06 Time tracking: Regular hours 10:09:33 PowerPICC 5Fr double lumen catheter opened to sterile field. 10:09:39 Use device set IR Diagnostic 10:09:43 Sterile Angiographic Pack opened to sterile field. 10:09:57 SHIELD Sorbaview ([id number]) opened to sterile field. 10:19:32 Patient received from Med/Surg to IR Alert and oriented. Tansferred to table in Supine position. 10:19:35 Signed procedure consent form obtained from patient. 10:19:36 Pre-procedure instructions explained to patient. 10:19:45 Use device set PICC 10:20:10 Bag Decanter () opened to sterile field. 10:20:27 Left Arm area was prepped with chlora-prep and draped in sterile fashion 10:57:53 --------ALL STOP TIME OUT------ 10:57:54 Final Timeout: patient, procedure, and site verified with staff and physician. All members of the team are in agreement. 10:58:21 Procedure started. 10:58:21 Full Disclosure recording started 10:58:36 Local anesthetic to left arm with Lidocaine 1% by Ángel Doty MD.INITIAL ACCESS ONLY 10:58:39 Venous access obtained using ultrasound guidance. 11:02:41 NITINOL .018 80cm wire ([id number]) opened to sterile field. 11:13:00 PICC line was trimmed to 41cm and advanced to the superior vena cava.Position verified under fluoroscopy. 11:15:50 Procedure ended.(Physican Out) 11:16:05 Fluoroscopy time 01.60 minutes. 11:16:14 Fluoroscopy dose: 6 mGy 11:16:14 Flurop Dose total: 6 11:16:18 Procedure and supply charges have been captured, reviewed, submitted and are correct. Device Usage Item Name Manufacture Quantity Catalog Hospital Part Current Minimal Lot# / Number Charge Number Stock Stock Serial# Code [facility] 1 [id number] [id number] 5 5Fr double lumen catheter Sterile Cardinal 1 [id number] [id number] 5 Angiographic [facility] 1 [id number] [id number] [id number] 5 Sorbaview ([id number]) Bag Decanter Microtek 1 [id number] 93882 [id number] 5 () Medical Inc. NITINOL .018 Medtronic 1 [id number] 5 80cm wire ([id number]) Signature Audit [place] Stage Time Signature Unsigned Intra-Procedure 09/15/2017 Nohemi Salinas 11:17:32 AM RT(R) Signatures Monitor : Nohemi Salinas RT Signature : Date : Time : [facility] [address] [place] [address]
--- NOTE | ~2017-09-11 | CN ---
PATIENT NAME:ROD GARNER MEDICAL RECORD: [id number] : 47 LOCATION:D.MS Resendiz2226 ADMIT DATE: 09/11/17 ACCOUNT: [id number] CONSULTING PHYSICIAN: ELVIA FOY MD REFERRING PHYSICIAN: EPHRAIM JUSTICE MD DATE OF CONSULTATION: 09/15/2017 CONSULT REQUESTING PHYSICIAN: Pearl Joseph MD REASON FOR CONSULTATION: Mass in the left lower lobe. HISTORY OF PRESENT ILLNESS: Ms. Garner is a 72-year-old female who was readmitted with abdominal incision infection and drainage of purulent secretion. The CTA of the chest was done, which showed a mass in the left lower lobe which is pleural based and also there are some atelectatic changes on the left side. The patient does have a history of CA of the lung and she has a left lower lobe lobectomy in 2011. Denies any fever. She does have some fever. There is no sweating. She is breathing fairly. REVIEW OF SYSTEMS: Mainly in the history of present illness. PAST MEDICAL HISTORY: 1. History of CA of the breast. 2. History of CA of the lung, status post left lower lobe lobectomy in 2011. 3. Hypertension. 4. History of arrhythmia. 5. Anxiety. 6. Gastroesophageal reflux disease. PAST SURGICAL HISTORY: 1. 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 2. Hysterectomy. 3. Mastectomy. ALLERGIES: SHE IS ALLERGIC TO HYDROCODONE AND NALTREXONE. MEDICATIONS: [employer] is reviewed. PERSONAL AND SOCIAL HISTORY: The patient is an ex-smoker. She is a nondrinker. FAMILY HISTORY: Noncontributory. PHYSICAL EXAMINATION: GENERAL: Now, the patient is lying comfortably in bed. She is not in acute distress. VITAL SIGNS: The blood pressure is 174/73, pulse is 83, respiration is 20, SpO2 is 96% on room air. HEENT: Conjunctivae are pink. Sclerae are not icteric. NECK: Supple, no JVD. CHEST: The chest excursion is minimal on both sides. There is no wheeze, no rales. HEART: Rate and rhythm regular, normal sound, no murmur. ABDOMEN: Soft, bowel sounds present. No hepatosplenomegaly. There is an anterior abdominal wall abscess. CONSULT REPORT [id number] ROD GARNER RECTAL: Deferred. EXTREMITIES: No cyanosis, no clubbing, no pedal edema. IMAGING: CTA of the chest: There is a pleural based mass in the left lower lobe. It is 4.6 x 3.1 cm in size. This lesion was not present on a previous CT, August 03 2014. No pulmonary emboli are detected. CBC: The WBC 6.1, hemoglobin 11.5, hematocrit 35.1, the platelet count 125. Chemistry: Sodium 141, potassium 3.4, BUN is 5, creatinine 0.7. IMPRESSION: 1. Mass, left lower lobe, rule out malignant process with the patient previous history of cancer of the lung and cancer of the breast. 2. Gastroesophageal reflux disease. 3. Abdominal wall fistula abscess. RECOMMENDATION: We will proceed with a CT-guided needle biopsy, order fluid, chemistry as well as cytology as well as for histopathology. Discussed with Dr. Joseph. Dr. Joseph, thank you for involving me in the care of Ms. Garner. TRANSINT:[id number] Voice Confirmation ID: [id number] DOCUMENT ID: [id number] ELVIA FOY MD CC: [id number] DICTATION DATE: 09/15/17 180 MARINA PORTER: 09/15/17 1840 ADM IN [facility] [address] [place] [address]
--- NOTE | ~2017-09-11 | OP ---
PATIENT NAME: ROD MAK MEDICAL RECORD: [id number] :47 LOCATION:D.MS Resendiz2226 ADMISSION DATE:09/11/17 SURGEON: EPHRAIM JUSTICE MD DATE OF OPERATION: 09/13/2017 PREOPERATIVE DIAGNOSIS: Draining abdominal wound. POSTOPERATIVE DIAGNOSIS: Draining intraabdominal wound with a sinus, no fistula. PROCEDURE: Wound exploration with excisional debridement of the intra-abdominal cavity with marsupialization of the wound and packing with Silver Rope. The patient has a persistent draining sinus. She has been febrile. The sinus and the cavity which it is associated with do not appear to be getting smaller in size. The risks, possible complications, and alternatives to the procedure were explained to the patient. She elected to proceed. OPERATIVE COURSE: The patient was conveyed to the operating room electively on 09/13/2017. General anesthesia was induced by the anesthesia staff. The abdomen was sterilely prepped and draped. I was unable to pass even the smallest uterine dilator down through the small opening in the midline. Therefore, I opened the skin in a cephalad caudad direction. I was then able to identify the sinus tract and the cavity was associated which was located caudad to the opening. I probed the cavity. I then curetted the cavity very carefully. Cultures were obtained. I irrigated in the cavity with hydrogen peroxide. I marsupialized the wound with a running locking 3-0 Vicryl Rapide suture. I then packed the wound with Silver Rope. I pressed on the abdomen around the wound. I noted no evidence of enteral contents or while coming out through the wound. I do not believe that there is an enterocutaneous fistula. The patient was then extubated and conveyed to post-anesthesia care unit. I will wait for an antibiotic choice by Dr. Joseph and then I will dismiss the patient home. I will plan for home health care to come out weekly to change the Silver Rope. TRANSINT:[id number] Voice Confirmation ID: [id number] DOCUMENT ID: [id number] EPHRAIM JUSTICE MD at 1518 CC: [id number] DICTATION DATE: 09/13/17 180 PSYCHIATRIC TECH: 09/13/17 1827 DIS IN 09/19/17 [place] [id number] [place] [id number]
--- NOTE | ~2017-09-11 | HP ---
PATIENT: ROD MAK MEDICAL RECORD: [id number] ACCOUNT: [id number] LOCATION:D.MS Menendez6 : 47 ADMISSION DATE: 09/11/17 HISTORY AND PHYSICAL EXAMINATION CHIEF COMPLAINT: Drainage. HISTORY: The patient has persistent drainage through a midline scar. She has to change a gauze dressing daily because of the drainage. The patient reported that recent culture was positive for E. coli. We are going to obtain a CT scan to get an idea of whether this represents a sinus tract or a fistula. Symptoms have been longstanding. She describes her pain as 7/10. Palpation aggravates. Nothing alleviates. I am going to plan for some type of debridement tomorrow and likely packing the wound perhaps with silver rope. PAST MEDICAL AND SURGICAL HISTORY: Numerous abdominal operations. The patient has had a history of septic shock in the past as well as numerous intraabdominal abscesses. She had an open abdomen for weeks at one time. She had number of gastrointestinal fistulas. ALLERGIES: No known drug allergies. HOME MEDICINES: Amlodipine, hydrocodone, biotin with keratin, multivitamin patch, [place]-3 as well as Lomotil. REVIEW OF SYSTEMS: No night sweats. Positive for weight loss. No anorexia. No hemoptysis. She states she has had subjective fever. SOCIAL HISTORY: Nonsmoker. FAMILY HISTORY: Please see the chart. PHYSICAL EXAMINATION: GENERAL: The patient does not appear acutely ill. She does not appear chronically ill. VITAL SIGNS: Reviewed. HEAD: External ears appear normal. EYES: Extraocular movements are intact. NECK: Trachea is midline. CHEST: No intercostal retractions. PULMONARY: Nonlabored. No stridor. ABDOMEN: As described above. No peritonitis. EXTREMITIES: No peripheral cyanosis. INTEGUMENT: Midline abdominal rash. PSYCHIATRIC: Normal affect. NEUROLOGIC: Nonfocal. No lethargy. The patient answers questions appropriately. Moves all extremities well. BACK: No thoracic kyphosis. IMPRESSION: Draining abdominal wound. PLAN: Consult Dr. Lora. CT scan. Debridement in the OR tomorrow. HISTORY AND PHYSICAL [id number] ROD MAK TRANSINT:[id number] Voice Confirmation ID: [id number] DOCUMENT ID: [id number] EPHRAIM JUSTICE MD at 1728 CC: MEEK SORIA DO and Michael LORA [id number] DICTATION DATE: 09/11/17 1705 WAITANGI TRIBUNAL MEMBER: 09/11/17 1814 ADM IN [facility] [address] [place] [id number]
[2017-09-11 17:17] LABS: ALBUMIN 3.7 g/dL (3.4-5.0); ANION GAP 12.1 mmol/L (8-16); BILIRUBIN - TOTAL 0.44 mg/dL (0.2-1.3); CALCIUM 8.8 mg/dL (8.5-10.1); CARBON DIOXIDE 28.7 mmol/L (21.0-32.0); POTASSIUM - SERUM 3.8 mmol/L (3.5-5.1); PROTEIN - SERUM 7.5 g/dL (6.4-8.2)
[2017-09-11 17:18] LABS: BASOPHILS 0.3 % (0-2); EOSINOPHILS 2.5 % (0-7); HEMATOCRIT 43.4 % (36.0-48.0); HEMOGLOBIN 14.3 g/dL (12-16); IMMATURE GRANULOCYTES 0.1 % (0-5); LYMPHOCYTES 13.7 % (15-50); MCH 30.6 pg (26.0-34.0); MCHC 32.9 g/dL (31.0-37.0); MCV 92.7 fL (80.0-100.0); MEAN PLATELET VOLUME 12.2 fL (7.4-10.4); MONOCYTES 14.7 % (2-11); NEUTROPHILS 68.7 % (40-80); RBC 4.68 10x6/uL (4.00-5.40); RDW 12.6 % (11.5-14.5); WBC 7.9 10x3/uL (4.8-10.8)
[2017-09-11 17:32] LABS: PLATELET COUNT 152 10x3/uL (130-400)
[2017-09-11 20:00] VITALS: BP 145/54
[2017-09-12] VITALS (7 sets, daily range): BP systolic 139–176; BP diastolic 54–68; BMI 21.0
[2017-09-12] MEDS ORDERED: NORVASC5 MG PO (03:11)
[2017-09-12] MEDS ORDERED: HYDROCODONE-APA1 TAB PO (03:11)
[2017-09-12] MEDS ORDERED: DIPHENOXYLATE/ATROPI (03:14)
[2017-09-12] MEDS ORDERED: LOMOTIL TABLET1 TAB PO (03:35)
[2017-09-12 05:32] LABS: BASOPHILS 0.2 % (0-2); EOSINOPHILS 2.3 % (0-7); HEMATOCRIT 40.9 % (36.0-48.0); HEMOGLOBIN 13.5 g/dL (12-16); IMMATURE GRANULOCYTES 0.2 % (0-5); LYMPHOCYTES 10.9 % (15-50); MCH 30.3 pg (26.0-34.0); MCV 91.9 fL (80.0-100.0); MONOCYTES 12.9 % (2-11); NEUTROPHILS 73.5 % (40-80); PLATELET COUNT 134 10x3/uL (130-400); RBC 4.45 10x6/uL (4.00-5.40); RDW 12.6 % (11.5-14.5); WBC 8.6 10x3/uL (4.8-10.8)
[2017-09-12 06:28] LABS: ALBUMIN 3.4 g/dL (3.4-5.0); ANION GAP 14.4 mmol/L (8-16); BILIRUBIN - TOTAL 0.66 mg/dL (0.2-1.3); CALCIUM 8.5 mg/dL (8.5-10.1); CARBON DIOXIDE 26.3 mmol/L (21.0-32.0); MAGNESIUM - SERUM 1.4 mg/dL (1.8-2.4); PHOSPHOROUS 2.8 mg/dL (2.5-4.9); POTASSIUM - SERUM 3.7 mmol/L (3.5-5.1); PROTEIN - SERUM 6.9 g/dL (6.4-8.2)
[2017-09-13] VITALS (11 sets, daily range): BP systolic 122–177; BP diastolic 55–76; Ht 157.5 cm; Wt 52.2 kg
[2017-09-13 06:53] LABS: BASOPHILS 0.1 % (0-2); EOSINOPHILS 0.4 % (0-7); HEMATOCRIT 42.7 % (36.0-48.0); HEMOGLOBIN 14.5 g/dL (12-16); IMMATURE GRANULOCYTES 0.1 % (0-5); LYMPHOCYTES 4.9 % (15-50); MCH 31.1 pg (26.0-34.0); MCV 91.6 fL (80.0-100.0); MEAN PLATELET VOLUME 12.2 fL (7.4-10.4); MONOCYTES 13.4 % (2-11); NEUTROPHILS 81.1 % (40-80); PLATELET COUNT 150 10x3/uL (130-400); RBC 4.66 10x6/uL (4.00-5.40); RDW 12.6 % (11.5-14.5)
[2017-09-13 07:00] LABS: ANION GAP 11.9 mmol/L (8-16); CALCIUM 8.9 mg/dL (8.5-10.1); CARBON DIOXIDE 27.2 mmol/L (21.0-32.0)
[2017-09-13 07:03] LABS: POTASSIUM - SERUM 3.1 mmol/L (3.5-5.1)
[2017-09-14] VITALS (7 sets, daily range): BP systolic 111–172; BP diastolic 57–68
[2017-09-14 04:32] LABS: BASOPHILS 0.2 % (0-2); EOSINOPHILS 0.8 % (0-7); HEMATOCRIT 35.6 % (36.0-48.0); IMMATURE GRANULOCYTES 0.2 % (0-5); LYMPHOCYTES 7.6 % (15-50); MCH 29.9 pg (26.0-34.0); MCHC 32.3 g/dL (31.0-37.0); MCV 92.7 fL (80.0-100.0); MONOCYTES 16.6 % (2-11); NEUTROPHILS 74.6 % (40-80); PLATELET COUNT 125 10x3/uL (130-400); RBC 3.84 10x6/uL (4.00-5.40); RDW 12.3 % (11.5-14.5); WBC 8.3 10x3/uL (4.8-10.8)
[2017-09-14 04:46] LABS: HEMOGLOBIN 11.5 g/dL (12-16)
[2017-09-14 04:51] LABS: ALBUMIN 2.7 g/dL (3.4-5.0); ANION GAP 14.7 mmol/L (8-16); BILIRUBIN - TOTAL 1.2 mg/dL (0.2-1.3); CARBON DIOXIDE 25.5 mmol/L (21.0-32.0); CREATININE - SERUM 0.9 mg/dL (0.6-1.3); POTASSIUM - SERUM 3.2 mmol/L (3.5-5.1); PROTEIN - SERUM 6.2 g/dL (6.4-8.2)
[2017-09-15] VITALS (11 sets, daily range): BP systolic 138–174; BP diastolic 56–82
[2017-09-15 03:19] LABS: BASOPHILS 0.3 % (0-2); EOSINOPHILS 1.3 % (0-7); HEMATOCRIT 35.1 % (36.0-48.0); HEMOGLOBIN 11.5 g/dL (12-16); IMMATURE GRANULOCYTES 0.3 % (0-5); LYMPHOCYTES 11.3 % (15-50); MCH 30.1 pg (26.0-34.0); MCHC 32.8 g/dL (31.0-37.0); MCV 91.9 fL (80.0-100.0); MEAN PLATELET VOLUME 11.8 fL (7.4-10.4); NEUTROPHILS 68.8 % (40-80); PLATELET COUNT 125 10x3/uL (130-400); RBC 3.82 10x6/uL (4.00-5.40); RDW 12.4 % (11.5-14.5)
[2017-09-15 03:20] LABS: WBC 6.1 10x3/uL (4.8-10.8)
[2017-09-15 03:41] LABS: ALBUMIN 2.7 g/dL (3.4-5.0); BILIRUBIN - TOTAL 1.16 mg/dL (0.2-1.3); CARBON DIOXIDE 26.3 mmol/L (21.0-32.0); CREATININE - SERUM 0.9 mg/dL (0.6-1.3); MAGNESIUM - SERUM 1.6 mg/dL (1.8-2.4); PHOSPHOROUS 2.7 mg/dL (2.5-4.9); PROTEIN - SERUM 5.9 g/dL (6.4-8.2)
[2017-09-15 03:44] LABS: ANION GAP 15.5 mmol/L (8-16); POTASSIUM - SERUM 3.8 mmol/L (3.5-5.1)
[2017-09-15 11:40] LABS: APTT 30.8 SECONDS (22.8-39.4); INR 1.06 (0.85-1.17); PROTIME 13.4 SECONDS (11.6-15.0)
[2017-09-15 12:02] LABS: CALC OSMOLALITY 277 mosm/kg (275-300); CALCIUM 8.1 mg/dL (8.5-10.1); CARBON DIOXIDE 27.3 mmol/L (21.0-32.0); CHLORIDE - SERUM 106 mmol/L (98-107); CREATININE - SERUM 0.7 mg/dL (0.6-1.3); GLUCOSE 103 mg/dL (74-106); POTASSIUM - SERUM 3.4 mmol/L (3.5-5.1); SODIUM 141 mmol/L (136-145); eGFR NON AFRICAN AMERICAN 87 mL/min (90-120)
[2017-09-15 12:04] LABS: UREA NITROGEN 5 mg/dL (7-18)
[2017-09-16] VITALS: BP 155/61
[2017-09-16 04:00] VITALS: BP 158/59
[2017-09-16 05:08] LABS: BASOPHILS 0.3 % (0-2); EOSINOPHILS 2.7 % (0-7); HEMATOCRIT 31.6 % (36.0-48.0); HEMOGLOBIN 10.4 g/dL (12-16); IMMATURE GRANULOCYTES 0.2 % (0-5); LYMPHOCYTES 11.3 % (15-50); MCH 30.1 pg (26.0-34.0); MCHC 32.9 g/dL (31.0-37.0); MCV 91.3 fL (80.0-100.0); NEUTROPHILS 64.5 % (40-80); RBC 3.46 10x6/uL (4.00-5.40); RDW 12.6 % (11.5-14.5); WBC 6.2 10x3/uL (4.8-10.8)
[2017-09-16 05:11] LABS: PLATELET COUNT 155 10x3/uL (130-400)
[2017-09-16 05:30] LABS: ALBUMIN 2.4 g/dL (3.4-5.0); ALKALINE PHOSPHATASE 157 U/L (46-116); BILIRUBIN - TOTAL 0.72 mg/dL (0.2-1.3); CARBON DIOXIDE 27.5 mmol/L (21.0-32.0); CHLORIDE - SERUM 105 mmol/L (98-107); CREATININE - SERUM 0.8 mg/dL (0.6-1.3); GLUCOSE 92 mg/dL (74-106); POTASSIUM - SERUM 3.3 mmol/L (3.5-5.1); SODIUM 141 mmol/L (136-145); eGFR NON AFRICAN AMERICAN 75 mL/min (90-120)
[2017-09-16 05:31] LABS: ALT (SGPT) 44 U/L (10-68); CALC OSMOLALITY 278 mosm/kg (275-300); UREA NITROGEN 8 mg/dL (7-18)
[2017-09-16 08:00] VITALS: BP 178/60
[2017-09-16 11:59] VITALS: BP 152/64
[2017-09-16 16:16] VITALS: BP 161/64
[2017-09-16 18:07] LABS: AEROBE ID Final report (())
[2017-09-17 01:31] VITALS: BP 147/55
[2017-09-17 05:48] LABS: BASOPHILS 0.7 % (0-2); EOSINOPHILS 5.1 % (0-7); HEMATOCRIT 33.2 % (36.0-48.0); HEMOGLOBIN 10.8 g/dL (12-16); IMMATURE GRANULOCYTES 0.2 % (0-5); LYMPHOCYTES 11.4 % (15-50); MCH 29.7 pg (26.0-34.0); MCHC 32.5 g/dL (31.0-37.0); MCV 91.2 fL (80.0-100.0); MEAN PLATELET VOLUME 11.4 fL (7.4-10.4); MONOCYTES 19.4 % (2-11); NEUTROPHILS 63.2 % (40-80); PLATELET COUNT 189 10x3/uL (130-400); RBC 3.64 10x6/uL (4.00-5.40); RDW 12.5 % (11.5-14.5)
[2017-09-17 05:58] LABS: ALBUMIN 2.3 g/dL (3.4-5.0); ANION GAP 13.1 mmol/L (8-16); BILIRUBIN - TOTAL 0.6 mg/dL (0.2-1.3); CALCIUM 8.3 mg/dL (8.5-10.1); CARBON DIOXIDE 25.9 mmol/L (21.0-32.0); PROTEIN - SERUM 6.2 g/dL (6.4-8.2)
[2017-09-17 08:27] VITALS: BP 118/55
[2017-09-17 11:54] VITALS: BP 148/60
[2017-09-17 13:36] LABS: POTASSIUM - SERUM 3.1 mmol/L (3.5-5.1)
[2017-09-17 16:34] VITALS: BP 138/60
[2017-09-17 20:00] VITALS: BP 185/68
[2017-09-18 04:00] VITALS: BP 153/76
[2017-09-18 05:19] LABS: BASOPHILS 0.6 % (0-2); EOSINOPHILS 7.3 % (0-7); HEMATOCRIT 31.5 % (36.0-48.0); HEMOGLOBIN 10.2 g/dL (12-16); IMMATURE GRANULOCYTES 0.2 % (0-5); LYMPHOCYTES 14.8 % (15-50); MCH 29.7 pg (26.0-34.0); MCHC 32.4 g/dL (31.0-37.0); MCV 91.8 fL (80.0-100.0); MEAN PLATELET VOLUME 10.9 fL (7.4-10.4); NEUTROPHILS 58.1 % (40-80); PLATELET COUNT 186 10x3/uL (130-400); RBC 3.43 10x6/uL (4.00-5.40); WBC 4.9 10x3/uL (4.8-10.8)
[2017-09-18 05:44] LABS: ANION GAP 12.2 mmol/L (8-16); CALCIUM 8.5 mg/dL (8.5-10.1); CARBON DIOXIDE 26.3 mmol/L (21.0-32.0); CREATININE - SERUM 1.1 mg/dL (0.6-1.3); MAGNESIUM - SERUM 1.7 mg/dL (1.8-2.4); PHOSPHOROUS 3.8 mg/dL (2.5-4.9); POTASSIUM - SERUM 3.5 mmol/L (3.5-5.1)
[2017-09-18 08:06] VITALS: BP 143/51
[2017-09-18 12:00] VITALS: BP 134/52
[2017-09-18 15:10] VITALS: BP 152/46
[2017-09-18 20:47] VITALS: BP 140/52
[2017-09-18 23:56] VITALS: BP 158/51
[2017-09-19 04:35] VITALS: BP 172/71
[2017-09-19 04:41] LABS: BASOPHILS 0.6 % (0-2); HEMATOCRIT 32.1 % (36.0-48.0); HEMOGLOBIN 10.7 g/dL (12-16); IMMATURE GRANULOCYTES 0.3 % (0-5); LYMPHOCYTES 14.2 % (15-50); MCH 30.7 pg (26.0-34.0); MCHC 33.3 g/dL (31.0-37.0); MONOCYTES 13.8 % (2-11); NEUTROPHILS 64.1 % (40-80); PLATELET COUNT 216 10x3/uL (130-400); RBC 3.49 10x6/uL (4.00-5.40); RDW 12.9 % (11.5-14.5); WBC 6.3 10x3/uL (4.8-10.8)
[2017-09-19 05:06] LABS: ALBUMIN 2.4 g/dL (3.4-5.0); ANION GAP 14.4 mmol/L (8-16); BILIRUBIN - TOTAL 0.44 mg/dL (0.2-1.3); CALCIUM 8.4 mg/dL (8.5-10.1); CARBON DIOXIDE 24.1 mmol/L (21.0-32.0); CREATININE - SERUM 1.1 mg/dL (0.6-1.3); MAGNESIUM - SERUM 1.9 mg/dL (1.8-2.4); PHOSPHOROUS 3.8 mg/dL (2.5-4.9); POTASSIUM - SERUM 3.5 mmol/L (3.5-5.1); PROTEIN - SERUM 6.3 g/dL (6.4-8.2)
[2017-09-19 09:19] VITALS: BP 143/56
[2017-09-19 13:07] VITALS: BP 141/56
[2017-09-19] MEDS ORDERED: VALTREX500 MG PO (16:14)
[2017-09-19 17:18] VITALS: BP 112/76
== END 2017-09-19 17:43 | disposition home health service (06) | DRG 856 ==
LOC: D.ER 13:19 → D.MS 17:37 → D.EDHOLD 17:37 → D.M2 17:37 → D.MS 20:36
PROVIDERS: Family Medicine; General Practice; Physician Assistant Medical; Student in an Organized Health Care Education/Training Program; Surgery
PROC: 0JB80ZZ Excision of Abdomen Subcutaneous Tissue and Fascia, Open Approach (ICD-10-PCS; 2017-09-13)
PROC: 02HV33Z Insertion of Infusion Device into Superior Vena Cava, Percutaneous Approach (ICD-10-PCS; 2017-09-15)
PROC: B5181ZA Fluoroscopy of Superior Vena Cava using Low Osmolar Contrast, Guidance (ICD-10-PCS; 2017-09-15)
PROC: 0BDL4ZX Extraction of Left Lung, Percutaneous Endoscopic Approach, Diagnostic (ICD-10-PCS; principal; 2017-09-15 10:30)
DX: T81.4XXA Infection following a procedure, initial encounter (principal); J85.1 Abscess of lung with pneumonia; K91.89 Other postprocedural complications and disorders of digestive system; T81.83XA Persistent postprocedural fistula, initial encounter; E46 Unspecified protein-calorie malnutrition; Y83.8 Other surgical procedures as the cause of abnormal reaction of the patient, or of later complication, without mention of misadventure at the time of the procedure; I10 Essential (primary) hypertension; F41.8 Other specified anxiety disorders; J44.9 Chronic obstructive pulmonary disease, unspecified; D64.9 Anemia, unspecified; E87.6 Hypokalemia; E78.5 Hyperlipidemia, unspecified; R21 Rash and other nonspecific skin eruption; B00.9 Herpesviral infection, unspecified; E83.42 Hypomagnesemia; N64.1 Fat necrosis of breast; B96.20 Unspecified Escherichia coli [E. coli] as the cause of diseases classified elsewhere; K21.9 Gastro-esophageal reflux disease without esophagitis; Z85.3 Personal history of malignant neoplasm of breast; Z85.118 Personal history of other malignant neoplasm of bronchus and lung; B96.89 Other specified bacterial agents as the cause of diseases classified elsewhere

== ENCOUNTER 2017-11-16 08:28 | Outpatient (CLI) | payer MEDICARE, BC ==
[~2017-11-16] VITALS: Ht 157.5 cm; Wt 50.0 kg
[~2017-11-16 08:28] MED LIST changes: +DIPHENOXYLATE/ATROPI; +HYDROCODONE-APA1 TAB PO; +LOMOTIL TABLET1 TAB PO; +VALTREX500 MG PO
[2017-11-16 08:46] LABS: BASOPHILS 0.8 % (0-2); EOSINOPHILS 4.4 % (0-7); HEMOGLOBIN 14.2 g/dL (12-16); LYMPHOCYTES 35.8 % (15-50); MCH 30.1 pg (26.0-34.0); MCHC 33.8 g/dL (31.0-37.0); MCV 89.2 fL (80.0-100.0); MEAN PLATELET VOLUME 10.9 fL (7.4-10.4); PLATELET COUNT 184 10x3/uL (130-400); RBC 4.71 10x6/uL (4.00-5.40); RDW 12.7 % (11.5-14.5)
[2017-11-16 09:02] LABS: ANION GAP 13.8 mmol/L (8-16); CALCIUM 9.6 mg/dL (8.5-10.1); CARBON DIOXIDE 25.5 mmol/L (21.0-32.0); CREATININE - SERUM 1.2 mg/dL (0.6-1.3); POTASSIUM - SERUM 4.3 mmol/L (3.5-5.1)
[2017-11-16 09:09] LABS: INR 0.94 (0.85-1.17); PROTIME 12.1 SECONDS (11.6-15.0)
[2017-11-16 09:51] VITALS: BP 147/57; Ht 157.5 cm; Wt 50.0 kg
== END 2017-11-16 15:02 | disposition home or self-care (01) ==
LOC: D.SP 08:28 → D.CT 11:00 → D.SP 15:02
PROVIDERS: Radiology Vascular & Interventional Radiology
DX: R91.8 Other nonspecific abnormal finding of lung field (principal); I10 Essential (primary) hypertension; F17.200 Nicotine dependence, unspecified, uncomplicated; Z01.812 Encounter for preprocedural laboratory examination

== ENCOUNTER → 2018-01-09 13:30 | Outpatient (CLI) | payer MEDICARE, BC ==
[2017-11-16 09:51] VITALS: BMI 20.1
== END | disposition home or self-care (01) ==
LOC: D.LABREF 13:30
DX: S31.109D Unspecified open wound of abdominal wall, unspecified quadrant without penetration into peritoneal cavity, subsequent encounter (principal); X58.XXXA Exposure to other specified factors, initial encounter

== ENCOUNTER 2018-06-27 08:32 | Day surgery (SDC) | payer MEDICARE, BC ==
[~2018-06-27] VITALS: Ht 157.5 cm; Wt 52.2 kg
[~2018-06-27 08:32] MED LIST changes: +ALBUTEROL SULF8.5 GM INH; +DESERYL50 M2 PO
[2018-06-27 09:15] VITALS: BP 110/57; Ht 157.5 cm; Wt 52.2 kg
[2018-06-27 09:53] LABS: BASOPHILS 0.5 % (0-2); EOSINOPHILS 2.8 % (0-7); HEMATOCRIT 42.9 % (36.0-48.0); HEMOGLOBIN 14.6 g/dL (12-16); IMMATURE GRANULOCYTES 0.2 % (0-5); LYMPHOCYTES 16.1 % (15-50); MCH 30.1 pg (26.0-34.0); MCV 88.5 fL (80.0-100.0); MEAN PLATELET VOLUME 10.9 fL (7.4-10.4); MONOCYTES 10.9 % (2-11); NEUTROPHILS 69.5 % (40-80); PLATELET COUNT 203 10x3/uL (130-400); RBC 4.85 10x6/uL (4.00-5.40); RDW 12.9 % (11.5-14.5); WBC 6.1 10x3/uL (4.8-10.8)
[2018-06-27 10:16] LABS: ANION GAP 14.5 mmol/L (8-16); CALCIUM 9.3 mg/dL (8.5-10.1); CARBON DIOXIDE 26.8 mmol/L (21.0-32.0); CREATININE - SERUM 1.3 mg/dL (0.6-1.3); POTASSIUM - SERUM 3.3 mmol/L (3.5-5.1)
[2018-06-27 10:17] LABS: APTT 27.1 SECONDS (22.8-39.4); INR 1.06 (0.85-1.17); PROTIME 13.3 SECONDS (11.6-15.0)
--- NOTE | 2018-06-27 17:38 | NUR ---
DC INSTRUCTIONS GIVEN TO PT/FAMILY. STATE UNDERSTANDING. DC'D IV CATH FULLY INTACT. PT LEFT UNIT VIA WC AT 5638
--- NOTE | 2018-06-29 18:02 | OP ---
PATIENT NAME: ROD MAK MEDICAL RECORD: [id number] :46 LOCATION:[facility] ADMISSION DATE: SURGEON: EPHRAIM JUSTICE MD DATE OF OPERATION: 06/27/2018 PREOPERATIVE DIAGNOSIS: Persistent drainage from an abdominal wall sinus, rule out enterocutaneous fistula. POSTOPERATIVE DIAGNOSIS: Persistent drainage from an abdominal wall sinus, rule out enterocutaneous fistula, with no definite evidence of enterocutaneous fistula. PROCEDURES: 1. Total colonoscopy. 2. Sinogram under fluoroscopy with immediate surgeon interpretation. 3. Cautery of bleeding areas with the argon plasma size roller operator. 4. Placement of 2 endoscopic clips for hemostasis. No radiologist was present for this procedure. Static fluoroscopic images were obtained and these are kept in the PACS system. The surgeon interpretation of the radiographic images is dictated within the body of this operative note. The risks, possible complications, and alternatives to the procedure were explained to the patient. She elects to proceed. The discussion specifically included, but was not limited to, bleeding requiring emergency reoperation; infection; intestinal damage; and creation of colocutaneous and enterocutaneous fistula. The patient has had a persistent drainage from a midline wound that has not responded to antibiotic therapy as well as to treatment utilizing several different compounds that have been packed into the sinus, which appears to travel underneath the incision in a caudad direction. My hope is that internally we could identify perhaps an enterocutaneous or colocutaneous fistula that could be treated endoscopically. OPERATIVE COURSE: The patient was conveyed to the operating room electively on 06/27/2018. General anesthesia was induced by the anesthesia staff. The patient was placed in the Bunn position. A digital rectal examination was performed. A colonoscope was inserted through the anus. It was easily advanced past the ileocolonic or ileorectal anastomosis. I identified what appeared to be at least one and perhaps two anastomoses. I then, under fluoroscopy, injected Gastrografin down through the sinus. The Gastrografin did not appear to connect to a portion of large or small bowel nor was there any large abscess cavity that I identified. With the colonoscope still in place, I injected methylene blue down through the sinus. I was unable to identify any spillage of methylene blue into the lumen of the large or small bowel. I then advanced a 0.035 Glidewire down the sinus, and utilizing a torque device, I tried to get this Glidewire to perhaps go through a very small opening that would travel into the large or small bowel. This was not fruitful either. I continued to explore the anastomoses. There was one area where there was a small opening to a blind loop of small bowel. Upon entering this loop of small bowel, I identified 2 punctate areas of bleeding and what appeared to be blue dye. The blue dye appeared to be on the OPERATIVE REPORT [id number] ROD MAK other side of the wall of the small bowel and the bleeding, I was not sure whether it was coming from inside the small bowel or from perhaps trauma from outside the small bowel. I think what probably happened is that this area, which was actually caudad to the midline opening, was exposed to the blue dye and I was actually seeing staining of the blue dye on the serosal surface of the small bowel. With regards to the two areas of bleeding, perhaps this is where there was some external trauma from the Glidewire. Anyhow, I took the argon plasma size roller operator with the esophageal setting in the forced mode and cauterized these two areas for hemostasis. I believe that the small bowel was very thin in this area, and for that reason, for additional hemostasis, two endoscopic clips were applied. There was no evidence of a full-thickness injury to the small bowel. I then slowly withdrew the endoscope. It was withdrawn under direct vision. I then went and injected BioGlue down through the sinus tract in order to hopefully help seal it from the outside. I will see the patient in my office in one to two weeks. I am going to dismiss her home with an antibiotic. She already has significant analgesia at home. TRANSINT:[id number] Voice Confirmation ID: [id number] DOCUMENT ID: [id number] EPHRAIM JUSTICE MD at 1802 CC: [id number] DICTATION DATE: 06/28/18 1409 STENCIL TYPIST: 06/28/18 1811 [facility] 06/27/18 [id number] [place] [address]
== END 2018-06-27 17:39 | disposition home or self-care (01) ==
LOC: D.OPS 08:32 → D.PAN 11:00 → D.OPS 11:00
PROVIDERS: Anesthesiology
DX: T81.83XA Persistent postprocedural fistula, initial encounter (principal); K91.61 Intraoperative hemorrhage and hematoma of a digestive system organ or structure complicating a digestive system procedure; Y65.8 Other specified misadventures during surgical and medical care; Z01.812 Encounter for preprocedural laboratory examination

== ENCOUNTER → 2018-07-11 09:01 | Outpatient (CLI) | payer MEDICARE, BC ==
[2018-06-27 09:15] VITALS: BMI 21.0
== END | disposition home or self-care (01) ==
LOC: D.CT 06-27 14:30
DX: R91.8 Other nonspecific abnormal finding of lung field (principal)

== ENCOUNTER 2018-10-03 06:15 | Day surgery (SDC) | payer MEDICARE, BC ==
[~2018-10-03] VITALS: Ht 157.5 cm; Wt 49.9 kg
[2018-10-03 06:58] LABS: APTT 25.7 SECONDS (22.8-39.4); BASOPHILS 0.5 % (0-2); EOSINOPHILS 4.1 % (0-7); HEMATOCRIT 43.2 % (36.0-48.0); HEMOGLOBIN 14.6 g/dL (12-16); IMMATURE GRANULOCYTES 0.2 % (0-5); INR 0.92 (0.85-1.17); MCH 29.6 pg (26.0-34.0); MCHC 33.8 g/dL (31.0-37.0); MCV 87.4 fL (80.0-100.0); MONOCYTES 10.2 % (2-11); PLATELET COUNT 205 10x3/uL (130-400); PROTIME 11.9 SECONDS (11.6-15.0); RBC 4.94 10x6/uL (4.00-5.40); RDW 13.2 % (11.5-14.5); WBC 5.9 10x3/uL (4.8-10.8)
[2018-10-03 07:47] VITALS: BP 162/71; Ht 157.5 cm; Wt 49.9 kg
--- NOTE | 2018-10-03 10:34 | NUR ---
PT STATES THAT "7" IS HER BASELINE LEVEL OF PAIN, ON A DAILY BASIS
--- NOTE | 2018-10-03 12:07 | NUR ---
1205 DC INSTS GIVEN VOICED UNDERSTANDING RELEASED IN WC WITH ESCORT.
--- NOTE | 2018-10-03 17:10 | OP ---
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 PROCEDURE: Application of acellular xenograft for soft tissue reinforcement, 67 square-cm. The length of the sinus tract is 2.4 cm and from the opening it travels in a caudad direction in the midline. SURGEON: Troy Justice MD TECHNOLOGY RISK INTERN: None. BLOOD LOSS: Minimal. ANESTHESIA: General. COMPLICATIONS: None. The risks, possible complications, and alternatives to the procedure were explained to the patient. She elects to proceed. OPERATIVE COURSE: The patient was conveyed to the operating room electively on 10/03/2018. General anesthesia was induced by the anesthesia staff. The abdomen was sterilely prepped and draped. I then performed some curettage within the sinus tract curetting away granulation tissue. I then took the powdered form of the acellular matrix, which is called ACell and packed it down into the sinus tract. We then took the sheet of the acellular xenograft and placed this on top of the opening. Adaptic as well as a water soluble lubricant and then a sterile dressing were applied. The patient was then extubated and conveyed to post-anesthesia care unit where she was in stable condition. She will be dismissed home on and I will see her in the office in 2 weeks. She is not to change the dressing for 2 weeks. TRANSINT:[id number] Voice Confirmation ID: [id number] DOCUMENT ID: [id number] TROY JUSTICE MD at 1710 CC: MEEK SORIA DO [id number] DICTATION DATE: 10/03/18 0958 PIPE FITTER SOFT COPPER: 10/03/18 1249 [facility] 10/03/18 [facility] [address] [place] [address]
== END 2018-10-03 12:05 | disposition home or self-care (01) ==
LOC: D.OPS 06:15 → D.PAN 12:20 → D.OPS 12:20
PROVIDERS: Anesthesiology; ATTEND Surgery
DX: S31.109A Unspecified open wound of abdominal wall, unspecified quadrant without penetration into peritoneal cavity, initial encounter (principal)
CPT/HCPCS: C5271; 15002

== ENCOUNTER 2018-12-25 08:07 | Day surgery (SDC) | payer MEDICARE, BC ==
[~2018-12-25] VITALS: Ht 157.5 cm; Wt 49.9 kg
[2018-12-25] MEDS ORDERED: VALTREX500 MG PO (10:35)
[2018-12-25 10:58] VITALS: BP 141/59; Ht 157.5 cm; Wt 49.9 kg
[2018-12-25 11:03] LABS: HEMATOCRIT 42.4 % (36.0-48.0); HEMOGLOBIN 14.6 g/dL (12-16); MCH 30.2 pg (26.0-34.0); MCHC 34.4 g/dL (31.0-37.0); MCV 87.6 fL (80.0-100.0); MEAN PLATELET VOLUME 10.9 fL (7.4-10.4); RBC 4.84 10x6/uL (4.00-5.40); RDW 13.5 % (11.5-14.5); WBC 6.5 10x3/uL (4.8-10.8)
--- NOTE | 2019-01-14 12:52 | OP ---
PATIENT NAME: ROD MAK MEDICAL RECORD: [id number] :47 LOCATION:D[facility] ADMISSION DATE: SURGEON: TROY JUSTICE MD DATE OF OPERATION: 12/25/2018 PRINCIPAL DIAGNOSIS: Nonhealing abdominal wall subcutaneous sinus. POSTOPERATIVE DIAGNOSIS: Nonhealing abdominal wall subcutaneous sinus. PROCEDURE: Excisional debridement of abdominal wall subcutaneous sinus, chronic with placement of a nanofiber synthetic matrix (Restrata) meshed at 1-3. The Restrata was 2.5 x 2.5 cm prior to meshing. SURGEON: Troy Justice MD DESKTOP OPERATOR: None. BLOOD LOSS: Minimal. ANESTHESIA: General. COMPLICATIONS: None. The risks, possible complications, and alternatives to the procedure were explained to the patient. She elects to proceed. OPERATIVE COURSE: The patient was conveyed to the operating room electively on 12/25/2018. General anesthesia was induced by the anesthesia staff. The abdomen was sterilely prepped and draped. Utilizing a curette, I curetted out the subcutaneous sinus. This was to prepare the wound bed for placement of the Restrata. The length of the sinus is 2.8 cm. After thoroughly curetting out the sinus, I then took the 2.5 x 2.5 cm Restrata and meshed it 1-3 with a split thickness skin graft mesher and rolled up, placed it in the subcutaneous sinus and then sutured the opening of the sinus together with a 3-0 Vicryl in order to prevent the mesh from coming out. A sterile dressing was applied. The patient was then extubated and conveyed to the post-anesthesia care unit where she was in stable condition. TRANSINT:[id number] Voice Confirmation ID: [id number] DOCUMENT ID: [id number] TROY JUSTICE MD at 1252 CC: [id number] DICTATION DATE: 01/14/19 1029 PRINCIPAL SOFTWARE ARCHITECT: 01/14/19 1116 [facility] 12/25/[address] [address]
== END 2018-12-25 15:45 | disposition home or self-care (01) ==
LOC: D.OPS 08:07 → D.PAN 09:30 → D.OPS 10:30
PROVIDERS: Anesthesiology; ATTEND Surgery
DX: L98.8 Other specified disorders of the skin and subcutaneous tissue (principal)

== ENCOUNTER 2020-08-25 08:38 | Day surgery (SDC) | payer MEDICARE, BC ==
[~2020-08-25] VITALS: Ht 157.5 cm; Wt 48.2 kg
--- NOTE | ~2020-08-25 | HEMODYNAMI ---
PATIENT:ROD MAK MEDICAL RECORD: [id number] : 47 LOCATION:[facility] ADMISSION DATE: 08/25/20 Generatedon:111:54 Patient name: ROD MAK Patient #: [id number] SSN: DO B: 1945 Date of study: 08/25/2020 Page: Of Hemodynamic Procedure Report Patient Data Patient Demographics Procedure consent was obtained First Name: ROD Gender: Female Last Name: OBDULIO : 1945 [facility] Initial: HAMIDA Age: 75 year(s) Patient #: [id number] Race: Additional ID: [id number] Contact details Address: [facility] [address] State: [place] City: [place] Zip code: [address] Past Medical History Allergies Allergen Reaction Date Comments Reported Other allergy 05/19/2015 HYDROCODONE Other allergy 08/25/2020 formerly [facility] Admission Admission Data Admission Date: 08/25/2020 Admission Time: 8:38 Height (in.): 62 BSA: 1.46 (m2) Height (cm.): 157.48 BMI: 19.39 (kg/m2) Weight (lbs.): 106 Weight (kg.): 48.08 Procedure Procedure Types Cath Procedure Peripheral Cath Diagnostic Procedure Miscellaneous Fistula Sinus Tract Procedure Description Procedure Date Procedure Date: 08/25/2020 Procedure Start Time: 11:41 Procedure Staff Name Function Elmo Walton MD Performing Physician Nohemi Salinas RT Oem Sales Manager Alivia Chávez RN Nurse Padmini Borja RN Nurse Kris Banegas RT Scrub Procedure Data Cath Procedure Fluoroscopy Diagnostic fluoroscopy Total fluoroscopy Time: 0.8 time: 0.8 min min Diagnostic fluoroscopy Total fluoroscopy dose: 12 dose: 12 mGy mGy Contrast Material Contrast Material Type Amount (ml) Isovue 300 6 Diagnostic catheters Device Type Used For End Catheter Placement Merit Impress KA 2 5Fr 40CM catheter ([id number]) Hemodynamics Rest BSA: 1.46 (m2) O2 Consumption: Estimated: 198.56 (ml/min) O2 Consumption indexed : Estimated:136 (ml/min/m) Pre Cath Intra NCS Post Cath Procedure Log Time Note 11:20:44 Patient Height : 62 inches 11:20:50 Patient Weight : 106 lbs 11:31:09 Time tracking: Regular hours (M-F 7:00 - 5:00) 11:31:32 Signed procedure consent form obtained from patient. 11:31:56 Patient allergic to Other allergynaltrexone 11:32:24 Is the patient allergic to Iodine/contrast media? No. 11:32:35 Is patient on blood thinner?No 11:32:39 - 11:33:21 Right abdomen area was prepped with chlora-prep and draped in sterile fashion 11:40:47 Physician arrived 11:40:48 --------ALL STOP TIME OUT------ 11:40:49 Final Timeout: patient, procedure, and site verified with staff and physician. All members of the team are in agreement. 11:41:16 Procedure started. 11:41:16 Full Disclosure recording started 11:45:05 A LookFlow KA 2 5Fr 40CM catheter ([id number]) was advanced over the wire and used for . 11:50:34 6 cc's isovue 300 injected into the sinus tract 11:50:40 Procedure ended.(Physican Out) 11:51:09 Fluoroscopy time 00.80 minutes. 11:51:13 Flurop Dose total: 12 11:51:13 Fluoroscopy dose: 12 mGy 11:51:17 Contrast amount:Isovue 300 6ml. 11:51:19 Procedure and supply charges have been captured, reviewed, submitted an d are correct. 11:53:34 Report given to Outpatients. Device Usage Item Name Manufacture Quantity Catalog Hospital Part Current Minimal Lot # / Number Charge Number Stock Stock Serial# Code Gian Springer 1 [id number] [employer] 2 5Fr 40CM catheter ([id number]) Signature Audit [place] Stage Time Signature Unsigned Intra-Procedure 08/25/2020 Nohemi Salinas 11:53:59 AM RT(R) [facility] [address] [place] [address]
[~2020-08-25 08:38] MED LIST changes: +ZOVIRAX200 MG PO
[2020-08-25 09:15] LABS: BASOPHILS 0.8 % (0-2); EOSINOPHILS 5.6 % (0-7); HEMATOCRIT 44.1 % (36.0-48.0); HEMOGLOBIN 14.7 g/dL (12-16); IMMATURE GRANULOCYTES 0.1 % (0-5); LYMPHOCYTE ABS# 1.67 10x3/uL (1.18-3.74); LYMPHOCYTES 21.4 % (15-50); MCH 30.7 pg (26.0-34.0); MCHC 33.3 g/dL (31.0-37.0); MCV 92.1 fL (80.0-100.0); MEAN PLATELET VOLUME 10.4 fL (7.4-10.4); MONOCYTES 8.7 % (2-11); NEUTROPHIL ABS# 4.96 10x3/uL (1.56-6.13); NEUTROPHILS 63.4 % (40-80); PLATELET COUNT 220 10x3/uL (130-400); RBC 4.79 10x6/uL (4.00-5.40); WBC 7.8 10x3/uL (4.8-10.8)
[2020-08-25 09:19] LABS: ALBUMIN 4.2 g/dL (3.4-5.0); ANION GAP 11.5 mmol/L (8-16); BILIRUBIN - TOTAL 0.37 mg/dL (0.2-1.3); CALCIUM 9.3 mg/dL (8.5-10.1); CARBON DIOXIDE 27.2 mmol/L (21.0-32.0); CREATININE - SERUM 1.1 mg/dL (0.6-1.3); POTASSIUM - SERUM 3.7 mmol/L (3.5-5.1); PROTEIN - SERUM 7.5 g/dL (6.4-8.2)
[2020-08-25 09:36] VITALS: BP 139/58; Ht 157.5 cm; Wt 48.2 kg
[2020-08-25 09:48] LABS: APTT 28.2 SECONDS (22.8-39.4); INR 1.07 (0.85-1.17); PROTIME 12.8 SECONDS (11.6-15.0)
--- NOTE | 2020-08-25 15:33 | NUR ---
DR. JUSTICE SPEAKING W/ PT CURRENTLY. WILL DC SHORTLY.
--- NOTE | 2020-08-25 15:56 | NUR ---
DC INSTRUCTIONS GIVEN TO PT/FRIEND. STATES UNDERSTANDING. DC'D IV CATH FULLY INTACT. WILL DC FROM UNIT SHORTLY.
--- NOTE | 2020-08-25 15:56 | NUR ---
DR. JUSTICE SAID TO DC PT WHEN CRITERIA MET. WILL DC SHORTLY.
--- NOTE | 2020-08-25 16:17 | NUR ---
PT LEFT UNIT VIA WC AT 1604
== END 2020-08-25 16:04 | disposition home or self-care (01) ==
LOC: D.SP 08:38 → EDSTATUS 11:00 → D.CT 11:00 → D.SP 16:04
PROVIDERS: Anesthesiology; ATTEND Nurse Practitioner
DX: K63.2 Fistula of intestine (principal); S31.109A Unspecified open wound of abdominal wall, unspecified quadrant without penetration into peritoneal cavity, initial encounter; K62.5 Hemorrhage of anus and rectum; K52.9 Noninfective gastroenteritis and colitis, unspecified; R10.9 Unspecified abdominal pain